=== PATIENT | male | born 1955 | race Caucasian/White ===

== ENCOUNTER → 2018-01-05 11:59 | Outpatient (CLI) | payer BC, SELFPAY ==
[2018-01-05 17:04] LABS: Protein, Urine (Random) 102.4 mg/dL (<11.9); Protein:Creat Ratio 2775 mg/g CRE (0-200)
[2018-01-10 16:09] LABS: PROELU- Alpha-1-Globulin,Ur 5.4 % (.); PROELU- Alpha-2-Globulin,Ur 4.7 % (.); PROELU- Gamma Globulin, Ur 9.9 % (.); Total Protein, Ur 105.9 mg/dL (Not Estab.)
== END ==
PROVIDERS: Visit Provider Internal Medicine Nephrology
DX: R80.9 Proteinuria, unspecified (principal)
CPT/HCPCS: 82570; 84156; 84166

== ENCOUNTER → 2018-03-09 09:37 | Outpatient (CLI) | payer BC, SELFPAY ==
[2018-03-09 12:49] LABS: Hematocrit 36.6 % (40-54); Hemoglobin 12.3 g/dl (13.0-16.5); Mean Corp Hgb Conc 33.6 g/gl (32-36); Mean Corpuscular Hgb 32.7 pg (27.0-32.0); Mean Corpuscular Volume 97.3 fL (80-94); Mean Platelet Vol. 10.3 fl (6.2-12.0); Platelet Count 230 K/mm3 (150-450); RBC Distribution Width CV 14.5 % (11.6-14.6); RBC Distribution Width SD 48.9 fl (35.1-43.9); Red Blood Count 3.76 M/mm3 (4.6-6.2); Scan Indicated on CBC? Y/N NO; White Blood Count 6.1 K/mm3 (4.4-11.0)
[2018-03-09 12:52] LABS: Protein, Urine (Random) 20.8 mg/dL (<11.9); Protein:Creat Ratio 161 mg/g CRE (0-200)
[2018-03-09 13:03] LABS: BUN 28 mg/dL (7-18); BUN/Creat Ratio 14.5 RATIO (10-20); Calcium,Total 9.5 mg/dL (8.5-10.1); Chloride 106 mmol/L (98-107); Creatinine, Serum 1.93 mg/dL (0.70-1.30); EST Glomerular Filtration Rate 38 mL/min (>60); Est Glom Filt Rate - Afr Amer 46 mL/min (>60); Glucose 89 mg/dL (74-106); Phosphorus 3.5 mg/dL (2.5-4.9); Potassium 4.3 mmol/L (3.5-5.1); Sodium Level 140 mmol/L (136-145)
[2018-03-09 13:27] LABS: Uric Acid 5.5 mg/dL (3.5-7.2)
[2018-03-10 14:49] LABS: ANTINUCLEAR ANTIBODIES DIRECT Negative (Negative)
== END ==
PROVIDERS: Family Provider Internal Medicine Gastroenterology; Visit Provider Internal Medicine Nephrology
DX: N18.3 Chronic kidney disease, stage 3 (moderate) (principal); R80.9 Proteinuria, unspecified; M10.9 Gout, unspecified
CPT/HCPCS: 36415; 80069; 82570; 84156; 84550; 85027; 86038

== ENCOUNTER → 2018-08-08 16:15 | Outpatient (CLI) | payer BC, SELFPAY ==
[2018-08-08 17:16] LABS: Hematocrit 36.3 % (40-54); Mean Corp Hgb Conc 33.1 g/gl (32-36); Mean Corpuscular Hgb 33.1 pg (27.0-32.0); Mean Platelet Vol. 10.1 fl (6.2-12.0); Platelet Count 259 K/mm3 (150-450); RBC Distribution Width CV 13.8 % (11.6-14.6); RBC Distribution Width SD 48.6 fl (35.1-43.9); Red Blood Count 3.63 M/mm3 (4.6-6.2); White Blood Count 7.3 K/mm3 (4.4-11.0)
[2018-08-08 17:30] LABS: Albumin, Serum 3.9 g/dL (3.2-5.0); BUN 27 mg/dL (7-18); BUN/Creat Ratio 13.6 RATIO (10-20); Calcium,Total 9.8 mg/dL (8.5-10.1); Chloride 108 mmol/L (98-107); Creatinine, Serum 1.98 mg/dL (0.70-1.30); EST Glomerular Filtration Rate 37 mL/min (>60); Est Glom Filt Rate - Afr Amer 44 mL/min (>60); Glucose 91 mg/dL (74-106); Potassium 4.6 mmol/L (3.5-5.1); Sodium Level 140 mmol/L (136-145)
[2018-08-08 17:41] LABS: PTHIN 25.1 pg/mL (18.4-80.1)
[2018-08-08 17:45] LABS: Scan Indicated on CBC? Y/N NO
--- OUTSIDE RECORDS SUMMARY | 2018-10-04 09:06 | XMS RPT_ITS ---
:1955 Author Organization OH[facility] Care Team Providers Name Role Phone SILVESTRE MCINTOSH Attending Unavailable NEMESIO VALLES Consulting Unavailable GANGEL JR, NATY GENE Attending Unavailable GANGEL JR, NATY GENE Referring Unavailable GANGEL JR, NATY GENE Admitting Unavailable GANGEL JR, NATY GENE Attending Unavailable JOSEPH, EVGENY Consulting Unavailable GANGEL JR, NATY GENE Referring Unavailable Misty Rutledge Attending Unavailable Misty Rutledge Attending Unavailable Jabour, Vincent Primary Care Unavailable Kalyan Rutledgeine Attending Unavailable Jabour, Vincent Primary Care Unavailable Aamir, Misty Attending Unavailable Jabour, Vincent Primary Care Unavailable Aamir, Misty Attending Unavailable Jabour, Vincent Primary Care Unavailable Aamir, Misty Attending Unavailable Jabour, Vincent Primary Care Unavailable Kalyan Rutledgeine Attending Unavailable Jabour, Vincent Primary Care Unavailable Aamir, Misty Attending Unavailable Kalyan Rutledgeine Attending Unavailable [facility] Primary Care Unavailable MAURISIO NATY Admitting Unavailable MAURISIO NATY Attending Unavailable DANIEL ZELAYA Consulting Unavailable BEATRICE ARREOLA Consulting Unavailable Sheela LOZANO Consulting Unavailable JOSEPH, EVGENY Consulting Unavailable PROBLEMS PROBLEMS DATE TYPE CONDITION / CODE ATTENDING STATUS SOURCE 03/09/2018 Unknown R80.9 - Proteinuria, Aamir Misty Active [facility] unspecified / [facility] R80.9(ICD-10) Hospital Repository 06/15/2018 Unknown N18.3 - Chronic Aamir Misty Active [facility] kidney disease, Community stage 3 (moderate) / Hospital N18.3(ICD-10) Repository 11/15/2017 Active Malignant neoplasm NA Active [facility] of right kidney, [facility] except renal pelvis [place] / C64.1(ICD-10) Repository 11/15/2017 Active 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 [facility] unspecified site / [place] C79.9(ICD-10) Repository 10/26/2017 Active Other specified GANGEL JR, Active [facility] postprocedural [facility] Other states / [place] Z98.890(ICD-10) Repository 10/26/2017 Active Acquired absence of GANGEL JR, Active [facility] other specified [facility] Other parts of digestive [place] tract / Repository Z90.49(ICD-10) 10/24/2017 Active Other specified GANGEL JR, Active [facility] disorders of kidney [facility] Other and ureter / [place] N28.89(ICD-10) Repository 10/19/2017 Active Hematuria, MAURISIO TERRY, Active [facility] unspecified / [facility] Other R31.9(ICD-10) [place] Repository 10/19/2017 Active Gross hematuria / MAURISIO TERRY, Active [facility] R31.0(ICD-10) [facility] Other [place] Repository 10/19/2017 Active Encounter for MAURISIO TERRY, Active [facility] preprocedural [facility] Other cardiovascular [place] examination / Repository Z01.810(ICD-10) 10/19/2017 Active Intestinal adhesions MAURISIO TERRY, Active [facility] (bands), with [facility] Other partial obstruction [place] / K56.51(ICD-10) Repository 10/26/2017 Admitting Unknown / GANWILMA, Active [facility] diagnosis UNK(Unknown) [facility] Repository PROCEDURES PROCEDURES No Procedure Records FoundRESULTS RESULTS PROTEIN+CREATININE Collected: Status: F [facility] 10:47 AM [facility] REPOSITORY TYPE CODE TESTS RESULT OUT OF RANGE REFERENCE UNITS LAB L501.1200 NO RANGE EST. mg/dL Normal UR CREAT 171.00 LAB L501.1930 <11.9 mg/dL High 35.4 PROTEIN,UR.R AN. LAB L501.1940 0-200 mg/g CRE High PROT:CRE 207 RATIO Performed By: #### L501.0900 #### [facility] [address] [place], [address] RENAL PROFILE Collected: 08/08/2018 Status: F Source: [place] 4:22 PM [facility] REPOSITORY Order Comment: PT UNABLE TO VOID,GIVEN SUPPLIES. RANGLE TYPE CODE TESTS RESULT OUT OF RANGE REFERENCE UNITS LAB L501.0100 74-106 mg/dL Normal GLU 91 Result Comment: Please note revised GLUCOSE reference range effective 2017. LAB L501.1000 7-18 mg/dL High BUN 27 LAB L501.1100 0.70-1.30 mg/dL High CREAT,SERUM 1.98 Result Comment: The validity of the calculated GFR AND GFRAA in patients over 70 years has not been determined. Clinical correlation is essential. LAB L501.1110 >60 mL/min Low EST GFR 37 Result Comment: Non- GFR Calc LAB L501.1115 >60 mL/min Low EST GFR - AA 44 Result Comment: GFR Calc LAB L501.1300 10-20 RATIO Normal BUN/CRE 13.6 LAB L501.1800 3.2-5.0 g/dL Normal ALB 3.9 LAB L501.2200 8.5-10.1 mg/dL CA Normal 9.8 LAB L501.2300 2.5-4.9 mg/dL Normal PHOS 4.0 LAB L501.5300 136-145 mmol/L NA Normal 140 LAB L501.5600 3.5-5.1 mmol/L K Normal 4.6 LAB L501.5900 98-107 mmol/L High CL 108 LAB L501.6100 21.0-32.0 mmol/L Normal CO2 28.0 Performed By: #### L500.3600 #### [facility] [address] [place], [address] PTHIN Collected: 08/08/2018 Status: F Source: [place] 4:22 PM [facility] REPOSITORY TYPE CODE TESTS RESULT OUT OF RANGE REFERENCE UNITS LAB L509.1000 18.4-80.1 pg/mL Normal PTHIN 25.1 Performed By: #### L509.1000 #### [facility] [address] [place], [address] CBC-COMPLETE BLOOD CNT Collected: 08/08/2018 Status: F Source: [place] NO DIFF 4:22 PM [facility] REPOSITORY TYPE CODE TESTS RESULT OUT OF RANGE REFERENCE UNITS LAB L100.1000 4.4-11.0 K/mm3 Normal WBC 7.3 LAB L100.1200 4.6-6.2 M/mm3 Low RBC 3.63 LAB L100.1300 13.0-16.5 g/dl Low HGB 12.0 LAB L100.1400 40-54 % Low HCT 36.3 LAB L100.1500 80-94 fL High MCV 100.0 LAB L100.1600 27.0-32.0 pg High MCH 33.1 LAB L100.1700 32-36 g/gl Normal MCHC 33.1 LAB L100.1810 11.6-14.6 % Normal RDW CV 13.8 LAB L100.1820 35.1-43.9 fl High RDW SD 48.6 LAB L100.1900 150-450 K/mm3 Normal PLT 259 LAB L100.2000 6.2-12.0 fl Normal MPV 10.1 Performed By: #### L100.0500 #### [facility] [address] [place], [address] PROGRESS Observed: 06/01/2018 Status: COMPLETED Source: [facility] 10:11 AM [facility] REPOSITORY HNO ID: [id number] Author: Naty Forde Jr. Service: (none) Author Type: Physician Type: Progress Notes Filed: 06/01/2018 10:12 AM Note Text: ESTABLISHED PATIENT OFFICE VISIT HPI Juan David Yancey is a 63 year old male who presents 2 weeks sp lap retroperitoneal Right nephrectomy. Doing well. Path discussed. Clear cell rcc t3a margins negative Co some shortness of breath ? 06/01/18 - 6 months out. Doing well. Cr 1.76. Seeing dr. Rutledge with nephrology LAB: Creatinine Date Value Ref Range Status 05/22/2018 1.76 (H) 0.67 - 1.17 mg/dL Final PSA Screening (ng/mL) Date Value 11/28/2012 2.61 Glucose, Urine (mg/dL) Date Value 06/01/2018 neg Bilirubin, Urine (no units) Date Value 06/01/2018 neg Ketones, Urine (no units) Date Value 06/01/2018 neg Specific [place], Ur (no units) Date Value 06/01/2018 1.020 Hemoglobin/Blood,Ur (no units) Date Value 06/01/2018 trace pH, Urine (no units) Date Value 06/01/2018 7.0 Protein, Urine (mg/dL) Date Value 06/01/2018 trace Urobilinogen, Urine (EU) Date Value 06/01/2018 0.2 Nitrites (no units) Date Value 06/01/2018 neg Leukocytes (no units) Date Value 06/01/2018 neg Color/Appearance (comment:) Date Value 06/01/2018 yellow MEDICATIONS: aspirin 325 mg tablet Take 325 mg by mouth once daily. RIVAROXABAN (XARELTO ORAL) Take 20 mg by mouth once daily. allopurinol 100 mg tablet Take 2 tablets by mouth once daily. In 2 weeks, increase to 300mg/day REVIEW OF SYSTEMS Review of Systems Constitutional: Negative. Respiratory: Negative. Cardiovascular: Negative. Gastrointestinal: Negative. Genitourinary: Negative. Skin: Negative. Neurological: Negative. Psychiatric/Behavioral: Negative. HISTORIES PAST MEDICAL HISTORY Diagnosis Date - Avascular necrosis (HCC) bilateral hip replacements d/t avascular necrosis - Blood clot in vein IVC filter placed in 1994 - Bowel disease MUC, colectomy in 1994 - Gout Summer 2011 Clinical Diagnosis in 2011 - Iliac DVT (deep venous thrombosis) (HCC) 11/26/2012 - Ulcerative colitis (HCC) No family history on file. SOCIAL HISTORY Social History Substance Use Topics - Smoking status: Never Smoker - Smokeless tobacco: Never Used - Alcohol use Yes Comment: social PHYSICAL EXAMINATION General appearance: Well appearing, alert, in no acute distress and well-hydrated, well nourished Skin: Skin color, texture, turgor normal, no suspicious rashes or lesions Respiratory:+ effort Cardiovascular: Not examined GI: Normal abdominal exam, Abdomen soft, non-tender. No masses, organomegaly Musculoskeletal: Negative Neuro: Negative Genitourinary: not examined Impression: (C64.1) Renal cell carcinoma of right kidney (HCC) (primary encounter diagnosis) (R19.09) Abdominal mass of other site Plan: Ct flank 6 months Naty Forde Jr, MD 06/01/2018 CNOV Observed: 06/01/2018 Status: COMPLETED Source: [facility] 9:45 AM [facility] REPOSITORY Office Visit (UROLLO) JUAN DAVID YANCEY ([id number]) 1955 M Date Time Provider Department 06/01/18 9:45 AM NATY FORDE JR During your visit today, we recorded the following information about you: Weight Height 111.1 kg 1.854 m Naty Forde Jr, MD 06/01/2018 10:12 AM Signed ESTABLISHED PATIENT OFFICE VISIT HPI Juan David Yancey is a 63 year old male who presents 2 weeks sp lap retroperitoneal Right nephrectomy. Doing well. Path discussed. Clear cell rcc t3a margins negative Co some shortness of breath ? 06/01/18 - 6 months out. Doing well. Cr 1.76. Seeing dr. Rutledge with nephrology LAB: Creatinine Date Value Ref Range Status 05/22/2018 1.76 (H) 0.67 - 1.17 mg/dL Final PSA Screening (ng/mL) Date Value 11/28/2012 2.61 Glucose, Urine (mg/dL) Date Value 06/01/2018 neg Bilirubin, Urine (no units) Date Value 06/01/2018 neg Ketones, Urine (no units) Date Value 06/01/2018 neg Specific [place], Ur (no units) Date Value 06/01/2018 1.020 Hemoglobin/Blood,Ur (no units) Date Value 06/01/2018 trace pH, Urine (no units) Date Value 06/01/2018 7.0 Protein, Urine (mg/dL) Date Value 06/01/2018 trace Urobilinogen, Urine (EU) Date Value 06/01/2018 0.2 Nitrites (no units) Date Value 06/01/2018 neg Leukocytes (no units) Date Value 06/01/2018 neg Color/Appearance (comment:) Date Value 06/01/2018 yellow MEDICATIONS: aspirin 325 mg tablet Take 325 mg by mouth once daily. RIVAROXABAN (XARELTO ORAL) Take 20 mg by mouth once daily. allopurinol 100 mg tablet Take 2 tablets by mouth once daily. In 2 weeks, increase to 300mg/day REVIEW OF SYSTEMS Review of Systems Constitutional: Negative. Respiratory: Negative. Cardiovascular: Negative. Gastrointestinal: Negative. Genitourinary: Negative. Skin: Negative. Neurological: Negative. Psychiatric/Behavioral: Negative. HISTORIES PAST MEDICAL HISTORY Diagnosis Date - Avascular necrosis (HCC) bilateral hip replacements d/t avascular necrosis - Blood clot in vein IVC filter placed in 1994 - Bowel disease MUC, colectomy in 1994 - Gout Summer 2011 Clinical Diagnosis in 2011 - Iliac DVT (deep venous thrombosis) (HCC) 11/26/2012 - Ulcerative colitis (HCC) No family history on file. SOCIAL HISTORY Social History Substance Use Topics - Smoking status: Never Smoker - Smokeless tobacco: Never Used - Alcohol use Yes Comment: social PHYSICAL EXAMINATION General appearance: Well appearing, alert, in no acute distress and well-hydrated, well nourished Skin: Skin color, texture, turgor normal, no suspicious rashes or lesions Respiratory:+ effort Cardiovascular: Not examined GI: Normal abdominal exam, Abdomen soft, non-tender. No masses, organomegaly Musculoskeletal: Negative Neuro: Negative Genitourinary: not examined Impression: (C64.1) Renal cell carcinoma of right kidney (HCC) (primary encounter diagnosis) (R19.09) Abdominal mass of other site Plan: Ct flank 6 months Naty Forde Jr, MD 06/01/2018 Referring Provider: NO PCP [[id number]] Allergies As of Date: 06/01/2018 Noted Allergy Reaction MORPHINE 10/19/2017 9 - Itching PREDNISONE 08/08/2012 14 - Other: See Comments Comments: avascular necrosis, bilat hip replacements Date Reviewed: 06/01/2018 Reviewed by: Naty Forde Jr. - Fully Assessed Reason for Visit: Kidney Problem [61] Primary Visit Diagnosis:Renal cell carcinoma of right kidney (HCC) [C64.1] Other Visit Diagnosis:Abdominal mass of other site [R19.09] Order(s):UA DIP B/O [[id number]] Order #: [id number] CT ABD/PEL WO IVCON [[id number]] Order #: [id number] FUTURE Prescriptions as of 06/01/2018 Sig: ASPIRIN 325 MG TABLET Take 325 mg by mouth once sushil* XARELTO ORAL Take 20 mg by mouth once augustine* ALLOPURINOL 100 MG TABLET Take 2 tablets by mouth once * Patient taking differently: Take 300 mg by mouth once sushil* Problem List As Of Date 06/01/2018 Noted Resolved Blood clot in vein [I82.90] 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 History of total colectomy [Z90.49] INVALID FOR* Renal cell carcinoma of right kidney (HCC) [C64*INVALID FOR* Disposition: Return in about 6 months (around 11/29/2018). Follow-up and Disposition History Recorded Encounter Status:Closed by NATY FORDE MD on 06/01/18 CHEST 2 VIEWS Observed: 05/22/2018 Status: F Source: [facility] 8:08 AM HEALTH SYSTEM REPOSITORY Performed at [facility] APPROVED BY: MCKENNA POSADA MD EXAMINATION: CHEST RADIOGRAPH (2 VIEW FRONTAL & LATERAL) CLINICAL HISTORY: Status post right nephrectomy due to carcinoma. MQ: XC2_5 Comparison: 10/28/2017 RESULT: Heart is normal in size. Atherosclerotic calcifications are present within the thoracic aorta. There is mild scoliosis and multilevel degenerative change seen within the thoracic spine. Bilat eral shoulder DJD. There is no jeane pulmonary consolidation, pleural effusion, pneumothorax, or pulmonary vascular redistribution. There is mild biapical pleural thickening. IMPRESSION: No acute pulmonary process is identified. LIPID PROFILE Collected: 05/22/2018 Status: F Source: [facility] 7:20 AM HEALTH SYSTEM REPOSITORY TYPE CODE TESTS RESULT OUT OF REFERENCE UNITS RANGE LAB LCHOL(LOIN 0-199 mg/dL C) Cholesterol Blood 156 LAB LTRIG(LOIN 0-149 mg/dL C) Triglyceride High Blood 160 LAB LHDL2(LOIN >40 mg/dL C) HDL Cholesterol 50 LAB LLDL(LOINC 0-150 mg/dL ) LDL 74 LAB LCHHD(LOIN 2.1-7.3 C) CHOL/HDL 3.1 LAB LRISK(LOIN C) Risk Factor 3.1 Result Comment: Cardiac Risk Factor The CHD risk factor is based on the total Chol/HDL ratio. Other factors affect CHD risk such as hypertension, smoking, diabetes, severe obesity and premature CHD. Cardiac Risk Total Chol/HDL ratio Men Women 1/2 avg risk 3.4-4.9 3.3-6.3 Avg risk 5.0-9.5 6.4-7.0 2x avg risk 9.6-23.3 7.1-10.9 3x avg risk >23.4 >11.0 Performed By: #### LLIPD #### [place] [address] TSH Collected: 05/22/2018 Status: F Source: [facility] 7:20 HEALTH SYSTEM REPOSITORY TYPE CODE TESTS RESULT OUT OF RANGE REFERENCE UNITS LAB LTSH(LOINC) 0.34-4.82 uIU/mL TSH 1.83 Performed By: #### LTSH #### [place] [address] COMPREHENSIVE PANEL Collected: 05/22/2018 Status: F Source: [facility] 7:20 AM HEALTH SYSTEM REPOSITORY TYPE CODE TESTS RESULT OUT OF REFERENCE UNITS RANGE LAB [employer](LOINC) 136-145 mEq/L Low Sodium Blood 135 LAB LK(LOINC) 3.5-5.1 mEq/L Potassium Blood 4.9 LAB LCL(LOINC) 98-107 mEq/L Chloride High Blood 110 LAB LCO2(LOINC 21-32 mEq/L ) CO2 Blood 27 LAB LGLU(LOINC 70-99 mg/dL ) Glucose Blood 93 LAB LBUN(LOINC 7-25 mg/dL ) BUN Blood 19 LAB LCREA(LOIN 0.67-1.17 mg/dL C) Creatinine High Blood 1.76 LAB LCA(LOINC) 8.5-10.1 mg/dL Calcium Blood 9.4 LAB LALB(LOINC 3.4-5.0 g/dL ) Albumin Blood 3.9 LAB LTP(LOINC) 6.4-8.2 g/dL Total Protein 7.4 LAB LAST(LOINC 15-37 U/L ) AST-SGOT Blood 20 LAB LALT(LOINC 14-63 U/L ) ALT-SGPT Blood 18 LAB LALKP(LOIN 46-116 U/L C) Alk Phosphatase 65 LAB LBILT(LOIN 0.2-1.0 mg/dL C) Total Bilirubin 0.7 LAB LANGP(LOIN 8-20 C) Low Anion Gap 3 LAB LBNCR(LOIN 10-20 C) BUN/Creatinine 11 Ratio Performed By: #### LP14 #### [place] [address] MDRD EGFR Collected: 05/22/2018 Status: F Source: [facility] 7:20 AM [facility] REPOSITORY TYPE CODE TESTS RESULT OUT OF RANGE REFERENCE UNITS LAB LGFRF(LOINC >60mL/min/1.73m ) 2 eGFR 42.02 Result Comment: If the patient is , multiply the result by 1.210. Performed By: #### LGFR #### [facility] [address] [place] [address] CBC-COMPLETE BLOOD CNT Collected: 03/09/2018 Status: F Source: [facility] NO DIFF 9:38 AM [facility] REPOSITORY TYPE CODE TESTS RESULT OUT OF RANGE REFERENCE UNITS LAB L100.1000 4.4-11.0 K/mm3 Normal WBC 6.1 LAB L100.1200 4.6-6.2 M/mm3 Low RBC 3.76 LAB L100.1300 13.0-16.5 g/dl Low HGB 12.3 LAB L100.1400 40-54 % Low HCT 36.6 LAB L100.1500 80-94 fL High MCV 97.3 LAB L100.1600 27.0-32.0 pg High MCH 32.7 LAB L100.1700 32-36 g/gl Normal MCHC 33.6 LAB L100.1810 11.6-14.6 % Normal RDW CV 14.5 LAB L100.1820 35.1-43.9 fl High RDW SD 48.9 LAB L100.1900 150-450 K/mm3 Normal PLT 230 LAB L100.2000 6.2-12.0 fl Normal MPV 10.3 Performed By: #### L100.0500 #### [facility] [address] [place], [place], [address] PROTEIN+CREATININE Collected: Status: F Source: [facility],URINE 03/09/2018 9:38 AM [facility] REPOSITORY TYPE CODE TESTS RESULT OUT OF RANGE REFERENCE UNITS LAB L501.1200 NO RANGE EST. mg/dL Normal UR CREAT 129.00 LAB L501.1930 <11.9 mg/dL High 20.8 PROTEIN,UR.R AN. LAB L501.1940 0-200 mg/g CRE Normal PROT:CRE 161 RATIO Performed By: #### L501.0900 #### [facility] [address], [place], [id number] RENAL PROFILE Collected: 03/09/2018 Status: F Source: [place] 9:38 AM [facility] REPOSITORY TYPE CODE TESTS RESULT OUT OF RANGE REFERENCE UNITS LAB L501.0100 74-106 mg/dL Normal GLU 89 Result Comment: Please note revised GLUCOSE reference range effective 2017. LAB L501.1000 7-18 mg/dL High BUN 28 LAB L501.1100 0.70-1.30 mg/dL High CREAT,SERUM 1.93 Result Comment: The validity of the calculated GFR AND GFRAA in patients over 70 years has not been determined. Clinical correlation is essential. LAB L501.1110 >60 mL/min Low EST GFR 38 Result Comment: Non- GFR Calc LAB L501.1115 >60 mL/min Low EST GFR - AA 46 Result Comment: GFR Calc LAB L501.1300 10-20 RATIO Normal BUN/CRE 14.5 LAB L501.1800 3.2-5.0 g/dL Normal ALB 4.0 LAB L501.2200 8.5-10.1 mg/dL CA Normal 9.5 LAB L501.2300 2.5-4.9 mg/dL Normal PHOS 3.5 LAB L501.5300 136-145 mmol/L NA Normal 140 LAB L501.5600 3.5-5.1 mmol/L K Normal 4.3 LAB L501.5900 98-107 mmol/L CL Normal 106 LAB L501.6100 21.0-32.0 mmol/L Normal CO2 26.0 Performed By: #### L500.3600 #### [facility] [address] [place], [address] URIC ACID Collected: 03/09/2018 Status: F Source: [facility] 9:38 AM [facility] REPOSITORY Order Comment: ADD ON TO SPECIMEN C138 DRAWN BY TNAPIER AT 0938 TYPE CODE TESTS RESULT OUT OF RANGE REFERENCE UNITS LAB L501.1400 3.5-7.2 mg/dL Normal URIC 5.5 Result Comment: The drugs N-Acetylcysteine and Metamizole may falsely depress this assay. Performed By: #### L501.1400 #### [facility] [address] [place], [place], [address] ANTINUCLEAR ANTIBODIES Collected: 03/09/2018 Status: F Source: [facility] 9:38 AM [facility] REPOSITORY TYPE CODE TESTS RESULT OUT OF RANGE REFERENCE UNITS LAB L3100.5475 Negative Normal Negative JOHN-DIRECT Result Comment: Performed at: - [facility] [address] [id number] [employer] Operator: Marco Delcid PhD, Phone: [phone] Performed By: #### L3100.5475 #### [facility] (refer to report for specific site) refer to report for address and phone number PROTEIN+CREATININE Collected: Status: F Source: [facility],URINE 01/05/2018 12:02 PM [facility] REPOSITORY TYPE CODE TESTS RESULT OUT OF RANGE REFERENCE UNITS LAB L501.1200 NO RANGE EST. mg/dL Normal UR CREAT 36.90 LAB L501.1930 <11.9 mg/dL High 102.4 PROTEIN,UR.R AN. LAB L501.1940 0-200 mg/g CRE High PROT:CRE 2775 RATIO Performed By: #### L501.0900 #### [facility] [address] [place], [place], [id number] PROTEIN ELECTRO.UR-RANDOM Collected: Status: F Source: [facility] 01/05/2018 12:02 PM [facility] REPOSITORY TYPE CODE TESTS RESULT OUT OF RANGE REFERENCE UNITS LAB L3600.4100 Not Estab. mg/dL Normal 105.9 PROTEIN,UR LAB L3600.4200 . % Normal 68.0 ALBUMIN,UR LAB L3600.4300 . % Normal 5.4 SLKVC-1-ACZA ,U LAB L3600.4400 . % Normal 4.7 VKALA-3-SDEF ,U LAB L3600.4500 . % Normal BETA 12.0 GLOB,U LAB L3600.4600 . % Normal GAMMA 9.9 GLOB,U LAB L3600.4720 Normal M-SPIKE,U Result Comment: NOT OBSERVED LAB L3600.4800 . Normal NOTE Comment Result Comment: Protein electrophoresis scan will follow via computer, mail, or house superintendent delivery. Performed at: [facility] [id number] [employer] Operator: Marco Delcid PhD, Phone: [phone] Performed By: #### L3600.4000 #### [facility] (refer to report for specific site) refer to report for address and phone number HGB Collected: 11/16/2017 Status: F Source: [facility] 4:07 PM HEALTH SYSTEM REPOSITORY TYPE CODE TESTS RESULT OUT OF RANGE REFERENCE UNITS LAB LHGBI(LOINC 14.0-18.0 g/dL ) Low Hgb 9.1 Performed By: #### LHGBI #### [address] [address] HCT Collected: 11/16/2017 Status: F Source: [facility] 4:07 PM HEALTH SYSTEM REPOSITORY TYPE CODE TESTS RESULT OUT OF RANGE REFERENCE UNITS LAB LHCTI(LOINC 42.0-52.0 % ) Low Hct 28.6 Performed By: #### LHCTI #### [facility] [address] [place] [id number] XR CHEST 2V FRONTAL/LAT Observed: 11/15/2017 Status: F Source: [facility] 1:16 PM [facility] OTHER CAMPUS REPOSITORY * * *Final Report* * * DATE OF EXAM: Nov 15 2017 1:16PM MDX 5291 - XR CHEST 2V FRONTAL/LAT / PROCEDURE REASON: PRIMARY MALIGNANT NEOPLASM OF RIGHT KIDNEY WITH METASTASIS FROM KIDNEY C64.1 * * * * Physician Interpretation * * * * EXAMINATION: CHEST RADIOGRAPH (2 VIEW FRONTAL and LATERAL) Clinical History: Malignant neoplasm of right kidney, except renal pelvis Secondary malignant neoplasm of unspecified site MQ: XC2_4 Comparison: None. RESULT: Lines, tubes, and devices: None. Lungs and pleura: No consolidation. No lung mass. No pleural effusion. Cardiomediastinal silhouette: Normal cardiomediastinal silhouette. Other: The spine shows degenerative changes. IMPRESSION: No acute radiographic abnormality. No mass lesion identified. Risk Specialist: PSCB Transcribe Date/Time: Nov 15 2017 6:00P Dictated by : TERRY BRADSHAW MD This examination was interpreted and the report reviewed and electronically signed by: TERRY BRADSHAW MD on Nov 15 2017 6:01PM EST [id number] Observed: 11/15/2017 Status: COMPLETED Source: [facility] 12:28 PM [facility] REPOSITORY HNO ID: [id number] Author: Naty oFrde Jr. Service: (none) Author Type: Physician Type: Progress Notes Filed: 11/15/2017 12:32 PM Note Text: ESTABLISHED PATIENT OFFICE VISIT HPI Juan David Yancey is a 62 year old male who presents 2 weeks sp lap retroperitoneal Right nephrectomy. Doing well. Path discussed. Clear cell rcc t3a margins negative Co some shortness of breath LAB: Creatinine Date Value Ref Range Status 10/31/2017 1.46 (H) 0.67 - 1.17 mg/dL Final PSA Screening (ng/mL) Date Value 11/28/2012 2.61 Glucose, Urine (mg/dL) Date Value 10/19/2017 see below Bilirubin, Urine (no units) Date Value 10/19/2017 see below Ketones, Urine (mg/dL) Date Value 10/19/2017 see below Specific [place], Ur (no units) Date Value 10/19/2017 1.020 pH, Urine (no units) Date Value 10/19/2017 see below Protein, Urine (mg/dL) Date Value 10/19/2017 see below Urobilinogen, Urine (EU/dL) Date Value 10/19/2017 see below Nitrites Urine (no units) Date Value 10/19/2017 see below WBC, Urine (/hpf) Date Value 10/19/2017 1.0-3 MEDICATIONS: aspirin 325 mg tablet Take 325 mg by mouth once daily. RIVAROXABAN (XARELTO ORAL) Take 20 mg by mouth once daily. allopurinol 100 mg tablet Take 2 tablets by mouth once daily. In 2 weeks, increase to 300mg/day REVIEW OF SYSTEMS Review of Systems Constitutional: Negative. Respiratory: Negative. Cardiovascular: Negative. Gastrointestinal: Negative. Genitourinary: Negative. Skin: Negative. Neurological: Negative. Psychiatric/Behavioral: Negative. HISTORIES PAST MEDICAL HISTORY Diagnosis Date - Avascular necrosis (HCC) bilateral hip replacements d/t avascular necrosis - Blood clot in vein IVC filter placed in 1994 - Bowel disease MUC, colectomy in 1994 - Gout Summer 2011 Clinical Diagnosis in 2011 - Iliac DVT (deep venous thrombosis) (HCC) 11/26/2012 - Ulcerative colitis (HCC) No family history on file. SOCIAL HISTORY Social History Substance Use Topics - Smoking status: Never Smoker - Smokeless tobacco: Never Used - Alcohol use Yes Comment: social PHYSICAL EXAMINATION General appearance: Well appearing, alert, in no acute distress, well-hydrated, well nourished Skin: Skin color, texture, turgor normal, no suspicious rashes or lesions Respiratory:+ effort Cardiovascular: Not examined GI: Normal abdominal exam, Abdomen soft, non-tender. 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 The ADA defines fasting as no caloric intake for at least 8 hours. Fas ting plasma glucose results between 100 to 125 mg/dL indicate increased risk for diabetes (prediabetes). Fasting plasma glucose results greater than or equal to 126 mg/dL meet the criteria for diagnosis of diabetes. In the absence of unequivocal hyperglycemia, results should be confirmed by repeat testing. In a patient with classic symptoms of hyperglycemia or hyperglycemic crisis, random plasma glucose results greater than or equal to 200 mg/dL meet the criteria for diagnosis of diabetes. Reference: Standards of Medical Care in Diabetes 2016, [place] [employer] Association. Diabetes Care. 2016.39(Suppl 1). LAB BUN 9-24 mg/dL BUN 18 LAB CRET 0.73-1.22 mg/dL Creatinine High 2.00 LAB NA 136-144 mmol/L Sodium 139 LAB K 3.7-5.1 mmol/L Potassium 4.8 LAB CL 97-105 mmol/L Chloride 100 LAB CO2 22-30 mmol/L CO2 23 LAB AGAP 9-18 mmol/L Anion Gap 16 LAB CA 8.5-10.2 mg/dL Calcium, Total 10.2 LAB GFRAA eGFR- Amer. 41 LAB GFRNAA . eGFR-All Other Races 34 Result Comment: eGFR (Estimated GFR) Units of measure: mL/min/1.73 meters squared eGFR is derived from the reexpressed MDRD Study equation using the following parameters: serum creatinine, age, gender and race. The creatinine assay has been calibrated to be traceable to IDMS. An eGFR <60 mL/min/1.73m2 for >3 months is consistent with chronic kidney disease. Refer to KDOQI guidelines for clinical interpretation. In patients with unstable renal function, e.g. those with acute kidney injury, the eGFR may not accurately reflect actual GFR. Performed By: #### BMP, HFP #### [facility] [address], [place] [address] HEPATIC FUNCTN PANEL Collected: 11/15/2017 Status: F Source: [place] 12:15 PM [facility] REPOSITORY TYPE CODE TESTS RESULT OUT OF REFERENCE UNITS RANGE LAB ALB 3.9-4.9 g/dL Albumin 4.3 LAB TBIL 0.2-1.3 mg/dL Bilirubin, Total 0.5 LAB CBIL <0.2 mg/dL Bilirubin,Conjuga <0.2 iraj LAB ALKP 36-108 U/L Alkaline Phosphatase 76 LAB AST 14-40 U/L AST 25 LAB ALT 10-54 U/L ALT 11 LAB TP 6.3-8.0 g/dL Protein, Total 7.3 Performed By: #### BMP, HFP #### [facility] [address], [place] [address] CNOV Observed: 11/15/2017 Status: COMPLETED Source: [place] 11:45 AM [facility] REPOSITORY Office Visit (UROLMD) JUAN DAVID YANCEY ([id number]) 1955 M Date Time Provider Department 11/15/17 11:45 AM NATY FORDE JR URODORA During your visit today, we recorded the following information about you: Pulse Respiration Weight Height 62/minute 18/minute 109.7 kg 1.854 m Lucien Carballo 11/15/2017 11:43 AM Signed Patient presents with: Establish Care: 2-3 weeks follow up Naty Forde Jr, MD 11/15/2017 12:32 PM Signed ESTABLISHED PATIENT OFFICE VISIT KALIN Tenamatthew Lanierd is a 62 year old male who presents 2 weeks sp lap retroperitoneal Right nephrectomy. Doing well. Path discussed. Clear cell rcc t3a margins negative Co some shortness of breath LAB: Creatinine Date Value Ref Range Status 10/31/2017 1.46 (H) 0.67 - 1.17 mg/dL Final PSA Screening (ng/mL) Date Value 11/28/2012 2.61 Glucose, Urine (mg/dL) Date Value 10/19/2017 see below Bilirubin, Urine (no units) Date Value 10/19/2017 see below Ketones, Urine (mg/dL) Date Value 10/19/2017 see below Specific [place], Ur (no units) Date Value 10/19/2017 1.020 pH, Urine (no units) Date Value 10/19/2017 see below Protein, Urine (mg/dL) Date Value 10/19/2017 see below Urobilinogen, Urine (EU/dL) Date Value 10/19/2017 see below Nitrites Urine (no units) Date Value 10/19/2017 see below WBC, Urine (/hpf) Date Value 10/19/2017 1.0-3 MEDICATIONS: aspirin 325 mg tablet Take 325 mg by mouth once daily. RIVAROXABAN (XARELTO ORAL) Take 20 mg by mouth once daily. allopurinol 100 mg tablet Take 2 tablets by mouth once daily. In 2 weeks, increase to 300mg/day REVIEW OF SYSTEMS Review of Systems Constitutional: Negative. Respiratory: Negative. Cardiovascular: Negative. Gastrointestinal: Negative. Genitourinary: Negative. Skin: Negative. Neurological: Negative. Psychiatric/Behavioral: Negative. HISTORIES PAST MEDICAL HISTORY Diagnosis Date - Avascular necrosis (HCC) bilateral hip replacements d/t avascular necrosis - Blood clot in vein IVC filter placed in 1994 - Bowel disease MUC, colectomy in 1994 - Gout Summer 2011 Clinical Diagnosis in 2011 - Iliac DVT (deep venous thrombosis) (HCC) 11/26/2012 - Ulcerative colitis (HCC) No family history on file. SOCIAL HISTORY Social History Substance Use Topics - Smoking status: Never Smoker - Smokeless tobacco: Never Used - Alcohol use Yes Comment: social PHYSICAL EXAMINATION General appearance: Well appearing, alert, in no acute distress, well-hydrated, well nourished Skin: Skin color, texture, turgor normal, no suspicious rashes or lesions Respiratory:+ effort Cardiovascular: Not examined GI: Normal abdominal exam, Abdomen soft, non-tender. 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 #:[id number] CREATININE BLD [SQCRET] Order #: [id number] FUTURE BUN BLOOD [SQBUN] Order #: [id number] FUTURE XR CHEST 1V FRONTAL PORT [[id number]] Order #: [id number] FUTURE BASIC METABOLIC PNL [SQBMP] Order #: [id number] FUTURE HEPATIC FUNCTION PNL [SQHFP] Order #: [id number] FUTURE XR CHEST 2V FRONTAL/LAT [[id number]] Order #: [id number] FUTURE Prescriptions as of 11/15/2017 Sig: ASPIRIN 325 MG TABLET Take 325 mg by mouth once sushil* XARELTO ORAL Take 20 mg by mouth once augustine* ALLOPURINOL 100 MG TABLET Take 2 tablets by mouth once * Patient taking differently: Take 300 mg by mouth once sushil* Problem List As Of Date 11/15/2017 Noted Resolved Blood clot in vein [I82.90] 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 History of total colectomy [Z98.890, Z90.49] INVALID FOR* Renal cell carcinoma of right kidney (HCC) [C64*INVALID FOR* Visit Notes: >> Lucien Kempwilbert Nov 15, 2017 11:43 AM Status: Signed Patient presents with: Establish Care: 2-3 weeks follow up Disposition: Return in about 6 months (around 05/18/2018). Follow-up and Disposition History Recorded Encounter Status:Closed by NATY FORDE MD on 11/15/17 CNCO Observed: 11/01/2017 Status: COMPLETED Source: [place] 12:00 AM CLINIC OTHER CAMPUS REPOSITORY Letter Text [facility] General Urology * Pediatric Urology * Renovascular Surgery * Renal and Pancreas Transplantation * Urologic Oncology Adrenal Surgery * Laparoscopic Surgery * Erectile Surgery * Prosthetic Surgery and Genitourethral Reconstruction Laboratory Research * Male Infertility * Calculus Disease * Female Urology and Voiding Dysfunction Naty Forde Jr, MD [address] [place] [address] 11/01/2017 RE: Juan David Yancey To Whom It May Concern, This is to certify that Juan David Yancey has been under my care for a medical condition and was unable to work.. The patient may return to work on 2017 with No Restrictions. Please do not hesitate to contact me with any questions or concerns that may arise. Sincerely yours, Naty Forde Jr, MD (Electronically signed for expedited delivery) PROGRESS Observed: 10/31/2017 Status: COMPLETED Source: [facility] [place] [place] 12:30 PM CLINIC OTHER CAMPUS REPOSITORY O ID: [id number] Author: Daniel Zelaya Service: Nephrology Author Type: Physician Type: Progress Notes Filed: 10/31/2017 7:13 PM Note Text: [facility] Nephrology progress note ? Reason for consultation: BERTHA/post-obstructive ? Chief Complaint: difficulty with urination ? History of Presenting Illness ? 62 year old male presented from [place] for renal mass. Was unable to urinate prior to presentation. Mendoza was placed draining bright red blood. Was on blood thinner. No previous history, but reports hematuria x 2 weeks. No personal or family history of malignancy. No previous prostate or urinary issues. On Xarelto for DVTs. On CBI. Per nursing, was unable to drain overnight. She reports significant clotting removed. Still needing irrigated Q 3hrs. is making NPO after midnight-? Surgery as inpatient vs outpatient f/u. Additional home meds include ASA and Allopurinol. No FRANCK/ARB or diuretic. Also presently on NS at 125/hr. BP was 186/94 on admit. Today is 135/74 Creat on admit was 2.55, today is 2.58. UA with 1-3 WBC, >100RBC (partially resulted?) Baseline unknown, <1 2012. Patient denies any issues with renal function in past. States has hx UC, hip replacments d/t avascular necrosis from steroid use, DVT with IVC filter placement, PCI. No HTN or DM. Nephrology has been c/s for BERTHA Interval progess note Doing ok Cr improving Baseline ? BP ok No SOB +LE swelling-stable. ROS (-) unless above No change in the PFSH ? Past Medical/Surgical History ? PAST MEDICAL HISTORY PAST MEDICAL HISTORY Diagnosis Date - Avascular necrosis (HCC) bilateral hip replacements d/t avascular necrosis - Blood clot in vein IVC filter placed in 1994 - Bowel disease ? ? MUC, colectomy in 1994 - Gout Summer 2011 ? 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 ? PAST SURGICAL HISTORY PAST SURGICAL HISTORY Procedure Laterality Date - COLECTOMY PARTIAL W ANASTOM ? ? - ILEOSTOMY ? ? ? closed - TOTAL HIP REPLACEMENT ? ? ? bilateral- castro ? ? ? Review of Systems ? All 12 systems reviewed and are negative except for what is mentioned in the HPI. ? Medications ? Prescriptions Prior to Admission ? Prescriptions Prior to Admission: aspirin 325 mg tablet Take 325 mg by mouth once daily. Disp: Rfl: ? RIVAROXABAN (XARELTO ORAL) Take 20 mg by mouth once daily. Disp: Rfl: ? allopurinol 100 mg tablet Take 2 tablets by mouth once daily. In 2 weeks, increase to 300mg/day Disp: 60 tablet Rfl: 2 ? ? ? CURRENT MEDICATIONS ? Current Facility-Administered Medications: oxybutynin 5 mg tab(s) (DITROPAN) 5 mg ORAL TID amLODIPine 10 mg tab(s) (NORVASC) 10 mg ORAL DAILY NaCl 0.9% irrigation solution 3,000 mL IRRIGATION CONTINUOUS allopurinol 200 mg tab(s) (ZYLOPRIM) 200 mg ORAL DAILY NaCl 0.9% iv infusion 125 mL/hr INTRAVENOUS CONTINUOUS acetaminophen 650 mg tab(s) (TYLENOL) 650 mg ORAL q 4 H PRN oxyCODONE-acetaminophen 5-325 mg 1-2 tablet (PERCOCET) 1-2 tablet ORAL q 4 H PRN morphine 2-4 mg injection 2-4 mg INTRAVENOUS q 2 H PRN ondansetron (PF) 4 mg injection (ZOFRAN) 4 mg INTRAVENOUS q 6 H PRN docusate sodium 100 mg cap(s) (COLACE) 100 mg ORAL BID ceFAZolin 1 g in dextrose (iso-osmotic) 50 mL (ANCEF, KEFZOL) 1 g INTRAVENOUS q 8 H belladonna-opium 16.2-60 mg 1 Suppository suppository (B and O 16-A) 1 Suppository RECTAL TID PRN ? ? Allergies ? Morphine; Prednisone ? ? Family History ? Negative for Kidney Disease FAMILY HISTORY No family history on file. ? Social History ? SOCIAL HISTORY Social History Marital status: Spouse name: Years of education: Number of children: ? Social History Main Topics Smoking status: Never Smoker ? Smokeless status: Never Used Alcohol use: Yes Comment: social Drug use: No ? ? Physical Exam ? BP 141/68 Pulse 72 Temp 36.8 ?C (98.2 ?F) (Oral) Resp 18 Ht 185.4 cm (6' 1) Wt 117.9 kg (260 lb) SpO2 99% BMI 34.3 kg/m2 ? ? General: NAD, Comfortable appearing, cooperative to history and physical exam. Head: AT NC Neck: Supple, no jvd Chest: B/L clear, no crackles, no accessory muscles usage. CV: RRR, no murmurs or rubs Abdomen: NT, ND, soft Extremities: 1+ B/L peripheral edema, no tremor Neurological: Moving all four extremities, no focal neurological deficit Psychiatric: Normal insight and judgement, good recall ? Data ? CBC: Recent Labs 10/31/17 0325 WBC 6.92 RBC 2.41* HB 7.7* HCT 23.6* PLT 144 MCV 97.9* MCH 32.0 MPV 9.9 RDW 15.1* CMP: Recent Labs 10/31/17 0325 NA 137 K 3.5 CHLOR 106 CO2 25 BUN 14 CREAT 1.46* GLUC 93 CA 8.9 CXR EXAM TITLE: CHEST 1 VIEW ? DATE: 10/20/2017 06:09 ? INDICATION: ?Patient history of renal mass. ? COMPARISON: None. ? Portable frontal view of the chest shows heart size to be normal. ? Pulmonary vascularity is normal. ? Lungs are clear. No infiltrates or effusions. ? No obvious acute bony abnormality is evident. There is evidence of old left clavicle fracture. ? IMPRESSION: ? No acute findings radiographically. Assessment: 1. BERTHA-acute vs acute/chronic, likely 2/2 obstruction 2. Renal mass( right renal ) s/p right nephrectomy 3. Hematuria- from RCC ? 4. Anemia from acute blood loss 5. H/o Ulcerative colitis + 6. DVT history ? Plan: Creat stable S/P right nephrectomy 10/28 Expect the left kidney to clam picker the functioning Some increase in the cr up to 30 % will be expected Encourage PO intake. Educated regarding <2g Na diet at D/C. Hgb stable-continue to follow. Edema is d/w him If not better, will benefit from lasix Since from near bill( needs to f/u with Dr mendoza for the post nephrectomy CKD care) He is aware is aware too Ok for dc from renal standpoint today. PLAN OF CARE Observed: 10/31/2017 Status: COMPLETED Source: [place] 10:12 AM [facility] REPOSITORY HNO ID: [id number] Author: Sabina Moreira ([employer]) Service: (none) Author Type: (none) Type: Plan of Care Filed: 10/31/2017 10:13 AM Note Text: Pharmacy Discharge Medication Service: This patient has elected to receive their discharge prescriptions through the [facility] Bedside Prescription Delivery program. The prescriptions are currently being processed. Patient and his will clam picker their order from the Outpatient Pharmacy. Please contact me with any questions or updates to the patient's discharge medications. Sabina Moreira ([employer]) DCT Contact Info: [phone] PLAN OF CARE Observed: 10/31/2017 Status: COMPLETED Source: [place] 10:11 AM [facility] REPOSITORY HNO ID: [id number] Author: Sabina Moreira ([employer]) Service: (none) Author Type: (none) Type: Plan of Care Filed: 10/31/2017 10:12 AM Note Text: MEDICAID BILLING SPECIALIST BEDSIDE DELIVERY SURVEY 1. Patient to use [facility] Bedside Delivery - YES 2. If fax, patient would like us to fax prescriptions to Pharmacy of choice a. Pharmacy: b. Location: c. Phone: 3. Insurance card on file - YES 4. Credit card for payment - YES Percocet 01/2325 mg Contact Sabina at [phone] with questions prior to discharge CNDS Observed: 10/31/2017 Status: COMPLETED Source: [place] 6:59 AM [facility] OTHER CAMPUS REPOSITORY O ID: [id number] Author: Franklyn Nicole Service: Urology Author Type: Resident Type: Discharge Summaries Filed: 10/31/2017 7:04 AM Note Text: Attestation signed by Naty Forde Jr. at 10/31/2017 9:38 AM I saw and evaluated the patient. Discussed with the resident and agree with resident's findings and plan as documented in the resident's note. Naty Forde Jr, MD DISCHARGE SUMMARY PATIENT NAME: Juan David Yancey ADMISSION DATE: 10/19/2017 DISCHARGE DATE: 10/31/2017 Attending Physician: Naty Forde Jr. Reason for Hospitalization: Hematuria, clot retention, renal mass Principal Problem: Right renal mass Active Problems: Hematuria History of total colectomy Resolved Problems: * No resolved hospital problems. * Operations During Hospitalization: C+P, Right ureteroscopy, Right stent placement; R lap retro nephrectomy Hospital Course: Patient was admitted for hematuria and clot retention. He was on xarelto for history of blood clots. Medicine and cardiology were consulted for assistance in management and pre-op clearance. Large Right renal mass was found on workup. He was taken to OR 10/21/17 for ureteroscopy and stent placement which showed mass invading collecting system causing extrav. His urine slowly cleared up post-op. Given his large mass, hematuria and need for anticoagulation, decision was made to take patient to operating room while admitted for R nephrectomy. Patient was agreeable with plan. He received 3U intraop. Patient was transferred to the recovery unit and then to the regular nursing floor. Diet was slowly advanced as tolerated. Activity level was gradually increased. Pain was controlled on oral medications. The patient was then deemed fit for discharge on 10/31/17 with plans to restart anticoagulation 1 week post-op Labs and Procedures Pending at Discharge: No pending results. Consulting Teams During Hospitalization: Cardiology and Medicine Patient Condition @ Discharge: Stable Discharge Disposition: Home/Self Care Information Provided to Patient: See discharge instructions Discharge Medications: Current Discharge Medication List START taking these medications oxyCODONE-acetaminophen (PERCOCET) 1 tablet Take 1 tablet by mouth every 6 hours as needed for Pain. Earliest Fill Date: 10/31/17 Qty: 20 tablet Refills: 0 Associated Diagnoses:Right renal mass CONTINUE these medications which have NOT CHANGED aspirin 325 mg Take 325 mg by mouth once daily. RIVAROXABAN (XARELTO ORAL) 20 mg Take 20 mg by mouth once daily. allopurinol (ZYLOPRIM) 200 mg Take 200 mg by mouth once daily. In 2 weeks, increase to 300mg/day Qty: 60 tablet Refills: 2 Future Appointments: Follow Up with Dr Forde in 1 week TIME OF CARE: Discharge Management: I personally spent less than 30 minutes involved in the discharge management of this patient. SIGNATURE: Franklyn Nicole MD DATE: October 31, 2017 TIME: 6:59 AM PROGRESS Observed: 10/31/2017 Status: COMPLETED Source: [facility] [place] 6:53 AM CLINIC OTHER CAMPUS REPOSITORY O ID: [id number] Author: Franklyn Nicole Service: Urology Author Type: Resident Type: Progress Notes Filed: 10/31/2017 6:56 AM Note Text: Attestation signed by Naty Forde Jr. at 10/31/2017 9:37 AM I saw and evaluated the patient. Discussed with the resident and agree with resident's findings and plan as documented in the resident's note. Naty Forde Jr, MD UROLOGY PROGRESS NOTE PATIENT NAME: Juan David Yancey DATE OF : 1955 ADMISSION DATE: 10/19/2017 8:33 PM TODAY'S DATE: 10/24/2017 Subjective Pain controlled Had BM, passing gas Feels well, wants to go home Objective VS: BP 127/61 Pulse 83 Temp 36.9 ?C (98.4 ?F) (Temporal Artery) Resp 18 Ht 185.4 cm (6' 1) Wt 117.9 kg (260 lb) SpO2 97% BMI 34.3 kg/m2 I AND O - 24hr: Intake/Output Summary (Last 24 hours) at 10/31/17 0653 Last data filed at 10/31/17 0300 Gross per 24 hour Intake 600 ml Output 0 ml Net 600 ml Physical Exam: General: Neck: Resp: Abdomen: No acute distress Supple Normal effort Soft, ATTP, nondistended; incision with steri c/d/i : No mendoza Labs and Imaging Studies LABS: BMP: Glucose (mg/dL) Date Value 10/31/2017 93 Potassium (mEq/L) Date Value 10/31/2017 3.5 Sodium (mEq/L) Date Value 10/31/2017 137 Chloride (mEq/L) Date Value 10/31/2017 106 CO2 (mEq/L) Date Value 10/31/2017 25 Creatinine (mg/dL) Date Value 10/31/2017 1.46 BUN (mg/dL) Date Value 10/31/2017 14 Anion Gap (no units) Date Value 10/28/2017 9 Calcium (mg/dL) Date Value 10/31/2017 8.9 CBC: Hemoglobin (g/dL) Date Value 11/30/2012 10.6 HGB (g/dL) Date Value 10/31/2017 7.7 Hematocrit (%) Date Value 10/31/2017 23.6 WBC (thou/cmm) Date Value 10/31/2017 6.92 Platelet Count (thou/cmm) Date Value 10/31/2017 144 Urinalysis: pH, Arterial Date Value Ref Range Status 10/28/2017 7.331 (L) 7.350 - 7.450 Final Specific [place], Ur Date Value Ref Range Status 10/19/2017 1.020 1.005 - 1.030 Final Glucose, Urine Date Value Ref Range Status 10/19/2017 see below Negative mg/dL Final Comment: Color abnormal- some macroscopic not done. Bilirubin, Urine Date Value Ref Range Status 10/19/2017 see below Negative Final Comment: Color abnormal- some macroscopic not done. Ketones, Urine Date Value Ref Range Status 10/19/2017 see below Negative mg/dL Final Comment: Color abnormal- some macroscopic not done. Protein, Urine Date Value Ref Range Status 10/19/2017 see below Negative mg/dL Final Comment: Color abnormal- some macroscopic not done. Urobilinogen, Urine Date Value Ref Range Status 10/19/2017 see below 0.0 - 1.0 EU/dL Final Comment: Color abnormal- some macroscopic not done. Nitrites Urine Date Value Ref Range Status 10/19/2017 see below Negative Final Comment: Color abnormal- some macroscopic not done. WBC, Urine Date Value Ref Range Status 10/19/2017 1.0-3 0.0 - 5.0 /hpf Final Urine Culture: Urine Culture (no units) Date Value 10/20/2017 No growth RADIOLOGY: Renal ultrasound: CLINICAL INDICATION/HISTORY: Renal mass; surgical planning ? TECHNIQUE: Scanning was performed by the technologist. ?Images were saved in a permanent archive (PACS). ? RESULTS: ? RIGHT KIDNEY: ?13.2 x 6.6 x 5.3 cm ? No evidence of hydronephrosis No shadowing calculus or perinephric fluid collection is seen. ? Along the posterior aspect of the superior pole there is a fairly isoechoic solid-appearing mass measuring 4.3 x 3.4 x 4.4 cm. ?No additional abnormality of the right kidney is seen. No cysts are seen. ? ? LEFT KIDNEY: ? 12.9 x 6.1 x 4.2 cm ? No evidence of hydronephrosis No shadowing calculus or perinephric fluid collection is seen. ? There are no masses which distort the renal cortical outlines. No cysts are seen. ? ? Urinary bladder is collapsed because of Mendoza catheter.. ? IMPRESSION: ? ? 1. ?4.4 cm mass of the right kidney at the superior pole, posterior aspect. ?This should be considered renal cell carcinoma unless proven otherwise. ?This corresponds to the mass seen on CT. ?No evidence of hydronephrosis. ?If the patient would be able, a contrast-enhanced CT or MRI could offer better evaluation ?of the kidneys ? 2. ?Left kidney is unremarkable as visualized Renal scan DIURETIC RENAL SCAN: ? CLINICAL HISTORY: hydronephrosis ? TECHNIQUE: 10.1 mCi Tc 99m MAG3 IV. ?Medications and allergies reviewed. ?40 ?mg Lasix was given IV at ?30 minutes. Imaging of the kidneys for flow and function obtained in posterior views. ? ? RESULT: ? RENAL PERFUSION: There is prompt perfusion to the left kidney. There is decreased perfusion to the right kidney. ? ? RENAL FUNCTION: ? There is reasonable uptake and parenchymal transit by the left kidney. ?There is spontaneous drainage of activity by the left kidney. ?Following Lasix there is further clearance with no evidence of obstruction. ?Mild retention in the post void images. ?No scintigraphic evidence to suggest obstruction on the left. ? ? There is decreased and delayed uptake and delayed parenchymal transit by the right ?kidney. ?There is delayed drainage of activity by the right kidney with progressive accumulation of tracer. ?Following Lasix there is poor clearance. Post ?Lasix t- half?clearance time is significantly prolonged with an essentially flat renogram curve. ?Findings suggestive of obstruction. ? ? By computer analysis, the contribution to total renal function is 85% from the left kidney, and 15% from the right kidney. ? IMPRESSION: ? LEFT KIDNEY: RELATIVELY BETTER FLOW AND FUNCTION AND DRAINAGE COMPARED TO THE RIGHT. ?NO SCINTIGRAPHIC EVIDENCE OF OBSTRUCTION ON THE LEFT. ? RIGHT KIDNEY: DECREASED FLOW AND FUNCTION AND DELAYED DRAINAGE. ?FINDINGS SUGGESTIVE OF OBSTRUCTION ON THE RIGHT. ? SPLIT FUNCTION: LEFT KIDNEY 85% AND RIGHT KIDNEY 15% Assessment and Plan ASSESSMENT: 62 year old male 7cm R renal mass POD 3 R lap retroperitoneal nephrectomy PLAN: -Cr stable -Hgb stable -Continue subq heparin -DC home today, restart xarelto on tuesday Franklyn Nicole MD HEMOGRAM/DIFF Collected: 10/31/2017 Status: F Source: [facility] 3:25 AM [facility] SYSTEM REPOSITORY TYPE CODE TESTS RESULT OUT OF REFERENCE UNITS RANGE LAB WBC(LOINC) 4.23-9.07 thou/cmm WBC 6.92 LAB RBC(LOINC) 4.63-6.08 mil/cmm Low RBC 2.41 LAB HGB(LOINC) 13.7-17.5 g/dL Low Hgb 7.7 LAB HCT(LOINC) 40.1-51.0 % Low Hct 23.6 LAB MCV(LOINC) 83.2-95.6 fl MCV High 97.9 LAB MCH(LOINC) 25.7-32.2 pg MCH 32.0 LAB MCHC(LOINC 32.3-36.5 % ) MCHC 32.6 LAB RDW(LOINC) 11.6-14.4 % RDW High 15.1 LAB RDWSD(LOIN 36.1-45.8 fl C) RDW SD High 54.3 LAB PLT(LOINC) 141-365 thou/cmm Platelet 144 LAB MPV(LOINC) 8.7-12.0 fl MPV 9.9 LAB SEG(LOINC) % Seg Neutrophil 77.5 LAB IGRE(LOINC % ) Immature Grans 0.70 LAB LYMPH(LOIN % C) Lymphocyte 8.8 LAB MNO(LOINC) % Monocyte 10.0 LAB EOSIN(LOIN % C) Eosinophil 2.7 LAB BASO(LOINC % ) Basophil 0.3 LAB SEGN(LOINC 1.78-5.38 thou/cmm ) Abs. Neut 5.36 LAB IGAB(LOINC 0.00-0.05 thou/cmm ) Abs Immature Grans 0.05 LAB LYMN(LOINC 0.84-2.85 thou/cmm ) Low Abs. Lymph 0.61 LAB MONON(LOIN 0.30-0.82 thou/cmm C) Abs. Jack 0.69 LAB EOSN(LOINC 0.04-0.54 thou/cmm ) Abs. Eosin 0.19 LAB BASON(LOIN 0.01-0.08 thou/cmm C) Abs. Baso 0.02 Performed By: #### CBCD1 #### [place] [address] RENAL PANEL Collected: 10/31/2017 Status: F Source: [facility] 3:25 AM HEALTH SYSTEM REPOSITORY TYPE CODE TESTS RESULT OUT OF REFERENCE UNITS RANGE LAB NA(LOINC) 136-145 mEq/L Sodium Blood 137 LAB K(LOINC) 3.5-5.1 mEq/L Potassium Blood 3.5 LAB CL(LOINC) 98-107 mEq/L Chloride Blood 106 LAB CO2(LOINC) 21-32 mEq/L CO2 Blood 25 LAB GLU(LOINC) 70-99 mg/dL Glucose Blood 93 LAB BUN(LOINC) 7-18 mg/dL BUN Blood 14 LAB CREA(LOINC 0.67-1.17 mg/dL ) High Creatinine Blood 1.46 LAB CA(LOINC) 8.5-10.1 mg/dL Calcium Blood 8.9 LAB ALB(LOINC) 3.4-5.0 g/dL Low Albumin Blood 3.0 LAB PHOS(LOINC 2.5-4.9 mg/dL ) Phosphorus Blood 2.6 Performed By: #### RENAL #### [place] [address] MDRD GFR Collected: 10/31/2017 Status: F Source: [facility] 3:25 AM HEALTH SYSTEM REPOSITORY TYPE CODE TESTS RESULT OUT OF RANGE REFERENCE UNITS LAB GFRFN(LOINC >60mL/min/1.73m ) 2 eGFR 49.14 Result Comment: If the patient is , multiply the result by 1.210. Performed By: #### GFR #### [facility] [address] [place] [address] NUTRITION Observed: 10/30/2017 Status: COMPLETED Source: [facility] 4:13 PM CLINIC OTHER CAMPUS REPOSITORY HNO ID: [id number] Author: Sidra Cristobal) ROGELIO Dodw Service: Nutrition Therapy Author Type: Registered Dietitian Type: Nutrition Filed: 10/30/2017 4:17 PM Note Text: NUTRITION THERAPY SCREENING NOTE SERVICE DATE: 10/30/2017 SERVICE TIME: 4:13 PM NUTRITION CARE PLAN Patient's weight is stable and nutritional intake is adequate. Patient is not at risk for malnutrition at this time. Intervention: None at this time. Pt eats well when he is on a diet. May want to add supplements if he gets any surgery. Screening referral for los. Discharge Nutrition Recommendations: Diet: regular Present Diet Order: Regular Admission Weight: 117.9 kg (260 lb) Current Weight: 117.9 kg (260 lb) Body mass index is 34.3 kg/(m2). class 1 obesity Weight has increased by 7.6 kg over 5 years. He also has been having urinary retention. Last 4 Encounter Wt Readings: Date: Wt: 10/19/2017 117.9 kg (260 lb) 12/13/2012 110.3 kg (243 lb 1.6 oz) 11/24/2012 113.6 kg (250 lb 6.4 oz) 08/08/2012 110.9 kg (244 lb 9.6 oz) MNT Billing Type: Routine Care/15 min 2 units SIGNATURE: Sidra Dowd RD PATIENT NAME: Juan David Yancey DATE: October 30, 2017 TIME: 4:13 PM PAGER: [phone] PROGRESS Observed: 10/30/2017 Status: COMPLETED Source: [facility] 8:57 AM [facility] [place] REPOSITORY HNO ID: [id number] Author: Georgina Caba Service: Nephrology Author Type: Physician Type: Progress Notes Filed: 10/30/2017 3:32 PM Note Text: [facility] Nephrology progress note ? Reason for consultation: BERTHA/post-obstructive ? Chief Complaint: difficulty with urination ? History of Presenting Illness ? 62 year old male presented from [place] for renal mass. Was unable to urinate prior to presentation. Mendoza was placed draining bright red blood. Was on blood thinner. No previous history, but reports hematuria x 2 weeks. No personal or family history of malignancy. No previous prostate or urinary issues. On Xarelto for DVTs. On CBI. Per nursing, was unable to drain overnight. She reports significant clotting removed. Still needing irrigated Q 3hrs. is making NPO after midnight-? Surgery as inpatient vs outpatient f/u. Additional home meds include ASA and Allopurinol. No FRANCK/ARB or diuretic. Also presently on NS at 125/hr. BP was 186/94 on admit. Today is 135/74 Creat on admit was 2.55, today is 2.58. UA with 1-3 WBC, >100RBC (partially resulted?) Baseline unknown, <1 2012. Patient denies any issues with renal function in past. States has hx UC, hip replacments d/t avascular necrosis from steroid use, DVT with IVC filter placement, PCI. No HTN or DM. Nephrology has been c/s for BERTHA Interval progess note Doing ok Cr improving Baseline ? BP ok No SOB +LE swelling-stable. ROS (-) unless above No change in the PFSH ? Past Medical/Surgical History ? PAST MEDICAL HISTORY PAST MEDICAL HISTORY Diagnosis Date - Avascular necrosis (HCC) bilateral hip replacements d/t avascular necrosis - Blood clot in vein IVC filter placed in 1994 - Bowel disease ? ? MUC, colectomy in 1994 - Gout Summer 2011 ? 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 ? PAST SURGICAL HISTORY PAST SURGICAL HISTORY Procedure Laterality Date - COLECTOMY PARTIAL W ANASTOM ? ? - ILEOSTOMY ? ? ? closed - TOTAL HIP REPLACEMENT ? ? ? bilateral- castro ? ? ? Review of Systems ? All 12 systems reviewed and are negative except for what is mentioned in the HPI. ? Medications ? Prescriptions Prior to Admission ? Prescriptions Prior to Admission: aspirin 325 mg tablet Take 325 mg by mouth once daily. Disp: Rfl: ? RIVAROXABAN (XARELTO ORAL) Take 20 mg by mouth once daily. Disp: Rfl: ? allopurinol 100 mg tablet Take 2 tablets by mouth once daily. In 2 weeks, increase to 300mg/day Disp: 60 tablet Rfl: 2 ? ? ? CURRENT MEDICATIONS ? Current Facility-Administered Medications: oxybutynin 5 mg tab(s) (DITROPAN) 5 mg ORAL TID amLODIPine 10 mg tab(s) (NORVASC) 10 mg ORAL DAILY NaCl 0.9% irrigation solution 3,000 mL IRRIGATION CONTINUOUS allopurinol 200 mg tab(s) (ZYLOPRIM) 200 mg ORAL DAILY NaCl 0.9% iv infusion 125 mL/hr INTRAVENOUS CONTINUOUS acetaminophen 650 mg tab(s) (TYLENOL) 650 mg ORAL q 4 H PRN oxyCODONE-acetaminophen 5-325 mg 1-2 tablet (PERCOCET) 1-2 tablet ORAL q 4 H PRN morphine 2-4 mg injection 2-4 mg INTRAVENOUS q 2 H PRN ondansetron (PF) 4 mg injection (ZOFRAN) 4 mg INTRAVENOUS q 6 H PRN docusate sodium 100 mg cap(s) (COLACE) 100 mg ORAL BID ceFAZolin 1 g in dextrose (iso-osmotic) 50 mL (ANCEF, KEFZOL) 1 g INTRAVENOUS q 8 H belladonna-opium 16.2-60 mg 1 Suppository suppository (B and O 16-A) 1 Suppository RECTAL TID PRN ? ? Allergies ? Morphine; Prednisone ? ? Family History ? Negative for Kidney Disease FAMILY HISTORY No family history on file. ? Social History ? SOCIAL HISTORY Social History Marital status: Spouse name: Years of education: Number of children: ? Social History Main Topics Smoking status: Never Smoker ? Smokeless status: Never Used Alcohol use: Yes Comment: social Drug use: No ? ? Physical Exam ? BP 150/66 Pulse 84 Temp 36.9 ?C (98.4 ?F) (Oral) Resp 18 Ht 185.4 cm (6' 1) Wt 117.9 kg (260 lb) SpO2 95% BMI 34.3 kg/m2 ? ? General: NAD, Comfortable appearing, cooperative to history and physical exam. Head: AT NC Neck: Supple, no jvd Chest: B/L clear, no crackles, no accessory muscles usage. CV: RRR, no murmurs or rubs Abdomen: NT, ND, soft Extremities: 1+ B/L peripheral edema, no tremor Neurological: Moving all four extremities, no focal neurological deficit Psychiatric: Normal insight and judgement, good recall ? Data ? CBC: Recent Labs 10/30/17 0527 WBC 7.41 RBC 2.40* HB 7.8* HCT 23.0* PLT 134* MCV 95.8* MCH 32.5* MPV 10.4 RDW 15.6* CMP: Recent Labs 10/30/17 0527 NA 139 K 3.8 CHLOR 106 CO2 22 BUN 14 CREAT 1.46* GLUC 88 CA 8.4* CXR EXAM TITLE: CHEST 1 VIEW ? DATE: 10/20/2017 06:09 ? INDICATION: ?Patient history of renal mass. ? COMPARISON: None. ? Portable frontal view of the chest shows heart size to be normal. ? Pulmonary vascularity is normal. ? Lungs are clear. No infiltrates or effusions. ? No obvious acute bony abnormality is evident. There is evidence of old left clavicle fracture. ? IMPRESSION: ? No acute findings radiographically. Assessment: 1. BERTHA-acute vs acute/chronic, likely 2/2 obstruction 2. Renal mass( right renal ) s/p right nephrectomy 3. Hematuria- from RCC ? 4. Anemia from acute blood loss 5. H/o Ulcerative colitis + 6. DVT history ? Plan: Creat improving. S/P right nephrectomy 2 Expect the left kidney to clam picker the functioning Some increase in the cr up to 30 % will be expected Encourage PO intake. Educated regarding <2g Na diet at D/C. Hgb stable-continue to follow. No change from renal standpoint today. PROGRESS Observed: 10/30/2017 Status: COMPLETED Source: [facility] 8:28 AM [facility] REPOSITORY O ID: [id number] Author: Franklyn Nicole Service: Urology Author Type: Resident Type: Progress Notes Filed: 10/30/2017 8:30 AM Note Text: Attestation signed by Naty Forde Jr. at 10/30/2017 11:09 AM I saw and evaluated the patient. Discussed with the resident and agree with resident's findings and plan as documented in the resident's note. Naty Forde Jr, MD UROLOGY PROGRESS NOTE PATIENT NAME: Juan David Yancey DATE OF : 1955 ADMISSION DATE: 10/19/2017 8:33 PM TODAY'S DATE: 10/24/2017 Subjective Pain controlled No flatus/BM or nausea/vomiting Up in chair this morning Objective VS: BP 150/66 Pulse 84 Temp 36.9 ?C (98.4 ?F) (Oral) Resp 18 Ht 185.4 cm (6' 1) Wt 117.9 kg (260 lb) SpO2 95% BMI 34.3 kg/m2 I AND O - 24hr: Intake/Output Summary (Last 24 hours) at 10/30/17 0828 Last data filed at 10/30/17 0500 Gross per 24 hour Intake 640 ml Output 1145 ml Net -505 ml Physical Exam: General: Neck: Resp: Abdomen: No acute distress Supple Normal effort Soft, ATTP, nondistended; incision with steri c/d/i : No mendoza Labs and Imaging Studies LABS: BMP: Glucose (mg/dL) Date Value 10/30/2017 88 Potassium (mEq/L) Date Value 10/30/2017 3.8 Sodium (mEq/L) Date Value 10/30/2017 139 Chloride (mEq/L) Date Value 10/30/2017 106 CO2 (mEq/L) Date Value 10/30/2017 22 Creatinine (mg/dL) Date Value 10/30/2017 1.46 BUN (mg/dL) Date Value 10/30/2017 14 Anion Gap (no units) Date Value 10/28/2017 9 Calcium (mg/dL) Date Value 10/30/2017 8.4 CBC: Hemoglobin (g/dL) Date Value 11/30/2012 10.6 HGB (g/dL) Date Value 10/30/2017 7.8 Hematocrit (%) Date Value 10/30/2017 23.0 WBC (thou/cmm) Date Value 10/30/2017 7.41 Platelet Count (thou/cmm) Date Value 10/30/2017 134 Urinalysis: pH, Arterial Date Value Ref Range Status 10/28/2017 7.331 (L) 7.350 - 7.450 Final Specific [place], Ur Date Value Ref Range Status 10/19/2017 1.020 1.005 - 1.030 Final Glucose, Urine Date Value Ref Range Status 10/19/2017 see below Negative mg/dL Final Comment: Color abnormal- some macroscopic not done. Bilirubin, Urine Date Value Ref Range Status 10/19/2017 see below Negative Final Comment: Color abnormal- some macroscopic not done. Ketones, Urine Date Value Ref Range Status 10/19/2017 see below Negative mg/dL Final Comment: Color abnormal- some macroscopic not done. Protein, Urine Date Value Ref Range Status 10/19/2017 see below Negative mg/dL Final Comment: Color abnormal- some macroscopic not done. Urobilinogen, Urine Date Value Ref Range Status 10/19/2017 see below 0.0 - 1.0 EU/dL Final Comment: Color abnormal- some macroscopic not done. Nitrites Urine Date Value Ref Range Status 10/19/2017 see below Negative Final Comment: Color abnormal- some macroscopic not done. WBC, Urine Date Value Ref Range Status 10/19/2017 1.0-3 0.0 - 5.0 /hpf Final Urine Culture: Urine Culture (no units) Date Value 10/20/2017 No growth RADIOLOGY: Renal ultrasound: CLINICAL INDICATION/HISTORY: Renal mass; surgical planning ? TECHNIQUE: Scanning was performed by the technologist. ?Images were saved in a permanent archive (PACS). ? RESULTS: ? RIGHT KIDNEY: ?13.2 x 6.6 x 5.3 cm ? No evidence of hydronephrosis No shadowing calculus or perinephric fluid collection is seen. ? Along the posterior aspect of the superior pole there is a fairly isoechoic solid-appearing mass measuring 4.3 x 3.4 x 4.4 cm. ?No additional abnormality of the right kidney is seen. No cysts are seen. ? ? LEFT KIDNEY: ? 12.9 x 6.1 x 4.2 cm ? No evidence of hydronephrosis No shadowing calculus or perinephric fluid collection is seen. ? There are no masses which distort the renal cortical outlines. No cysts are seen. ? ? Urinary bladder is collapsed because of Mendoza catheter.. ? IMPRESSION: ? ? 1. ?4.4 cm mass of the right kidney at the superior pole, posterior aspect. ?This should be considered renal cell carcinoma unless proven otherwise. ?This corresponds to the mass seen on CT. ?No evidence of hydronephrosis. ?If the patient would be able, a contrast-enhanced CT or MRI could offer better evaluation ?of the kidneys ? 2. ?Left kidney is unremarkable as visualized Renal scan DIURETIC RENAL SCAN: ? CLINICAL HISTORY: hydronephrosis ? TECHNIQUE: 10.1 mCi Tc 99m MAG3 IV. ?Medications and allergies reviewed. ?40 ?mg Lasix was given IV at ?30 minutes. Imaging of the kidneys for flow and function obtained in posterior views. ? ? RESULT: ? RENAL PERFUSION: There is prompt perfusion to the left kidney. There is decreased perfusion to the right kidney. ? ? RENAL FUNCTION: ? There is reasonable uptake and parenchymal transit by the left kidney. ?There is spontaneous drainage of activity by the left kidney. ?Following Lasix there is further clearance with no evidence of obstruction. ?Mild retention in the post void images. ?No scintigraphic evidence to suggest obstruction on the left. ? ? There is decreased and delayed uptake and delayed parenchymal transit by the right ?kidney. ?There is delayed drainage of activity by the right kidney with progressive accumulation of tracer. ?Following Lasix there is poor clearance. Post ?Lasix t- half?clearance time is significantly prolonged with an essentially flat renogram curve. ?Findings suggestive of obstruction. ? ? By computer analysis, the contribution to total renal function is 85% from the left kidney, and 15% from the right kidney. ? IMPRESSION: ? LEFT KIDNEY: RELATIVELY BETTER FLOW AND FUNCTION AND DRAINAGE COMPARED TO THE RIGHT. ?NO SCINTIGRAPHIC EVIDENCE OF OBSTRUCTION ON THE LEFT. ? RIGHT KIDNEY: DECREASED FLOW AND FUNCTION AND DELAYED DRAINAGE. ?FINDINGS SUGGESTIVE OF OBSTRUCTION ON THE RIGHT. ? SPLIT FUNCTION: LEFT KIDNEY 85% AND RIGHT KIDNEY 15% Assessment and Plan ASSESSMENT: 62 year old male 7cm R renal mass POD 2 R lap retroperitoneal nephrectomy PLAN: -Cr stable -Hgb stable -Continue subq heparin -Advance activity -Await bowel function, once passing flatus and PO intake improved will discharge Franklyn Nicole MD HEMOGRAM/DIFF Collected: 10/30/2017 Status: F Source: [facility] 5:27 AM HEALTH SYSTEM REPOSITORY TYPE CODE TESTS RESULT OUT OF REFERENCE UNITS RANGE LAB WBC(LOINC) 4.23-9.07 thou/cmm WBC 7.41 LAB RBC(LOINC) 4.63-6.08 mil/cmm Low RBC 2.40 LAB HGB(LOINC) 13.7-17.5 g/dL Low Hgb 7.8 LAB HCT(LOINC) 40.1-51.0 % Low Hct 23.0 LAB MCV(LOINC) 83.2-95.6 fl MCV High 95.8 LAB MCH(LOINC) 25.7-32.2 pg MCH High 32.5 LAB MCHC(LOINC 32.3-36.5 % ) MCHC 33.9 LAB RDW(LOINC) 11.6-14.4 % RDW High 15.6 LAB RDWSD(LOIN 36.1-45.8 fl C) RDW SD High 54.4 LAB PLT(LOINC) 141-365 thou/cmm Low Platelet 134 LAB MPV(LOINC) 8.7-12.0 fl MPV 10.4 LAB SEG(LOINC) % Seg Neutrophil 80.6 LAB IGRE(LOINC % ) Immature Grans 0.70 LAB LYMPH(LOIN % C) Lymphocyte 7.6 LAB MNO(LOINC) % Monocyte 8.8 LAB EOSIN(LOIN % C) Eosinophil 2.0 LAB BASO(LOINC % ) Basophil 0.3 LAB SEGN(LOINC 1.78-5.38 thou/cmm ) Abs. High Neut 5.97 LAB IGAB(LOINC 0.00-0.05 thou/cmm ) Abs Immature Grans 0.05 LAB LYMN(LOINC 0.84-2.85 thou/cmm ) Low Abs. Lymph 0.56 LAB MONON(LOIN 0.30-0.82 thou/cmm C) Abs. Jack 0.65 LAB EOSN(LOINC 0.04-0.54 thou/cmm ) Abs. Eosin 0.15 LAB BASON(LOIN 0.01-0.08 thou/cmm C) Abs. Baso 0.02 Performed By: #### CBCD1 #### [place] [address] RENAL PANEL Collected: 10/30/2017 Status: F Source: [facility] 5:27 AM HEALTH SYSTEM REPOSITORY TYPE CODE TESTS RESULT OUT OF REFERENCE UNITS RANGE LAB NA(LOINC) 136-145 mEq/L Sodium Blood 139 LAB K(LOINC) 3.5-5.1 mEq/L Potassium Blood 3.8 LAB CL(LOINC) 98-107 mEq/L Chloride Blood 106 LAB CO2(LOINC) 21-32 mEq/L CO2 Blood 22 LAB GLU(LOINC) 70-99 mg/dL Glucose Blood 88 LAB BUN(LOINC) 7-18 mg/dL BUN Blood 14 LAB CREA(LOINC 0.67-1.17 mg/dL ) High Creatinine Blood 1.46 LAB CA(LOINC) 8.5-10.1 mg/dL Low Calcium Blood 8.4 LAB ALB(LOINC) 3.4-5.0 g/dL Low Albumin Blood 2.8 LAB PHOS(LOINC 2.5-4.9 mg/dL ) Low Phosphorus Blood 2.2 Performed By: #### RENAL #### [place] [address] MDRD GFR Collected: 10/30/2017 Status: F Source: [facility] 5:27 AM HEALTH SYSTEM REPOSITORY TYPE CODE TESTS RESULT OUT OF RANGE REFERENCE UNITS LAB GFRFN(LOINC >60mL/min/1.73m ) 2 eGFR 49.14 Result Comment: If the patient is , multiply the result by 1.210. Performed By: #### GFR #### [facility] [address] [place] [address] PROGRESS Observed: 10/29/2017 Status: COMPLETED Source: [facility] 8:58 AM CLINIC OTHER CAMPUS REPOSITORY HNO ID: [id number] Author: Georgina Caba Service: Nephrology Author Type: Physician Type: Progress Notes Filed: 10/29/2017 5:24 PM Note Text: [facility] Nephrology progress note ? Reason for consultation: BERTHA/post-obstructive ? Chief Complaint: difficulty with urination ? History of Presenting Illness ? 62 year old male presented from [place] for renal mass. Was unable to urinate prior to presentation. Mendoza was placed draining bright red blood. Was on blood thinner. No previous history, but reports hematuria x 2 weeks. No personal or family history of malignancy. No previous prostate or urinary issues. On Xarelto for DVTs. On CBI. Per nursing, was unable to drain overnight. She reports significant clotting removed. Still needing irrigated Q 3hrs. is making NPO after midnight-? Surgery as inpatient vs outpatient f/u. Additional home meds include ASA and Allopurinol. No FRANCK/ARB or diuretic. Also presently on NS at 125/hr. BP was 186/94 on admit. Today is 135/74 Creat on admit was 2.55, today is 2.58. UA with 1-3 WBC, >100RBC (partially resulted?) Baseline unknown, <1 2012. Patient denies any issues with renal function in past. States has hx UC, hip replacments d/t avascular necrosis from steroid use, DVT with IVC filter placement, PCI. No HTN or DM. Nephrology has been c/s for BERTHA Interval progess note Doing ok Cr stable. Baseline ? BP ok Poor PO intake. No SOB Mendoza D/C this AM. ROS (-) unless above No change in the PFSH ? Past Medical/Surgical History ? PAST MEDICAL HISTORY PAST MEDICAL HISTORY Diagnosis Date - Avascular necrosis (HCC) bilateral hip replacements d/t avascular necrosis - Blood clot in vein IVC filter placed in 1994 - Bowel disease ? ? MUC, colectomy in 1994 - Gout Summer 2011 ? 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 ? PAST SURGICAL HISTORY PAST SURGICAL HISTORY Procedure Laterality Date - COLECTOMY PARTIAL W ANASTOM ? ? - ILEOSTOMY ? ? ? closed - TOTAL HIP REPLACEMENT ? ? ? bilateral- castro ? ? ? Review of Systems ? All 12 systems reviewed and are negative except for what is mentioned in the HPI. ? Medications ? Prescriptions Prior to Admission ? Prescriptions Prior to Admission: aspirin 325 mg tablet Take 325 mg by mouth once daily. Disp: Rfl: ? RIVAROXABAN (XARELTO ORAL) Take 20 mg by mouth once daily. Disp: Rfl: ? allopurinol 100 mg tablet Take 2 tablets by mouth once daily. In 2 weeks, increase to 300mg/day Disp: 60 tablet Rfl: 2 ? ? ? CURRENT MEDICATIONS ? Current Facility-Administered Medications: oxybutynin 5 mg tab(s) (DITROPAN) 5 mg ORAL TID amLODIPine 10 mg tab(s) (NORVASC) 10 mg ORAL DAILY NaCl 0.9% irrigation solution 3,000 mL IRRIGATION CONTINUOUS allopurinol 200 mg tab(s) (ZYLOPRIM) 200 mg ORAL DAILY NaCl 0.9% iv infusion 125 mL/hr INTRAVENOUS CONTINUOUS acetaminophen 650 mg tab(s) (TYLENOL) 650 mg ORAL q 4 H PRN oxyCODONE-acetaminophen 5-325 mg 1-2 tablet (PERCOCET) 1-2 tablet ORAL q 4 H PRN morphine 2-4 mg injection 2-4 mg INTRAVENOUS q 2 H PRN ondansetron (PF) 4 mg injection (ZOFRAN) 4 mg INTRAVENOUS q 6 H PRN docusate sodium 100 mg cap(s) (COLACE) 100 mg ORAL BID ceFAZolin 1 g in dextrose (iso-osmotic) 50 mL (ANCEF, KEFZOL) 1 g INTRAVENOUS q 8 H belladonna-opium 16.2-60 mg 1 Suppository suppository (B and O 16-A) 1 Suppository RECTAL TID PRN ? ? Allergies ? Morphine; Prednisone ? ? Family History ? Negative for Kidney Disease FAMILY HISTORY No family history on file. ? Social History ? SOCIAL HISTORY Social History Marital status: Spouse name: Years of education: Number of children: ? Social History Main Topics Smoking status: Never Smoker ? Smokeless status: Never Used Alcohol use: Yes Comment: social Drug use: No ? ? Physical Exam ? BP 124/67 Pulse 68 Temp 36.6 ?C (97.9 ?F) (Temporal Artery) Resp 16 Ht 185.4 cm (6' 1) Wt 117.9 kg (260 lb) SpO2 93% BMI 34.3 kg/m2 ? ? General: NAD, Comfortable appearing, cooperative to history and physical exam. Head: AT NC Neck: Supple, no jvd Chest: B/L clear, no crackles, no accessory muscles usage. CV: RRR, no murmurs or rubs Abdomen: NT, ND, soft Extremities: 1+ B/L peripheral edema, no tremor Neurological: Moving all four extremities, no focal neurological deficit Psychiatric: Normal insight and judgement, good recall ? Data ? CBC: Recent Labs 10/29/17 0510 WBC 8.02 RBC 2.41* HB 7.7* HCT 23.5* PLT 131* MCV 97.5* MCH 32.0 MPV 10.3 RDW 15.9* CMP: Recent Labs 10/29/17 0510 NA 139 K 3.8 CHLOR 110* CO2 23 BUN 14 CREAT 1.59* GLUC 85 CA 8.2* CXR EXAM TITLE: CHEST 1 VIEW ? DATE: 10/20/2017 06:09 ? INDICATION: ?Patient history of renal mass. ? COMPARISON: None. ? Portable frontal view of the chest shows heart size to be normal. ? Pulmonary vascularity is normal. ? Lungs are clear. No infiltrates or effusions. ? No obvious acute bony abnormality is evident. There is evidence of old left clavicle fracture. ? IMPRESSION: ? No acute findings radiographically. Assessment: 1. BERTHA-acute vs acute/chronic, likely 2/2 obstruction 2. Renal mass( right renal ) 3. Hematuria- from RCC ? 4. Anemia from acute blood loss 5. H/o Ulcerative colitis + 6. DVT history ? Plan: Creat stable. S/P Resection renal mass 10/28 Expect the left kidney to clam picker the functioning Some increase in the cr up to 30 % will be expected D/C IVF. S/P Mendoza D/C 2/17. Close monitoring needed No change from renal standpoint today. PROGRESS Observed: 10/29/2017 Status: COMPLETED Source: [facility] 8:01 AM [facility] REPOSITORY HNO ID: [id number] Author: Franklyn Nicole Service: Urology Author Type: Resident Type: Progress Notes Filed: 10/29/2017 8:04 AM Note Text: Attestation signed by Naty Forde Jr. at 10/29/2017 12:29 PM I saw and evaluated the patient. Discussed with the resident and agree with resident's findings and plan as documented in the resident's note. Naty Forde Jr, MD UROLOGY PROGRESS NOTE PATIENT NAME: Juan David Yancey DATE OF : 1955 ADMISSION DATE: 10/19/2017 8:33 PM TODAY'S DATE: 10/24/2017 Subjective Pain well controlled on minimal pain meds No flatus/BM or nausea/vomiting In bed overnight, wants to get out to chair today Urine clear this AM Objective VS: BP 133/65 Pulse 69 Temp 36.6 ?C (97.9 ?F) (Temporal Artery) Resp 16 Ht 185.4 cm (6' 1) Wt 117.9 kg (260 lb) SpO2 98% BMI 34.3 kg/m2 I AND O - 24hr: Intake/Output Summary (Last 24 hours) at 10/29/17800 Last data filed at 10/28/171952 Gross per 24 hour Intake 3340 ml Output 2270 ml Net 1070 ml Physical Exam: General: Neck: Resp: Abdomen: No acute distress Supple Normal effort Soft, non-tender, nondistended : 16Fr mendoza clear yellow Labs and Imaging Studies LABS: BMP: Glucose (mg/dL) Date Value 10/29/2017 85 Potassium (mEq/L) Date Value 10/29/2017 3.8 Sodium (mEq/L) Date Value 10/29/2017 139 Chloride (mEq/L) Date Value 10/29/2017 110 CO2 (mEq/L) Date Value 10/29/2017 23 Creatinine (mg/dL) Date Value 10/29/2017 1.59 BUN (mg/dL) Date Value 10/29/2017 14 Anion Gap (no units) Date Value 10/28/2017 9 Calcium (mg/dL) Date Value 10/29/2017 8.2 CBC: Hemoglobin (g/dL) Date Value 11/30/2012 10.6 HGB (g/dL) Date Value 10/29/2017 7.7 Hematocrit (%) Date Value 10/29/2017 23.5 WBC (thou/cmm) Date Value 10/29/2017 8.02 Platelet Count (thou/cmm) Date Value 10/29/2017 131 Urinalysis: pH, Arterial Date Value Ref Range Status 10/28/2017 7.331 (L) 7.350 - 7.450 Final Specific [place], Ur Date Value Ref Range Status 10/19/2017 1.020 1.005 - 1.030 Final Glucose, Urine Date Value Ref Range Status 10/19/2017 see below Negative mg/dL Final Comment: Color abnormal- some macroscopic not done. Bilirubin, Urine Date Value Ref Range Status 10/19/2017 see below Negative Final Comment: Color abnormal- some macroscopic not done. Ketones, Urine Date Value Ref Range Status 10/19/2017 see below Negative mg/dL Final Comment: Color abnormal- some macroscopic not done. Protein, Urine Date Value Ref Range Status 10/19/2017 see below Negative mg/dL Final Comment: Color abnormal- some macroscopic not done. Urobilinogen, Urine Date Value Ref Range Status 10/19/2017 see below 0.0 - 1.0 EU/dL Final Comment: Color abnormal- some macroscopic not done. Nitrites Urine Date Value Ref Range Status 10/19/2017 see below Negative Final Comment: Color abnormal- some macroscopic not done. WBC, Urine Date Value Ref Range Status 10/19/2017 1.0-3 0.0 - 5.0 /hpf Final Urine Culture: Urine Culture (no units) Date Value 10/20/2017 No growth RADIOLOGY: Renal ultrasound: CLINICAL INDICATION/HISTORY: Renal mass; surgical planning ? TECHNIQUE: Scanning was performed by the technologist. ?Images were saved in a permanent archive (PACS). ? RESULTS: ? RIGHT KIDNEY: ?13.2 x 6.6 x 5.3 cm ? No evidence of hydronephrosis No shadowing calculus or perinephric fluid collection is seen. ? Along the posterior aspect of the superior pole there is a fairly isoechoic solid-appearing mass measuring 4.3 x 3.4 x 4.4 cm. ?No additional abnormality of the right kidney is seen. No cysts are seen. ? ? LEFT KIDNEY: ? 12.9 x 6.1 x 4.2 cm ? No evidence of hydronephrosis No shadowing calculus or perinephric fluid collection is seen. ? There are no masses which distort the renal cortical outlines. No cysts are seen. ? ? Urinary bladder is collapsed because of Mendoza catheter.. ? IMPRESSION: ? ? 1. ?4.4 cm mass of the right kidney at the superior pole, posterior aspect. ?This should be considered renal cell carcinoma unless proven otherwise. ?This corresponds to the mass seen on CT. ?No evidence of hydronephrosis. ?If the patient would be able, a contrast-enhanced CT or MRI could offer better evaluation ?of the kidneys ? 2. ?Left kidney is unremarkable as visualized Renal scan DIURETIC RENAL SCAN: ? CLINICAL HISTORY: hydronephrosis ? TECHNIQUE: 10.1 mCi Tc 99m MAG3 IV. ?Medications and allergies reviewed. ?40 ?mg Lasix was given IV at ?30 minutes. Imaging of the kidneys for flow and function obtained in posterior views. ? ? RESULT: ? RENAL PERFUSION: There is prompt perfusion to the left kidney. There is decreased perfusion to the right kidney. ? ? RENAL FUNCTION: ? There is reasonable uptake and parenchymal transit by the left kidney. ?There is spontaneous drainage of activity by the left kidney. ?Following Lasix there is further clearance with no evidence of obstruction. ?Mild retention in the post void images. ?No scintigraphic evidence to suggest obstruction on the left. ? ? There is decreased and delayed uptake and delayed parenchymal transit by the right ?kidney. ?There is delayed drainage of activity by the right kidney with progressive accumulation of tracer. ?Following Lasix there is poor clearance. Post ?Lasix t- half?clearance time is significantly prolonged with an essentially flat renogram curve. ?Findings suggestive of obstruction. ? ? By computer analysis, the contribution to total renal function is 85% from the left kidney, and 15% from the right kidney. ? IMPRESSION: ? LEFT KIDNEY: RELATIVELY BETTER FLOW AND FUNCTION AND DRAINAGE COMPARED TO THE RIGHT. ?NO SCINTIGRAPHIC EVIDENCE OF OBSTRUCTION ON THE LEFT. ? RIGHT KIDNEY: DECREASED FLOW AND FUNCTION AND DELAYED DRAINAGE. ?FINDINGS SUGGESTIVE OF OBSTRUCTION ON THE RIGHT. ? SPLIT FUNCTION: LEFT KIDNEY 85% AND RIGHT KIDNEY 15% Assessment and Plan ASSESSMENT: 62 year old male 7cm R renal mass POD 1 R lap retroperitoneal nephrectomy PLAN: -Cr stable -Hgb 7.7 from 8.4, cont to monitor -DC mendoza today -Continue subq heparin -Advance activity, slowly advance diet Franklyn Nicole MD HEMOGRAM Collected: 10/29/2017 Status: F Source: [facility] 5:10 AM [facility] REPOSITORY TYPE CODE TESTS RESULT OUT OF REFERENCE UNITS RANGE LAB WBC(LOINC) 4.23-9.07 thou/cmm WBC 8.02 LAB RBC(LOINC) 4.63-6.08 mil/cmm Low RBC 2.41 LAB HGB(LOINC) 13.7-17.5 g/dL Low Hgb 7.7 LAB HCT(LOINC) 40.1-51.0 % Low Hct 23.5 LAB MCV(LOINC) 83.2-95.6 fl High MCV 97.5 LAB MCH(LOINC) 25.7-32.2 pg MCH 32.0 LAB MCHC(LOINC) 32.3-36.5 % MCHC 32.8 LAB RDW(LOINC) 11.6-14.4 % High RDW 15.9 LAB RDWSD(LOINC 36.1-45.8 fl ) High RDW SD 56.9 LAB PLT(LOINC) 141-365 thou/cmm Low Platelet 131 LAB MPV(LOINC) 8.7-12.0 fl MPV 10.3 Performed By: #### CBC1 #### [place] [address] RENAL PANEL Collected: 10/29/2017 Status: F Source: [facility] 5:10 AM [facility] REPOSITORY TYPE CODE TESTS RESULT OUT OF REFERENCE UNITS RANGE LAB NA(LOINC) 136-145 mEq/L Sodium Blood 139 LAB K(LOINC) 3.5-5.1 mEq/L Potassium Blood 3.8 LAB CL(LOINC) 98-107 mEq/L Chloride High Blood 110 LAB CO2(LOINC) 21-32 mEq/L CO2 Blood 23 LAB GLU(LOINC) 70-99 mg/dL Glucose Blood 85 LAB BUN(LOINC) 7-18 mg/dL BUN Blood 14 LAB CREA(LOINC 0.67-1.17 mg/dL ) High Creatinine Blood 1.59 LAB CA(LOINC) 8.5-10.1 mg/dL Low Calcium Blood 8.2 LAB ALB(LOINC) 3.4-5.0 g/dL Low Albumin Blood 2.7 LAB PHOS(LOINC 2.5-4.9 mg/dL ) Phosphorus Blood 3.4 Performed By: #### RENAL #### [place] [address] MDRD GFR Collected: 10/29/2017 Status: F Source: [facility] 5:10 AM HEALTH SYSTEM REPOSITORY TYPE CODE TESTS RESULT OUT OF RANGE REFERENCE UNITS LAB GFRFN(LOINC >60mL/min/1.73m ) 2 eGFR 44.53 Result Comment: If the patient is , multiply the result by 1.210. Performed By: #### GFR #### [facility] [address] [place], [place] [address] OPERATIVE NO Observed: 10/29/2017 Status: COMPLETED Source: [facility] 12:00 AM CLINIC OTHER CAMPUS REPOSITORY HNO ID: [id number] Author: Naty Forde Jr. Service: (none) Author Type: Physician Type: Operative Report Filed: 10/29/2017 12:27 PM Note Text: [facility] - Operative Report SURGEON: Naty Forde Jr, MD PATIENT NAME: JUAN DAVID YANCEY CSN: [id number] DATE OF SURGERY: 10/28/2017 DATE OF : 1955 SEX/AGE: M/62 PATIENT TYPE: I [facility]OSP [facility] [place] LOCATION: [facility] DATE OF SURGERY: 10/28/2017 SURGEON: Naty Forde Jr, MD PREOPERATIVE DIAGNOSES: Right renal mass and gross hematuria. POSTOPERATIVE DIAGNOSES: Right renal mass and gross hematuria. PROCEDURE: Right retroperitoneal laparoscopic radical nephrectomy. COMPLICATIONS: None. ANESTHESIA: General. HISTORY AND PROCEDURE: Juan David Yancey is a 62-year-old gentleman presented with gross hematuria, was found to have a large right renal mass. Ureteroscopy and pyelograms revealed that the renal mass was nonurothelial in origin and had embedded the collecting system and it was bleeding into the collecting system. The patient was in the hospital, unable to be discharged secondary to the recurrent gross hematuria, so the patient was counseled on options for management and he elected for removal in the operating room. After being explained the risks, benefits, alternatives of procedure, the patient was correctly marked and correctly identified, taken the operative suite, placed on the table in a supine position. General anesthesia was induced. The patient was then placed into a full right flank position. The patient was prepped and draped in the normal sterile fashion after all bony prominences were appropriately padded. We gained access to the right retroperitoneum. The small incision on the patient's right flank to the 12th rib and the ASIS. Electrocautery and blunt dissection were used to access this space. Once the appropriate space was entered on top of the psoas behind the right kidney, blunt finger dissection was used to create a space. The space maker was then placed in the retroperitoneum and it was inflated several times. We were then able to place the laparoscopic camera trocar into this location. We looked around it. We safely entered the appropriate location. We then placed 2 other 12 mm ports, 1 just off the supraspinous muscle and then another 1 close to the abdomen after we had swept away the peritoneum. Next, dissection was carried using electrocautery and blunt dissection along the psoas towards the posterior aspect of the hilum. Careful dissection was used to expose the hilar vessels. We encountered out the 1st usual. We used clips to ligate the right renal artery. We were then able to dissect out the IVC and subsequently the large right renal vein. The renal vein was then subsequently once safely dissected out taken with an endovascular stapler. The gonadal vessels were found and they were ligated as well. Next, we attempted to find the ureter, however, we were unsuccessful, so we just continued with the dissection of the rest of the kidney. The kidney was very adhered anteriorly due to prior surgeries and because of the renal mass and also medially, we were able to safely dissect out most of the kidney. Once again, we looked for the ureter inferiorly. However, we were unable to find it so at this point, we made connected the incision in the patient's right flank with the incision the patient's right abdomen I was able to put my hand in the right retroperitoneum. There were few last attachments that needed to be divided. The ureter was eventually found. Once we were able to fully retract the kidney, this was the ureter was then clipped and cut and divided. The kidney was then safely removed from the patient. We used sterile saline in the right retroperitoneum. There was some general oozing in the right retroperitoneum. We placed FloSeal and Surgicel in the right retroperitoneum. The fascia was then closed with 1-0 PDS in a running fashion in 3 layers and then the subcuticular tissue was closed with 4-0 Vicryl and all skin incisions were closed with 4-0 Monocryl in a subcuticular fashion. The patient was then reversed from anesthesia, having tolerated the procedure well, and afterwards was taken to the postoperative care unit for recovery. Naty Forde Jr, MD Urology MG:britt Thomas: 10/29/2017 09:34:54 /[id number] ANES POST Observed: 10/28/2017 Status: COMPLETED Source: [facility] 10:53 PM [facility] REPOSITORY HNO ID: [id number] Author: Jose Godoy Service: Anesthesiology Author Type: Physician Type: Anesthesia PostOp Filed: 10/28/2017 10:53 PM Note Text: POST ANESTHESIA EVALUATION NOTE SERVICE DATE: 10/28/2017 SERVICE TIME: 10:53 PM : 1955 Vitals: 10/28/17 1500 10/28/17 1600 10/28/17 1655 10/28/171952 Temp: 36 ?C (96.8 ?F) 36 ?C (96.8 ?F) 36.3 ?C (97.3 ?F) 36 ?C (96.8 ?F) 10/28/17 16110/28/17 1630 10/28/17 16510/28/171952 BP: 112/62 116/66 129/63 118/63 10/28/17 1615 10/28/17 1630 10/28/17 1655 10/28/171952 Pulse: (!) 58 65 64 66 10/28/17 1615 10/28/17 1630 10/28/17 1655 10/28/171952 Resp: 13 14 16 16 10/28/17 1615 10/28/17 1630 10/28/17 16510/28/171952 SpO2: 99% 99% 95% 98% Validated Vital Signs: Yes POST ANES STATUS: No apparent anesthetic complications. The patient is appropriately hydrated with stable respiratory and cardiovascular status. Patient has safe and adequate airway control. The patient has appropriate pain relief and no significant post operative nausea or vomiting. The patient has achieved baseline mental status. Further assessment by Anesthesia Service: None Other Remarks: SIGNATURE: Jose Godoy MD PATIENT NAME: Juan David Yancey DATE: October 28, 2017 TIME: 10:53 PM PAGER/CONTACT #: PROGRESS Observed: 10/28/2017 Status: COMPLETED Source: [facility] 4:31 PM [facility] REPOSITORY HNO ID: [id number] Author: Daniel Zelaya Service: Nephrology Author Type: Physician Type: Progress Notes Filed: 10/28/2017 4:34 PM Note Text: [facility] Nephrology progress note ? Reason for consultation: BERTHA/post-obstructive ? Chief Complaint: difficulty with urination ? History of Presenting Illness ? 62 year old male presented from [facility] for renal mass. Was unable to urinate prior to presentation. Mendoza was placed draining bright red blood. Was on blood thinner. No previous history, but reports hematuria x 2 weeks. No personal or family history of malignancy. No previous prostate or urinary issues. On Xarelto for DVTs. On CBI. Per nursing, was unable to drain overnight. She reports significant clotting removed. Still needing irrigated Q 3hrs. is making NPO after midnight-? Surgery as inpatient vs outpatient f/u. Additional home meds include ASA and Allopurinol. No FRANCK/ARB or diuretic. Also presently on NS at 125/hr. BP was 186/94 on admit. Today is 135/74 Creat on admit was 2.55, today is 2.58. UA with 1-3 WBC, >100RBC (partially resulted?) Baseline unknown, <1 2012. Patient denies any issues with renal function in past. States has hx UC, hip replacments d/t avascular necrosis from steroid use, DVT with IVC filter placement, PCI. No HTN or DM. Nephrology has been c/s for BERTHA Interval progess note Doing ok Cr stable. S/P Diuretic renal scan 10/25. Baseline ? +CBI BP ok Reports OK PO intake. No SOB Surgical plans for today ROS (-) unless above No change in the PFSH ? Past Medical/Surgical History ? PAST MEDICAL HISTORY PAST MEDICAL HISTORY Diagnosis Date - Avascular necrosis (HCC) bilateral hip replacements d/t avascular necrosis - Blood clot in vein IVC filter placed in 1994 - Bowel disease ? ? MUC, colectomy in 1994 - Gout Summer 2011 ? 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 ? PAST SURGICAL HISTORY PAST SURGICAL HISTORY Procedure Laterality Date - COLECTOMY PARTIAL W ANASTOM ? ? - ILEOSTOMY ? ? ? closed - TOTAL HIP REPLACEMENT ? ? ? bilateral- castro ? ? ? Review of Systems ? All 12 systems reviewed and are negative except for what is mentioned in the HPI. ? Medications ? Prescriptions Prior to Admission ? Prescriptions Prior to Admission: aspirin 325 mg tablet Take 325 mg by mouth once daily. Disp: Rfl: ? RIVAROXABAN (XARELTO ORAL) Take 20 mg by mouth once daily. Disp: Rfl: ? allopurinol 100 mg tablet Take 2 tablets by mouth once daily. In 2 weeks, increase to 300mg/day Disp: 60 tablet Rfl: 2 ? ? ? CURRENT MEDICATIONS ? Current Facility-Administered Medications: oxybutynin 5 mg tab(s) (DITROPAN) 5 mg ORAL TID amLODIPine 10 mg tab(s) (NORVASC) 10 mg ORAL DAILY NaCl 0.9% irrigation solution 3,000 mL IRRIGATION CONTINUOUS allopurinol 200 mg tab(s) (ZYLOPRIM) 200 mg ORAL DAILY NaCl 0.9% iv infusion 125 mL/hr INTRAVENOUS CONTINUOUS acetaminophen 650 mg tab(s) (TYLENOL) 650 mg ORAL q 4 H PRN oxyCODONE-acetaminophen 5-325 mg 1-2 tablet (PERCOCET) 1-2 tablet ORAL q 4 H PRN morphine 2-4 mg injection 2-4 mg INTRAVENOUS q 2 H PRN ondansetron (PF) 4 mg injection (ZOFRAN) 4 mg INTRAVENOUS q 6 H PRN docusate sodium 100 mg cap(s) (COLACE) 100 mg ORAL BID ceFAZolin 1 g in dextrose (iso-osmotic) 50 mL (ANCEF, KEFZOL) 1 g INTRAVENOUS q 8 H belladonna-opium 16.2-60 mg 1 Suppository suppository (B and O 16-A) 1 Suppository RECTAL TID PRN ? ? Allergies ? Morphine; Prednisone ? ? Family History ? Negative for Kidney Disease FAMILY HISTORY No family history on file. ? Social History ? SOCIAL HISTORY Social History Marital status: Spouse name: Years of education: Number of children: ? Social History Main Topics Smoking status: Never Smoker ? Smokeless status: Never Used Alcohol use: Yes Comment: social Drug use: No ? ? Physical Exam ? BP 112/62 Pulse (!) 58 Temp 36 ?C (96.8 ?F) (Temporal Artery) Resp 13 Ht 185.4 cm (6' 1) Wt 117.9 kg (260 lb) SpO2 99% BMI 34.3 kg/m2 ? ? General: NAD, Comfortable appearing, cooperative to history and physical exam. Head: AT NC Neck: Supple, no jvd Chest: B/L clear, no crackles, no accessory muscles usage. CV: RRR, no murmurs or rubs Abdomen: NT, ND, soft Extremities: 1+ B/L peripheral edema, no tremor Neurological: Moving all four extremities, no focal neurological deficit Psychiatric: Normal insight and judgement, good recall : mendoza clear yellow, +CBI ? Data ? CBC: Recent Labs 10/28/17 1540 10/28/17 0327 WBC -- 4.80 RBC -- 2.42* HB 8.4* 8.1* HCT -- 23.0* PLT -- 132* MCV -- 95.0 MCH -- 33.5* MPV -- 10.4 RDW -- 15.2* CMP: Recent Labs 10/28/17 0327 NA 140 K 3.5 CHLOR 109* CO2 26 BUN 12 CREAT 1.64* GLUC 91 CA 8.5 ANION 9 CXR EXAM TITLE: CHEST 1 VIEW ? DATE: 10/20/2017 06:09 ? INDICATION: ?Patient history of renal mass. ? COMPARISON: None. ? Portable frontal view of the chest shows heart size to be normal. ? Pulmonary vascularity is normal. ? Lungs are clear. No infiltrates or effusions. ? No obvious acute bony abnormality is evident. There is evidence of old left clavicle fracture. ? IMPRESSION: ? No acute findings radiographically. Assessment: 1. BERTHA-acute vs acute/chronic, likely 2/2 obstruction 2. Renal mass( right renal ) 3. Hematuria- from RCC ? 4. Anemia from acute blood loss 5. H/o Ulcerative colitis + 6. DVT history ? Plan: Resection renal mass today Will need followed Expect the left kidney to clam picker the functioning Some increase in the cr up to 30 % will be expected Close monitoring needed Daniel Zelaya MD NURSING PROG Observed: 10/28/2017 Status: COMPLETED Source: [facility] 3:42 PM CLINIC OTHER CAMPUS REPOSITORY HNO ID: [id number] Author: Main (Rn) ЕЛЕНА Gottlieb Service: (none) Author Type: Registered Nurse Type: Nursing Progress Note Filed: 10/28/2017 3:49 PM Note Text: Lab drawn from central line and sent as ordered.Great blood return, flushed with 10cc NS post blood draw. HGB Collected: 10/28/2017 Status: F Source: [facility] 3:40 PM HEALTH SYSTEM REPOSITORY TYPE CODE TESTS RESULT OUT OF RANGE REFERENCE UNITS LAB HGBI(LOINC) 13.7-17.5 g/dL Low Hgb 8.4 Performed By: #### HGBI #### [facility] [address] [place] [address] CHEST 1 VIEW Observed: 10/28/2017 Status: F Source: [facility] 2:32 PM HEALTH SYSTEM REPOSITORY Performed at [facility] APPROVED BY: Misael Jesus MD EXAM TITLE: AP UPRIGHT PORTABLE CHEST. DATE: 10/28/2017 14:22 COMPARISON: 10/30/2017, CLINICAL INDICATION/HISTORY: Line placement TECHNIQUE: A single AP upright portable view of the chest is presented. FINDINGS: There has been interval placement of a left subclavian venous catheter. The tip of the catheter is located the junction of the left brachiocephalic vein and the superior vena cava. No other tubes or lines are identified. Note is made of some subcutaneous emphysema in the right supraclavicular area. The etiology is undetermined recommend clinical correlation. There is no evidence of pneumothorax. The cardiac silhouette is within normal limits. The thoracic aorta is slightly tortuous. Mediastinum is unremarkable. The pulmonary vascularity is within normal limits. The costophrenic angles are clear bilaterally. No focal infiltrates are noted. There are degenerative changes of the thoracic spine. IMPRESSION: 1. Interval placement of a left subclavian venous catheter with its tip at the junction of the left brachiocephalic vein and the superior vena cava. 2. Subcutaneous emphysema in the right supraclavicular region of undetermined etiology. Recommend clinical correlation. 3. Otherwise no acute disease. NURSING PROG Observed: 10/28/2017 Status: COMPLETED Source: [facility] 2:30 PM CLINIC OTHER CAMPUS REPOSITORY HNO ID: [id number] Author: Main (Rn) ЕЛЕНА Gottlieb Service: (none) Author Type: Registered Nurse Type: Nursing Progress Note Filed: 10/28/2017 2:57 PM Note Text: Portable CXR completed as ordered for left subclavian line placement BRIEF OP NOT Observed: 10/28/2017 Status: COMPLETED Source: [facility] 1:59 PM CLINIC OTHER CAMPUS REPOSITORY HNO ID: [id number] Author: Franklyn Nicole Service: Urology Author Type: Resident Type: Brief Op Note Filed: 10/28/2017 2:00 PM Note Text: Attestation signed by Naty Forde Jr. at 10/28/2017 2:50 PM ?I was present for the critical and olguin portions of the surgery and I was immediately available to provide assistance Naty Forde Jr, MD UROLOGY BRIEF OPERATIVE NOTE Date: 10/28/2017 Patient Name: Juan David Yancey Date of : 1955 Surgeon: Maurisio Commercial Baker Helper: Corey Moore Anesthesia: General Preop Diagnosis: Right renal mass, hematuria Postop Diagnosis: Same Procedure: cystoscopy, right ureteral stent removal; Right laparoscopic retroperitoneal radical nephrectomy Estimated Blood Loss: 1000cc Findings: See OP note Specimens: Right kidney Complications: None SIGNATURE: Franklyn Nicole MD PATIENT NAME: Juan David Yancey DATE: October 28, 2017 TIME: 1:59 PM PAGER/CONTACT #: BLOOD GAS ARTERIAL Collected: 10/28/2017 Status: F Source: [facility] 12:50 PM HEALTH SYSTEM REPOSITORY TYPE CODE TESTS RESULT OUT OF REFERENCE UNITS RANGE LAB TEMP(LOINC ) Temperature 35.0 LAB FIO2B(LOIN % C) FIO2 arterial CSL 54 LAB PHCSL(LOIN 7.350-7.450 C) Low pH Arterial CSL 7.331 LAB PCO2A(LOIN 36.0-46.0 mm Hg C) PCO2 Arterial CSL 37.2 LAB PO2CS(LOIN 85.0-96.0 mm Hg C) PO2 High Arterial CSL 171.1 LAB HCO3(LOINC 22.0-26.0 mEq/L ) Low HCO3- 19.6 LAB BASEE(LOIN -2.5 to 2.5 mEq/L C) Base Excess -6.2 LAB O2%SA(LOIN 95.0-98.0 % C) Art. O2% High Saturation 99.4 Performed By: #### ABGCS #### [facility] [address] [place] [address] HEMOGLOBIN CSL Collected: 10/28/2017 Status: F Source: [facility] 12:50 PM HEALTH SYSTEM REPOSITORY TYPE CODE TESTS RESULT OUT OF REFERENCE UNITS RANGE LAB HGBCS(LOIN 14.0-18.0 g/dL C) Low Hemoglobin CSL 7.8 Performed By: #### HGBCS #### [place] [address] HEMATOCRIT CSL Collected: 10/28/2017 Status: F Source: [facility] 12:50 PM HEALTH SYSTEM REPOSITORY TYPE CODE TESTS RESULT OUT OF REFERENCE UNITS RANGE LAB HCTCS(LOIN 42.0-52.0 % C) Low Hematocrit CSL 23.4 Performed By: #### HCTCS #### [place] [address] HEMOGLOBIN CSL Collected: 10/28/2017 Status: F Source: [facility] 12:10 PM HEALTH SYSTEM REPOSITORY TYPE CODE TESTS RESULT OUT OF REFERENCE UNITS RANGE LAB HGBCS(LOIN 14.0-18.0 g/dL C) Low alert Hemoglobin CSL 7.0 Performed By: #### HGBCS #### [place] [address] HEMATOCRIT CSL Collected: 10/28/2017 Status: F Source: [facility] 12:10 PM HEALTH SYSTEM REPOSITORY TYPE CODE TESTS RESULT OUT OF REFERENCE UNITS RANGE LAB HCTCS(LOIN 42.0-52.0 % C) Low Hematocrit CSL 21.0 Performed By: #### HCTCS #### [place] [address] NURSING PROG Observed: 10/28/2017 Status: COMPLETED Source: [facility] 12:04 PM CLINIC OTHER CAMPUS REPOSITORY HNO ID: [id number] Author: Shania (Rn) ЕЛЕНА Das Service: (none) Author Type: Registered Nurse Type: Nursing Progress Note Filed: 10/28/2017 12:05 PM Note Text: Case update actually given by Shania Wild NURSING PROG Observed: 10/28/2017 Status: COMPLETED Source: [facility] 11:57 AM CLINIC OTHER CAMPUS REPOSITORY HNO ID: [id number] Author: Cyndie HughesRn) ЕЛЕНА Wild Service: Nursing Author Type: Registered Nurse Type: Nursing Progress Note Filed: 10/28/2017 11:57 AM Note Text: FAMILY UPDATED ON CASE PROGRESS RBC PRODUCTS Collected: 10/28/2017 Status: F Source: [facility] 11:45 AM HEALTH SYSTEM REPOSITORY TYPE CODE TESTS RESULT OUT OF REFERENCE UNITS RANGE LAB UNIT1(LOINC ) Xmatch Unit 1 see below Result Comment: Compatible LAB UNIT2(LOINC) Xmatch Unit 2 see below Result Comment: Compatible Performed By: #### RBCPS #### [address] [address] BLOOD GAS ARTERIAL Collected: 10/28/2017 Status: F Source: [facility] 11:12 AM HEALTH SYSTEM REPOSITORY TYPE CODE TESTS RESULT OUT OF REFERENCE UNITS RANGE LAB TEMP(LOINC ) Temperature 35.0 LAB FIO2B(LOIN % C) FIO2 arterial CSL 69 LAB PHCSL(LOIN 7.350-7.450 C) Low pH Arterial CSL 7.333 LAB PCO2A(LOIN 36.0-46.0 mm Hg C) Low PCO2 Arterial CSL 35.3 LAB PO2CS(LOIN 85.0-96.0 mm Hg C) PO2 High Arterial CSL 197.5 LAB HCO3(LOINC 22.0-26.0 mEq/L ) Low HCO3- 18.8 LAB BASEE(LOIN -2.5 to 2.5 mEq/L C) Base Excess -7.0 LAB O2%SA(LOIN 95.0-98.0 % C) Art. O2% High Saturation 99.5 Performed By: #### ABGCS #### [address] [address] HEMOGLOBIN CSL Collected: 10/28/2017 Status: F Source: [facility] 11:12 AM HEALTH SYSTEM REPOSITORY TYPE CODE TESTS RESULT OUT OF REFERENCE UNITS RANGE LAB HGBCS(LOIN 14.0-18.0 g/dL C) Low alert Hemoglobin CSL 6.3 Result Comment: RESULT RECHECKED Performed By: #### HGBCS #### [facility] [address] [place], [place] [address] HEMATOCRIT CSL Collected: 10/28/2017 Status: F Source: [facility] 11:12 AM HEALTH SYSTEM REPOSITORY TYPE CODE TESTS RESULT OUT OF REFERENCE UNITS RANGE LAB HCTCS(LOIN 42.0-52.0 % C) Low alert Hematocrit CSL 18.9 Result Comment: RESULT RECHECKED Performed By: #### HCTCS #### [facility] [address] [place] [address] RBC PRODUCTS Collected: 10/28/2017 Status: F Source: [facility] 8:10 AM HEALTH SYSTEM REPOSITORY TYPE CODE TESTS RESULT OUT OF REFERENCE UNITS RANGE LAB UNIT1(LOINC ) Xmatch Unit 1 see below Result Comment: Compatible Performed By: #### RBCPS #### [facility] [address] [place] [address] ANES PREOP Observed: 10/28/2017 Status: COMPLETED Source: [facility] 7:42 AM [facility] OTHER CAMPUS REPOSITORY O ID: [id number] Author: Naty Jones Service: Anesthesiology Author Type: Physician Type: Anesthesia PreOp Filed: 10/28/2017 7:44 AM Note Text: ANESTHESIOLOGY DAY OF SURGERY NOTE SERVICE DATE: 10/28/2017 SERVICE TIME: 7:42 AM : 1955 Procedure(s) (LRB): HAND ASSISTED LAPAROSCOPIC RIGHT NEPHRECTOMY (Right) CYSTOSCOPY, REMOVAL RIGHT URETERAL STENT (Right) Surgeon(s): Naty Forde Jr. Estimated body mass index is 34.3 kg/(m2) as calculated from the following: Height as of this encounter: 185.4 cm (6' 1). Weight as of this encounter: 117.9 kg (260 lb). Most recent hematocrit and potassium results: Hematocrit 23.0 10/28/2017 Potassium 3.5 10/28/2017 ANES DOS/PREOP NOTE: Vitals: 10/28/17 0000 10/28/17 0320 10/28/17 0614 10/28/17 0656 BP: 166/72 129/63 146/73 Pulse: 68 65 69 Resp: Temp: 36.7 ?C (98.1 ?F) 36.9 ?C (98.4 ?F) 36.1 ?C (97 ?F) TempSrc: Temporal Artery Temporal Artery Temporal Artery SpO2: 97% 95% 99% Weight: 117.9 kg (260 lb) Height: 185.4 cm (6' 1) ACTIVE PROBLEM LIST Blood Clot in Vein Inferior Vena Caval Thrombosis (Hcc) S/P Insertion of Ivc (Inferior Vena Caval) Filter Anticoagulation Management Encounter Personal History of Dvt (Deep Vein Thrombosis) Sbo (Small Bowel Obstruction) Iliac Dvt (Deep Venous Thrombosis) (Hcc) Dvt Femoral (Deep Venous Thrombosis) (Hcc) Popliteal Dvt (Deep Venous Thrombosis) (Hcc) Bilateral Leg Edema Hematuria Right Renal Mass History of Total Colectomy PAST MEDICAL HISTORY Diagnosis Date - Avascular necrosis (HCC) bilateral hip replacements d/t avascular necrosis - Blood clot in vein IVC filter placed in 1994 - Bowel disease MUC, colectomy in 1994 - Gout Summer 2011 Clinical Diagnosis in 2011 - 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 No pertinent family history. Social History: Social History Substance Use Topics - Smoking status: Never Smoker - Smokeless tobacco: Never Used - Alcohol use Yes Comment: social No current facility-administered medications on file prior to encounter. Current Outpatient Prescriptions on File Prior to Encounter: allopurinol 100 mg tablet Take 2 tablets by mouth once daily. In 2 weeks, increase to 300mg/day Current Facility-Administered Medications: [MAR Hold due to Transfer] doxazosin 1 mg tab(s) (CARDURA) 1 mg ORAL DAILY Deep Garcia MD 1 mg at 10/27/17816 [NOV Hold due to Transfer] famotidine 20 mg tab(s) (PEPCID) 20 mg ORAL BID Sushma (Res) Francisco Javier 20 mg at 10/27/17816 [NOV Hold due to Transfer] NaCl 0.9% irrigation solution 3,000 mL IRRIGATION CONTINUOUS Naty Forde Jr. 3,000 mL at 10/28/17 0100 [MAR Hold due to Transfer] heparin 5,000 Units injection 5,000 Units SUBCUTANEOUS q 8 H Nelly (Res) [place] 5,000 Units at 10/27/17 1341 [MAR Hold due to Transfer] amLODIPine 10 mg tab(s) (NORVASC) 10 mg ORAL DAILY Deep Garcia MD 10 mg at 10/27/17816 [MAR Hold due to Transfer] allopurinol 200 mg tab(s) (ZYLOPRIM) 200 mg ORAL DAILY Franklyn (Res) Kmetz 200 mg at 10/27/17 08 [MAR Hold due to Transfer] NaCl 0.9% iv infusion 75 mL/hr INTRAVENOUS CONTINUOUS Nelly (Res) Teresa Last Rate: 75 mL/hr at 10/28/17 0549 75 mL/hr at 10/28/17 0549 [MAR Hold due to Transfer] acetaminophen 650 mg tab(s) (TYLENOL) 650 mg ORAL q 4 H PRN Franklyn (Res) Kmetz [MAR Hold due to Transfer] oxyCODONE-acetaminophen 5-325 mg 1-2 tablet (PERCOCET) 1-2 tablet ORAL q 4 H PRN Franklyn (Res) Kmetz 2 tablet at 10/24/17 1850 [MAR Hold due to Transfer] morphine 2-4 mg injection 2-4 mg INTRAVENOUS q 2 H PRN Franklyn (Res) Kmetz [MAR Hold due to Transfer] ondansetron (PF) 4 mg injection (ZOFRAN) 4 mg INTRAVENOUS q 6 H PRN Franklyn (Res) Kmetz 4 mg at 10/23/17 2211 [MAR Hold due to Transfer] docusate sodium 100 mg cap(s) (COLACE) 100 mg ORAL BID Franklyn (Res) Kmetz 100 mg at 10/27/17 08 [MAR Hold due to Transfer] belladonna-opium 16.2-60 mg 1 Suppository suppository (B and O 16-A) 1 Suppository RECTAL TID PRN Franklyn (Res) Kmetz 1 Suppository at 10/20/17816 Allergies: ALLERGIES Allergen Reactions - Morphine Itching - Prednisone Other: See Comments avascular necrosis, bilat hip replacements DOS EXAM: Adequate NPO status: Yes Anesthetic risks, benefits, alternatives, personnel and consent discussed: Yes Patient agrees to proceed: Yes Previous Anesthesia: No history of adverse event. Airway Assessment: MP 3; Neck ROM: Full ROM without neurologic symptoms; Airway Evaluation: Thick neck Symptoms of Sleep Apnea: Snoring, Observed apnea, Hypertension, BMI > 35, Age over 50 (62 year old), Neck circumference > 15.75 inches and Male gender Dentition: Teeth intact Additional Physical Exam: Lungs: Patient health status unchanged since recent history and physical. See history and physical for exam findings. Cardiac: Patient health status unchanged since recent history and physical. See history and physical for exam findings. Additional Pertinent Findings: N/A Blood Products: Not anticipated for this procedure. Anesthetic Plan: General, Standard ASA Monitors Pain Management Plan: Parenteral or Oral ASA Class: 3 Other Medical Problems: ABAD but not on CPAP, takes Xeralto but stopped 7 days aGO Chronic Beta Merissa medication administered within 24 hours: N/A I have interviewed and examined the patient. I have reviewed the medical record and/or the pre-anesthesia evaluation, pertinent labs, and test results. Significant changes in the patient's condition since the History and Physical, not otherwise documented in primary service progress notes: No This contains updated information obtained within 48 hours of Surgery/Procedure. SIGNATURE: Naty Jones MD PATIENT NAME: Juan David Yancey DATE: October 28, 2017 TIME: 7:42 AM CSN: [id number] HEMOGRAM/DIFF Collected: 10/28/2017 Status: F Source: [facility] 3:27 AM HEALTH SYSTEM REPOSITORY TYPE CODE TESTS RESULT OUT OF REFERENCE UNITS RANGE LAB WBC(LOINC) 4.23-9.07 thou/cmm WBC 4.80 LAB RBC(LOINC) 4.63-6.08 mil/cmm Low RBC 2.42 LAB HGB(LOINC) 13.7-17.5 g/dL Low Hgb 8.1 LAB HCT(LOINC) 40.1-51.0 % Low Hct 23.0 LAB MCV(LOINC) 83.2-95.6 fl MCV 95.0 LAB MCH(LOINC) 25.7-32.2 pg MCH High 33.5 LAB MCHC(LOINC 32.3-36.5 % ) MCHC 35.2 LAB RDW(LOINC) 11.6-14.4 % RDW High 15.2 LAB RDWSD(LOIN 36.1-45.8 fl C) RDW SD High 53.4 LAB PLT(LOINC) 141-365 thou/cmm Low Platelet 132 LAB MPV(LOINC) 8.7-12.0 fl MPV 10.4 LAB SEG(LOINC) % Seg Neutrophil 74.0 LAB IGRE(LOINC % ) Immature Grans 0.60 LAB LYMPH(LOIN % C) Lymphocyte 11.9 LAB MNO(LOINC) % Monocyte 9.6 LAB EOSIN(LOIN % C) Eosinophil 3.5 LAB BASO(LOINC % ) Basophil 0.4 LAB SEGN(LOINC 1.78-5.38 thou/cmm ) Abs. Neut 3.55 LAB IGAB(LOINC 0.00-0.05 thou/cmm ) Abs Immature Grans 0.03 LAB LYMN(LOINC 0.84-2.85 thou/cmm ) Low Abs. Lymph 0.57 LAB MONON(LOIN 0.30-0.82 thou/cmm C) Abs. Jack 0.46 LAB EOSN(LOINC 0.04-0.54 thou/cmm ) Abs. Eosin 0.17 LAB BASON(LOIN 0.01-0.08 thou/cmm C) Abs. Baso 0.02 Performed By: #### [id number] #### [facility] [address] [place] [address] BASIC PANEL Collected: 10/28/2017 Status: F Source: [facility] 3:27 AM HEALTH SYSTEM REPOSITORY TYPE CODE TESTS RESULT OUT OF REFERENCE UNITS RANGE LAB NA(LOINC) 136-145 mEq/L Sodium Blood 140 LAB K(LOINC) 3.5-5.1 mEq/L Potassium Blood 3.5 LAB CL(LOINC) 98-107 mEq/L Chloride High Blood 109 LAB CO2(LOINC) 21-32 mEq/L CO2 Blood 26 LAB GLU(LOINC) 70-99 mg/dL Glucose Blood 91 LAB BUN(LOINC) 7-18 mg/dL BUN Blood 12 LAB CREA(LOINC 0.67-1.17 mg/dL ) High Creatinine Blood 1.64 LAB CA(LOINC) 8.5-10.1 mg/dL Calcium Blood 8.5 LAB ANGAP(LOIN 8-16 C) Anion Gap 9 Performed By: #### P8 #### [facility] [address] [place] [id number] MDRD GFR Collected: 10/28/2017 Status: F Source: [facility] 3:27 AM HEALTH SYSTEM REPOSITORY TYPE CODE TESTS RESULT OUT OF RANGE REFERENCE UNITS LAB GFRFN(LOINC >60mL/min/1.73m ) 2 eGFR 42.97 Result Comment: If the patient is , multiply the result by 1.210. Performed By: #### GFR #### [facility] [address] [place] [address] SURGICAL TISSUE EXAM Observed: 10/28/2017 Status: F Source: [facility] 12:00 AM HEALTH SYSTEM REPOSITORY Test performed at [place] [address] NAME: JUAN DAVID YANCEY REQUESTING: NATY FORDE JR, M.D. COPY TO: COW PUNCHER; TUMOR REGISTRY FINAL DIAGNOSIS: KIDNEY, RIGHT, RADICAL NEPHRECTOMY -CLEAR CELL RENAL CELL CARCINOMA, WHO/ISUP GRADE 3, WITH RENAL SINUS AND RENAL VEIN INVASION (SEE NOTE). TUMOR SIZE: 7 CM IN GREATEST DIMENSION. MARGINS NEGATIVE FOR TUMOR. NON-NEOPLASTIC KIDNEY WITH MODERATE ARTERIOSCLEROSIS, SCATTERED FOCI OF GLOMERULOSCLEROSIS AND PATCHY INTERSTITIAL CHRONIC INFLAMMATION. NOTE: Dr. Olivia Argueta has reviewed airport representative slides of the tumor and agrees with the diagnosis. Kidney Cancer Case Summary Procedure: Radical nephrectomy. Specimen laterality: Right. Tumor size: 7 x 5 x 4 cm. Tumor focality: Unifocal. Histologic type: Clear cell renal cell carcinoma. Sarcomatoid features: Not identified. Rhabdoid features: Not identified. Histologic grade: WHO/ISUP Grade 3. Tumor necrosis: Not identified. Microscopic tumor extension: Tumor extends into renal sinus and into major vein (renal vein or its segmental branches). Margins: Uninvolved by carcinoma. Lymph nodes: Not sampled. Pathologic stage: pT3a OPERATIVE PROCEDURE: Laparoscopic right radical nephrectomy CLINICAL INFORMATION: Renal mass, right GROSS DESCRIPTION: A) Right kidney Received in formalin labeled right kidney is a specimen consisting of a kidney surrounding by an envelope of fibroadipose tissue measuring 15 x 8 x 5 cm and weighing 591 gm. The kidney measures 11.5 x 5.5 x 5.5 cm. The specimen is bivalve to reveal an upper portion multifocal yellow irregular-shaped solid mass. The mass measures 7.0 x 5.0 x 4.0 cm and extends to the mid portion of the kidney. There are foci of hemorrhage upon sectioning. The mass does not extend into the perirenal fat which is located 0.2 cm away. The tumor does invade the renal sinus. The tumor is poorly demarcated from the renal parenchyma which essentially appears involved. Dissection of the renal veins, particularly those draining the area of the mass does show the intravascular presence of the neoplasm, approximately 0.2 cm from the stapled renal vein margin of resection. The tumor does appear tightly adhered to the vascular wall. The adrenal gland is not present. The ureter measures 5.0 cm in length and 0.3 cm in diameter. Although the ureter does not grossly appear involved by neoplasm, the ureter wall appears thickened. Lymph nodes are not present. Fuel Dock Attendant sections are submitted in formalin as follows: A1 - shaved ureter margin; A2 - shaved vascular margin; A3 - non-marginal tumor thrombus within renal vein; A4-A5 - mass involving renal sinus; A6-A7 - mass involving parenchyma; A8 - mass in relationship to nearest soft tissue margin; A9 - section of lower pole uninvolved parenchyma; A10 - sections of distal ureter. ARH:abbi LAM M.D.,PATHOLOGIST (Electronic signature on file) Signed out: 11/03/2017 16:47 PRINTED: 11/03/2017 Page 1 of 1 Performed By: #### SURG #### [place] [address] RBC PRODUCTS Collected: 10/27/2017 Status: F Source: [facility] 11:32 PM HEALTH SYSTEM REPOSITORY TYPE CODE TESTS RESULT OUT OF REFERENCE UNITS RANGE LAB UNIT1(LOINC ) Xmatch Unit 1 see below Result Comment: Compatible Performed By: #### RBCPS #### [place] [address] NURSING PROG Observed: 10/27/2017 Status: COMPLETED Source: [facility] 9:46 PM CLINIC OTHER CAMPUS REPOSITORY HNO ID: [id number] Author: Veena (Rn) ЕЛЕНА Cobb Service: (none) Author Type: Registered Nurse Type: Nursing Progress Note Filed: 10/27/2017 9:50 PM Note Text: Dr. Song paged at [phone] to ask if the heparin injection should be administered tonight at 2200 and at 0600 with the patient's scheduled renal mass resection tomorrow. Awaiting call back. Dr. Song called back at 2149 and said to hold both doses of the heparin injection. No new orders. PROGRESS Observed: 10/27/2017 Status: COMPLETED Source: [facility] 7:07 PM CLINIC OTHER CAMPUS REPOSITORY HNO ID: [id number] Author: Daniel Zelaya Service: Nephrology Author Type: Physician Type: Progress Notes Filed: 10/27/2017 10:58 PM Note Text: [facility] Nephrology progress note ? Reason for consultation: BERTHA/post-obstructive ? Chief Complaint: difficulty with urination ? History of Presenting Illness ? 62 year old male presented from [place] for renal mass. Was unable to urinate prior to presentation. Mendoza was placed draining bright red blood. Was on blood thinner. No previous history, but reports hematuria x 2 weeks. No personal or family history of malignancy. No previous prostate or urinary issues. On Xarelto for DVTs. On CBI. Per nursing, was unable to drain overnight. She reports significant clotting removed. Still needing irrigated Q 3hrs. is making NPO after midnight-? Surgery as inpatient vs outpatient f/u. Additional home meds include ASA and Allopurinol. No FRANCK/ARB or diuretic. Also presently on NS at 125/hr. BP was 186/94 on admit. Today is 135/74 Creat on admit was 2.55, today is 2.58. UA with 1-3 WBC, >100RBC (partially resulted?) Baseline unknown, <1 2012. Patient denies any issues with renal function in past. States has hx UC, hip replacments d/t avascular necrosis from steroid use, DVT with IVC filter placement, PCI. No HTN or DM. Nephrology has been c/s for BERTHA Interval progess note Doing ok Cr stable. S/P Diuretic renal scan 10/25. Baseline ? +CBI BP ok Reports OK PO intake. No SOB Surgical plans are noted ROS (-) unless above No change in the PFSH ? Past Medical/Surgical History ? PAST MEDICAL HISTORY PAST MEDICAL HISTORY Diagnosis Date - Avascular necrosis (HCC) bilateral hip replacements d/t avascular necrosis - Blood clot in vein IVC filter placed in 1994 - Bowel disease ? ? MUC, colectomy in 1994 - Gout Summer 2011 ? 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 ? PAST SURGICAL HISTORY PAST SURGICAL HISTORY Procedure Laterality Date - COLECTOMY PARTIAL W ANASTOM ? ? - ILEOSTOMY ? ? ? closed - TOTAL HIP REPLACEMENT ? ? ? bilateral- castro ? ? ? Review of Systems ? All 12 systems reviewed and are negative except for what is mentioned in the HPI. ? Medications ? Prescriptions Prior to Admission ? Prescriptions Prior to Admission: aspirin 325 mg tablet Take 325 mg by mouth once daily. Disp: Rfl: ? RIVAROXABAN (XARELTO ORAL) Take 20 mg by mouth once daily. Disp: Rfl: ? allopurinol 100 mg tablet Take 2 tablets by mouth once daily. In 2 weeks, increase to 300mg/day Disp: 60 tablet Rfl: 2 ? ? ? CURRENT MEDICATIONS ? Current Facility-Administered Medications: oxybutynin 5 mg tab(s) (DITROPAN) 5 mg ORAL TID amLODIPine 10 mg tab(s) (NORVASC) 10 mg ORAL DAILY NaCl 0.9% irrigation solution 3,000 mL IRRIGATION CONTINUOUS allopurinol 200 mg tab(s) (ZYLOPRIM) 200 mg ORAL DAILY NaCl 0.9% iv infusion 125 mL/hr INTRAVENOUS CONTINUOUS acetaminophen 650 mg tab(s) (TYLENOL) 650 mg ORAL q 4 H PRN oxyCODONE-acetaminophen 5-325 mg 1-2 tablet (PERCOCET) 1-2 tablet ORAL q 4 H PRN morphine 2-4 mg injection 2-4 mg INTRAVENOUS q 2 H PRN ondansetron (PF) 4 mg injection (ZOFRAN) 4 mg INTRAVENOUS q 6 H PRN docusate sodium 100 mg cap(s) (COLACE) 100 mg ORAL BID ceFAZolin 1 g in dextrose (iso-osmotic) 50 mL (ANCEF, KEFZOL) 1 g INTRAVENOUS q 8 H belladonna-opium 16.2-60 mg 1 Suppository suppository (B and O 16-A) 1 Suppository RECTAL TID PRN ? ? Allergies ? Morphine; Prednisone ? ? Family History ? Negative for Kidney Disease FAMILY HISTORY No family history on file. ? Social History ? SOCIAL HISTORY Social History Marital status: Spouse name: Years of education: Number of children: ? Social History Main Topics Smoking status: Never Smoker ? Smokeless status: Never Used Alcohol use: Yes Comment: social Drug use: No ? ? Physical Exam ? BP 144/72 Pulse 70 Temp 36.9 ?C (98.4 ?F) (Oral) Resp 18 Ht 185.4 cm (6' 0.99) Wt 17.9 kg (39 lb 8.6 oz) SpO2 96% BMI 5.22 kg/m2 ? ? General: NAD, Comfortable appearing, cooperative to history and physical exam. Head: AT NC Neck: Supple, no jvd Chest: B/L clear, no crackles, no accessory muscles usage. CV: RRR, no murmurs or rubs Abdomen: NT, ND, soft Extremities: 1+ B/L peripheral edema, no tremor Neurological: Moving all four extremities, no focal neurological deficit Psychiatric: Normal insight and judgement, good recall : mendoza clear yellow, +CBI ? Data ? CBC: Recent Labs 10/27/17 1830 10/27/17 0145 WBC -- 5.08 RBC -- 2.32* HB 8.3* 7.7* HCT 23.9* 22.3* PLT -- 127* MCV -- 96.1* MCH -- 33.2* MPV -- 10.4 RDW -- 14.5* CMP: Recent Labs 10/27/17 0145 NA 138 K 3.6 CHLOR 107 CO2 25 BUN 15 CREAT 1.65* GLUC 91 CA 8.8 CXR EXAM TITLE: CHEST 1 VIEW ? DATE: 10/20/2017 06:09 ? INDICATION: ?Patient history of renal mass. ? COMPARISON: None. ? Portable frontal view of the chest shows heart size to be normal. ? Pulmonary vascularity is normal. ? Lungs are clear. No infiltrates or effusions. ? No obvious acute bony abnormality is evident. There is evidence of old left clavicle fracture. ? IMPRESSION: ? No acute findings radiographically. Assessment: 1. BERTHA-acute vs acute/chronic, likely 2/2 obstruction 2. Renal mass( right renal ) 3. Hematuria- from RCC ? 4. Anemia from acute blood loss 5. H/o Ulcerative colitis + 6. DVT history ? Plan: Cr has stabilized C/W IVF NS at this time. Avoid nephrotoxins. Renal mass Resection is planned for tomorrow. 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 Recommend transfusion PRN hgb <7. No change today from renal standpoint. We will follow The Nurse practitioner note was reviewed and exam noted. I agree with her assessment and recommendations. Any variance is noted as below. Daniel Zelaya MD HGB Collected: 10/27/2017 Status: F Source: [facility] 6:30 PM HEALTH SYSTEM REPOSITORY TYPE CODE TESTS RESULT OUT OF RANGE REFERENCE UNITS LAB HGBI(LOINC) 13.7-17.5 g/dL Low Hgb 8.3 Performed By: #### HGBI #### [place] [address] HCT Collected: 10/27/2017 Status: F Source: [facility] 6:30 PM HEALTH SYSTEM REPOSITORY TYPE CODE TESTS RESULT OUT OF RANGE REFERENCE UNITS LAB HCTI(LOINC) 40.1-51.0 % Low Hct 23.9 Performed By: #### HCTI #### [place] [address] RBC PRODUCTS Collected: 10/27/2017 Status: F Source: [facility] 8:11 AM HEALTH SYSTEM REPOSITORY TYPE CODE TESTS RESULT OUT OF REFERENCE UNITS RANGE LAB UNIT1(LOINC ) Xmatch Unit 1 see below Result Comment: Compatible Performed By: #### RBCPS #### [place] [address] TYPE AND SCREEN Collected: 10/27/2017 Status: F Source: [facility] 8:11 AM HEALTH SYSTEM REPOSITORY TYPE CODE TESTS RESULT OUT OF REFERENCE UNITS RANGE LAB ABO(LOINC) O ABO Group LAB H[employer] HOME ECONOMICS TEACHER(LOINC ) RH Type Negative LAB ABSCR(LOIN C) Antibody NEGATIVE Screen LAB BBCMT(LOIN C) Comment See Below Result Comment: Screen &/or Xmatch expires in 3 days at 12 midnight. Redraw patient at that time. Performed By: #### T&S #### [place] [address] PROGRESS Observed: 10/27/2017 Status: COMPLETED Source: [facility] 6:52 AM CLINIC OTHER CAMPUS REPOSITORY HNO ID: [id number] Author: Adolph Swain Service: Urology Author Type: Physician Type: Progress Notes Filed: 10/27/2017 11:06 AM Note Text: UROLOGY PROGRESS NOTE PATIENT NAME: Juan David Yancey DATE OF : 1955 ADMISSION DATE: 10/19/2017 8:33 PM TODAY'S DATE: 10/24/2017 Subjective Urine clear this AM Doing well otherwise Objective VS: BP 143/72 Pulse 70 Temp 36.7 ?C (98.1 ?F) (Temporal Artery) Resp 18 Ht 185.4 cm (6' 0.99) Wt 17.9 kg (39 lb 8.6 oz) SpO2 97% BMI 5.22 kg/m2 I AND O - 24hr: Intake/Output Summary (Last 24 hours) at 10/27/17 0652 Last data filed at 10/27/17 0544 Gross per 24 hour Intake 2960 ml Output 4475 ml Net -1515 ml Physical Exam: General: Neck: Resp: Abdomen: No acute distress Supple Normal effort Soft, non-tender, nondistended : [address], yellow on slow drip Labs and Imaging Studies LABS: BMP: Glucose (mg/dL) Date Value 10/27/2017 91 Potassium (mEq/L) Date Value 10/27/2017 3.6 Sodium (mEq/L) Date Value 10/27/2017 138 Chloride (mEq/L) Date Value 10/27/2017 107 CO2 (mEq/L) Date Value 10/27/2017 25 Creatinine (mg/dL) Date Value 10/27/2017 1.65 BUN (mg/dL) Date Value 10/27/2017 15 Anion Gap (no units) Date Value 10/26/2017 10 Calcium (mg/dL) Date Value 10/27/2017 8.8 CBC: Hemoglobin (g/dL) Date Value 11/30/2012 10.6 HGB (g/dL) Date Value 10/27/2017 7.7 Hematocrit (%) Date Value 10/27/2017 22.3 WBC (thou/cmm) Date Value 10/27/2017 5.08 Platelet Count (thou/cmm) Date Value 10/27/2017 127 Urinalysis: Specific [place], Ur Date Value Ref Range Status 10/19/2017 1.020 1.005 - 1.030 Final Glucose, Urine Date Value Ref Range Status 10/19/2017 see below Negative mg/dL Final Comment: Color abnormal- some macroscopic not done. Bilirubin, Urine Date Value Ref Range Status 10/19/2017 see below Negative Final Comment: Color abnormal- some macroscopic not done. Ketones, Urine Date Value Ref Range Status 10/19/2017 see below Negative mg/dL Final Comment: Color abnormal- some macroscopic not done. Protein, Urine Date Value Ref Range Status 10/19/2017 see below Negative mg/dL Final Comment: Color abnormal- some macroscopic not done. Urobilinogen, Urine Date Value Ref Range Status 10/19/2017 see below 0.0 - 1.0 EU/dL Final Comment: Color abnormal- some macroscopic not done. Nitrites Urine Date Value Ref Range Status 10/19/2017 see below Negative Final Comment: Color abnormal- some macroscopic not done. WBC, Urine Date Value Ref Range Status 10/19/2017 1.0-3 0.0 - 5.0 /hpf Final Urine Culture: Urine Culture (no units) Date Value 10/20/2017 No growth RADIOLOGY: Renal ultrasound: CLINICAL INDICATION/HISTORY: Renal mass; surgical planning ? TECHNIQUE: Scanning was performed by the technologist. ?Images were saved in a permanent archive (PACS). ? RESULTS: ? RIGHT KIDNEY: ?13.2 x 6.6 x 5.3 cm ? No evidence of hydronephrosis No shadowing calculus or perinephric fluid collection is seen. ? Along the posterior aspect of the superior pole there is a fairly isoechoic solid-appearing mass measuring 4.3 x 3.4 x 4.4 cm. ?No additional abnormality of the right kidney is seen. No cysts are seen. ? ? LEFT KIDNEY: ? 12.9 x 6.1 x 4.2 cm ? No evidence of hydronephrosis No shadowing calculus or perinephric fluid collection is seen. ? There are no masses which distort the renal cortical outlines. No cysts are seen. ? ? Urinary bladder is collapsed because of Mendoza catheter.. ? IMPRESSION: ? ? 1. ?4.4 cm mass of the right kidney at the superior pole, posterior aspect. ?This should be considered renal cell carcinoma unless proven otherwise. ?This corresponds to the mass seen on CT. ?No evidence of hydronephrosis. ?If the patient would be able, a contrast-enhanced CT or MRI could offer better evaluation ?of the kidneys ? 2. ?Left kidney is unremarkable as visualized Renal scan DIURETIC RENAL SCAN: ? CLINICAL HISTORY: hydronephrosis ? TECHNIQUE: 10.1 mCi Tc 99m MAG3 IV. ?Medications and allergies reviewed. ?40 ?mg Lasix was given IV at ?30 minutes. Imaging of the kidneys for flow and function obtained in posterior views. ? ? RESULT: ? RENAL PERFUSION: There is prompt perfusion to the left kidney. There is decreased perfusion to the right kidney. ? ? RENAL FUNCTION: ? There is reasonable uptake and parenchymal transit by the left kidney. ?There is spontaneous drainage of activity by the left kidney. ?Following Lasix there is further clearance with no evidence of obstruction. ?Mild retention in the post void images. ?No scintigraphic evidence to suggest obstruction on the left. ? ? There is decreased and delayed uptake and delayed parenchymal transit by the right ?kidney. ?There is delayed drainage of activity by the right kidney with progressive accumulation of tracer. ?Following Lasix there is poor clearance. Post ?Lasix t- half?clearance time is significantly prolonged with an essentially flat renogram curve. ?Findings suggestive of obstruction. ? ? By computer analysis, the contribution to total renal function is 85% from the left kidney, and 15% from the right kidney. ? IMPRESSION: ? LEFT KIDNEY: RELATIVELY BETTER FLOW AND FUNCTION AND DRAINAGE COMPARED TO THE RIGHT. ?NO SCINTIGRAPHIC EVIDENCE OF OBSTRUCTION ON THE LEFT. ? RIGHT KIDNEY: DECREASED FLOW AND FUNCTION AND DELAYED DRAINAGE. ?FINDINGS SUGGESTIVE OF OBSTRUCTION ON THE RIGHT. ? SPLIT FUNCTION: LEFT KIDNEY 85% AND RIGHT KIDNEY 15% Assessment and Plan ASSESSMENT: 62 year old male 7cm R renal mass and hematuria, s/p right ureteroscopy, stent placement,?BERTHA PLAN: 1) BERTHA - cont to follow Cr 2) renal scan suggesting 15% fxn of side with tumor - this may be artificially low due to some component of obstruction 3) continue CBI 4) continue subq heparin 5) Scheduled for nephrectomy Tuesday morning, may need PRBCs pre-op with hgb dropping slowly, will follow Franklyn Nicole MD I saw and evaluated the patient. Discussed with the resident and agree with resident's findings and plan as documented in the resident's note. Adolph Swain MD HEMOGRAM Collected: 10/27/2017 Status: F Source: [facility] 1:45 AM HEALTH SYSTEM REPOSITORY TYPE CODE TESTS RESULT OUT OF REFERENCE UNITS RANGE LAB WBC(LOINC) 4.23-9.07 thou/cmm WBC 5.08 LAB RBC(LOINC) 4.63-6.08 mil/cmm Low RBC 2.32 LAB HGB(LOINC) 13.7-17.5 g/dL Low Hgb 7.7 LAB HCT(LOINC) 40.1-51.0 % Low Hct 22.3 LAB MCV(LOINC) 83.2-95.6 fl High MCV 96.1 LAB MCH(LOINC) 25.7-32.2 pg High MCH 33.2 LAB MCHC(LOINC) 32.3-36.5 % MCHC 34.5 LAB RDW(LOINC) 11.6-14.4 % High RDW 14.5 LAB RDWSD(LOINC 36.1-45.8 fl ) High RDW SD 50.2 LAB PLT(LOINC) 141-365 thou/cmm Low Platelet 127 LAB MPV(LOINC) 8.7-12.0 fl MPV 10.4 Performed By: #### CBC1 #### [place] [id number] RENAL PANEL Collected: 10/27/2017 Status: F Source: [facility] 1:45 AM HEALTH SYSTEM REPOSITORY TYPE CODE TESTS RESULT OUT OF REFERENCE UNITS RANGE LAB NA(LOINC) 136-145 mEq/L Sodium Blood 138 LAB K(LOINC) 3.5-5.1 mEq/L Potassium Blood 3.6 LAB CL(LOINC) 98-107 mEq/L Chloride Blood 107 LAB CO2(LOINC) 21-32 mEq/L CO2 Blood 25 LAB GLU(LOINC) 70-99 mg/dL Glucose Blood 91 LAB BUN(LOINC) 7-18 mg/dL BUN Blood 15 LAB CREA(LOINC 0.67-1.17 mg/dL ) High Creatinine Blood 1.65 LAB CA(LOINC) 8.5-10.1 mg/dL Calcium Blood 8.8 LAB ALB(LOINC) 3.4-5.0 g/dL Low Albumin Blood 3.0 LAB PHOS(LOINC 2.5-4.9 mg/dL ) Phosphorus Blood 3.7 Performed By: #### RENAL #### [facility] [address] [place] [address] MDRD GFR Collected: 10/27/2017 Status: F Source: [facility] 1:45 AM HEALTH SYSTEM REPOSITORY TYPE CODE TESTS RESULT OUT OF RANGE REFERENCE UNITS LAB GFRFN(LOINC >60mL/min/1.73m ) 2 eGFR 42.67 Result Comment: If the patient is , multiply the result by 1.210. Performed By: #### GFR #### [facility] [address] [place] [address] PROGRESS Observed: 10/26/2017 Status: COMPLETED Source: [facility] 5:11 PM CLINIC OTHER CAMPUS REPOSITORY O ID: [id number] Author: Daniel Zelaya Service: Nephrology Author Type: Physician Type: Progress Notes Filed: 10/26/2017 6:53 PM Note Text: [facility] Nephrology progress note ? Reason for consultation: BERTHA/post-obstructive ? Chief Complaint: difficulty with urination ? History of Presenting Illness ? 62 year old male presented from [facility] for renal mass. Was unable to urinate prior to presentation. Mendoza was placed draining bright red blood. Was on blood thinner. No previous history, but reports hematuria x 2 weeks. No personal or family history of malignancy. No previous prostate or urinary issues. On Xarelto for DVTs. On CBI. Per nursing, was unable to drain overnight. She reports significant clotting removed. Still needing irrigated Q 3hrs. is making NPO after midnight-? Surgery as inpatient vs outpatient f/u. Additional home meds include ASA and Allopurinol. No FRANCK/ARB or diuretic. Also presently on NS at 125/hr. BP was 186/94 on admit. Today is 135/74 Creat on admit was 2.55, today is 2.58. UA with 1-3 WBC, >100RBC (partially resulted?) Baseline unknown, <1 2012. Patient denies any issues with renal function in past. States has hx UC, hip replacments d/t avascular necrosis from steroid use, DVT with IVC filter placement, PCI. No HTN or DM. Nephrology has been c/s for BERTHA Interval progess note Doing ok Cr with slight elevation. S/P Diuretic renal scan 10/25. Baseline ? +CBI BP ok Reports OK PO intake. No SOB Urine clear yellow. Surgical plans are noted ROS (-) unless above No change in the PFSH ? Past Medical/Surgical History ? PAST MEDICAL HISTORY PAST MEDICAL HISTORY Diagnosis Date - Avascular necrosis (HCC) bilateral hip replacements d/t avascular necrosis - Blood clot in vein IVC filter placed in 1994 - Bowel disease ? ? MUC, colectomy in 1994 - Gout Summer 2011 ? 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 ? PAST SURGICAL HISTORY PAST SURGICAL HISTORY Procedure Laterality Date - COLECTOMY PARTIAL W ANASTOM ? ? - ILEOSTOMY ? ? ? closed - TOTAL HIP REPLACEMENT ? ? ? bilateral- castro ? ? ? Review of Systems ? All 12 systems reviewed and are negative except for what is mentioned in the HPI. ? Medications ? Prescriptions Prior to Admission ? Prescriptions Prior to Admission: aspirin 325 mg tablet Take 325 mg by mouth once daily. Disp: Rfl: ? RIVAROXABAN (XARELTO ORAL) Take 20 mg by mouth once daily. Disp: Rfl: ? allopurinol 100 mg tablet Take 2 tablets by mouth once daily. In 2 weeks, increase to 300mg/day Disp: 60 tablet Rfl: 2 ? ? ? CURRENT MEDICATIONS ? Current Facility-Administered Medications: oxybutynin 5 mg tab(s) (DITROPAN) 5 mg ORAL TID amLODIPine 10 mg tab(s) (NORVASC) 10 mg ORAL DAILY NaCl 0.9% irrigation solution 3,000 mL IRRIGATION CONTINUOUS allopurinol 200 mg tab(s) (ZYLOPRIM) 200 mg ORAL DAILY NaCl 0.9% iv infusion 125 mL/hr INTRAVENOUS CONTINUOUS acetaminophen 650 mg tab(s) (TYLENOL) 650 mg ORAL q 4 H PRN oxyCODONE-acetaminophen 5-325 mg 1-2 tablet (PERCOCET) 1-2 tablet ORAL q 4 H PRN morphine 2-4 mg injection 2-4 mg INTRAVENOUS q 2 H PRN ondansetron (PF) 4 mg injection (ZOFRAN) 4 mg INTRAVENOUS q 6 H PRN docusate sodium 100 mg cap(s) (COLACE) 100 mg ORAL BID ceFAZolin 1 g in dextrose (iso-osmotic) 50 mL (ANCEF, KEFZOL) 1 g INTRAVENOUS q 8 H belladonna-opium 16.2-60 mg 1 Suppository suppository (B and O 16-A) 1 Suppository RECTAL TID PRN ? ? Allergies ? Morphine; Prednisone ? ? Family History ? Negative for Kidney Disease FAMILY HISTORY No family history on file. ? Social History ? SOCIAL HISTORY Social History Marital status: Spouse name: Years of education: Number of children: ? Social History Main Topics Smoking status: Never Smoker ? Smokeless status: Never Used Alcohol use: Yes Comment: social Drug use: No ? ? Physical Exam ? BP 144/64 Pulse 74 Temp 36.8 ?C (98.2 ?F) (Temporal Artery) Resp 18 Ht 185.4 cm (6' 0.99) Wt 17.9 kg (39 lb 8.6 oz) SpO2 97% BMI 5.22 kg/m2 ? ? General: NAD, Comfortable appearing, cooperative to history and physical exam. Head: AT NC Neck: Supple, no jvd Chest: B/L clear, no crackles, no accessory muscles usage. CV: RRR, no murmurs or rubs Abdomen: NT, ND, soft Extremities: trace-1+ B/L peripheral edema, no tremor Neurological: Moving all four extremities, no focal neurological deficit Psychiatric: Normal insight and judgement, good recall : mendoza clear yellow, +CBI ? Data ? CBC: Recent Labs 10/26/17 0415 WBC 4.95 RBC 2.34* HB 7.8* HCT 23.2* PLT 131* MCV 99.1* MCH 33.3* MPV 10.5 RDW 14.3 CMP: Recent Labs 10/26/175 NA 138 K 3.6 CHLOR 106 CO2 26 BUN 13 CREAT 1.69* GLUC 87 CA 8.9 ANION 10 CXR EXAM TITLE: CHEST 1 VIEW ? DATE: 10/20/2017 06:09 ? INDICATION: ?Patient history of renal mass. ? COMPARISON: None. ? Portable frontal view of the chest shows heart size to be normal. ? Pulmonary vascularity is normal. ? Lungs are clear. No infiltrates or effusions. ? No obvious acute bony abnormality is evident. There is evidence of old left clavicle fracture. ? IMPRESSION: ? No acute findings radiographically. Assessment: 1. BERTHA-acute vs acute/chronic, likely 2/2 obstruction 2. Renal mass( right renal ) 3. Hematuria- from RCC ? 4. Anemia from acute blood loss 5. H/o Ulcerative colitis + 6. DVT history ? Plan: Cr with slight elevation likely 2/2 diuretic scan 10/25. C/W IVF NS at this time. Avoid nephrotoxins. Noted resection renal mass is planned for 10/28. 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 Recommend transfusion PRN hgb <7. We will follow Patient seen and independently examined and assessed.The Nurse practitioner note was reviewed and exam noted. I agree with her assessment and recommendations. Any variance is noted as below. Daniel Zelaya MD CASE MANAGEM Observed: 10/26/2017 Status: COMPLETED Source: [facility] 12:22 PM CLINIC OTHER CAMPUS REPOSITORY HNO ID: [id number] Author: Jose Manuel HughesRn) ЕЛЕНА Sheets Service: Care Management Author Type: Registered Nurse Type: Care Mgt Progress Note Filed: 10/26/2017 12:23 PM Note Text: CARE MANAGEMENT PROGRESS NOTE SERVICE DATE: 10/26/2017 SERVICE TIME: 12:22 pm LOS: 6 days Chart reviewed. Spoke to RN. OR scheduled for Tuesday. Plan is still to d/c home with family when medically stable. SIGNATURE: Jose Manuel Sheets RN PATIENT NAME: Juan David Yancey DATE: October 26, 2017 TIME: 12:22 PM PAGER/CONTACT #: [phone] PROGRESS Observed: 10/26/2017 Status: COMPLETED Source: [facility] 10:09 AM [facility] REPOSITORY HNO ID: [id number] Author: Davey Braun Service: Cardiovascular Medicine Author Type: Physician Type: Progress Notes Filed: 10/26/2017 10:09 AM Note Text: Result Noted. Patient is currently hospitalized and managed by the in-patient team. Davey Braun MD CONSULT Observed: 10/26/2017 Status: COMPLETED Source: [facility] 9:24 AM [facility] REPOSITORY HNO ID: [id number] Author: Michelle Steen Service: Gastroenterology Author Type: Physician Type: Consults Filed: 10/26/2017 9:35 AM Note Text: CONSULT: GASTROENTEROLOGY SERVICE SERVICE DATE: 10/26/2017 SERVICE TIME: 9:25 AM REASON FOR CONSULT: HISTORY OF uc REQUESTING PHYSICIAN: PRIMARY CARE PHYSICIAN: No Pcp Subjective Mr. Yancey is a 62 year old male who presents for right renal mass, hematuria and anemia. Patient has history of UC and total colectomy with ileal J/S pouch. Patient also has history ileus and possible partial bowel obstructions. No history of pouchitis, normal has 3 BM/day, no BRPR or mucous. No skin lesions, IBD related arthritis, or liver isssues. 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 No pertinent family history. Social History Substance Use Topics - Smoking status: Never Smoker - Smokeless tobacco: Never Used - Alcohol use Yes Comment: social Prescriptions Prior to Admission: aspirin 325 mg tablet Take 325 mg by mouth once daily. Disp: Rfl: RIVAROXABAN (XARELTO ORAL) Take 20 mg by mouth once daily. Disp: Rfl: allopurinol 100 mg tablet Take 2 tablets by mouth once daily. In 2 weeks, increase to 300mg/day Disp: 60 tablet Rfl: 2 Current hospital medications: doxazosin 1 mg tab(s) (CARDURA) 1 mg ORAL DAILY famotidine 20 mg tab(s) (PEPCID) 20 mg ORAL BID NaCl 0.9% irrigation solution 3,000 mL IRRIGATION CONTINUOUS heparin 5,000 Units injection 5,000 Units SUBCUTANEOUS q 8 H amLODIPine 10 mg tab(s) (NORVASC) 10 mg ORAL DAILY allopurinol 200 mg tab(s) (ZYLOPRIM) 200 mg ORAL DAILY NaCl 0.9% iv infusion 75 mL/hr INTRAVENOUS CONTINUOUS acetaminophen 650 mg tab(s) (TYLENOL) 650 mg ORAL q 4 H PRN oxyCODONE-acetaminophen 5-325 mg 1-2 tablet (PERCOCET) 1-2 tablet ORAL q 4 H PRN morphine 2-4 mg injection 2-4 mg INTRAVENOUS q 2 H PRN ondansetron (PF) 4 mg injection (ZOFRAN) 4 mg INTRAVENOUS q 6 H PRN docusate sodium 100 mg cap(s) (COLACE) 100 mg ORAL BID belladonna-opium 16.2-60 mg 1 Suppository suppository (B and O 16-A) 1 Suppository RECTAL TID PRN Allergies As of Date: 10/19/2017 Allergen Noted Reaction MORPHINE 10/19/2017 Itching PREDNISONE 08/08/2012 Other: See Comments Fully Assessed 10/19/2017 COMPLETE REVIEW OF SYSTEMS: PAIN ASSESSMENT: Negative for pain, history of chronic pain, or current treatment for a chronic pain condition. Objective PHYSICAL EXAM: GENERAL: Alert, no distress, cooperative EYES: Negatives conjunctivae and sclerae normal LUNGS: Lungs clear to auscultation, Good diaphragmatic excursion CARDIAC: Normal S1 and S2; no rubs, murmurs, or gallops ABDOMEN: Abdomen soft, non-tender, BS hypoactive, No masses or organomegaly EXTREMITIES: Extremities normal, no deformities, edema, clubbing or skin discoloration. Good capillary refill. Patient Vitals for the past 24 hrs: BP Temp Temp src Pulse Resp SpO2 10/26/17 0741 142/64 36.7 ?C (98.1 ?F) Temporal Art 69 18 99 % 10/26/17 0358 141/73 36.9 ?C (98.4 ?F) Temporal Art 70 18 100 % 10/25/17 2312 144/70 37 ?C (98.6 ?F) Temporal Art 74 16 96 % 10/25/17 1937 157/61 36.7 ?C (98.1 ?F) Oral 72 18 96 % 10/25/17 1607 137/67 36.7 ?C (98.1 ?F) Oral 69 18 100 % 10/25/17 1120 161/70 36.5 ?C (97.7 ?F) Oral 73 16 96 % Body mass index is 5.22 kg/(m2). DATA: Diagnostic tests reviewed for today's visit: Most recent labs and imaging results. Most recent imaging: CT enterography reviewed CBC, Coags, BMP, Mg, Phos Recent Labs 10/26/17 0415 10/25/17 0524 10/25/17 0300 10/24/17 0349 WBC 4.95 -- 6.56 8.49 HB 7.8* -- 8.1* 8.7* HCT 23.2* -- 23.4* 26.6* PLT 131* -- 164 161 NA 138 139 -- 138 K 3.6 3.5 -- 3.9 CHLOR 106 105 -- 106 CO2 26 26 -- 23 BUN 13 14 -- 17 CREAT 1.69* 1.48* -- 1.64* GLUC 87 86 -- 125* CA 8.9 9.0 -- 9.0 Impression/Recommendations Principal Problem: Right renal mass Assessment AND Plan: patient is scheduled surgery Active Problems: Hematuria POA: Yes Assessment AND Plan: getting bladder irrigation History of UC , s/p colectomy and S/J pouch History of Ileus/partial small bowel obstructions Will monitor post operatively, may need NG tube for decompression, may have to miralax. Will follow Resolved Problems: * No resolved hospital problems. * SIGNATURE: Michelle Steen MD PATIENT NAME: Juan David Yancey DATE: October 26, 2017 TIME: 9:25 AM PAGER: [phone] CONSULT PROG Observed: 10/26/2017 Status: COMPLETED Source: [facility] 9:09 AM [facility] OTHER CAMPUS REPOSITORY HNO ID: [id number] Author: Davey Braun Service: Cardiovascular Medicine Author Type: Physician Type: Consult Progress Note Filed: 10/26/2017 9:11 AM Note Text: PROGRESS NOTE CARDIOLOGY SERVICE SERVICE DATE: 10/26/2017 SERVICE TIME: 9:09 AM Subjective INTERIM HISTORY: No change Objective PHYSICAL EXAM: Body mass index is 5.22 kg/(m2). O2 Therapy: Room Air No Data Recorded Patient Vitals for the past 24 hrs: BP Temp Temp src Pulse Resp SpO2 10/26/17 0741 142/64 36.7 ?C (98.1 ?F) Temporal Art 69 18 99 % 10/26/17 0358 141/73 36.9 ?C (98.4 ?F) Temporal Art 70 18 100 % 10/25/17 2312 144/70 37 ?C (98.6 ?F) Temporal Art 74 16 96 % 10/25/17 1937 157/61 36.7 ?C (98.1 ?F) Oral 72 18 96 % 10/25/17 1607 137/67 36.7 ?C (98.1 ?F) Oral 69 18 100 % 10/25/17 1120 161/70 36.5 ?C (97.7 ?F) Oral 73 16 96 % NAD MEDICATIONS: Current hospital medications: doxazosin 1 mg tab(s) (CARDURA) 1 mg ORAL DAILY famotidine 20 mg tab(s) (PEPCID) 20 mg ORAL BID NaCl 0.9% irrigation solution 3,000 mL IRRIGATION CONTINUOUS heparin 5,000 Units injection 5,000 Units SUBCUTANEOUS q 8 H amLODIPine 10 mg tab(s) (NORVASC) 10 mg ORAL DAILY allopurinol 200 mg tab(s) (ZYLOPRIM) 200 mg ORAL DAILY NaCl 0.9% iv infusion 75 mL/hr INTRAVENOUS CONTINUOUS acetaminophen 650 mg tab(s) (TYLENOL) 650 mg ORAL q 4 H PRN oxyCODONE-acetaminophen 5-325 mg 1-2 tablet (PERCOCET) 1-2 tablet ORAL q 4 H PRN morphine 2-4 mg injection 2-4 mg INTRAVENOUS q 2 H PRN ondansetron (PF) 4 mg injection (ZOFRAN) 4 mg INTRAVENOUS q 6 H PRN docusate sodium 100 mg cap(s) (COLACE) 100 mg ORAL BID belladonna-opium 16.2-60 mg 1 Suppository suppository (B and O 16-A) 1 Suppository RECTAL TID PRN DATA: Past 72 Hour Labs: Recent Labs 10/26/17 0415 WBC 4.95 RBC 2.34* HB 7.8* HCT 23.2* MCV 99.1* MCH 33.3* MCHC 33.6 PLT 131* MPV 10.5 GLUC 87 BUN 13 CREAT 1.69* NA 138 K 3.6 CHLOR 106 CO2 26 CA 8.9 Last Lab Drawn: No results found for this basename: TSH,PROBNP,TG,HDL,LDL,CHOL EKG NSR Assessment/Plan 1.Cardiac Status:EKG NSR, no pathologic q waves or ST changes; 2.Renal Mass-may proceed from cardiac viewpoint; mild cardiac risk; watch for volume overload related to IVF and renal dysfx SIGNATURE: Davey Braun MD PATIENT NAME: Juan David Yancey DATE: October 26, 2017 TIME: 9:09 AM PAGER/CONTACT #: [phone] PROGRESS Observed: 10/26/2017 Status: COMPLETED Source: [facility] 6:31 AM [facility] REPOSITORY HNO ID: [id number] Author: Franklyn (Ksenia Nicole Service: Urology Author Type: Resident Type: Progress Notes Filed: 10/26/2017 6:34 AM Note Text: Attestation signed by Naty Forde Jr. at 10/26/2017 2:38 PM I saw and evaluated the patient. Discussed with the resident and agree with resident's findings and plan as documented in the resident's note. Naty Forde Jr, MD UROLOGY PROGRESS NOTE PATIENT NAME: Juan David Yancey DATE OF : 1955 ADMISSION DATE: 10/19/2017 8:33 PM TODAY'S DATE: 10/24/2017 Subjective Urine clear this AM Doing well otherwise Objective VS: BP 141/73 Pulse 70 Temp 36.9 ?C (98.4 ?F) (Temporal Artery) Resp 18 Ht 185.4 cm (6' 0.99) Wt 17.9 kg (39 lb 8.6 oz) SpO2 100% BMI 5.22 kg/m2 I AND O - 24hr: Intake/Output Summary (Last 24 hours) at 10/26/17 0631 Last data filed at 10/26/17 0520 Gross per 24 hour Intake 2950 ml Output 6150 ml Net -3200 ml Physical Exam: General: Neck: Resp: Abdomen: No acute distress Supple Normal effort Soft, non-tender, nondistended : [address], yellow on slow drip Labs and Imaging Studies LABS: BMP: Glucose (mg/dL) Date Value 10/26/2017 87 Potassium (mEq/L) Date Value 10/26/2017 3.6 Sodium (mEq/L) Date Value 10/26/2017 138 Chloride (mEq/L) Date Value 10/26/2017 106 CO2 (mEq/L) Date Value 10/26/2017 26 Creatinine (mg/dL) Date Value 10/26/2017 1.69 BUN (mg/dL) Date Value 10/26/2017 13 Anion Gap (no units) Date Value 10/26/2017 10 Calcium (mg/dL) Date Value 10/26/2017 8.9 CBC: Hemoglobin (g/dL) Date Value 11/30/2012 10.6 HGB (g/dL) Date Value 10/26/2017 7.8 Hematocrit (%) Date Value 10/26/2017 23.2 WBC (thou/cmm) Date Value 10/26/2017 4.95 Platelet Count (thou/cmm) Date Value 10/26/2017 131 Urinalysis: Specific [place], Ur Date Value Ref Range Status 10/19/2017 1.020 1.005 - 1.030 Final Glucose, Urine Date Value Ref Range Status 10/19/2017 see below Negative mg/dL Final Comment: Color abnormal- some macroscopic not done. Bilirubin, Urine Date Value Ref Range Status 10/19/2017 see below Negative Final Comment: Color abnormal- some macroscopic not done. Ketones, Urine Date Value Ref Range Status 10/19/2017 see below Negative mg/dL Final Comment: Color abnormal- some macroscopic not done. Protein, Urine Date Value Ref Range Status 10/19/2017 see below Negative mg/dL Final Comment: Color abnormal- some macroscopic not done. Urobilinogen, Urine Date Value Ref Range Status 10/19/2017 see below 0.0 - 1.0 EU/dL Final Comment: Color abnormal- some macroscopic not done. Nitrites Urine Date Value Ref Range Status 10/19/2017 see below Negative Final Comment: Color abnormal- some macroscopic not done. WBC, Urine Date Value Ref Range Status 10/19/2017 1.0-3 0.0 - 5.0 /hpf Final Urine Culture: Urine Culture (no units) Date Value 10/20/2017 No growth RADIOLOGY: Renal ultrasound: CLINICAL INDICATION/HISTORY: Renal mass; surgical planning ? TECHNIQUE: Scanning was performed by the technologist. ?Images were saved in a permanent archive (PACS). ? RESULTS: ? RIGHT KIDNEY: ?13.2 x 6.6 x 5.3 cm ? No evidence of hydronephrosis No shadowing calculus or perinephric fluid collection is seen. ? Along the posterior aspect of the superior pole there is a fairly isoechoic solid-appearing mass measuring 4.3 x 3.4 x 4.4 cm. ?No additional abnormality of the right kidney is seen. No cysts are seen. ? ? LEFT KIDNEY: ? 12.9 x 6.1 x 4.2 cm ? No evidence of hydronephrosis No shadowing calculus or perinephric fluid collection is seen. ? There are no masses which distort the renal cortical outlines. No cysts are seen. ? ? Urinary bladder is collapsed because of Mendoza catheter.. ? IMPRESSION: ? ? 1. ?4.4 cm mass of the right kidney at the superior pole, posterior aspect. ?This should be considered renal cell carcinoma unless proven otherwise. ?This corresponds to the mass seen on CT. ?No evidence of hydronephrosis. ?If the patient would be able, a contrast-enhanced CT or MRI could offer better evaluation ?of the kidneys ? 2. ?Left kidney is unremarkable as visualized Renal scan DIURETIC RENAL SCAN: ? CLINICAL HISTORY: hydronephrosis ? TECHNIQUE: 10.1 mCi Tc 99m MAG3 IV. ?Medications and allergies reviewed. ?40 ?mg Lasix was given IV at ?30 minutes. Imaging of the kidneys for flow and function obtained in posterior views. ? ? RESULT: ? RENAL PERFUSION: There is prompt perfusion to the left kidney. There is decreased perfusion to the right kidney. ? ? RENAL FUNCTION: ? There is reasonable uptake and parenchymal transit by the left kidney. ?There is spontaneous drainage of activity by the left kidney. ?Following Lasix there is further clearance with no evidence of obstruction. ?Mild retention in the post void images. ?No scintigraphic evidence to suggest obstruction on the left. ? ? There is decreased and delayed uptake and delayed parenchymal transit by the right ?kidney. ?There is delayed drainage of activity by the right kidney with progressive accumulation of tracer. ?Following Lasix there is poor clearance. Post ?Lasix t- half?clearance time is significantly prolonged with an essentially flat renogram curve. ?Findings suggestive of obstruction. ? ? By computer analysis, the contribution to total renal function is 85% from the left kidney, and 15% from the right kidney. ? IMPRESSION: ? LEFT KIDNEY: RELATIVELY BETTER FLOW AND FUNCTION AND DRAINAGE COMPARED TO THE RIGHT. ?NO SCINTIGRAPHIC EVIDENCE OF OBSTRUCTION ON THE LEFT. ? RIGHT KIDNEY: DECREASED FLOW AND FUNCTION AND DELAYED DRAINAGE. ?FINDINGS SUGGESTIVE OF OBSTRUCTION ON THE RIGHT. ? SPLIT FUNCTION: LEFT KIDNEY 85% AND RIGHT KIDNEY 15% Assessment and Plan ASSESSMENT: 62 year old male 7cm R renal mass and hematuria, s/p right ureteroscopy, stent placement,?BERTHA PLAN: 1) BERTHA - cont to follow Cr 2) renal scan suggesting 15% fxn of side with tumor - this may be artificially low due to some component of obstruction 3) continue CBI 4) continue subq heparin 5) Scheduled for nephrectomy Tuesday morning, may need PRBCs pre-op with hgb dropping slowly, will follow Franklyn Nicole MD HEMOGRAM Collected: 10/26/2017 Status: F Source: [facility] 4:15 AM HEALTH SYSTEM REPOSITORY TYPE CODE TESTS RESULT OUT OF REFERENCE UNITS RANGE LAB WBC(LOINC) 4.23-9.07 thou/cmm WBC 4.95 LAB RBC(LOINC) 4.63-6.08 mil/cmm Low RBC 2.34 LAB HGB(LOINC) 13.7-17.5 g/dL Low Hgb 7.8 LAB HCT(LOINC) 40.1-51.0 % Low Hct 23.2 LAB MCV(LOINC) 83.2-95.6 fl High MCV 99.1 LAB MCH(LOINC) 25.7-32.2 pg High MCH 33.3 LAB MCHC(LOINC) 32.3-36.5 % MCHC 33.6 LAB RDW(LOINC) 11.6-14.4 % RDW 14.3 LAB RDWSD(LOINC 36.1-45.8 fl ) High RDW SD 51.8 LAB PLT(LOINC) 141-365 thou/cmm Low Platelet 131 LAB MPV(LOINC) 8.7-12.0 fl MPV 10.5 Performed By: #### CBC1 #### [facility] [address] [id number] BASIC PANEL Collected: 10/26/2017 Status: F Source: [facility] 4:15 AM HEALTH SYSTEM REPOSITORY TYPE CODE TESTS RESULT OUT OF REFERENCE UNITS RANGE LAB NA(LOINC) 136-145 mEq/L Sodium Blood 138 LAB K(LOINC) 3.5-5.1 mEq/L Potassium Blood 3.6 LAB CL(LOINC) 98-107 mEq/L Chloride Blood 106 LAB CO2(LOINC) 21-32 mEq/L CO2 Blood 26 LAB GLU(LOINC) 70-99 mg/dL Glucose Blood 87 LAB BUN(LOINC) 7-18 mg/dL BUN Blood 13 LAB CREA(LOINC 0.67-1.17 mg/dL ) High Creatinine Blood 1.69 LAB CA(LOINC) 8.5-10.1 mg/dL Calcium Blood 8.9 LAB ANGAP(LOIN 8-16 C) Anion Gap 10 Performed By: #### P8 #### [facility] [address] [id number] MDRD GFR Collected: 10/26/2017 Status: F Source: [facility] 4:15 AM HEALTH SYSTEM REPOSITORY TYPE CODE TESTS RESULT OUT OF RANGE REFERENCE UNITS LAB GFRFN(LOINC >60mL/min/1.73m ) 2 eGFR 41.51 Result Comment: If the patient is , multiply the result by 1.210. Performed By: #### GFR #### [place] [id number] PROGRESS Observed: 10/25/2017 Status: COMPLETED Source: [facility] 6:52 PM CLINIC OTHER CAMPUS REPOSITORY HNO ID: [id number] Author: Deep Garcia MD Service: Hospital Medicine Author Type: Physician Type: Progress Notes Filed: 10/25/2017 6:55 PM Note Text: DEPARTMENT OF HOSPITAL MEDICINE PROGRESS NOTE SERVICE DATE: 10/25/2017 SERVICE TIME: 6:52 PM Hospital Medicine/Primary Attending: Deep Garcia MD NIGHT AND WEEKEND COVERAGE: After 7pm please page [phone] CHIEF COMPLAINT: Admitted for rt renal mass and gross hematuria SUBJECTIVE: No new issues reported OBJECTIVE: PHYSICAL EXAM: BP 137/67 Pulse 69 Temp (Src) 98.1 (Oral) Resp 18 Ht 6' .992 (1.85m) Wt 39 lb 8.6 oz (17.9kg) SpO2 100% BMI 5.22 kg/(m2). MEDICATIONS: Current hospital medications: doxazosin 1 mg tab(s) (CARDURA) 1 mg ORAL DAILY famotidine 20 mg tab(s) (PEPCID) 20 mg ORAL BID NaCl 0.9% irrigation solution 3,000 mL IRRIGATION CONTINUOUS heparin 5,000 Units injection 5,000 Units SUBCUTANEOUS q 8 H amLODIPine 10 mg tab(s) (NORVASC) 10 mg ORAL DAILY allopurinol 200 mg tab(s) (ZYLOPRIM) 200 mg ORAL DAILY NaCl 0.9% iv infusion 75 mL/hr INTRAVENOUS CONTINUOUS acetaminophen 650 mg tab(s) (TYLENOL) 650 mg ORAL q 4 H PRN oxyCODONE-acetaminophen 5-325 mg 1-2 tablet (PERCOCET) 1-2 tablet ORAL q 4 H PRN morphine 2-4 mg injection 2-4 mg INTRAVENOUS q 2 H PRN ondansetron (PF) 4 mg injection (ZOFRAN) 4 mg INTRAVENOUS q 6 H PRN docusate sodium 100 mg cap(s) (COLACE) 100 mg ORAL BID belladonna-opium 16.2-60 mg 1 Suppository suppository (B and O 16-A) 1 Suppository RECTAL TID PRN DATA: Diagnostic tests reviewed for today's visit: CBC: Recent Labs 10/25/17 0300 WBC 6.56 RBC 2.39* HB 8.1* HCT 23.4* PLT 164 MCV 97.9* MCH 33.9* MPV 12.4* RDW 15.7* Coags: No results for input(s): INR, APTT in the last 24 hours. Invalid input(s): PT BMP: Recent Labs 10/25/17 0524 NA 139 K 3.5 CHLOR 105 CO2 26 BUN 14 CREAT 1.48* GLUC 86 CMP: Recent Labs 10/25/17 0524 NA 139 K 3.5 CHLOR 105 CO2 26 BUN 14 CREAT 1.48* GLUC 86 CA 9.0 ANION 12 Cardiac Enzymes: No results for input(s): CK, MB, CKMB, TROPT in the last 24 hours. Liver Function, Amylase, Lipase: No results for input(s): TPROT, ALB, ALT, AST, ALKPHOS, TBILI, AMYLASE, LIPASE, LACTATE in the last 24 hours. MG/PHOS: No results for input(s): MG, P in the last 24 hours. Renal Panel: Recent Labs 10/25/17 0524 CREAT 1.48* BUN 14 GLUC 86 CA 9.0 CHLOR 105 K 3.5 CO2 26 NA 139 Heme: No results for input(s): RETICP, ABSRETIC, LD, KE, FE, TIBC, TRANSFERSAT in the last 24 hours. No results found for: UALBCR Assessment/Plan 1. Large renal mass with gross hematuria. Likely renal cell malignancy. Planned for right nephrectomy and cardiac clearance has been requested ? 2. BERTHA. Likely post-obstructive from blood clots. Nephrology on consult. Getting IVFs as well and creatinine improving ?? 3. 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 On hold for now ? 4. Anemia. Some component of blood loss. 5. Hypertension. Improved with addition of doxazosin Hospital medicine will sign off at this time Feel free to call if any questions ?? VTE Prophylaxis: Other Disposition: Home Plan of care discussed with: Other none SIGNATURE: Deep Garcia MD PATIENT NAME: Juan David Yancey DATE: October 25, 2017 TIME: 6:52 PM PAGER/CONTACT #: monica PROGRESS Observed: 10/25/2017 Status: COMPLETED Source: [facility] 5:27 PM CLINIC OTHER CAMPUS REPOSITORY HNO ID: [id number] Author: Daniel Zelaya Service: Nephrology Author Type: Physician Type: Progress Notes Filed: 10/25/2017 5:31 PM Note Text: [facility] Nephrology progress note ? Reason for consultation: BERTHA/post-obstructive ? Chief Complaint: difficulty with urination ? History of Presenting Illness ? 62 year old male presented from [place] for renal mass. Was unable to urinate prior to presentation. Mendoza was placed draining bright red blood. Was on blood thinner. No previous history, but reports hematuria x 2 weeks. No personal or family history of malignancy. No previous prostate or urinary issues. On Xarelto for DVTs. On CBI. Per nursing, was unable to drain overnight. She reports significant clotting removed. Still needing irrigated Q 3hrs. is making NPO after midnight-? Surgery as inpatient vs outpatient f/u. Additional home meds include ASA and Allopurinol. No FRANCK/ARB or diuretic. Also presently on NS at 125/hr. BP was 186/94 on admit. Today is 135/74 Creat on admit was 2.55, today is 2.58. UA with 1-3 WBC, >100RBC (partially resulted?) Baseline unknown, <1 2012. Patient denies any issues with renal function in past. States has hx UC, hip replacments d/t avascular necrosis from steroid use, DVT with IVC filter placement, PCI. No HTN or DM. Nephrology has been c/s for BERTHA Interval progess note Doing ok Cr is stable Baseline ? Back on CBI BP ok Reports not eating well No SOB Urine is clearing now Surgical plans are noted ROS (-) unless above No change in the PFSH ? Past Medical/Surgical History ? PAST MEDICAL HISTORY PAST MEDICAL HISTORY Diagnosis Date - Avascular necrosis (HCC) bilateral hip replacements d/t avascular necrosis - Blood clot in vein IVC filter placed in 1994 - Bowel disease ? ? MUC, colectomy in 1994 - Gout Summer 2011 ? 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 ? PAST SURGICAL HISTORY PAST SURGICAL HISTORY Procedure Laterality Date - COLECTOMY PARTIAL W ANASTOM ? ? - ILEOSTOMY ? ? ? closed - TOTAL HIP REPLACEMENT ? ? ? bilateral- castro ? ? ? Review of Systems ? All 12 systems reviewed and are negative except for what is mentioned in the HPI. ? Medications ? Prescriptions Prior to Admission ? Prescriptions Prior to Admission: aspirin 325 mg tablet Take 325 mg by mouth once daily. Disp: Rfl: ? RIVAROXABAN (XARELTO ORAL) Take 20 mg by mouth once daily. Disp: Rfl: ? allopurinol 100 mg tablet Take 2 tablets by mouth once daily. In 2 weeks, increase to 300mg/day Disp: 60 tablet Rfl: 2 ? ? ? CURRENT MEDICATIONS ? Current Facility-Administered Medications: oxybutynin 5 mg tab(s) (DITROPAN) 5 mg ORAL TID amLODIPine 10 mg tab(s) (NORVASC) 10 mg ORAL DAILY NaCl 0.9% irrigation solution 3,000 mL IRRIGATION CONTINUOUS allopurinol 200 mg tab(s) (ZYLOPRIM) 200 mg ORAL DAILY NaCl 0.9% iv infusion 125 mL/hr INTRAVENOUS CONTINUOUS acetaminophen 650 mg tab(s) (TYLENOL) 650 mg ORAL q 4 H PRN oxyCODONE-acetaminophen 5-325 mg 1-2 tablet (PERCOCET) 1-2 tablet ORAL q 4 H PRN morphine 2-4 mg injection 2-4 mg INTRAVENOUS q 2 H PRN ondansetron (PF) 4 mg injection (ZOFRAN) 4 mg INTRAVENOUS q 6 H PRN docusate sodium 100 mg cap(s) (COLACE) 100 mg ORAL BID ceFAZolin 1 g in dextrose (iso-osmotic) 50 mL (ANCEF, KEFZOL) 1 g INTRAVENOUS q 8 H belladonna-opium 16.2-60 mg 1 Suppository suppository (B and O 16-A) 1 Suppository RECTAL TID PRN ? ? Allergies ? Morphine; Prednisone ? ? Family History ? Negative for Kidney Disease FAMILY HISTORY No family history on file. ? Social History ? SOCIAL HISTORY Social History Marital status: Spouse name: Years of education: Number of children: ? Social History Main Topics Smoking status: Never Smoker ? Smokeless status: Never Used Alcohol use: Yes Comment: social Drug use: No ? ? Physical Exam ? Blood pressure 135/71, pulse 66, temperature 36.9 ?C (98.4 ?F), temperature source Oral, resp. rate 18, height 185.4 cm (6' 0.99), weight 17.9 kg (39 lb 8.6 oz), SpO2 97 %. 24 HR INTAKE/OUTPUT: Intake/Output Summary (Last 24 hours) at 10/20/17 1522 Last data filed at 10/20/17 1504 ? Gross per 24 hour Intake 3640 ml Output 2800 ml Net 840 ml ? ? General: NAD, Comfortable appearing, cooperative to history and physical exam. Head: AT NC Neck: Supple, no jvd Chest: B/L clear, no crackles, no accessory muscles usage. CV: RRR, no murmurs or rubs Abdomen: NT, ND, soft Extremities: trace peripheral edema, no tremor Neurological: Moving all four extremities, no focal neurological deficit Psychiatric: Normal insight and judgement, good recall : mendoza with hematuria, +CBI ? Data ? ? Recent Labs ? 10/20/17 0740 10/19/172124 NA 139 137 K 4.5 3.9 CHLOR 107 105 CO2 27 21 BUN 24* 25* CREAT 2.58* 2.55* GLUC 103* 163* ALB 3.3* 3.9 CA 8.8 9.5 ? ? ? Recent Labs ? 10/20/17 0325 10/19/172124 WBC 10.55* 12.65* HB 10.6* 10.9* HCT 30.2* 30.2* PLT 247 237 ? ? ? pH, Urine Date Value Ref Range Status 10/19/2017 see below 5.0 - 8.0 Final Comment: Color abnormal- some macroscopic not done. Specific [place], Ur Date Value Ref Range Status 10/19/2017 1.020 1.005 - 1.030 Final Glucose, Urine Date Value Ref Range Status 10/19/2017 see below Negative mg/dL Final Comment: Color abnormal- some macroscopic not done. Bilirubin, Urine Date Value Ref Range Status 10/19/2017 see below Negative Final Comment: Color abnormal- some macroscopic not done. Ketones, Urine Date Value Ref Range Status 10/19/2017 see below Negative mg/dL Final Comment: Color abnormal- some macroscopic not done. Protein, Urine Date Value Ref Range Status 10/19/2017 see below Negative mg/dL Final Comment: Color abnormal- some macroscopic not done. Nitrites Urine Date Value Ref Range Status 10/19/2017 see below Negative Final Comment: Color abnormal- some macroscopic not done. WBC, Urine Date Value Ref Range Status 10/19/2017 1.0-3 0.0 - 5.0 /hpf Final ? CXR EXAM TITLE: CHEST 1 VIEW ? DATE: 10/20/2017 06:09 ? INDICATION: ?Patient history of renal mass. ? COMPARISON: None. ? Portable frontal view of the chest shows heart size to be normal. ? Pulmonary vascularity is normal. ? Lungs are clear. No infiltrates or effusions. ? No obvious acute bony abnormality is evident. There is evidence of old left clavicle fracture. ? IMPRESSION: ? No acute findings radiographically. ?Results for JUAN DAVID YANCEY ( ) as of 10/23/2017 12:08 Ref. Range 10/23/2017 02:45 Sodium Latest Ref Range: 136 - 145 mEq/L 137 Potassium Latest Ref Range: 3.5 - 5.1 mEq/L 4.0 Chloride Latest Ref Range: 98 - 107 mEq/L 108 (H) CO2 Latest Ref Range: 21 - 32 mEq/L 22 BUN Latest Ref Range: 7 - 18 mg/dL 17 Creatinine Latest Ref Range: 0.67 - 1.17 mg/dL 1.80 (H) Glucose Latest Ref Range: 70 - 99 mg/dL 106 (H) Calcium Latest Ref Range: 8.5 - 10.1 mg/dL 8.8 Anion Gap Latest Ref Range: 8 - 16 11 eGFR Latest Ref Range: >60mL/min/1.73m2 38.60 Assessment: 1. BERTHA-acute vs acute/chronic, likely 2/2 obstruction 2. Renal mass( right renal ) 3. Hematuria- from RCC ? 4. DVT history 5. H/o Ulcerative colitis + 6. Anemia from acute blood loss ? 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 APPROVED BY: Isaiah Mendez MD EXAM TITLE: ABDOMEN 1 VIEW DATE: 10/25/2017 16:25 COMPARISON: 10/21/17 image CLINICAL INDICATION/HISTORY: Abdominal pain and constipation TECHNIQUE: 2 portable views of the abdomen is presented. FINDINGS: Moderate degree of gaseous distention of bowel loops. Vascular stent. Vena cava filter Evidence of a renal stent which is now seen at the level of the distal ureter and bladder representing a change from 10/21/2017 image There is no abnormal calcifications. Bilateral hip replacements IMPRESSION: Moderate degree of gaseous distention of bowel loops. Follow- up imaging should made on a clinical basis to exclude mechanical obstruction. Maximum transverse dimension is 9 cm. Evidence of a renal stent which is now seen at the level of the distal ureter and bladder representing a change from 10/21/2017 image CONSULT Observed: 10/25/2017 Status: COMPLETED Source: [facility] 11:24 AM CLINIC OTHER CAMPUS REPOSITORY HNO ID: [id number] Author: Davey Braun Service: Cardiovascular Medicine Author Type: Physician Type: Consults Filed: 10/25/2017 11:25 AM Note Text: Job [id number] Card Consult Dictated 1.Renal mass-needs R nephrectomy- EKG ordered and I will review today; will then leave final risk/clearance note; no known CV disease, has new HTN related to renal disease Thanks Davey Braun MD Pager [phone] PROGRESS Observed: 10/25/2017 Status: COMPLETED Source: [facility] 7:45 AM CLINIC OTHER CAMPUS REPOSITORY HNO ID: [id number] Author: [place] Service: Urology Author Type: Physician Type: Progress Notes Filed: 10/25/2017 3:31 PM Note Text: UROLOGY PROGRESS NOTE PATIENT NAME: Juan David Yancey DATE OF : 1955 ADMISSION DATE: 10/19/2017 8:33 PM TODAY'S DATE: 10/24/2017 Subjective Urine clear this AM Doing well otherwise Mild complaints of flank pain Objective VS: BP 156/75 Pulse 74 Temp 36.6 ?C (97.9 ?F) (Temporal Artery) Resp 18 Ht 185.4 cm (6' 0.99) Wt 17.9 kg (39 lb 8.6 oz) SpO2 99% BMI 5.22 kg/m2 I AND O - 24hr: Intake/Output Summary (Last 24 hours) at 10/25/17 0745 Last data filed at 10/25/17 0535 Gross per 24 hour Intake 3950 ml Output 74313 ml Net -7225 ml Physical Exam: General: Neck: Resp: Abdomen: No acute distress Supple Normal effort Soft, non-tender, nondistended : [address], yellow on slow drip Labs and Imaging Studies LABS: BMP: Glucose (mg/dL) Date Value 10/25/2017 86 Potassium (mEq/L) Date Value 10/25/2017 3.5 Sodium (mEq/L) Date Value 10/25/2017 139 Chloride (mEq/L) Date Value 10/25/2017 105 CO2 (mEq/L) Date Value 10/25/2017 26 Creatinine (mg/dL) Date Value 10/25/2017 1.48 BUN (mg/dL) Date Value 10/25/2017 14 Anion Gap (no units) Date Value 10/25/2017 12 Calcium (mg/dL) Date Value 10/25/2017 9.0 CBC: Hemoglobin (g/dL) Date Value 11/30/2012 10.6 HGB (g/dL) Date Value 10/25/2017 8.1 Hematocrit (%) Date Value 10/25/2017 23.4 WBC (thou/cmm) Date Value 10/25/2017 6.56 Platelet Count (thou/cmm) Date Value 10/25/2017 164 Urinalysis: Specific [place], Ur Date Value Ref Range Status 10/19/2017 1.020 1.005 - 1.030 Final Glucose, Urine Date Value Ref Range Status 10/19/2017 see below Negative mg/dL Final Comment: Color abnormal- some macroscopic not done. Bilirubin, Urine Date Value Ref Range Status 10/19/2017 see below Negative Final Comment: Color abnormal- some macroscopic not done. Ketones, Urine Date Value Ref Range Status 10/19/2017 see below Negative mg/dL Final Comment: Color abnormal- some macroscopic not done. Protein, Urine Date Value Ref Range Status 10/19/2017 see below Negative mg/dL Final Comment: Color abnormal- some macroscopic not done. Urobilinogen, Urine Date Value Ref Range Status 10/19/2017 see below 0.0 - 1.0 EU/dL Final Comment: Color abnormal- some macroscopic not done. Nitrites Urine Date Value Ref Range Status 10/19/2017 see below Negative Final Comment: Color abnormal- some macroscopic not done. WBC, Urine Date Value Ref Range Status 10/19/2017 1.0-3 0.0 - 5.0 /hpf Final Urine Culture: Urine Culture (no units) Date Value 10/20/2017 No growth RADIOLOGY: Renal ultrasound: CLINICAL INDICATION/HISTORY: Renal mass; surgical planning ? TECHNIQUE: Scanning was performed by the technologist. ?Images were saved in a permanent archive (PACS). ? RESULTS: ? RIGHT KIDNEY: ?13.2 x 6.6 x 5.3 cm ? No evidence of hydronephrosis No shadowing calculus or perinephric fluid collection is seen. ? Along the posterior aspect of the superior pole there is a fairly isoechoic solid-appearing mass measuring 4.3 x 3.4 x 4.4 cm. ?No additional abnormality of the right kidney is seen. No cysts are seen. ? ? LEFT KIDNEY: ? 12.9 x 6.1 x 4.2 cm ? No evidence of hydronephrosis No shadowing calculus or perinephric fluid collection is seen. ? There are no masses which distort the renal cortical outlines. No cysts are seen. ? ? Urinary bladder is collapsed because of Mendoza catheter.. ? IMPRESSION: ? ? 1. ?4.4 cm mass of the right kidney at the superior pole, posterior aspect. ?This should be considered renal cell carcinoma unless proven otherwise. ?This corresponds to the mass seen on CT. ?No evidence of hydronephrosis. ?If the patient would be able, a contrast-enhanced CT or MRI could offer better evaluation ?of the kidneys ? 2. ?Left kidney is unremarkable as visualized Renal scan DIURETIC RENAL SCAN: ? CLINICAL HISTORY: hydronephrosis ? TECHNIQUE: 10.1 mCi Tc 99m MAG3 IV. ?Medications and allergies reviewed. ?40 ?mg Lasix was given IV at ?30 minutes. Imaging of the kidneys for flow and function obtained in posterior views. ? ? RESULT: ? RENAL PERFUSION: There is prompt perfusion to the left kidney. There is decreased perfusion to the right kidney. ? ? RENAL FUNCTION: ? There is reasonable uptake and parenchymal transit by the left kidney. ?There is spontaneous drainage of activity by the left kidney. ?Following Lasix there is further clearance with no evidence of obstruction. ?Mild retention in the post void images. ?No scintigraphic evidence to suggest obstruction on the left. ? ? There is decreased and delayed uptake and delayed parenchymal transit by the right ?kidney. ?There is delayed drainage of activity by the right kidney with progressive accumulation of tracer. ?Following Lasix there is poor clearance. Post ?Lasix t- half?clearance time is significantly prolonged with an essentially flat renogram curve. ?Findings suggestive of obstruction. ? ? By computer analysis, the contribution to total renal function is 85% from the left kidney, and 15% from the right kidney. ? IMPRESSION: ? LEFT KIDNEY: RELATIVELY BETTER FLOW AND FUNCTION AND DRAINAGE COMPARED TO THE RIGHT. ?NO SCINTIGRAPHIC EVIDENCE OF OBSTRUCTION ON THE LEFT. ? RIGHT KIDNEY: DECREASED FLOW AND FUNCTION AND DELAYED DRAINAGE. ?FINDINGS SUGGESTIVE OF OBSTRUCTION ON THE RIGHT. ? SPLIT FUNCTION: LEFT KIDNEY 85% AND RIGHT KIDNEY 15% Assessment and Plan ASSESSMENT: 62 year old male 7cm R renal mass and hematuria, s/p right ureteroscopy, stent placement,?BERTHA PLAN: 1) BERTHA - Cr continues to improve 2) renal scan suggesting 15% fxn of side with tumor - this may be artificially low due to some component of obstruction 3) continue CBI 4) continue subq heparin 5) Scheduled for nephrectomy Tuesday morning Franklyn Nicole MD I saw and evaluated the patient. Discussed with the resident and agree with resident's findings and plan as documented in the resident's note. Plan on surgery w/ Dr. Forde Tuesday. Discussed with pt. [place] MD BASIC PANEL Collected: 10/25/2017 Status: F Source: [facility] 5:24 AM HEALTH SYSTEM REPOSITORY TYPE CODE TESTS RESULT OUT OF REFERENCE UNITS RANGE LAB NA(LOINC) 136-145 mEq/L Sodium Blood 139 LAB K(LOINC) 3.5-5.1 mEq/L Potassium Blood 3.5 LAB CL(LOINC) 98-107 mEq/L Chloride Blood 105 LAB CO2(LOINC) 21-32 mEq/L CO2 Blood 26 LAB GLU(LOINC) 70-99 mg/dL Glucose Blood 86 LAB BUN(LOINC) 7-18 mg/dL BUN Blood 14 LAB CREA(LOINC 0.67-1.17 mg/dL ) High Creatinine Blood 1.48 LAB CA(LOINC) 8.5-10.1 mg/dL Calcium Blood 9.0 LAB ANGAP(LOIN 8-16 C) Anion Gap 12 Performed By: #### P8 #### [facility] [address] [id number] MDRD GFR Collected: 10/25/2017 Status: F Source: [facility] 5:24 AM HEALTH SYSTEM REPOSITORY TYPE CODE TESTS RESULT OUT OF RANGE REFERENCE UNITS LAB GFRFN(LOINC >60mL/min/1.73m ) 2 eGFR 48.38 Result Comment: If the patient is , multiply the result by 1.210. Performed By: #### GFR #### [facility] [address] [place] [id number] HEMOGRAM Collected: 10/25/2017 Status: F Source: [facility] 3:00 AM HEALTH SYSTEM REPOSITORY TYPE CODE TESTS RESULT OUT OF REFERENCE UNITS RANGE LAB WBC(LOINC) 4.23-9.07 thou/cmm WBC 6.56 LAB RBC(LOINC) 4.63-6.08 mil/cmm Low RBC 2.39 LAB HGB(LOINC) 13.7-17.5 g/dL Low Hgb 8.1 LAB HCT(LOINC) 40.1-51.0 % Low Hct 23.4 LAB MCV(LOINC) 83.2-95.6 fl High MCV 97.9 LAB MCH(LOINC) 25.7-32.2 pg High MCH 33.9 LAB MCHC(LOINC) 32.3-36.5 % MCHC 34.6 LAB RDW(LOINC) 11.6-14.4 % High RDW 15.7 LAB RDWSD(LOINC 36.1-45.8 fl ) High RDW SD 52.8 LAB PLT(LOINC) 141-365 thou/cmm Platelet 164 LAB MPV(LOINC) 8.7-12.0 fl High MPV 12.4 Performed By: #### CBC1 #### [facility] [address] [id number] CONSULT Observed: 10/25/2017 Status: COMPLETED Source: [facility] 12:00 AM CLINIC OTHER CAMPUS REPOSITORY HNO ID: [id number] Author: Davey Braun Service: Cardiovascular Medicine Author Type: Physician Type: Consults Filed: 10/26/2017 6:57 AM Note Text: [facility] - Consultation PATIENT NAME: JUAN DAVID YANCEY CSN: [id number] DATE OF : 1955 SEX/AGE: M/62 PATIENT TYPE: I HOSP [facility] LOCATION: [id number] DATE OF SERVICE: 10/25/2017 CARDIOLOGY CONSULT Consult is from Dr. Naty Forde of Urology Service. CHIEF COMPLAINT: Preoperative evaluation. HISTORY OF PRESENT ILLNESS: This is a very pleasant 62-year-old gentleman who lives down in the [facility] area. He is coming up here because he is found to have a right renal mass and needs a nephrectomy later this week. I am asked to see him preoperatively. He denies any heart disease. He has never had coronary disease. There is no family history of coronary artery disease. He had no hypertension previously until just recently. No diabetes. No tobacco. No hyperlipidemia. He has never had a stroke. He has had recurrent DVTs over the years. He was initially on Coumadin about 18 years ago after a surgery. After a period of time, stopped the Coumadin, was hard to regulate, and then had a recurrent DVT about 5 years ago and has been on Xarelto and aspirin since then. He has not had to stop the Xarelto for any reason. He has had no recurrent DVT. He does not have exertional chest pain. He has chronic mild exertional dyspnea only with hills. 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 He was starting to notice hematuria, which prompted his evaluation and he was found to have a right renal mass. He does have a history also of colitis, status post prior colectomy many years ago. He has no known arrhythmia. He does not smoke. He does not drink. No chronic lung disease. MEDICATIONS: His medications at home are aspirin and Xarelto. ALLERGIES: He has allergies to morphine and prednisone. He has not had any cardiac testing because he really has not needed any. He has no known CAD. I am asked to see him preoperatively just to make sure he needs no further testing. He has been off the Xarelto for a number of days now, getting his urologic evaluation. He has had a right renal mass noted on CT scanning. He has also been somewhat hypertensive of late, but he has had some degree of obstruction due to bleeding and clots. He said, this is all new for him as far as blood pressure. He has had a little bit of edema as well just over the last week or so. Again, no diabetes. No peripheral vascular disease. He normally does not have edema. PHYSICAL EXAMINATION: GENERAL: Very pleasant gentleman. He is mildly to moderately obese, the weight is not accurate. VITAL SIGNS: Temp 36.9, pulse is 70 and regular. There is no telemetry. Blood pressure is 150/80. SKIN: No major bruising. No skin rash. PSYCH: Pleasant affect. Alert and oriented. NEUROLOGIC: Nonfocal. Follows commands. Normal mentation. HEENT: Pupils are equal. Eyelids normal. NECK: Cannot assess JVD or thyromegaly. Carotid upstrokes normal. CHEST: Clear. No wheeze or rale. No accessary muscle use. CARDIAC: Regular rate and rhythm. Distant heart sounds. No murmur or gallop. Thomson nonpalpable. ABDOMEN: Obese, nontender. No rebound. No obvious hepatomegaly. EXTREMITIES: 1+ bilateral calf edema is noted. Distal pulses in the extremities are 2+. Extremities are well perfused. LABORATORY DATA: There is no EKG. His sodium is 138, potassium 3.9, chloride 106, bicarb 23. BUN 17, creatinine 1.6. White count 8, hematocrit 26.6, platelets 161,000. IMPRESSION: 1. Cardiac status: Clinically, no cardiac disease and this is really new hypertension. He does not have any major risk factors or even worrisome symptoms. He has a little exertional dyspnea. I would need a 12-lead EKG, which I will order. If this is pretty unremarkable, he would not need any further testing. If the EKG suggests any concerns about structural heart disease, I will probably go ahead with an echo, but I will give a followup note once I have the EKG reviewed. Certainly would not do any stress testing in this gentleman. 2. Hypercoagulable state: He is now off the Xarelto and my suggestion would be to restart it after surgery as soon as possible, probably at the 48 hour main if it is felt to be reasonable. If he is going to have a prolonged period of time without anticoagulation, which is unlikely, an IVC filter might need to be a consideration. 3. Right renal mass: Needs nephrectomy for presumptive renal cell cancer. As above, will give final clearance in risk once I have his EKG to review but certainly expect him to be ready for surgery on Tuesday. 4. Hypertension: Presumably related to his renal insufficiency. He is on amlodipine and Cardura, which certainly seemed reasonable. It also may be reasonable to give him a little Lasix because of his fluid accumulation. I would not give him programmed Lasix perhaps 1 dose cautiously to eliminate some of his edema. Thank you for the consult on this nice gentleman. I will follow with you and give followup note once I look at his EKG. Davey Braun MD Cardiology DAC:modl /[id number] PROGRESS Observed: 10/24/2017 Status: COMPLETED Source: [facility] 5:23 PM CLINIC OTHER CAMPUS REPOSITORY HNO ID: [id number] Author: Daniel Zelaya Service: Nephrology Author Type: Physician Type: Progress Notes Filed: 10/24/2017 5:25 PM Note Text: [facility] Nephrology progress note ? Reason for consultation: BERTHA/post-obstructive ? Chief Complaint: difficulty with urination ? History of Presenting Illness ? 62 year old male presented from [place] for renal mass. Was unable to urinate prior to presentation. Mendoza was placed draining bright red blood. Was on blood thinner. No previous history, but reports hematuria x 2 weeks. No personal or family history of malignancy. No previous prostate or urinary issues. On Xarelto for DVTs. On CBI. Per nursing, was unable to drain overnight. She reports significant clotting removed. Still needing irrigated Q 3hrs. is making NPO after midnight-? Surgery as inpatient vs outpatient f/u. Additional home meds include ASA and Allopurinol. No FRANCK/ARB or diuretic. Also presently on NS at 125/hr. BP was 186/94 on admit. Today is 135/74 Creat on admit was 2.55, today is 2.58. UA with 1-3 WBC, >100RBC (partially resulted?) Baseline unknown, <1 2012. Patient denies any issues with renal function in past. States has hx UC, hip replacments d/t avascular necrosis from steroid use, DVT with IVC filter placement, PCI. No HTN or DM. Nephrology has been c/s for BERTHA Interval progess note Doing ok Cr is stable Baseline ? Back on CBI BP ok Reports not eating well No SOB On NS at 50/hr ROS (-) unless above No change in the PFSH ? Past Medical/Surgical History ? PAST MEDICAL HISTORY PAST MEDICAL HISTORY Diagnosis Date - Avascular necrosis (HCC) bilateral hip replacements d/t avascular necrosis - Blood clot in vein IVC filter placed in 1994 - Bowel disease ? ? MUC, colectomy in 1994 - Gout Summer 2011 ? 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 ? PAST SURGICAL HISTORY PAST SURGICAL HISTORY Procedure Laterality Date - COLECTOMY PARTIAL W ANASTOM ? ? - ILEOSTOMY ? ? ? closed - TOTAL HIP REPLACEMENT ? ? ? bilateral- castro ? ? ? Review of Systems ? All 12 systems reviewed and are negative except for what is mentioned in the HPI. ? Medications ? Prescriptions Prior to Admission ? Prescriptions Prior to Admission: aspirin 325 mg tablet Take 325 mg by mouth once daily. Disp: Rfl: ? RIVAROXABAN (XARELTO ORAL) Take 20 mg by mouth once daily. Disp: Rfl: ? allopurinol 100 mg tablet Take 2 tablets by mouth once daily. In 2 weeks, increase to 300mg/day Disp: 60 tablet Rfl: 2 ? ? ? CURRENT MEDICATIONS ? Current Facility-Administered Medications: oxybutynin 5 mg tab(s) (DITROPAN) 5 mg ORAL TID amLODIPine 10 mg tab(s) (NORVASC) 10 mg ORAL DAILY NaCl 0.9% irrigation solution 3,000 mL IRRIGATION CONTINUOUS allopurinol 200 mg tab(s) (ZYLOPRIM) 200 mg ORAL DAILY NaCl 0.9% iv infusion 125 mL/hr INTRAVENOUS CONTINUOUS acetaminophen 650 mg tab(s) (TYLENOL) 650 mg ORAL q 4 H PRN oxyCODONE-acetaminophen 5-325 mg 1-2 tablet (PERCOCET) 1-2 tablet ORAL q 4 H PRN morphine 2-4 mg injection 2-4 mg INTRAVENOUS q 2 H PRN ondansetron (PF) 4 mg injection (ZOFRAN) 4 mg INTRAVENOUS q 6 H PRN docusate sodium 100 mg cap(s) (COLACE) 100 mg ORAL BID ceFAZolin 1 g in dextrose (iso-osmotic) 50 mL (ANCEF, KEFZOL) 1 g INTRAVENOUS q 8 H belladonna-opium 16.2-60 mg 1 Suppository suppository (B and O 16-A) 1 Suppository RECTAL TID PRN ? ? Allergies ? Morphine; Prednisone ? ? Family History ? Negative for Kidney Disease FAMILY HISTORY No family history on file. ? Social History ? SOCIAL HISTORY Social History Marital status: Spouse name: Years of education: Number of children: ? Social History Main Topics Smoking status: Never Smoker ? Smokeless status: Never Used Alcohol use: Yes Comment: social Drug use: No ? ? Physical Exam ? Blood pressure 135/71, pulse 66, temperature 36.9 ?C (98.4 ?F), temperature source Oral, resp. rate 18, height 185.4 cm (6' 0.99), weight 17.9 kg (39 lb 8.6 oz), SpO2 97 %. 24 HR INTAKE/OUTPUT: Intake/Output Summary (Last 24 hours) at 10/20/17 1522 Last data filed at 10/20/17 1504 ? Gross per 24 hour Intake 3640 ml Output 2800 ml Net 840 ml ? ? General: NAD, Comfortable appearing, cooperative to history and physical exam. Head: AT NC Neck: Supple, no jvd Chest: B/L clear, no crackles, no accessory muscles usage. CV: RRR, no murmurs or rubs Abdomen: NT, ND, soft Extremities: trace peripheral edema, no tremor Neurological: Moving all four extremities, no focal neurological deficit Psychiatric: Normal insight and judgement, good recall : mendoza with hematuria, +CBI ? Data ? ? Recent Labs ? 10/20/17 0740 10/19/17 2125 NA 139 137 K 4.5 3.9 CHLOR 107 105 CO2 27 21 BUN 24* 25* CREAT 2.58* 2.55* GLUC 103* 163* ALB 3.3* 3.9 CA 8.8 9.5 ? ? ? Recent Labs ? 10/20/17 0325 10/19/17 2125 WBC 10.55* 12.65* HB 10.6* 10.9* HCT 30.2* 30.2* PLT 247 237 ? ? ? pH, Urine Date Value Ref Range Status 10/19/2017 see below 5.0 - 8.0 Final Comment: Color abnormal- some macroscopic not done. Specific [place], Ur Date Value Ref Range Status 10/19/2017 1.020 1.005 - 1.030 Final Glucose, Urine Date Value Ref Range Status 10/19/2017 see below Negative mg/dL Final Comment: Color abnormal- some macroscopic not done. Bilirubin, Urine Date Value Ref Range Status 10/19/2017 see below Negative Final Comment: Color abnormal- some macroscopic not done. Ketones, Urine Date Value Ref Range Status 10/19/2017 see below Negative mg/dL Final Comment: Color abnormal- some macroscopic not done. Protein, Urine Date Value Ref Range Status 10/19/2017 see below Negative mg/dL Final Comment: Color abnormal- some macroscopic not done. Nitrites Urine Date Value Ref Range Status 10/19/2017 see below Negative Final Comment: Color abnormal- some macroscopic not done. WBC, Urine Date Value Ref Range Status 10/19/2017 1.0-3 0.0 - 5.0 /hpf Final ? CXR EXAM TITLE: CHEST 1 VIEW ? DATE: 10/20/2017 06:09 ? INDICATION: ?Patient history of renal mass. ? COMPARISON: None. ? Portable frontal view of the chest shows heart size to be normal. ? Pulmonary vascularity is normal. ? Lungs are clear. No infiltrates or effusions. ? No obvious acute bony abnormality is evident. There is evidence of old left clavicle fracture. ? IMPRESSION: ? No acute findings radiographically. ?Results for JUAN DAVID YANCEY ( ) as of 10/23/2017 12:08 Ref. Range 10/23/2017 02:45 Sodium Latest Ref Range: 136 - 145 mEq/L 137 Potassium Latest Ref Range: 3.5 - 5.1 mEq/L 4.0 Chloride Latest Ref Range: 98 - 107 mEq/L 108 (H) CO2 Latest Ref Range: 21 - 32 mEq/L 22 BUN Latest Ref Range: 7 - 18 mg/dL 17 Creatinine Latest Ref Range: 0.67 - 1.17 mg/dL 1.80 (H) Glucose Latest Ref Range: 70 - 99 mg/dL 106 (H) Calcium Latest Ref Range: 8.5 - 10.1 mg/dL 8.8 Anion Gap Latest Ref Range: 8 - 16 11 eGFR Latest Ref Range: >60mL/min/1.73m2 38.60 Assessment: 1. BERTHA-acute vs acute/chronic, likely 2/2 obstruction 2. Renal mass( right renal ) 3. Hematuria- from RCC ? 4. DVT history 5. H/o Ulcerative colitis + 6. Anemia from acute blood loss ? Plan: Will need to monitor creat closely Cr is slightly better at this time Would defer contrast imaging at this time given renal function Renal scan per urology tentatively planned for today Expect cr to get better as the BERTHA resolves Renal mass( RCC ? 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 CASE MANAGEM Observed: 10/24/2017 Status: COMPLETED Source: [facility] 2:16 PM [facility] REPOSITORY HNO ID: [id number] Author: Jose Manuel (Rn) ЕЛЕНА Sheets Service: Care Management Author Type: Registered Nurse Type: Care Mgt Progress Note Filed: 10/24/2017 2:18 PM Note Text: CARE MANAGEMENT PROGRESS NOTE SERVICE DATE: 10/24/2017 SERVICE TIME: 6 LOS: 4 days Chart reviewed. Spoke with RN. Spoke with patient and family. Possible renal biopsy or surgery due to continued hematuria. Plan still to d/c home with family when medically stable. Will continue to follow hospital course. SIGNATURE: Jose Manuel Sheets RN PATIENT NAME: Juan David Yancey DATE: October 24, 2017 TIME: 2:16 PM PAGER/CONTACT #: [phone] PROGRESS Observed: 10/24/2017 Status: COMPLETED Source: [facility] 7:05 AM [facility] REPOSITORY HNO ID: [id number] Author: Silviano Dolan DO Service: Urology Author Type: Physician Type: Progress Notes Filed: 10/25/2017 7:28 AM Note Text: UROLOGY PROGRESS NOTE PATIENT NAME: Juan David Yancey DATE OF : 1955 ADMISSION DATE: 10/19/2017 8:33 PM TODAY'S DATE: 10/24/2017 Subjective Still with clots overnight Doing well otherwise No complaints of flank pain Objective VS: BP 155/84 Pulse 87 Temp 36.9 ?C (98.4 ?F) (Oral) Resp 18 Ht 185.4 cm (6' 0.99) Wt 17.9 kg (39 lb 8.6 oz) SpO2 95% BMI 5.22 kg/m2 I AND O - 24hr: Intake/Output Summary (Last 24 hours) at 10/24/17 0706 Last data filed at 10/24/17 0640 Gross per 24 hour Intake 4300 ml Output 07100 ml Net -45751 ml Physical Exam: General: Neck: Resp: Abdomen: No acute distress Supple Normal effort Soft, non-tender, nondistended : [address], light pink on moderate drip Labs and Imaging Studies LABS: BMP: Glucose (mg/dL) Date Value 10/24/2017 125 Potassium (mEq/L) Date Value 10/24/2017 3.9 Sodium (mEq/L) Date Value 10/24/2017 138 Chloride (mEq/L) Date Value 10/24/2017 106 CO2 (mEq/L) Date Value 10/24/2017 23 Creatinine (mg/dL) Date Value 10/24/2017 1.64 BUN (mg/dL) Date Value 10/24/2017 17 Anion Gap (no units) Date Value 10/24/2017 13 Calcium (mg/dL) Date Value 10/24/2017 9.0 CBC: Hemoglobin (g/dL) Date Value 11/30/2012 10.6 HGB (g/dL) Date Value 10/24/2017 8.7 Hematocrit (%) Date Value 10/24/2017 26.6 WBC (thou/cmm) Date Value 10/24/2017 8.49 Platelet Count (thou/cmm) Date Value 10/24/2017 161 Urinalysis: Specific [place], Ur Date Value Ref Range Status 10/19/2017 1.020 1.005 - 1.030 Final Glucose, Urine Date Value Ref Range Status 10/19/2017 see below Negative mg/dL Final Comment: Color abnormal- some macroscopic not done. Bilirubin, Urine Date Value Ref Range Status 10/19/2017 see below Negative Final Comment: Color abnormal- some macroscopic not done. Ketones, Urine Date Value Ref Range Status 10/19/2017 see below Negative mg/dL Final Comment: Color abnormal- some macroscopic not done. Protein, Urine Date Value Ref Range Status 10/19/2017 see below Negative mg/dL Final Comment: Color abnormal- some macroscopic not done. Urobilinogen, Urine Date Value Ref Range Status 10/19/2017 see below 0.0 - 1.0 EU/dL Final Comment: Color abnormal- some macroscopic not done. Nitrites Urine Date Value Ref Range Status 10/19/2017 see below Negative Final Comment: Color abnormal- some macroscopic not done. WBC, Urine Date Value Ref Range Status 10/19/2017 1.0-3 0.0 - 5.0 /hpf Final Urine Culture: Urine Culture (no units) Date Value 10/20/2017 No growth RADIOLOGY: Renal ultrasound: CLINICAL INDICATION/HISTORY: Renal mass; surgical planning ? TECHNIQUE: Scanning was performed by the technologist. ?Images were saved in a permanent archive (PACS). ? RESULTS: ? RIGHT KIDNEY: ?13.2 x 6.6 x 5.3 cm ? No evidence of hydronephrosis No shadowing calculus or perinephric fluid collection is seen. ? Along the posterior aspect of the superior pole there is a fairly isoechoic solid-appearing mass measuring 4.3 x 3.4 x 4.4 cm. ?No additional abnormality of the right kidney is seen. No cysts are seen. ? ? LEFT KIDNEY: ? 12.9 x 6.1 x 4.2 cm ? No evidence of hydronephrosis No shadowing calculus or perinephric fluid collection is seen. ? There are no masses which distort the renal cortical outlines. No cysts are seen. ? ? Urinary bladder is collapsed because of Mendoza catheter.. ? IMPRESSION: ? ? 1. ?4.4 cm mass of the right kidney at the superior pole, posterior aspect. ?This should be considered renal cell carcinoma unless proven otherwise. ?This corresponds to the mass seen on CT. ?No evidence of hydronephrosis. ?If the patient would be able, a contrast-enhanced CT or MRI could offer better evaluation ?of the kidneys ? 2. ?Left kidney is unremarkable as visualized Renal scan DIURETIC RENAL SCAN: ? CLINICAL HISTORY: hydronephrosis ? TECHNIQUE: 10.1 mCi Tc 99m MAG3 IV. ?Medications and allergies reviewed. ?40 ?mg Lasix was given IV at ?30 minutes. Imaging of the kidneys for flow and function obtained in posterior views. ? ? RESULT: ? RENAL PERFUSION: There is prompt perfusion to the left kidney. There is decreased perfusion to the right kidney. ? ? RENAL FUNCTION: ? There is reasonable uptake and parenchymal transit by the left kidney. ?There is spontaneous drainage of activity by the left kidney. ?Following Lasix there is further clearance with no evidence of obstruction. ?Mild retention in the post void images. ?No scintigraphic evidence to suggest obstruction on the left. ? ? There is decreased and delayed uptake and delayed parenchymal transit by the right ?kidney. ?There is delayed drainage of activity by the right kidney with progressive accumulation of tracer. ?Following Lasix there is poor clearance. Post ?Lasix t- half?clearance time is significantly prolonged with an essentially flat renogram curve. ?Findings suggestive of obstruction. ? ? By computer analysis, the contribution to total renal function is 85% from the left kidney, and 15% from the right kidney. ? IMPRESSION: ? LEFT KIDNEY: RELATIVELY BETTER FLOW AND FUNCTION AND DRAINAGE COMPARED TO THE RIGHT. ?NO SCINTIGRAPHIC EVIDENCE OF OBSTRUCTION ON THE LEFT. ? RIGHT KIDNEY: DECREASED FLOW AND FUNCTION AND DELAYED DRAINAGE. ?FINDINGS SUGGESTIVE OF OBSTRUCTION ON THE RIGHT. ? SPLIT FUNCTION: LEFT KIDNEY 85% AND RIGHT KIDNEY 15% Assessment and Plan ASSESSMENT: 62 year old male 7cm R renal mass and hematuria, POD 3 s/p right ureteroscopy, stent placement,?BERTHA PLAN: 1) BERTHA - Cr continues to improve 1.64 from 1.8 yesterday - will discuss with Dr. Dolan to continue to monitor vs Renal mass biopsy 2) renal scan suggesting 15% fxn of side with tumor - this may be artificially low due to some component of obstruction 3) continue CBI 4) continue subq heparin 5) discussed may require surgery as inpatient if continues to have significant hematuria - will continue to monitor Nelly Moore MD 10/24/2017 7:06 AM I have seen and evaluated the patient and discussed the case with the resident physician. I agree with the assessment and plan as documented in the resident?s note. Continue hematuria with clots He will need a right nephrectomy Cr is improving daily Stent will be removed at that time as well He is in agreement with the plan Tentatively scheduled this Tuesday with Dr. Maurisio Dolan DO, MBA HEMOGRAM/DIFF Collected: 10/24/2017 Status: F Source: [facility] 3:49 AM HEALTH SYSTEM REPOSITORY TYPE CODE TESTS RESULT OUT OF REFERENCE UNITS RANGE LAB WBC(LOINC) 4.23-9.07 thou/cmm WBC 8.49 LAB RBC(LOINC) 4.63-6.08 mil/cmm Low RBC 2.66 LAB HGB(LOINC) 13.7-17.5 g/dL Low Hgb 8.7 LAB HCT(LOINC) 40.1-51.0 % Low Hct 26.6 LAB MCV(LOINC) 83.2-95.6 fl MCV High 100.0 LAB MCH(LOINC) 25.7-32.2 pg MCH High 32.7 LAB MCHC(LOINC 32.3-36.5 % ) MCHC 32.7 LAB RDW(LOINC) 11.6-14.4 % RDW 14.4 LAB RDWSD(LOIN 36.1-45.8 fl C) RDW SD High 51.9 LAB PLT(LOINC) 141-365 thou/cmm Platelet 161 LAB MPV(LOINC) 8.7-12.0 fl MPV 10.4 LAB SEG(LOINC) % Seg Neutrophil 87.9 LAB IGRE(LOINC % ) Immature Grans 0.40 LAB LYMPH(LOIN % C) Lymphocyte 4.4 LAB MNO(LOINC) % Monocyte 6.1 LAB EOSIN(LOIN % C) Eosinophil 0.8 LAB BASO(LOINC % ) Basophil 0.4 LAB SEGN(LOINC 1.78-5.38 thou/cmm ) Abs. High Neut 7.46 LAB IGAB(LOINC 0.00-0.05 thou/cmm ) Abs Immature Grans 0.03 LAB LYMN(LOINC 0.84-2.85 thou/cmm ) Low Abs. Lymph 0.37 LAB MONON(LOIN 0.30-0.82 thou/cmm C) Abs. Jack 0.52 LAB EOSN(LOINC 0.04-0.54 thou/cmm ) Abs. Eosin 0.07 LAB BASON(LOIN 0.01-0.08 thou/cmm C) Abs. Baso 0.03 Performed By: #### [id number] #### [place] [id number] BASIC PANEL Collected: 10/24/2017 Status: F Source: [facility] 3:49 AM HEALTH SYSTEM REPOSITORY TYPE CODE TESTS RESULT OUT OF REFERENCE UNITS RANGE LAB NA(LOINC) 136-145 mEq/L Sodium Blood 138 LAB K(LOINC) 3.5-5.1 mEq/L Potassium Blood 3.9 LAB CL(LOINC) 98-107 mEq/L Chloride Blood 106 LAB CO2(LOINC) 21-32 mEq/L CO2 Blood 23 LAB GLU(LOINC) 70-99 mg/dL Glucose High Blood 125 LAB BUN(LOINC) 7-18 mg/dL BUN Blood 17 LAB CREA(LOINC 0.67-1.17 mg/dL ) High Creatinine Blood 1.64 LAB CA(LOINC) 8.5-10.1 mg/dL Calcium Blood 9.0 LAB ANGAP(LOIN 8-16 C) Anion Gap 13 Performed By: #### P8 #### [place] [address] MDRD GFR Collected: 10/24/2017 Status: F Source: [facility] 3:49 AM HEALTH SYSTEM REPOSITORY TYPE CODE TESTS RESULT OUT OF RANGE REFERENCE UNITS LAB GFRFN(LOINC >60mL/min/1.73m ) 2 eGFR 42.97 Result Comment: If the patient is , multiply the result by 1.210. Performed By: #### GFR #### [facility] [address] KIDNEY COMPLETE Observed: 10/23/2017 Status: F Source: [facility] 6:07 PM HEALTH SYSTEM REPOSITORY Performed at [facility] APPROVED BY: lAexandre Jerry MD EXAM TITLE: ULTRASOUND OF THE KIDNEYS COMPLETE DATE:10/23/2017 17:40 COMPARISON: CT abdomen 10/19/2017 CLINICAL INDICATION/HISTORY: Renal mass; surgical planning TECHNIQUE: Scanning was performed by the technologist. Images were saved in a permanent archive (PACS). RESULTS: RIGHT KIDNEY: 13.2 x 6.6 x 5.3 cm No evidence of hydronephrosis No shadowing calculus or perinephric fluid collection is seen. Along the posterior aspect of the superior pole there is a fairly isoechoic solid-appearing mass measuring 4.3 x 3.4 x 4.4 cm. No additional abnormality of the right kidney is seen. No cysts are seen. LEFT KIDNEY: 12.9 x 6.1 x 4.2 cm No evidence of hydronephrosis No shadowing calculus or perinephric fluid collection is seen. There are no masses which distort the renal cortical outlines. No cysts are seen. Urinary bladder is collapsed because of Mendoza catheter.. IMPRESSION: 1. 4.4 cm mass of the right kidney at the superior pole, posterior aspect. This should be considered renal cell carcinoma unless proven otherwise. This corresponds to the mass seen on CT. No evidenc e of hydronephrosis. If the patient would be able, a contrast-enhanced CT or MRI could offer better evaluation of the kidneys 2. Left kidney is unremarkable as visualized RENAL - LASIX Observed: 10/23/2017 Status: F Source: [facility] 2:51 PM HEALTH SYSTEM REPOSITORY Performed at [facility] APPROVED BY: ZEE BOYER MD DIURETIC RENAL SCAN: CLINICAL HISTORY: hydronephrosis TECHNIQUE: 10.1 mCi Tc 99m MAG3 IV. Medications and allergies reviewed. 40 mg Lasix was given IV at 30 minutes. Imaging of the kidneys for flow and function obtained in posterior views. RESULT: RENAL PERFUSION: There is prompt perfusion to the left kidney. There is decreased perfusion to the right kidney. RENAL FUNCTION: There is reasonable uptake and parenchymal transit by the left kidney. There is spontaneous drainage of activity by the left kidney. Following Lasix there is further clearance with no evidence of obst ruction. Mild retention in the post void images. No scintigraphic evidence to suggest obstruction on the left. There is decreased and delayed uptake and delayed parenchymal transit by the right kidney. There is delayed drainage of activity by the right kidney with progressive accumulation of tracer. Following Lasix there is poor clearance. Post Lasix t- half clearance time is significantly prolonged with an essentially flat renogram curve. Findings suggestive of obstruction. By computer analysis, the contribution to total renal function is 85% from the left kidney, and 15% from the right kidney. IMPRESSION: LEFT KIDNEY: RELATIVELY BETTER FLOW AND FUNCTION AND DRAINAGE COMPARED TO THE RIGHT. NO SCINTIGRAPHIC EVIDENCE OF OBSTRUCTION ON THE LEFT. RIGHT KIDNEY: DECREASED FLOW AND FUNCTION AND DELAYED DRAINAGE. FINDINGS SUGGESTIVE OF OBSTRUCTION ON THE RIGHT. SPLIT FUNCTION: LEFT KIDNEY 85% AND RIGHT KIDNEY 15%. NURSING PROG Observed: 10/23/2017 Status: COMPLETED Source: [facility] 1:00 PM [facility] [place] REPOSITORY HNO ID: [id number] Author: Sharon (Елена) ЕЛЕНА Luna Service: (none) Author Type: Registered Nurse Type: Nursing Progress Note Filed: 10/23/2017 1:08 PM Note Text: Nursing Progress Note Patient Name: Juan David Yancey Patient Location: [id number]/[id number]* Bp 162/81, Dr. Esquivel aware, no additionally orders; iv lasix will be given for renal scan. PT to radiology via cart, irrigated to pink, mendoza bag emptied, CBI bag checked /almost full. This note was completed by: Sharon Luna RN PROGRESS Observed: 10/23/2017 Status: COMPLETED Source: [facility] 8:52 AM CLINIC OTHER CAMPUS REPOSITORY HNO ID: [id number] Author: Deyanira Mahan (Millicent) MILLICENT Yap Service: Nephrology Author Type: Nurse Practitioner Type: Progress Notes Filed: 10/23/2017 12:08 PM Note Text: Attestation signed by Angel Luis Lozano at 10/23/2017 2:44 PM Attending Note I have reviewed the PA/CENTRIFUGAL DRIER OPERATOR note. I agree with the plan as documented. Angel Luis Lozano MD [facility] Nephrology progress note ? Reason for consultation: BERTHA/post-obstructive ? Chief Complaint: difficulty with urination ? History of Presenting Illness ? 62 year old male presented from [place] for renal mass. Was unable to urinate prior to presentation. Mendoza was placed draining bright red blood. Was on blood thinner. No previous history, but reports hematuria x 2 weeks. No personal or family history of malignancy. No previous prostate or urinary issues. On Xarelto for DVTs. On CBI. Per nursing, was unable to drain overnight. She reports significant clotting removed. Still needing irrigated Q 3hrs. is making NPO after midnight-? Surgery as inpatient vs outpatient f/u. Additional home meds include ASA and Allopurinol. No FRANCK/ARB or diuretic. Also presently on NS at 125/hr. BP was 186/94 on admit. Today is 135/74 Creat on admit was 2.55, today is 2.58. UA with 1-3 WBC, >100RBC (partially resulted?) Baseline unknown, <1 2012. Patient denies any issues with renal function in past. States has hx UC, hip replacments d/t avascular necrosis from steroid use, DVT with IVC filter placement, PCI. No HTN or DM. Nephrology has been c/s for BERTHA Interval progess note Doing ok Cr is stable Baseline ? Back on CBI BP ok Reports not eating well No SOB On NS at 50/hr ROS (-) unless above No change in the PFSH ? Past Medical/Surgical History ? PAST MEDICAL HISTORY PAST MEDICAL HISTORY Diagnosis Date - Avascular necrosis (HCC) bilateral hip replacements d/t avascular necrosis - Blood clot in vein IVC filter placed in 1994 - Bowel disease ? ? MUC, colectomy in 1994 - Gout Summer 2011 ? 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 ? PAST SURGICAL HISTORY PAST SURGICAL HISTORY Procedure Laterality Date - COLECTOMY PARTIAL W ANASTOM ? ? - ILEOSTOMY ? ? ? closed - TOTAL HIP REPLACEMENT ? ? ? bilateral- castro ? ? ? Review of Systems ? All 12 systems reviewed and are negative except for what is mentioned in the HPI. ? Medications ? Prescriptions Prior to Admission ? Prescriptions Prior to Admission: aspirin 325 mg tablet Take 325 mg by mouth once daily. Disp: Rfl: ? RIVAROXABAN (XARELTO ORAL) Take 20 mg by mouth once daily. Disp: Rfl: ? allopurinol 100 mg tablet Take 2 tablets by mouth once daily. In 2 weeks, increase to 300mg/day Disp: 60 tablet Rfl: 2 ? ? ? CURRENT MEDICATIONS ? Current Facility-Administered Medications: oxybutynin 5 mg tab(s) (DITROPAN) 5 mg ORAL TID amLODIPine 10 mg tab(s) (NORVASC) 10 mg ORAL DAILY NaCl 0.9% irrigation solution 3,000 mL IRRIGATION CONTINUOUS allopurinol 200 mg tab(s) (ZYLOPRIM) 200 mg ORAL DAILY NaCl 0.9% iv infusion 125 mL/hr INTRAVENOUS CONTINUOUS acetaminophen 650 mg tab(s) (TYLENOL) 650 mg ORAL q 4 H PRN oxyCODONE-acetaminophen 5-325 mg 1-2 tablet (PERCOCET) 1-2 tablet ORAL q 4 H PRN morphine 2-4 mg injection 2-4 mg INTRAVENOUS q 2 H PRN ondansetron (PF) 4 mg injection (ZOFRAN) 4 mg INTRAVENOUS q 6 H PRN docusate sodium 100 mg cap(s) (COLACE) 100 mg ORAL BID ceFAZolin 1 g in dextrose (iso-osmotic) 50 mL (ANCEF, KEFZOL) 1 g INTRAVENOUS q 8 H belladonna-opium 16.2-60 mg 1 Suppository suppository (B and O 16-A) 1 Suppository RECTAL TID PRN ? ? Allergies ? Morphine; Prednisone ? ? Family History ? Negative for Kidney Disease FAMILY HISTORY No family history on file. ? Social History ? SOCIAL HISTORY Social History Marital status: Spouse name: Years of education: Number of children: ? Social History Main Topics Smoking status: Never Smoker ? Smokeless status: Never Used Alcohol use: Yes Comment: social Drug use: No ? ? Physical Exam ? Blood pressure 135/71, pulse 66, temperature 36.9 ?C (98.4 ?F), temperature source Oral, resp. rate 18, height 185.4 cm (6' 0.99), weight 17.9 kg (39 lb 8.6 oz), SpO2 97 %. 24 HR INTAKE/OUTPUT: Intake/Output Summary (Last 24 hours) at 10/20/17 1522 Last data filed at 10/20/17 1504 ? Gross per 24 hour Intake 3640 ml Output 2800 ml Net 840 ml ? ? General: NAD, Comfortable appearing, cooperative to history and physical exam. Head: AT NC Neck: Supple, no jvd Chest: B/L clear, no crackles, no accessory muscles usage. CV: RRR, no murmurs or rubs Abdomen: NT, ND, soft Extremities: trace peripheral edema, no tremor Neurological: Moving all four extremities, no focal neurological deficit Psychiatric: Normal insight and judgement, good recall : mendoza with hematuria, +CBI ? Data ? ? Recent Labs ? 10/20/17 0740 10/19/17 2125 NA 139 137 K 4.5 3.9 CHLOR 107 105 CO2 27 21 BUN 24* 25* CREAT 2.58* 2.55* GLUC 103* 163* ALB 3.3* 3.9 CA 8.8 9.5 ? ? ? Recent Labs ? 10/20/17 0325 10/19/17 2125 WBC 10.55* 12.65* HB 10.6* 10.9* HCT 30.2* 30.2* PLT 247 237 ? ? ? pH, Urine Date Value Ref Range Status 10/19/2017 see below 5.0 - 8.0 Final Comment: Color abnormal- some macroscopic not done. Specific [place], Ur Date Value Ref Range Status 10/19/2017 1.020 1.005 - 1.030 Final Glucose, Urine Date Value Ref Range Status 10/19/2017 see below Negative mg/dL Final Comment: Color abnormal- some macroscopic not done. Bilirubin, Urine Date Value Ref Range Status 10/19/2017 see below Negative Final Comment: Color abnormal- some macroscopic not done. Ketones, Urine Date Value Ref Range Status 10/19/2017 see below Negative mg/dL Final Comment: Color abnormal- some macroscopic not done. Protein, Urine Date Value Ref Range Status 10/19/2017 see below Negative mg/dL Final Comment: Color abnormal- some macroscopic not done. Nitrites Urine Date Value Ref Range Status 10/19/2017 see below Negative Final Comment: Color abnormal- some macroscopic not done. WBC, Urine Date Value Ref Range Status 10/19/2017 1.0-3 0.0 - 5.0 /hpf Final ? CXR EXAM TITLE: CHEST 1 VIEW ? DATE: 10/20/2017 06:09 ? INDICATION: ?Patient history of renal mass. ? COMPARISON: None. ? Portable frontal view of the chest shows heart size to be normal. ? Pulmonary vascularity is normal. ? Lungs are clear. No infiltrates or effusions. ? No obvious acute bony abnormality is evident. There is evidence of old left clavicle fracture. ? IMPRESSION: ? No acute findings radiographically. ?Results for JUAN DAVID YANCEY ( ) as of 10/23/2017 12:08 Ref. Range 10/23/2017 02:45 Sodium Latest Ref Range: 136 - 145 mEq/L 137 Potassium Latest Ref Range: 3.5 - 5.1 mEq/L 4.0 Chloride Latest Ref Range: 98 - 107 mEq/L 108 (H) CO2 Latest Ref Range: 21 - 32 mEq/L 22 BUN Latest Ref Range: 7 - 18 mg/dL 17 Creatinine Latest Ref Range: 0.67 - 1.17 mg/dL 1.80 (H) Glucose Latest Ref Range: 70 - 99 mg/dL 106 (H) Calcium Latest Ref Range: 8.5 - 10.1 mg/dL 8.8 Anion Gap Latest Ref Range: 8 - 16 11 eGFR Latest Ref Range: >60mL/min/1.73m2 38.60 Assessment: 1. BERTHA-acute vs acute/chronic, likely 2/2 obstruction 2. Renal mass( right renal ) 3. Hematuria- from RCC ? 4. DVT history 5. H/o Ulcerative colitis + 6. Anemia from acute blood loss ? Plan: Cr stable Resolving BERTHA ? Will need to monitor creat closely Await the baseline cr Would defer contrast imaging at this time given renal function Renal scan per urology tentatively planned for today Expect cr to get better as the BERTHA resolves Renal mass( RCC ? 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 PROGRESS Observed: 10/23/2017 Status: COMPLETED Source: [facility] 8:45 AM CLINIC OTHER CAMPUS REPOSITORY O ID: [id number] Author: Silviano Dolan DO Service: Urology Author Type: Physician Type: Progress Notes Filed: 10/23/2017 11:33 AM Note Text: UROLOGY PROGRESS NOTE PATIENT NAME: Juan David Yancey DATE OF : 1955 ADMISSION DATE: 10/19/2017 8:33 PM TODAY'S DATE: 10/23/2017 Subjective Still with hematuria - light red on moderate drip - hgb stable Describes changes in bowel function - described as issue when hospitalized (hx of colectomy) No c/o pain Objective VS: BP 157/84 Pulse 80 Temp 36.7 ?C (98.1 ?F) (Temporal Artery) Resp 18 Ht 185.4 cm (6' 0.99) Wt 17.9 kg (39 lb 8.6 oz) SpO2 99% BMI 5.22 kg/m2 I AND O - 24hr: Intake/Output Summary (Last 24 hours) at 10/23/17 0846 Last data filed at 10/23/17 0700 Gross per 24 hour Intake 5030 ml Output 64871 ml Net -96415 ml Physical Exam: General: Neck: Resp: Abdomen: No acute distress Supple Normal effort Soft, non-tender, nondistended : 24 fr soft, light red urine Labs and Imaging Studies LABS: BMP: Glucose (mg/dL) Date Value 10/23/2017 106 Potassium (mEq/L) Date Value 10/23/2017 4.0 Sodium (mEq/L) Date Value 10/23/2017 137 Chloride (mEq/L) Date Value 10/23/2017 108 CO2 (mEq/L) Date Value 10/23/2017 22 Creatinine (mg/dL) Date Value 10/23/2017 1.80 BUN (mg/dL) Date Value 10/23/2017 17 Anion Gap (no units) Date Value 10/23/2017 11 Calcium (mg/dL) Date Value 10/23/2017 8.8 CBC: Hemoglobin (g/dL) Date Value 11/30/2012 10.6 HGB (g/dL) Date Value 10/23/2017 9.6 Hematocrit (%) Date Value 10/23/2017 28.1 WBC (thou/cmm) Date Value 10/23/2017 7.69 Platelet Count (thou/cmm) Date Value 10/23/2017 158 Urinalysis: Specific [place], Ur Date Value Ref Range Status 10/19/2017 1.020 1.005 - 1.030 Final Glucose, Urine Date Value Ref Range Status 10/19/2017 see below Negative mg/dL Final Comment: Color abnormal- some macroscopic not done. Bilirubin, Urine Date Value Ref Range Status 10/19/2017 see below Negative Final Comment: Color abnormal- some macroscopic not done. Ketones, Urine Date Value Ref Range Status 10/19/2017 see below Negative mg/dL Final Comment: Color abnormal- some macroscopic not done. Protein, Urine Date Value Ref Range Status 10/19/2017 see below Negative mg/dL Final Comment: Color abnormal- some macroscopic not done. Urobilinogen, Urine Date Value Ref Range Status 10/19/2017 see below 0.0 - 1.0 EU/dL Final Comment: Color abnormal- some macroscopic not done. Nitrites Urine Date Value Ref Range Status 10/19/2017 see below Negative Final Comment: Color abnormal- some macroscopic not done. WBC, Urine Date Value Ref Range Status 10/19/2017 1.0-3 0.0 - 5.0 /hpf Final Urine Culture: Urine Culture (no units) Date Value 10/20/2017 No growth RADIOLOGY: Assessment and Plan ASSESSMENT: 62 year old male 7cm R renal mass and hematuria, POD 2 s/p right ureteroscopy, stent placement, BERTHA PLAN: 1) to get renal scan today to evaluate split renal function 2) continue regular diet 3) likely renal mass biopsy tomorrow as unlikely cr will be within range to allow for contrast enhanced CT 4) appreciate hospitalist and nephrology recs 5) continue CBI 6) continue subq heparin Nelly Moore MD 10/23/2017 8:46 AM I have seen and evaluated the patient and discussed the case with the resident physician. I agree with the assessment and plan as documented in the resident?s note. Continue CBI Renal scan today Renal mass biopsy Will follow Silviano Dolan DO, MBA HEMOGRAM/DIFF Collected: 10/23/2017 Status: F Source: [facility] 2:45 AM HEALTH SYSTEM REPOSITORY TYPE CODE TESTS RESULT OUT OF REFERENCE UNITS RANGE LAB WBC(LOINC) 4.23-9.07 thou/cmm WBC 7.69 LAB RBC(LOINC) 4.63-6.08 mil/cmm Low RBC 2.86 LAB HGB(LOINC) 13.7-17.5 g/dL Low Hgb 9.6 LAB HCT(LOINC) 40.1-51.0 % Low Hct 28.1 LAB MCV(LOINC) 83.2-95.6 fl MCV High 98.3 LAB MCH(LOINC) 25.7-32.2 pg MCH High 33.6 LAB MCHC(LOINC 32.3-36.5 % ) MCHC 34.2 LAB RDW(LOINC) 11.6-14.4 % RDW High 14.6 LAB RDWSD(LOIN 36.1-45.8 fl C) RDW SD High 52.5 LAB PLT(LOINC) 141-365 thou/cmm Platelet 158 LAB MPV(LOINC) 8.7-12.0 fl MPV 9.8 LAB SEG(LOINC) % Seg Neutrophil 81.1 LAB IGRE(LOINC % ) Immature Grans 0.40 LAB LYMPH(LOIN % C) Lymphocyte 8.6 LAB MNO(LOINC) % Monocyte 8.3 LAB EOSIN(LOIN % C) Eosinophil 1.2 LAB BASO(LOINC % ) Basophil 0.4 LAB SEGN(LOINC 1.78-5.38 thou/cmm ) Abs. High Neut 6.24 LAB IGAB(LOINC 0.00-0.05 thou/cmm ) Abs Immature Grans 0.03 LAB LYMN(LOINC 0.84-2.85 thou/cmm ) Low Abs. Lymph 0.66 LAB MONON(LOIN 0.30-0.82 thou/cmm C) Abs. Jack 0.64 LAB EOSN(LOINC 0.04-0.54 thou/cmm ) Abs. Eosin 0.09 LAB BASON(LOIN 0.01-0.08 thou/cmm C) Abs. Baso 0.03 Performed By: #### CBCD1 #### [address] [address] BASIC PANEL Collected: 10/23/2017 Status: F Source: [facility] 2:45 AM HEALTH SYSTEM REPOSITORY TYPE CODE TESTS RESULT OUT OF REFERENCE UNITS RANGE LAB NA(LOINC) 136-145 mEq/L Sodium Blood 137 LAB K(LOINC) 3.5-5.1 mEq/L Potassium Blood 4.0 LAB CL(LOINC) 98-107 mEq/L Chloride High Blood 108 LAB CO2(LOINC) 21-32 mEq/L CO2 Blood 22 LAB GLU(LOINC) 70-99 mg/dL Glucose High Blood 106 LAB BUN(LOINC) 7-18 mg/dL BUN Blood 17 LAB CREA(LOINC 0.67-1.17 mg/dL ) High Creatinine Blood 1.80 LAB CA(LOINC) 8.5-10.1 mg/dL Calcium Blood 8.8 LAB ANGAP(LOIN 8-16 C) Anion Gap 11 Performed By: #### P8 #### [facility] [address] [place] [address] MDRD GFR Collected: 10/23/2017 Status: F Source: [facility] 2:45 AM HEALTH SYSTEM REPOSITORY TYPE CODE TESTS RESULT OUT OF RANGE REFERENCE UNITS LAB GFRFN(LOINC >60mL/min/1.73m ) 2 eGFR 38.60 Result Comment: If the patient is , multiply the result by 1.210. Performed By: #### GFR #### [facility] [address] [place] [address] PROGRESS Observed: 10/22/2017 Status: COMPLETED Source: [facility] 4:23 PM CLINIC OTHER CAMPUS REPOSITORY HNO ID: [id number] Author: Deep Garcia MD Service: Hospital Medicine Author Type: Physician Type: Progress Notes Filed: 10/22/2017 4:27 PM Note Text: DEPARTMENT OF HOSPITAL MEDICINE PROGRESS NOTE SERVICE DATE: 10/22/2017 SERVICE TIME: 4:23 PM Hospital Medicine/Primary Attending: Deep Garcia MD NIGHT AND WEEKEND COVERAGE: After 7pm please page [phone] CHIEF COMPLAINT: Admitted for rt renal mass and gross hematuria SUBJECTIVE: Patient seen and examined' Doing well and has no new complaints OBJECTIVE: PHYSICAL EXAM: BP 154/80 Pulse 88 Temp (Src) 97.7 (Oral) Resp 20 Ht 6' .992 (1.85m) Wt 39 lb 8.6 oz (17.9kg) SpO2 95% BMI 5.22 kg/(m2). General - AANDOx3, NAD, Calm CV - RRR S1 S2, No M/R/G RESP - CTA B/L No wheezes, ronchi, rales ABD - soft, NT, ND +BS EXT - no gross joint deformity, no clubbing, cyanosis, edema NEURO - CN II-XII grossly intact, no focal deficits ARY - mendoza in place and draining reddish urine with some clots in tubing MEDICATIONS: Current hospital medications: heparin 5,000 Units injection 5,000 Units SUBCUTANEOUS q 8 H NaCl 0.9% irrigation solution 3,000 mL IRRIGATION CONTINUOUS oxybutynin 5 mg tab(s) (DITROPAN) 5 mg ORAL TID amLODIPine 10 mg tab(s) (NORVASC) 10 mg ORAL DAILY allopurinol 200 mg tab(s) (ZYLOPRIM) 200 mg ORAL DAILY NaCl 0.9% iv infusion 100 mL/hr INTRAVENOUS CONTINUOUS acetaminophen 650 mg tab(s) (TYLENOL) 650 mg ORAL q 4 H PRN oxyCODONE-acetaminophen 5-325 mg 1-2 tablet (PERCOCET) 1-2 tablet ORAL q 4 H PRN morphine 2-4 mg injection 2-4 mg INTRAVENOUS q 2 H PRN ondansetron (PF) 4 mg injection (ZOFRAN) 4 mg INTRAVENOUS q 6 H PRN docusate sodium 100 mg cap(s) (COLACE) 100 mg ORAL BID belladonna-opium 16.2-60 mg 1 Suppository suppository (B and O 16-A) 1 Suppository RECTAL TID PRN DATA: Diagnostic tests reviewed for today's visit: CBC: Recent Labs 10/22/17 0455 WBC 6.97 RBC 2.81* HB 9.3* HCT 28.6* PLT 162 MCV 101.8* MCH 33.1* MPV 10.3 RDW 14.6* Coags: No results for input(s): INR, APTT in the last 24 hours. Invalid input(s): PT BMP: Recent Labs 10/22/17 0455 NA 138 K 4.5 CHLOR 110* CO2 23 BUN 19* CREAT 1.87* GLUC 87 CMP: Recent Labs 10/22/17 0455 NA 138 K 4.5 CHLOR 110* CO2 23 BUN 19* CREAT 1.87* GLUC 87 CA 8.6 ANION 10 Cardiac Enzymes: No results for input(s): CK, MB, CKMB, TROPT in the last 24 hours. Liver Function, Amylase, Lipase: No results for input(s): TPROT, ALB, ALT, AST, ALKPHOS, TBILI, AMYLASE, LIPASE, LACTATE in the last 24 hours. MG/PHOS: No results for input(s): MG, P in the last 24 hours. Renal Panel: Recent Labs 10/22/17 0455 CREAT 1.87* BUN 19* GLUC 87 CA 8.6 CHLOR 110* K 4.5 CO2 23 NA 138 Heme: Recent Labs 10/22/17 0838 KE 153.70 FE 32* TIBC 349 No results found for: UALBCR Assessment/Plan 1. Large renal mass with gross hematuria. Likely renal cell malignancy. S/p cystoeretoroscopy and stent placement in there right ureter. 2. BERTHA. Likely post-obstructive from blood clots. Nephrology on consult. Getting IVFs as well and creatinine improving ? 3. 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 On hold for now 4. Anemia. Some component of blood loss. Will work up. ? ? VTE Prophylaxis: Pneumatic Compression Device Disposition: Home Plan of care discussed with: Patient SIGNATURE: Deep Garcia MD PATIENT NAME: Juan David Yancey DATE: October 22, 2017 TIME: 4:23 PM PAGER/CONTACT #: monica PROGRESS Observed: 10/22/2017 Status: COMPLETED Source: [facility] 9:06 AM CLINIC OTHER CAMPUS REPOSITORY HNO ID: [id number] Author: Deyanira Yap CNP Service: Nephrology Author Type: Nurse Practitioner Type: Progress Notes Filed: 10/22/2017 12:43 PM Note Text: Attestation signed by Angel Luis Lozano at 10/22/2017 5:14 PM Attending Note I have personally performed a face to face assessment of the patient, on the day of service and have reviewed the PA/CENTRIFUGAL DRIER OPERATOR note. I agree with the plan as documented. Angel Luis Lozano MD [facility] Nephrology progress note ? Reason for consultation: BERTHA/post-obstructive ? Chief Complaint: difficulty with urination ? History of Presenting Illness ? 62 year old male presented from [place] for renal mass. Was unable to urinate prior to presentation. Mendoza was placed draining bright red blood. Was on blood thinner. No previous history, but reports hematuria x 2 weeks. No personal or family history of malignancy. No previous prostate or urinary issues. On Xarelto for DVTs. On CBI. Per nursing, was unable to drain overnight. She reports significant clotting removed. Still needing irrigated Q 3hrs. is making NPO after midnight-? Surgery as inpatient vs outpatient f/u. Additional home meds include ASA and Allopurinol. No FRANCK/ARB or diuretic. Also presently on NS at 125/hr. BP was 186/94 on admit. Today is 135/74 Creat on admit was 2.55, today is 2.58. UA with 1-3 WBC, >100RBC (partially resulted?) Baseline unknown, <1 2012. Patient denies any issues with renal function in past. States has hx UC, hip replacments d/t avascular necrosis from steroid use, DVT with IVC filter placement, PCI. No HTN or DM. Nephrology has been c/s for BERTHA Interval progess note Doing ok Cr is better Baseline ? Off CBI, still with hematuria and nursing irrigating PRN BP ok Overall feels better Family at bedside ROS (-) unless above No change in the PFSH ? Past Medical/Surgical History ? PAST MEDICAL HISTORY PAST MEDICAL HISTORY Diagnosis Date - Avascular necrosis (HCC) bilateral hip replacements d/t avascular necrosis - Blood clot in vein IVC filter placed in 1994 - Bowel disease ? ? MUC, colectomy in 1994 - Gout Summer 2011 ? 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 ? PAST SURGICAL HISTORY PAST SURGICAL HISTORY Procedure Laterality Date - COLECTOMY PARTIAL W ANASTOM ? ? - ILEOSTOMY ? ? ? closed - TOTAL HIP REPLACEMENT ? ? ? bilateral- castro ? ? ? Review of Systems ? All 12 systems reviewed and are negative except for what is mentioned in the HPI. ? Medications ? Prescriptions Prior to Admission ? Prescriptions Prior to Admission: aspirin 325 mg tablet Take 325 mg by mouth once daily. Disp: Rfl: ? RIVAROXABAN (XARELTO ORAL) Take 20 mg by mouth once daily. Disp: Rfl: ? allopurinol 100 mg tablet Take 2 tablets by mouth once daily. In 2 weeks, increase to 300mg/day Disp: 60 tablet Rfl: 2 ? ? ? CURRENT MEDICATIONS ? Current Facility-Administered Medications: oxybutynin 5 mg tab(s) (DITROPAN) 5 mg ORAL TID amLODIPine 10 mg tab(s) (NORVASC) 10 mg ORAL DAILY NaCl 0.9% irrigation solution 3,000 mL IRRIGATION CONTINUOUS allopurinol 200 mg tab(s) (ZYLOPRIM) 200 mg ORAL DAILY NaCl 0.9% iv infusion 125 mL/hr INTRAVENOUS CONTINUOUS acetaminophen 650 mg tab(s) (TYLENOL) 650 mg ORAL q 4 H PRN oxyCODONE-acetaminophen 5-325 mg 1-2 tablet (PERCOCET) 1-2 tablet ORAL q 4 H PRN morphine 2-4 mg injection 2-4 mg INTRAVENOUS q 2 H PRN ondansetron (PF) 4 mg injection (ZOFRAN) 4 mg INTRAVENOUS q 6 H PRN docusate sodium 100 mg cap(s) (COLACE) 100 mg ORAL BID ceFAZolin 1 g in dextrose (iso-osmotic) 50 mL (ANCEF, KEFZOL) 1 g INTRAVENOUS q 8 H belladonna-opium 16.2-60 mg 1 Suppository suppository (B and O 16-A) 1 Suppository RECTAL TID PRN ? ? Allergies ? Morphine; Prednisone ? ? Family History ? Negative for Kidney Disease FAMILY HISTORY No family history on file. ? Social History ? SOCIAL HISTORY Social History Marital status: Spouse name: Years of education: Number of children: ? Social History Main Topics Smoking status: Never Smoker ? Smokeless status: Never Used Alcohol use: Yes Comment: social Drug use: No ? ? Physical Exam ? Blood pressure 135/71, pulse 66, temperature 36.9 ?C (98.4 ?F), temperature source Oral, resp. rate 18, height 185.4 cm (6' 0.99), weight 17.9 kg (39 lb 8.6 oz), SpO2 97 %. 24 HR INTAKE/OUTPUT: Intake/Output Summary (Last 24 hours) at 10/20/17 1522 Last data filed at 10/20/17 1504 ? Gross per 24 hour Intake 3640 ml Output 2800 ml Net 840 ml ? ? General: NAD, Comfortable appearing, cooperative to history and physical exam. Head: AT NC Neck: Supple, no jvd Chest: B/L clear, no crackles, no accessory muscles usage. CV: RRR, no murmurs or rubs Abdomen: NT, ND, soft Extremities: No peripheral edema, no tremor Neurological: Moving all four extremities, no focal neurological deficit Psychiatric: Normal insight and judgement, good recall : mendoza with hematuria ? Data ? ? Recent Labs ? 10/20/17 0740 10/19/17 2125 NA 139 137 K 4.5 3.9 CHLOR 107 105 CO2 27 21 BUN 24* 25* CREAT 2.58* 2.55* GLUC 103* 163* ALB 3.3* 3.9 CA 8.8 9.5 ? ? ? Recent Labs ? 10/20/17 0325 10/19/17 2125 WBC 10.55* 12.65* HB 10.6* 10.9* HCT 30.2* 30.2* PLT 247 237 ? ? ? pH, Urine Date Value Ref Range Status 10/19/2017 see below 5.0 - 8.0 Final Comment: Color abnormal- some macroscopic not done. Specific [place], Ur Date Value Ref Range Status 10/19/2017 1.020 1.005 - 1.030 Final Glucose, Urine Date Value Ref Range Status 10/19/2017 see below Negative mg/dL Final Comment: Color abnormal- some macroscopic not done. Bilirubin, Urine Date Value Ref Range Status 10/19/2017 see below Negative Final Comment: Color abnormal- some macroscopic not done. Ketones, Urine Date Value Ref Range Status 10/19/2017 see below Negative mg/dL Final Comment: Color abnormal- some macroscopic not done. Protein, Urine Date Value Ref Range Status 10/19/2017 see below Negative mg/dL Final Comment: Color abnormal- some macroscopic not done. Nitrites Urine Date Value Ref Range Status 10/19/2017 see below Negative Final Comment: Color abnormal- some macroscopic not done. WBC, Urine Date Value Ref Range Status 10/19/2017 1.0-3 0.0 - 5.0 /hpf Final ? CXR EXAM TITLE: CHEST 1 VIEW ? DATE: 10/20/2017 06:09 ? INDICATION: ?Patient history of renal mass. ? COMPARISON: None. ? Portable frontal view of the chest shows heart size to be normal. ? Pulmonary vascularity is normal. ? Lungs are clear. No infiltrates or effusions. ? No obvious acute bony abnormality is evident. There is evidence of old left clavicle fracture. ? IMPRESSION: ? No acute findings radiographically. ? Assessment: 1. BERTHA-acute vs acute/chronic, likely 2/2 obstruction 2. Renal mass( right renal ) 3. Hematuria- from RCC ? 4. DVT history 5. H/o Ulcerative colitis + 6. Anemia from acute blood loss ? Plan: Cr better Resolving BERTHA ? Will need to monitor creat closely Await the baseline cr Would defer contrast imaging at this time given renal function ?renal scan per urology Expect cr to get better as the BERTHA resolves Renal mass( RCC ? 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 FERRITIN Collected: 10/22/2017 Status: F Source: [facility] 8:38 AM HEALTH SYSTEM REPOSITORY TYPE CODE TESTS RESULT OUT OF REFERENCE UNITS RANGE LAB FERR(LOINC) 26.00-388.00 ng/mL Ferritin 153.70 Performed By: #### FERR #### [place] [address] VITAMIN B12 Collected: 10/22/2017 Status: F Source: [facility] 8:38 AM HEALTH SYSTEM REPOSITORY TYPE CODE TESTS RESULT OUT OF REFERENCE UNITS RANGE LAB B12(LOINC) 193-986 pg/mL Vitamin B12 785 Performed By: #### B12 #### [facility] [address] [place] [id number] IRON % SATURATION Collected: 10/22/2017 Status: F Source: [facility] 8:38 AM HEALTH SYSTEM REPOSITORY TYPE CODE TESTS RESULT OUT OF REFERENCE UNITS RANGE LAB IRON(LOINC 65-175 ug/dL ) Low Iron Serum 32 LAB IBC(LOINC) 250-450 ug/dL Iron Binding Cap. 349 LAB IRON%(LOIN 20-55 % C) Low Iron % Saturation 9 Performed By: #### IRONS #### [facility] [address] [place] [id number] PROGRESS Observed: 10/22/2017 Status: COMPLETED Source: [facility] 7:46 AM CLINIC OTHER CAMPUS REPOSITORY HNO ID: [id number] Author: Silviano Dolan DO Service: Urology Author Type: Physician Type: Progress Notes Filed: 10/22/2017 9:32 AM Note Text: UROLOGY PROGRESS NOTE PATIENT NAME: Juan David Yancey DATE OF : 1955 ADMISSION DATE: 10/19/2017 8:33 PM TODAY'S DATE: 10/22/2017 Subjective No acute events Urine light pink without irrigation No significant pain Objective VS: BP 137/64 Pulse 68 Temp 36.9 ?C (98.4 ?F) (Temporal Artery) Resp 18 Ht 185.4 cm (6' 0.99) Wt 17.9 kg (39 lb 8.6 oz) SpO2 93% BMI 5.22 kg/m2 I AND O - 24hr: Intake/Output Summary (Last 24 hours) at 10/22/17 0746 Last data filed at 10/21/17 2358 Gross per 24 hour Intake 1500 ml Output 2270 ml Net -770 ml Physical Exam: General: Neck: Resp: Abdomen: No acute distress Supple Normal effort Soft, non-tender, nondistended : [address] with light pink urine output Labs and Imaging Studies LABS: BMP: Glucose (mg/dL) Date Value 10/22/2017 87 Potassium (mEq/L) Date Value 10/22/2017 4.5 Sodium (mEq/L) Date Value 10/22/2017 138 Chloride (mEq/L) Date Value 10/22/2017 110 CO2 (mEq/L) Date Value 10/22/2017 23 Creatinine (mg/dL) Date Value 10/22/2017 1.87 BUN (mg/dL) Date Value 10/22/2017 19 Anion Gap (no units) Date Value 10/22/2017 10 Calcium (mg/dL) Date Value 10/22/2017 8.6 CBC: Hemoglobin (g/dL) Date Value 11/30/2012 10.6 HGB (g/dL) Date Value 10/22/2017 9.3 Hematocrit (%) Date Value 10/22/2017 28.6 WBC (thou/cmm) Date Value 10/22/2017 6.97 Platelet Count (thou/cmm) Date Value 10/22/2017 162 Urinalysis: Specific [place], Ur Date Value Ref Range Status 10/19/2017 1.020 1.005 - 1.030 Final Glucose, Urine Date Value Ref Range Status 10/19/2017 see below Negative mg/dL Final Comment: Color abnormal- some macroscopic not done. Bilirubin, Urine Date Value Ref Range Status 10/19/2017 see below Negative Final Comment: Color abnormal- some macroscopic not done. Ketones, Urine Date Value Ref Range Status 10/19/2017 see below Negative mg/dL Final Comment: Color abnormal- some macroscopic not done. Protein, Urine Date Value Ref Range Status 10/19/2017 see below Negative mg/dL Final Comment: Color abnormal- some macroscopic not done. Urobilinogen, Urine Date Value Ref Range Status 10/19/2017 see below 0.0 - 1.0 EU/dL Final Comment: Color abnormal- some macroscopic not done. Nitrites Urine Date Value Ref Range Status 10/19/2017 see below Negative Final Comment: Color abnormal- some macroscopic not done. WBC, Urine Date Value Ref Range Status 10/19/2017 1.0-3 0.0 - 5.0 /hpf Final Urine Culture: Urine Culture (no units) Date Value 10/20/2017 No growth RADIOLOGY: Assessment and Plan ASSESSMENT: 62 year old male 7cm R renal mass and hematuria, POD 1 s/p right ureteroscopy, stent placement, BERTHA PLAN: 1) Cr improving 1.87 from 2.2 - plan for likely renal scan now that Cr <2 2) nephrology consult 3) regular diet 4) may await mendoza removal until renal scan DC 5) start sub q heparin Nelly Moore MD 10/22/2017 7:46 AM I have seen and evaluated the patient and discussed the case with the resident physician. I agree with the assessment and plan as documented in the resident?s note. Cr improving Some hematuria Renal scan today since Cr less than 2 Consider renal mass biopsy vs contrast imaging on Tuesday Will follow Advanced care plan discussed with the patient Valerio Dolan DO, MBA HEMOGRAM Collected: 10/22/2017 Status: F Source: [facility] 4:55 AM HEALTH SYSTEM REPOSITORY TYPE CODE TESTS RESULT OUT OF REFERENCE UNITS RANGE LAB WBC(LOINC) 4.23-9.07 thou/cmm WBC 6.97 LAB RBC(LOINC) 4.63-6.08 mil/cmm Low RBC 2.81 LAB HGB(LOINC) 13.7-17.5 g/dL Low Hgb 9.3 LAB HCT(LOINC) 40.1-51.0 % Low Hct 28.6 LAB MCV(LOINC) 83.2-95.6 fl High MCV 101.8 LAB MCH(LOINC) 25.7-32.2 pg High MCH 33.1 LAB MCHC(LOINC) 32.3-36.5 % MCHC 32.5 LAB RDW(LOINC) 11.6-14.4 % High RDW 14.6 LAB RDWSD(LOINC 36.1-45.8 fl ) High RDW SD 53.7 LAB PLT(LOINC) 141-365 thou/cmm Platelet 162 LAB MPV(LOINC) 8.7-12.0 fl MPV 10.3 Performed By: #### CBC1 #### [facility] [address] [place] [id number] BASIC PANEL Collected: 10/22/2017 Status: F Source: [facility] 4:55 AM HEALTH SYSTEM REPOSITORY TYPE CODE TESTS RESULT OUT OF REFERENCE UNITS RANGE LAB NA(LOINC) 136-145 mEq/L Sodium Blood 138 LAB K(LOINC) 3.5-5.1 mEq/L Potassium Blood 4.5 LAB CL(LOINC) 98-107 mEq/L Chloride High Blood 110 LAB CO2(LOINC) 21-32 mEq/L CO2 Blood 23 LAB GLU(LOINC) 70-99 mg/dL Glucose Blood 87 LAB BUN(LOINC) 7-18 mg/dL BUN High Blood 19 LAB CREA(LOINC 0.67-1.17 mg/dL ) High Creatinine Blood 1.87 LAB CA(LOINC) 8.5-10.1 mg/dL Calcium Blood 8.6 LAB ANGAP(LOIN 8-16 C) Anion Gap 10 Performed By: #### P8 #### [place] [address] MDRD GFR Collected: 10/22/2017 Status: F Source: [facility] 4:55 AM HEALTH SYSTEM REPOSITORY TYPE CODE TESTS RESULT OUT OF RANGE REFERENCE UNITS LAB GFRFN(LOINC >60mL/min/1.73m ) 2 eGFR 36.93 Result Comment: If the patient is , multiply the result by 1.210. Performed By: #### GFR #### [facility] [address] [place] [id number] ANES POST Observed: 10/21/2017 Status: COMPLETED Source: [facility] 6:15 PM CLINIC OTHER CAMPUS REPOSITORY HNO ID: [id number] Author: Naty Acosta Service: Anesthesiology Author Type: Physician Type: Anesthesia PostOp Filed: 10/21/2017 6:15 PM Note Text: POST ANESTHESIA EVALUATION NOTE SERVICE DATE: 10/21/2017 SERVICE TIME: 6:15 PM : 1955 Vitals: 10/21/17 0739 10/21/17 1134 10/21/17 1607 10/21/17 1735 Temp: 37.2 ?C (99 ?F) 36.9 ?C (98.4 ?F) 36.4 ?C (97.5 ?F) 36.4 ?C (97.5 ?F) 10/21/17 1730 10/21/17 1735 10/21/17 1745 10/21/17 1800 BP: 131/82 131/82 134/82 138/79 10/21/17 1607 10/21/17 1735 10/21/17 1745 10/21/17 1800 Pulse: 70 66 68 67 10/21/17 1607 10/21/17 1735 10/21/17 1745 10/21/17 1800 Resp: 18 15 15 19 10/21/17 1607 10/21/17 1735 10/21/17 1745 10/21/17 1800 SpO2: 98% 100% 98% 100% Validated Vital Signs: Yes POST ANES STATUS: No apparent anesthetic complications. The patient is appropriately hydrated with stable respiratory and cardiovascular status. Patient has safe and adequate airway control. The patient has appropriate pain relief and no significant post operative nausea or vomiting. The patient has achieved baseline mental status. Further assessment by Anesthesia Service: None Other Remarks: SIGNATURE: Naty Acosta MD PATIENT NAME: Juan David Yancey DATE: October 21, 2017 TIME: 6:15 PM PAGER/CONTACT #: [phone] NURSING PROG Observed: 10/21/2017 Status: COMPLETED Source: [facility] 6:08 PM [facility] REPOSITORY HNO ID: [id number] Author: Serenity (Rn) ЕЛЕНА Macdonald Service: Nursing Author Type: Registered Nurse Type: Nursing Progress Note Filed: 10/21/2017 6:08 PM Note Text: Gold colored ring returned to patient. PROGRESS Observed: 10/21/2017 Status: COMPLETED Source: [facility] 5:51 PM [facility] REPOSITORY HNO ID: [id number] Author: Daniel Zelaya Service: Nephrology Author Type: Physician Type: Progress Notes Filed: 10/21/2017 5:56 PM Note Text: [facility] Nephrology progress note ? Reason for consultation: BERTHA/post-obstructive ? Chief Complaint: difficulty with urination ? History of Presenting Illness ? 62 year old male presented from [facility] for renal mass. Was unable to urinate prior to presentation. Mendoza was placed draining bright red blood. Was on blood thinner. No previous history, but reports hematuria x 2 weeks. No personal or family history of malignancy. No previous prostate or urinary issues. On Xarelto for DVTs. On CBI. Per nursing, was unable to drain overnight. She reports significant clotting removed. Still needing irrigated Q 3hrs. is making NPO after midnight-? Surgery as inpatient vs outpatient f/u. Additional home meds include ASA and Allopurinol. No FRANCK/ARB or diuretic. Also presently on NS at 125/hr. BP was 186/94 on admit. Today is 135/74 Creat on admit was 2.55, today is 2.58. UA with 1-3 WBC, >100RBC (partially resulted?) Baseline unknown, <1 2012. Patient denies any issues with renal function in past. States has hx UC, hip replacments d/t avascular necrosis from steroid use, DVT with IVC filter placement, PCI. No HTN or DM. Nephrology has been c/s for BERTHA Interval progess note Doing ok Going for cystoscopy + ureteroscopy Cr is better Baseline ? Good uo + Still on CBI BP ok Overall feels better ROS (-) unless above No change in the PFSH ? Past Medical/Surgical History ? PAST MEDICAL HISTORY PAST MEDICAL HISTORY Diagnosis Date - Avascular necrosis (HCC) bilateral hip replacements d/t avascular necrosis - Blood clot in vein IVC filter placed in 1994 - Bowel disease ? ? MUC, colectomy in 1994 - Gout Summer 2011 ? 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 ? PAST SURGICAL HISTORY PAST SURGICAL HISTORY Procedure Laterality Date - COLECTOMY PARTIAL W ANASTOM ? ? - ILEOSTOMY ? ? ? closed - TOTAL HIP REPLACEMENT ? ? ? bilateral- castro ? ? ? Review of Systems ? All 12 systems reviewed and are negative except for what is mentioned in the HPI. ? Medications ? Prescriptions Prior to Admission ? Prescriptions Prior to Admission: aspirin 325 mg tablet Take 325 mg by mouth once daily. Disp: Rfl: ? RIVAROXABAN (XARELTO ORAL) Take 20 mg by mouth once daily. Disp: Rfl: ? allopurinol 100 mg tablet Take 2 tablets by mouth once daily. In 2 weeks, increase to 300mg/day Disp: 60 tablet Rfl: 2 ? ? ? CURRENT MEDICATIONS ? Current Facility-Administered Medications: oxybutynin 5 mg tab(s) (DITROPAN) 5 mg ORAL TID amLODIPine 10 mg tab(s) (NORVASC) 10 mg ORAL DAILY NaCl 0.9% irrigation solution 3,000 mL IRRIGATION CONTINUOUS allopurinol 200 mg tab(s) (ZYLOPRIM) 200 mg ORAL DAILY NaCl 0.9% iv infusion 125 mL/hr INTRAVENOUS CONTINUOUS acetaminophen 650 mg tab(s) (TYLENOL) 650 mg ORAL q 4 H PRN oxyCODONE-acetaminophen 5-325 mg 1-2 tablet (PERCOCET) 1-2 tablet ORAL q 4 H PRN morphine 2-4 mg injection 2-4 mg INTRAVENOUS q 2 H PRN ondansetron (PF) 4 mg injection (ZOFRAN) 4 mg INTRAVENOUS q 6 H PRN docusate sodium 100 mg cap(s) (COLACE) 100 mg ORAL BID ceFAZolin 1 g in dextrose (iso-osmotic) 50 mL (ANCEF, KEFZOL) 1 g INTRAVENOUS q 8 H belladonna-opium 16.2-60 mg 1 Suppository suppository (B and O 16-A) 1 Suppository RECTAL TID PRN ? ? Allergies ? Morphine; Prednisone ? ? Family History ? Negative for Kidney Disease FAMILY HISTORY No family history on file. ? Social History ? SOCIAL HISTORY Social History Marital status: Spouse name: Years of education: Number of children: ? Social History Main Topics Smoking status: Never Smoker ? Smokeless status: Never Used Alcohol use: Yes Comment: social Drug use: No ? ? Physical Exam ? Blood pressure 135/71, pulse 66, temperature 36.9 ?C (98.4 ?F), temperature source Oral, resp. rate 18, height 185.4 cm (6' 0.99), weight 17.9 kg (39 lb 8.6 oz), SpO2 97 %. 24 HR INTAKE/OUTPUT: Intake/Output Summary (Last 24 hours) at 10/20/17 1522 Last data filed at 10/20/17 1504 ? Gross per 24 hour Intake 3640 ml Output 2800 ml Net 840 ml ? ? General: NAD, Comfortable appearing, cooperative to history and physical exam. Head: AT NC Neck: Supple, no jvd Chest: B/L clear, no crackles, no accessory muscles usage. CV: RRR, no murmurs or rubs Abdomen: NT, ND, soft Extremities: No peripheral edema, no tremor Neurological: Moving all four extremities, no focal neurological deficit Psychiatric: Normal insight and judgement, good recall : mendoza with hematuria, +CBI ? Data ? ? Recent Labs ? 10/20/17 0740 10/19/17 2125 NA 139 137 K 4.5 3.9 CHLOR 107 105 CO2 27 21 BUN 24* 25* CREAT 2.58* 2.55* GLUC 103* 163* ALB 3.3* 3.9 CA 8.8 9.5 ? ? ? Recent Labs ? 10/20/17 0325 10/19/17 2125 WBC 10.55* 12.65* HB 10.6* 10.9* HCT 30.2* 30.2* PLT 247 237 ? ? ? pH, Urine Date Value Ref Range Status 10/19/2017 see below 5.0 - 8.0 Final Comment: Color abnormal- some macroscopic not done. Specific [place], Ur Date Value Ref Range Status 10/19/2017 1.020 1.005 - 1.030 Final Glucose, Urine Date Value Ref Range Status 10/19/2017 see below Negative mg/dL Final Comment: Color abnormal- some macroscopic not done. Bilirubin, Urine Date Value Ref Range Status 10/19/2017 see below Negative Final Comment: Color abnormal- some macroscopic not done. Ketones, Urine Date Value Ref Range Status 10/19/2017 see below Negative mg/dL Final Comment: Color abnormal- some macroscopic not done. Protein, Urine Date Value Ref Range Status 10/19/2017 see below Negative mg/dL Final Comment: Color abnormal- some macroscopic not done. Nitrites Urine Date Value Ref Range Status 10/19/2017 see below Negative Final Comment: Color abnormal- some macroscopic not done. WBC, Urine Date Value Ref Range Status 10/19/2017 1.0-3 0.0 - 5.0 /hpf Final ? CXR EXAM TITLE: CHEST 1 VIEW ? DATE: 10/20/2017 06:09 ? INDICATION: ?Patient history of renal mass. ? COMPARISON: None. ? Portable frontal view of the chest shows heart size to be normal. ? Pulmonary vascularity is normal. ? Lungs are clear. No infiltrates or effusions. ? No obvious acute bony abnormality is evident. There is evidence of old left clavicle fracture. ? IMPRESSION: ? No acute findings radiographically. ? Assessment: 1. BERTHA-acute vs acute/chronic, likely 2/2 obstruction 2. Renal mass( right renal ) 3. Hematuria- from RCC ? 4. DVT history 5. H/o Ulcerative colitis + 6. Anemia from acute blood loss ? Plan: Cr better Resolving BERTHA ? Will need to monitor creat closely Await the baseline cr Would defer contrast imaging at this time given renal function Agree with urology procedures plan Expect cr to get better as the BERTHA resolves Renal mass( RCC ? 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 OPERATIVE NO Observed: 10/21/2017 Status: COMPLETED Source: [facility] 5:43 PM CLINIC OTHER CAMPUS REPOSITORY HNO ID: [id number] Author: Silviano Dolan DO Service: Urology Author Type: Physician Type: Operative Report Filed: 10/21/2017 5:52 PM Note Text: OPERATIVE/PROCEDURE REPORT LOG ID: [id number] Surgery/Procedure Date: 10/21/2017 Incision/Procedure Start Time: 4:39 PM Incision Close/Procedure End Time: 5:25 PM Surgeon(s)/Proceduralist(s) and Commercial Baker Helper(s): Surgeon(s) and Role: * Silviano Dolan DO - Primary No Additional Staff Procedure(s): Cystoscopy, bilateral retrograde, right ureteroscopy and right stent placement ? Anesthesia: General ?? Procedure Details:?Patient was brought to the operating room. A thorough time out was performed and everyone present was in agreement. Patient was placed on OR table. Anesthesia and lines were maintained by the anesthesia team. Patient was placed in the dorsal lithotomy position. Prepped and draped in usual fashion. Pressure points were padded. A cystourethroscope was inserted through the urethra and the bladder was inspected. No tumors were noted. There was a clot emanating from the right ureteral orifice. Left retrograde pyelogram was negative. ?? Right ureteric orifice was cannulated and a wire was placed.? Retrograde demonstrated possible clot in the ureter. Rigid and flexible ureteroscopy was negative for papillary tumors. There was some upper pole extravasation that was minimal. ? Stones were lasered into gravel. No pieces were large enough to be retrieved.? ?? A ?6 fr X 26 cm JJ stent was?advanced over the wire through the cystoscope under fluoroscopic visualization. Once in position the wire was removed. A good curl was noted in the kidney and the bladder. [address] way mendoza was placed and third port was capped. The patient awoken from anesthesia and transported to PACU in stable condition. ? ?? Pre-Op/Pre-Procedure Diagnosis:?Right renal mass, hematuria, renal failure ?? Post-Op/Post-Procedure Diagnosis:?same ? Estimated Blood Loss:?0 ml ?? Specimens:?None ?? Implantable Devices:?None ?? Drains:?None ?? Complications: None ?? The primary surgeon/proceduralist performed the procedure with assistance. SIGNATURE: Silviano Dolan PATIENT NAME: Juan David Yancey DATE: October 21, 2017 TIME: 5:43 PM PAGER/CONTACT #: [phone] OP NOT Observed: 10/21/2017 Status: COMPLETED Source: [facility] 5:39 PM [facility] OTHER CAMPUS REPOSITORY O ID: [id number] Author: Silviano Dolan DO Service: Urology Author Type: Physician Type: Brief Op Note Filed: 10/22/2017 9:47 AM Note Text: BRIEF OP NOTE LOG ID: [id number] Surgery/Procedure Date: 10/21/2017 Incision/Procedure Start Time: 4:39 PM Incision Close/Procedure End Time: 5:25 PM Surgeon(s)/Proceduralist(s) and Commercial Baker Helper(s): Surgeon(s) and Role: * Silviano Dolan DO - Primary Procedure(s): cystoscopy AND pyelograms, right ureteroscopy, right ureteral stent placement 6 Fr x 26 cm Anesthesia: General Findings: No lesions or tumors within the bladder. Left pyelogram without filling defect or hydronephrosis. Right retrograde pyelogram revealed mild extravasation at the upper pole, but no filling defect identified. Right ureteroscopy was negative for urothelial tumor in either the renal pelvis or ureter. See operative note for further details. Estimated Blood Loss: 5 cc Specimens: None Complications: None Pre-Op/Pre-Procedure Diagnosis: gross hematuria, right renal mass Post-Op/Post-Procedure Diagnosis: Hematuria [R31.9] SIGNATURE: Sushma Mcintyre MD PATIENT NAME: Juan David Yancey DATE: October 21, 2017 TIME: 5:40 PM PAGER/CONTACT #: [phone] I have seen and evaluated the patient and discussed the case with the resident physician. I agree with the assessment and plan as documented in the resident?s note. Silviano Dolan DO SHERRI UROGRAM RETROGRADE Observed: 10/21/2017 Status: F Source: [facility] 5:05 PM HEALTH SYSTEM REPOSITORY Performed at [facility] APPROVED BY: Cory Franklin MD EXAM TITLE: BILATERAL RETROGRADE PYELOGRAM DATE: 10/21/2017 16:35 COMPARISON: CT scan of the abdomen and pelvis from October 19, 2017 CLINICAL INDICATION/HISTORY: The patient is a 62-year-old male with hematuria. TECHNIQUE: 2 spot films from retrograde exam performed by Dr. Dolan are presented for interpretation. 2 minute and 6 seconds of fluoroscopy was available in the OR. FINDINGS: On the first spot film there is intermittent opacification of a nondilated left renal collecting system and ureter with no definite abnormalities on the left side. There is right-sided hydron ephrosis with a ureteroscope in place with the tip in the renal pelvis and a wire extending into the upper pole. There is a crescent of dense contrast along the upper pole of the right kidney that appe ars to be subcapsular. There appears to be a crushed inferior vena cava filter with vascular stents in the inferior vena cava and iliac veins. Bilateral hip prostheses are identified. There is mild distention of bowel. IMPRESSION: There is evidence of right-sided hydronephrosis although point of structure is not well identified on this study. There is successful ureteroscopic access to the right renal collecting syst em. There does appear to be a subcapsular collection of contrast involving the upper pole right kidney. The left renal collecting system shows no abnormalities although the views are limited. ANES PREOP Observed: 10/21/2017 Status: COMPLETED Source: [facility] 3:58 PM CLINIC OTHER CAMPUS REPOSITORY HNO ID: [id number] Author: Carl Blair Service: Anesthesiology Author Type: Physician Type: Anesthesia PreOp Filed: 10/21/2017 3:59 PM Note Text: ANESTHESIOLOGY DAY OF SURGERY NOTE SERVICE DATE: 10/21/2017 SERVICE TIME: 3:58 PM : 1955 Procedure(s) (LRB): CYSTOSCOPY, RETROPYELOGRAM, clot evacuation, possible ureteroscopy, possible stent placement (N/A) Surgeon(s): Silviano Dolan DO Estimated body mass index is 5.22 kg/(m2) as calculated from the following: Height as of this encounter: 185.4 cm (6' 0.99). Weight as of this encounter: 17.9 kg (39 lb 8.6 oz). Most recent hematocrit and potassium results: Hematocrit 28.1 10/21/2017 Potassium 4.5 10/21/2017 ANES DOS/PREOP NOTE: Vitals: 10/20/17 2300 10/21/17 0324 10/21/17 0739 10/21/17 1134 BP: 152/80 142/72 151/76 141/71 Pulse: 70 72 72 76 Resp: Temp: 36.6 ?C (97.9 ?F) 36.6 ?C (97.9 ?F) 37.2 ?C (99 ?F) 36.9 ?C (98.4 ?F) TempSrc: Temporal Artery Temporal Artery Oral Oral SpO2: 94% 94% 94% 100% Weight: Height: ACTIVE PROBLEM LIST Blood Clot in Vein Inferior Vena Caval Thrombosis (Hcc) S/P Insertion of Ivc (Inferior Vena Caval) Filter Anticoagulation Management Encounter Personal History of Dvt (Deep Vein Thrombosis) Sbo (Small Bowel Obstruction) Iliac Dvt (Deep Venous Thrombosis) (Hcc) Dvt Femoral (Deep Venous Thrombosis) (Hcc) Popliteal Dvt (Deep Venous Thrombosis) (Hcc) Bilateral Leg Edema Hematuria PAST MEDICAL HISTORY Diagnosis Date - Avascular necrosis (HCC) bilateral hip replacements d/t avascular necrosis - Blood clot in vein IVC filter placed in 1994 - Bowel disease MUC, colectomy in 1994 - Gout Summer 2011 Clinical Diagnosis in 2012 - Iliac DVT (deep venous thrombosis) (HCC) 11/26/2012 - Ulcerative colitis (HCC) PAST SURGICAL HISTORY Procedure Laterality Date - COLECTOMY PARTIAL W ANASTOM - ILEOSTOMY closed - TOTAL HIP REPLACEMENT bilateral- castro No family history on file. Social History: Social History Substance Use Topics - Smoking status: Never Smoker - Smokeless tobacco: Never Used - Alcohol use Yes Comment: social No current facility-administered medications on file prior to encounter. Current Outpatient Prescriptions on File Prior to Encounter: allopurinol 100 mg tablet Take 2 tablets by mouth once daily. In 2 weeks, increase to 300mg/day Current Facility-Administered Medications: [MAR Hold due to Transfer] oxybutynin 5 mg tab(s) (DITROPAN) 5 mg ORAL TID Franklyn (Res) Kmetz 5 mg at 10/21/17 1301 [MAR Hold due to Transfer] amLODIPine 10 mg tab(s) (NORVASC) 10 mg ORAL DAILY Deep Garcia MD 10 mg at 10/21/17 08 [MAR Hold due to Transfer] NaCl 0.9% irrigation solution 3,000 mL IRRIGATION CONTINUOUS Nelly (ResEladia Moore 3,000 mL at 10/20/17 1532 [MAR Hold due to Transfer] allopurinol 200 mg tab(s) (ZYLOPRIM) 200 mg ORAL DAILY Franklyn (Res) Kmetz 200 mg at 10/21/17 08 [MAR Hold due to Transfer] NaCl 0.9% iv infusion 125 mL/hr INTRAVENOUS CONTINUOUS Franklyn (Res) Kmkay Last Rate: 125 mL/hr at 10/21/17 0332 125 mL/hr at 10/21/17 033 [MAR Hold due to Transfer] acetaminophen 650 mg tab(s) (TYLENOL) 650 mg ORAL q 4 H PRN Franklyn (Res) Kmetz [MAR Hold due to Transfer] oxyCODONE-acetaminophen 5-325 mg 1-2 tablet (PERCOCET) 1-2 tablet ORAL q 4 H PRN Franklyn (Res) Kmetz 1 tablet at 10/20/17 0012 [MAR Hold due to Transfer] morphine 2-4 mg injection 2-4 mg INTRAVENOUS q 2 H PRN Franklyn (Res) Kmetz [MAR Hold due to Transfer] ondansetron (PF) 4 mg injection (ZOFRAN) 4 mg INTRAVENOUS q 6 H PRN Franklyn (Res) Kmetz [MAR Hold due to Transfer] docusate sodium 100 mg cap(s) (COLACE) 100 mg ORAL BID Franklyn (Res) Kmetz [MAR Hold due to Transfer] ceFAZolin 1 g in dextrose (iso- osmotic) 50 mL (ANCEF, KEFZOL) 1 g INTRAVENOUS q 8 H Franklyn (Res) Kmetz 1 g at 10/21/17 1422 [MAR Hold due to Transfer] belladonna-opium 16.2-60 mg 1 Suppository suppository (B and O 16-A) 1 Suppository RECTAL TID PRN Franklyn (Res) Kmetz 1 Suppository at 10/20/17 0817 Allergies: ALLERGIES Allergen Reactions - Morphine Itching - Prednisone Other: See Comments avascular necrosis, bilat hip replacements DOS EXAM: Adequate NPO status: Yes Anesthetic risks, benefits, alternatives, personnel and consent discussed: Yes Patient agrees to proceed: Yes Previous Anesthesia: No history of adverse event. Airway Assessment: MP 2; Neck ROM: Full ROM without neurologic symptoms; Airway Evaluation: No significant abnormalities Symptoms of Sleep Apnea: Age over 50 (62 year old) and Male gender Dentition: Teeth intact Additional Physical Exam: Lungs: Patient health status unchanged since recent history and physical. See history and physical for exam findings. Cardiac: Patient health status unchanged since recent history and physical. See history and physical for exam findings. Additional Pertinent Findings: N/A Blood Products: Not anticipated for this procedure. Anesthetic Plan: General, Standard ASA Monitors Pain Management Plan: Parenteral or Oral ASA Class: 3 Other Medical Problems: hematuria Chronic Beta Merissa medication administered within 24 hours: N/A I have interviewed and examined the patient. I have reviewed the medical record and/or the pre-anesthesia evaluation, pertinent labs, and test results. Significant changes in the patient's condition since the History and Physical, not otherwise documented in primary service progress notes: No This contains updated information obtained within 48 hours of Surgery/Procedure. SIGNATURE: Carl Blair MD PATIENT NAME: Juan David Yancey DATE: October 21, 2017 TIME: 3:58 PM CSN: [id number] CASE MANAGEM Observed: 10/21/2017 Status: COMPLETED Source: [facility] 2:25 PM [facility] REPOSITORY HNO ID: [id number] Author: Jose Manuel (Rn) ЕЛЕНА Sheets Service: Care Management Author Type: Registered Nurse Type: Care Mgt Progress Note Filed: 10/21/2017 2:27 PM Note Text: CARE MANAGEMENT PROGRESS NOTE SERVICE DATE: 10/21/2017 SERVICE TIME: 1425 LOS: 1 day Chart reviewed. Spoke with RN. Patient to under C+P today. Anticipate plan still to d/c home with spouse when medically stable. SIGNATURE: Jose Manuel Sheets RN PATIENT NAME: Juan David Yancey DATE: October 21, 2017 TIME: 2:25 PM PAGER/CONTACT #: [phone] PROGRESS Observed: 10/21/2017 Status: COMPLETED Source: [facility] 7:31 AM [facility] REPOSITORY HNO ID: [id number] Author: Silviano Dolan DO Service: Urology Author Type: Physician Type: Progress Notes Filed: 10/21/2017 5:02 PM Note Text: UROLOGY PROGRESS NOTE PATIENT NAME: Juan David Yancey DATE OF : 1955 ADMISSION DATE: 10/19/2017 8:33 PM TODAY'S DATE: 10/20/2017 Subjective Spasms much improved after B+O. Draining clear on slow CBI Objective VS: BP 142/72 Pulse 72 Temp 36.6 ?C (97.9 ?F) (Temporal Artery) Resp 18 Ht 185.4 cm (6' 0.99) Wt 17.9 kg (39 lb 8.6 oz) SpO2 94% BMI 5.22 kg/m2 I AND O - 24hr: Intake/Output Summary (Last 24 hours) at 10/21/17 0731 Last data filed at 10/21/17 0600 Gross per 24 hour Intake 5340 ml Output 4600 ml Net 740 ml Physical Exam: General: Neck: Resp: Abdomen: No acute distress Supple Normal effort Soft, non-tender, nondistended : Clear on slow CBI Labs and Imaging Studies LABS: BMP: Glucose (mg/dL) Date Value 10/21/2017 97 Potassium (mEq/L) Date Value 10/21/2017 4.5 Sodium (mEq/L) Date Value 10/21/2017 138 Chloride (mEq/L) Date Value 10/21/2017 109 CO2 (mEq/L) Date Value 10/21/2017 25 Creatinine (mg/dL) Date Value 10/21/2017 2.20 BUN (mg/dL) Date Value 10/21/2017 23 Anion Gap (no units) Date Value 10/20/2017 10 Calcium (mg/dL) Date Value 10/21/2017 8.6 CBC: Hemoglobin (g/dL) Date Value 11/30/2012 10.6 HGB (g/dL) Date Value 10/21/2017 9.2 Hematocrit (%) Date Value 10/21/2017 28.1 WBC (thou/cmm) Date Value 10/21/2017 7.85 Platelet Count (thou/cmm) Date Value 10/21/2017 179 Urinalysis: Specific [place], Ur Date Value Ref Range Status 10/19/2017 1.020 1.005 - 1.030 Final Glucose, Urine Date Value Ref Range Status 10/19/2017 see below Negative mg/dL Final Comment: Color abnormal- some macroscopic not done. Bilirubin, Urine Date Value Ref Range Status 10/19/2017 see below Negative Final Comment: Color abnormal- some macroscopic not done. Ketones, Urine Date Value Ref Range Status 10/19/2017 see below Negative mg/dL Final Comment: Color abnormal- some macroscopic not done. Protein, Urine Date Value Ref Range Status 10/19/2017 see below Negative mg/dL Final Comment: Color abnormal- some macroscopic not done. Urobilinogen, Urine Date Value Ref Range Status 10/19/2017 see below 0.0 - 1.0 EU/dL Final Comment: Color abnormal- some macroscopic not done. Nitrites Urine Date Value Ref Range Status 10/19/2017 see below Negative Final Comment: Color abnormal- some macroscopic not done. WBC, Urine Date Value Ref Range Status 10/19/2017 1.0-3 0.0 - 5.0 /hpf Final Urine Culture: Urine Culture (no units) Date Value 10/20/2017 No growth RADIOLOGY: Assessment and Plan Assessment and Plan: ?? 62 year old male 7cm R renal mass and hematuria, BERTHA ?? PLAN: ?? -Irrigate mendoza q3hrs, cont CBI -B+O Q6hrs -NPO - Add on for clot evac and C+P today -Urine culture and cytology negative -Ancef -CXR and LFTs ok -Follow Cr, still elevated but slightly improved Franklyn Nicole MD 10/20/2017 8:18 AM I have seen and evaluated the patient and discussed the case with the resident physician. I agree with the assessment and plan as documented in the resident?s note. He has a renal mass with hematuria Cr is elevated Cysto ureteroscopy today Silviano Dloan RENAL PANEL Collected: 10/21/2017 Status: F Source: [facility] 3:40 AM HEALTH SYSTEM REPOSITORY TYPE CODE TESTS RESULT OUT OF REFERENCE UNITS RANGE LAB NA(LOINC) 136-145 mEq/L Sodium Blood 138 LAB K(LOINC) 3.5-5.1 mEq/L Potassium Blood 4.5 LAB CL(LOINC) 98-107 mEq/L Chloride High Blood 109 LAB CO2(LOINC) 21-32 mEq/L CO2 Blood 25 LAB GLU(LOINC) 70-99 mg/dL Glucose Blood 97 LAB BUN(LOINC) 7-18 mg/dL BUN High Blood 23 LAB CREA(LOINC 0.67-1.17 mg/dL ) High Creatinine Blood 2.20 LAB CA(LOINC) 8.5-10.1 mg/dL Calcium Blood 8.6 LAB ALB(LOINC) 3.4-5.0 g/dL Low Albumin Blood 3.1 LAB PHOS(LOINC 2.5-4.9 mg/dL ) Phosphorus Blood 3.1 Performed By: #### RENAL #### [facility] [address] [address] MDRD GFR Collected: 10/21/2017 Status: F Source: [facility] 3:40 AM HEALTH SYSTEM REPOSITORY TYPE CODE TESTS RESULT OUT OF RANGE REFERENCE UNITS LAB GFRFN(LOINC >60mL/min/1.73m ) 2 eGFR 30.62 Result Comment: If the patient is , multiply the result by 1.210. Performed By: #### GFR #### [place] [address] HEMOGRAM Collected: 10/21/2017 Status: F Source: [facility] 3:40 HEALTH SYSTEM REPOSITORY TYPE CODE TESTS RESULT OUT OF REFERENCE UNITS RANGE LAB WBC(LOINC) 4.23-9.07 thou/cmm WBC 7.85 LAB RBC(LOINC) 4.63-6.08 mil/cmm Low RBC 2.76 LAB HGB(LOINC) 13.7-17.5 g/dL Low Hgb 9.2 LAB HCT(LOINC) 40.1-51.0 % Low Hct 28.1 LAB MCV(LOINC) 83.2-95.6 fl High MCV 101.8 LAB MCH(LOINC) 25.7-32.2 pg High MCH 33.3 LAB MCHC(LOINC) 32.3-36.5 % MCHC 32.7 LAB RDW(LOINC) 11.6-14.4 % High RDW 14.6 LAB RDWSD(LOINC 36.1-45.8 fl ) High RDW SD 53.4 LAB PLT(LOINC) 141-365 thou/cmm Platelet 179 LAB MPV(LOINC) 8.7-12.0 fl MPV 10.2 Performed By: #### CBC1 #### [place] [address] CONSULT Observed: 10/20/2017 Status: COMPLETED Source: [facility] 6:17 PM CLINIC OTHER CAMPUS REPOSITORY HNO ID: [id number] Author: Deep Garcia MD Service: Hospital Medicine Author Type: Physician Type: Consults Filed: 10/20/2017 6:30 PM Note Text: DEPARTMENT OF HOSPITAL MEDICINE HISTORY AND PHYSICAL EXAM SERVICE DATE: 10/20/2017 SERVICE TIME: 09.10 Primary Care Physician: No Pcp NIGHT AND WEEKEND COVERAGE: Days: [phone], please page me for patient issues. Nights: [phone], please page [facility] Hospitalist Night coverage pager [phone] Subjective CHIEF COMPLAINT: Gross hematuria HPI: This is a 62 year old male who presents with gross hematuria and incidental finding of a renal mass. Had been having gross hematuria which became worse over the last few days. Went into acute urinary retention and presented to [facility] from where patient was transferred Mendoza placed and being irrigated at this time. Denies fever or weight loss or night sweats Worked in a [employer] industry in his late teens for a few months. 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 Social History Substance Use Topics - Smoking status: Never Smoker - Smokeless tobacco: Never Used - Alcohol use Yes Comment: social MEDICATIONS: Reviewed Prescriptions Prior to Admission: aspirin 325 mg tablet Take 325 mg by mouth once daily. Disp: Rfl: RIVAROXABAN (XARELTO ORAL) Take 20 mg by mouth once daily. Disp: Rfl: allopurinol 100 mg tablet Take 2 tablets by mouth once daily. In 2 weeks, increase to 300mg/day Disp: 60 tablet Rfl: 2 ALLERGIES Allergen Reactions - Morphine Itching - Prednisone Other: See Comments avascular necrosis, bilat hip replacements REVIEW OF SYSTEM: No chest pain or SOB and rest of ROS is negative Objective PHYSICAL EXAM: BP 135/71 Pulse 66 Temp (Src) 98.4 (Oral) Resp 18 Ht 6' .992 (1.85m) Wt 39 lb 8.6 oz (17.9kg) SpO2 97% BMI 5.22 kg/(m2). Physical Exam Performed: GENERAL: Alert, no distress, cooperative SKIN: Skin color, texture, turgor normal. No rashes or lesions. EYES: PERRLA, EOMI NECK: No jugulovenous distention, No carotid bruits, Carotid pulse normal contour, Supple BACK: Back symmetric, Normal curvature, ROM normal, No CVAT. LUNGS: Lungs clear to auscultation, Good diaphragmatic excursion ABDOMEN: Abdomen soft, non-tender, BS normal, No masses or organomegaly EXTREMITIES: Extremities normal, no deformities, edema, clubbing or skin discoloration. Good capillary refill., No ulcers NEURO: Gait normal. Reflexes normal and symmetric. Sensation grossly intact, Cranial nerves II-XII intact GENITALIA MALE: Penis normal, no urethral discharge, scrotum normal to palpation, no hernias The remainder of the physical exam is noncontributory. Lines, Drains, and Airways Line Peripheral 10/19/17 1750 Short Right Antecubital 18 Gauge 1 day Drain Indwelling Urinary Catheter 10/19/17 2341 Assessment 3- way Catheter 24 Fr less than 1 day Reviewed lines, drains, AND airways. Need to be continued none DATA: Diagnostic tests reviewed for today's visit: Most recent labs and imaging results. Assessment/Plan 1. Large renal mass with gross hematuria. Likely renal cell malignancy. Urology planning cystoscopy and already getting bladder irrigation Check urine cytology D/w urology if oncology be involved early on to perhaps help direct work-up. Oncology consult not needed at this time 2. BERTHA. Likely post-obstructive from blood clots. Nephrology consulted. Getting IVFs as well. 3. 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 On hold for now VTE Prophylaxis: Pneumatic Compression Device Disposition: Home Plan of care discussed with: Patient SIGNATURE: Deep Garcia MD PATIENT NAME: Juan David Yancey DATE: October 20, 2017 TIME: 6:17 PM PAGER/CONTACT #: [email or web address] [email or web address] [phone] PROGRESS Observed: 10/20/2017 Status: COMPLETED Source: [facility] 4:33 PM [facility] REPOSITORY HNO ID: [id number] Author: Nelly Moore Service: Urology Author Type: Resident Type: Progress Notes Filed: 10/20/2017 4:38 PM Note Text: Pt doing well. Urine blood tinge on slow drip this afternoon. Discussed pt significant DVT history. Has IVC filter. Has been off xarelto since Tuesday am. Given elevated Cr, pt may be unable to get contrast enhanced imaging, and CANDP with possible ureteroscopy/stent would be necessary. Pt also lives far from [facility] and has been off xarelto, so best to evaluate this while here. Medical consult pending. Discussed case with Dr. Dolan, will plan to add on for tomorrow afternoon. Nelly Moore NURSING PROG Observed: 10/20/2017 Status: COMPLETED Source: [facility] 4:01 PM [facility] REPOSITORY HNO ID: [id number] Author: Елена (Rn) ЕЛЕНА Kyle Service: (none) Author Type: Registered Nurse Type: Nursing Progress Note Filed: 10/20/2017 4:03 PM Note Text: Creatinine and sodium urine ordered notified Deyanira Yap CNP that patient has CBI running. Okay not to send urine at this time. CONSULT Observed: 10/20/2017 Status: COMPLETED Source: [facility] 3:22 PM [facility] REPOSITORY HNO ID: [id number] Author: Daniel Zelaya Service: Nephrology Author Type: Physician Type: Consults Filed: 10/20/2017 8:30 PM Note Text: [facility] Nephrology Consultation Note Reason for consultation: BERTHA/post-obstructive Chief Complaint: difficulty with urination History of Presenting Illness 62 year old male presented from [place] for renal mass. Was unable to urinate prior to presentation. Mendoza was placed draining bright red blood. Was on blood thinner. No previous history, but reports hematuria x 2 weeks. No personal or family history of malignancy. No previous prostate or urinary issues. On Xarelto for DVTs. On CBI. Per nursing, was unable to drain overnight. She reports significant clotting removed. Still needing irrigated Q 3hrs. is making NPO after midnight-? Surgery as inpatient vs outpatient f/u. Additional home meds include ASA and Allopurinol. No FRANCK/ARB or diuretic. Also presently on NS at 125/hr. BP was 186/94 on admit. Today is 135/74 Creat on admit was 2.55, today is 2.58. UA with 1-3 WBC, >100RBC (partially resulted?) Baseline unknown, <1 2012. Patient denies any issues with renal function in past. States has hx UC, hip replacments d/t avascular necrosis from steroid use, DVT with IVC filter placement, PCI. No HTN or DM. Nephrology has been c/s for BERTHA Past Medical/Surgical History PAST MEDICAL HISTORY Diagnosis Date - Avascular necrosis (HCC) bilateral hip replacements d/t avascular necrosis - Blood clot in vein IVC filter placed in 1994 - Bowel disease MUC, colectomy in 1994 - Gout Summer 2011 Clinical Diagnosis in 2011 - Iliac DVT (deep venous thrombosis) (HCC) 11/26/2012 - Ulcerative colitis (HCC) PAST SURGICAL HISTORY Procedure Laterality Date - COLECTOMY PARTIAL W ANASTOM - ILEOSTOMY closed - TOTAL HIP REPLACEMENT bilateral- casrto Review of Systems All 12 systems reviewed and are negative except for what is mentioned in the HPI. Medications Prescriptions Prior to Admission: aspirin 325 mg tablet Take 325 mg by mouth once daily. Disp: Rfl: RIVAROXABAN (XARELTO ORAL) Take 20 mg by mouth once daily. Disp: Rfl: allopurinol 100 mg tablet Take 2 tablets by mouth once daily. In 2 weeks, increase to 300mg/day Disp: 60 tablet Rfl: 2 Current Facility-Administered Medications: oxybutynin 5 mg tab(s) (DITROPAN) 5 mg ORAL TID amLODIPine 10 mg tab(s) (NORVASC) 10 mg ORAL DAILY NaCl 0.9% irrigation solution 3,000 mL IRRIGATION CONTINUOUS allopurinol 200 mg tab(s) (ZYLOPRIM) 200 mg ORAL DAILY NaCl 0.9% iv infusion 125 mL/hr INTRAVENOUS CONTINUOUS acetaminophen 650 mg tab(s) (TYLENOL) 650 mg ORAL q 4 H PRN oxyCODONE-acetaminophen 5-325 mg 1-2 tablet (PERCOCET) 1-2 tablet ORAL q 4 H PRN morphine 2-4 mg injection 2-4 mg INTRAVENOUS q 2 H PRN ondansetron (PF) 4 mg injection (ZOFRAN) 4 mg INTRAVENOUS q 6 H PRN docusate sodium 100 mg cap(s) (COLACE) 100 mg ORAL BID ceFAZolin 1 g in dextrose (iso-osmotic) 50 mL (ANCEF, KEFZOL) 1 g INTRAVENOUS q 8 H belladonna-opium 16.2-60 mg 1 Suppository suppository (B and O 16-A) 1 Suppository RECTAL TID PRN Allergies Morphine; Prednisone Family History Negative for Kidney Disease No family history on file. Social History Social History Marital status: Spouse name: Years of education: Number of children: Social History Main Topics Smoking status: Never Smoker Smokeless status: Never Used Alcohol use: Yes Comment: social Drug use: No Physical Exam Blood pressure 135/71, pulse 66, temperature 36.9 ?C (98.4 ?F), temperature source Oral, resp. rate 18, height 185.4 cm (6' 0.99), weight 17.9 kg (39 lb 8.6 oz), SpO2 97 %. 24 HR INTAKE/OUTPUT: Intake/Output Summary (Last 24 hours) at 10/20/17 1522 Last data filed at 10/20/17 1504 Gross per 24 hour Intake 3640 ml Output 2800 ml Net 840 ml General: NAD, Comfortable appearing, cooperative to history and physical exam. Head: AT NC Neck: Supple, no jvd Chest: B/L clear, no crackles, no accessory muscles usage. CV: RRR, no murmurs or rubs Abdomen: NT, ND, soft Extremities: No peripheral edema, no tremor Neurological: Moving all four extremities, no focal neurological deficit Psychiatric: Normal insight and judgement, good recall : mendoza with hematuria, +CBI Data Recent Labs 10/20/17 0740 10/19/17 2125 NA 139 137 K 4.5 3.9 CHLOR 107 105 CO2 27 21 BUN 24* 25* CREAT 2.58* 2.55* GLUC 103* 163* ALB 3.3* 3.9 CA 8.8 9.5 Recent Labs 10/20/17 0325 10/19/17 2125 WBC 10.55* 12.65* HB 10.6* 10.9* HCT 30.2* 30.2* PLT 247 237 pH, Urine Date Value Ref Range Status 10/19/2017 see below 5.0 - 8.0 Final Comment: Color abnormal- some macroscopic not done. Specific [place], Ur Date Value Ref Range Status 10/19/2017 1.020 1.005 - 1.030 Final Glucose, Urine Date Value Ref Range Status 10/19/2017 see below Negative mg/dL Final Comment: Color abnormal- some macroscopic not done. Bilirubin, Urine Date Value Ref Range Status 10/19/2017 see below Negative Final Comment: Color abnormal- some macroscopic not done. Ketones, Urine Date Value Ref Range Status 10/19/2017 see below Negative mg/dL Final Comment: Color abnormal- some macroscopic not done. Protein, Urine Date Value Ref Range Status 10/19/2017 see below Negative mg/dL Final Comment: Color abnormal- some macroscopic not done. Nitrites Urine Date Value Ref Range Status 10/19/2017 see below Negative Final Comment: Color abnormal- some macroscopic not done. WBC, Urine Date Value Ref Range Status 10/19/2017 1.0-3 0.0 - 5.0 /hpf Final CXR EXAM TITLE: CHEST 1 VIEW ? DATE: 10/20/2017 06:09 ? INDICATION: ?Patient history of renal mass. ? COMPARISON: None. ? Portable frontal view of the chest shows heart size to be normal. ? Pulmonary vascularity is normal. ? Lungs are clear. No infiltrates or effusions. ? No obvious acute bony abnormality is evident. There is evidence of old left clavicle fracture. ? IMPRESSION: ? No acute findings radiographically. Assessment: 1. BERTHA-acute vs acute/chronic, likely 2/2 obstruction 2. Renal mass( right renal ) 3. Hematuria- from RCC ? 4. DVT history 5. H/o Ulcerative colitis + 6. 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 [facility] Patient seen and independently examined and assessed.The Nurse practitioner note was reviewed and exam noted. I agree with her assessment and recommendations. Any variance is noted as below. BERTHA + from obstruction Baseline ? Could have some CKD too Need to see how the cr trends,with the obstruction having been adressed and will follow the cr No need for INSTRUMENT MAKER APPRENTICE Renal mass is concerning for RCC( defer to urology) D/w Dr Garcia More recommendations as more data is available Daniel Zelaya MD CASE MGT INIT Observed: 10/20/2017 Status: COMPLETED Source: [facility] 11:57 AM CLINIC OTHER CAMPUS REPOSITORY HNO ID: [id number] Author: Jose Manuel (Rn) ЕЛЕНА Sheets Service: Care Management Author Type: Registered Nurse Type: Care Mgt Initial Assessment Filed: 10/20/2017 12:01 PM Note Text: CARE MANAGEMENT: ASSESSMENT AND DISCHARGE PLAN SERVICE DATE: 10/20/2017 SERVICE TIME: 11:57 am PRIMARY CARE PHYSICIAN: Cailin Pcp Phone: None ADMISSION STATUS: Inpatient POTENTIAL DISCHARGE PLANS 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 Stated Goals: To return home with spouse Needs Prior to Discharge: To Be Determined Health Insurance: Medical [employer] [place] [employer] Living Arrangement: Home Lives With: Spouse Financial Resources: employed Primary Contact: Extended Emergency Contact Information Primary Emergency Contact: Dulce Maria Yancey Address: [address] [place] [address] Mobile Relation: Spouse Secondary Emergency Contact: ERIK YANCEY Home Phone: [phone] Relation: Mother Supportive: Yes Other Important Patient Contacts: None CAREGIVER ASSESSMENT: Caregiver is ready, willing and able to meet the patient's needs as recommended by the inter-professional team? Yes Patient's transition needs and plan for meeting these needs: n/a Does the patient have an acute stroke diagnosis, or has the patient had a stroke during this admission? No ADVANCE DIRECTIVES: Does Patient Have Advance Directives? No, Patient refused Does Patient Have Concerns About Advance Directives? No PRIOR TO ADMISSION: Baseline Mental Status: Alert AND Oriented, Person, Place , Time and Situation Functional Status: Independent Does Patient Currently Receive Any Community Services or Home Care? None Equipment Prior to Admission: None HEALTH: Health Issues Impacting Discharge Plan: None Health Literacy Issues: No PSYCHOSOCIAL: Is the Patient Psychosocially Complex? No Family/Patient Understanding of Illness/Diagnosis: No questions at this time. Medication Adherence: Do you forget to take your medications? I do not forget to take my medication Have you ever stopped taking medications because you felt worse? None of the time Have you ever taken less of your medication than what was prescribed by your doctor? None of the time In the past 3 months, have you had issues obtaining one or more of your medications? None of the time Are you interested in bedside delivery of your medications? No Food Concerns: In the Last Month, Have You had Trouble Getting Food? No trouble getting food During the Last Month, Have You Worried Whether Your Food Would Run Out Before You Had Enough Money to Buy More? No Psychosocial Needs: None UTILIZATION: Last Admission Date: Previous admit date: 11/24/2012 Is this Within the Past 30 days? No Has the Patient Been in a Nursing Home Facility in the Past 30 days? 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 Patient is currently looking for PCP in the [place], [place] area. +Rx coverage. No DME. Anticipate D/C home when medically stable. SIGNATURE: Jose Manuel Sheets RN PATIENT NAME: Juan David Yancey DATE: October 20, 2017 TIME: 11:57 AM PAGER/CONTACT #: [id number] PROGRESS Observed: 10/20/2017 Status: COMPLETED Source: [facility] 8:17 AM [facility] OTHER CAMPUS REPOSITORY O ID: [id number] Author: Franklyn Nicole Service: Urology Author Type: Resident Type: Progress Notes Filed: 10/20/2017 8:19 AM Note Text: Attestation signed by Jeffery Morel at 10/20/2017 11:10 AM I saw and evaluated the patient. Discussed with the resident and agree with resident's findings and plan as documented in the resident's note. UROLOGY PROGRESS NOTE PATIENT NAME: Juan David Yancey DATE OF : 1955 ADMISSION DATE: 10/19/2017 8:33 PM TODAY'S DATE: 10/20/2017 Subjective Spasms much improved after B+O. Nursing irrigated lots of clots out overnight. Draining light red off CBI. Objective VS: BP 145/82 Pulse 72 Temp 36.7 ?C (98.1 ?F) (Oral) Resp 18 Ht 185.4 cm (6' 0.99) Wt 17.9 kg (39 lb 8.6 oz) SpO2 97% BMI 5.22 kg/m2 I AND O - 24hr: Intake/Output Summary (Last 24 hours) at 10/20/17 0818 Last data filed at 10/20/17 0700 Gross per 24 hour Intake 2000 ml Output 500 ml Net 1500 ml Physical Exam: General: Neck: Resp: Abdomen: No acute distress Supple Normal effort Soft, non-tender, nondistended : Light red off CBI, clear when CBI started Labs and Imaging Studies LABS: BMP: Glucose (mg/dL) Date Value 10/19/2017 163 Potassium (mEq/L) Date Value 10/19/2017 3.9 Sodium (mEq/L) Date Value 10/19/2017 137 Chloride (mEq/L) Date Value 10/19/2017 105 CO2 (mEq/L) Date Value 10/19/2017 21 Creatinine (mg/dL) Date Value 10/19/2017 2.55 BUN (mg/dL) Date Value 10/19/2017 25 Anion Gap (no units) Date Value 10/19/2017 15 Calcium (mg/dL) Date Value 10/19/2017 9.5 CBC: Hemoglobin (g/dL) Date Value 11/30/2012 10.6 HGB (g/dL) Date Value 10/20/2017 10.6 Hematocrit (%) Date Value 10/20/2017 30.2 WBC (thou/cmm) Date Value 10/20/2017 10.55 Platelet Count (thou/cmm) Date Value 10/20/2017 247 Urinalysis: Specific [place], Ur Date Value Ref Range Status 10/19/2017 1.020 1.005 - 1.030 Final Glucose, Urine Date Value Ref Range Status 10/19/2017 see below Negative mg/dL Final Comment: Color abnormal- some macroscopic not done. Bilirubin, Urine Date Value Ref Range Status 10/19/2017 see below Negative Final Comment: Color abnormal- some macroscopic not done. Ketones, Urine Date Value Ref Range Status 10/19/2017 see below Negative mg/dL Final Comment: Color abnormal- some macroscopic not done. Protein, Urine Date Value Ref Range Status 10/19/2017 see below Negative mg/dL Final Comment: Color abnormal- some macroscopic not done. Urobilinogen, Urine Date Value Ref Range Status 10/19/2017 see below 0.0 - 1.0 EU/dL Final Comment: Color abnormal- some macroscopic not done. Nitrites Urine Date Value Ref Range Status 10/19/2017 see below Negative Final Comment: Color abnormal- some macroscopic not done. WBC, Urine Date Value Ref Range Status 10/19/2017 1.0-3 0.0 - 5.0 /hpf Final Urine Culture: No results found for: URCUL RADIOLOGY: Assessment and Plan Assessment and Plan: ?? 62 year old male 7cm R renal mass and hematuria, BERTHA ?? PLAN: ?? -Irrigate mendoza q3hrs, cont CBI -B+O Q6hrs -Ok for diet today -May need clot evac and C+P tomorrow if still bloody -Urine culture and cytology p -Ancef -CXR and LFTs p -Follow Cr -If Cr normalizes will consider contrasted study to better eval mass Franklyn Nicole MD 10/20/2017 8:18 AM EMERGENCY DEPARTMENT Observed: 10/20/2017 Status: F Source: [facility] 7:51 AM [facility] [place] [address] HEALTH INFORMATION MANAGEMENT EMERGENCY DEPARTMENT REPORT Patient: JUAN DAVID YANCEY NEMESIO VALLES M.D. [id number] [age] M Status: DEP ER ED Date of Service: 10/19/17 ADDENDUM I did speak with Dr. Arias the ER physician who has accepted the patient through the ER to the hospital per Dr. Dickinson instructions. <Electronically signed by NEMESIO VALLES M.D.> 10/21/17 1831 NEMESIO VALLES M.D. cc: No Physician; NEMESIO VALLES M.D. << Signature on File>> Reported By: NEMESIO VALLES M.D. Signed By: NEMESIO VALLES M.D. Tests performed at: [address] [address] ED PROV NOTE Observed: 10/20/2017 Status: COMPLETED Source: [facility] 7:51 AM [facility] REPOSITORY HNO ID: [id number] Author: Provider [facility] Service: (none) Author Type: Physician Type: ED Provider Notes Filed: 07/13/2018 2:26 PM Note Text: [place] [address] HEALTH INFORMATION MANAGEMENT EMERGENCY DEPARTMENT REPORT Patient: JUAN DAVID YANCEY NEMESIO VALLES M.D. [id number] [age] M Status: DEP ER ED Date of Service: 10/19/17 ADDENDUM I did speak with Dr. Arias the ER physician who has accepted the patient through the ER to the hospital per Dr. Dickinson instructions. <Electronically signed by NEMESIO VALLES M.D.> 10/21/17 1831 NEMESIO VALLES M.D. cc: No Physician; NEMESIO VALLES M.D. << Signature on File>> Reported By: NEMESIO VALLES M.D. Signed By: NEMESIO VALLES M.D. Tests performed at: [address] [address] COMPREHENSIVE PANEL Collected: 10/20/2017 Status: F Source: [facility] 7:40 AM HEALTH SYSTEM REPOSITORY TYPE CODE TESTS RESULT OUT OF REFERENCE UNITS RANGE LAB NA(LOINC) 136-145 mEq/L Sodium Blood 139 LAB K(LOINC) 3.5-5.1 mEq/L Potassium Blood 4.5 LAB CL(LOINC) 98-107 mEq/L Chloride Blood 107 LAB CO2(LOINC) 21-32 mEq/L CO2 Blood 27 LAB GLU(LOINC) 70-99 mg/dL Glucose High Blood 103 LAB BUN(LOINC) 7-18 mg/dL BUN Blood High 24 LAB CREA(LOINC 0.67-1.17 mg/dL ) Creatinine High Blood 2.58 LAB CA(LOINC) 8.5-10.1 mg/dL Calcium Blood 8.8 LAB ALB(LOINC) 3.4-5.0 g/dL Low Albumin Blood 3.3 LAB TP(LOINC) 6.4-8.2 g/dL Total Protein 6.6 LAB AST(LOINC) 9-37 U/L AST-SGOT Blood 21 LAB ALT(LOINC) 12-78 U/L ALT-SGPT Blood 18 LAB ALKP(LOINC 46-116 U/L ) Alk Phosphatase 68 LAB BILIT(LOIN 0.2-1.0 mg/dL C) Total Bilirubin 0.6 LAB ANGAP(LOIN 8-16 C) Anion Gap 10 Performed By: #### P14 #### [facility] [address] [address] MDRD GFR Collected: 10/20/2017 Status: F Source: [facility] 7:40 AM HEALTH SYSTEM REPOSITORY TYPE CODE TESTS RESULT OUT OF RANGE REFERENCE UNITS LAB GFRFN(LOINC >60mL/min/1.73m ) 2 eGFR 25.48 Result Comment: If the patient is , multiply the result by 1.210. Performed By: #### GFR #### [facility] [address] [address] EMERGENCY DEPARTMENT Observed: 10/20/2017 Status: F Source: [facility] 7:15 AM [facility] [place] [address] HEALTH INFORMATION MANAGEMENT EMERGENCY DEPARTMENT REPORT Patient: JUAN DAVID YANCEY NEMESIO VALLES M.D. [id number] [age] M Status: [facility] ER ED Date of Service: 10/19/17 ADDENDUM White blood cell count 6.3, H&H 10.8, and 32.4 with 218 thousand platelets. Electrolytes showed a BUN, creatinine of 25 and 2.45. His most recent creatinine was 0.95. Glucose is 94. PT was 19.4 with INR 1.7, PTT 36.5. Bladder scan again did show between 325 and 424 mL in the bladder. The patient was sent for CT scan of the abdomen and pelvis. We were not able to give contrast because of his creatinine. The report shows what they suspect is a large right renal solid mass with right hydroureteronephrosis but no calculus. He also has hyperdense material that may be clot given the hematuria. At this point we attempted a 3-way Mendoza catheter to irrigate the clot out of his bladder and it was unsuccessful. When we tried to instill fluid he had a lot of pain and minimal urine output. Therefore we turned that off. At this point he has been medicated for pain and I advised him that he has what appears to be a renal mass with bleeding from that mass into his bladder. He also has an elevated creatinine. I recommend urologic evaluation and management. Unfortunately, we have no urologist on staff or covering the hospital today and therefore per hospital protocol I contact Dr. Forde who is the urologist at [facility]. I discussed the case with him and he agrees to accept the patient but through their ER to [facility]. We are currently awaiting clearance from them to call the ER physician. We will arrange for transport and send the patient to [facility] at this time. IMPRESSION 1. Right renal mass with obstructive uropathy and hematuria. 2. Azotemia. 3. History of peripheral vascular disease status post aortobifemoral graft. 4. History of total colectomy. 5. 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 DISPOSITION As above. TRANSFER <Electronically signed by NEMESIO VALLES M.D.> 10/21/17 1831 NEMESIO VALLES M.D. cc: No Physician; NEMESIO VALLES M.D. << Signature on File>> Reported By: NEMESIO VALLES M.D. Signed By: NEMESIO VALLES M.D. Tests performed at: [address] [address] ED PROV NOTE Observed: 10/20/2017 Status: COMPLETED Source: [facility] 7:15 AM [facility] REPOSITORY O ID: [id number] Author: Provider [facility] Service: (none) Author Type: Physician Type: ED Provider Notes Filed: 07/13/2018 2:26 PM Note Text: [place] [address] HEALTH INFORMATION MANAGEMENT EMERGENCY DEPARTMENT REPORT Patient: JUAN DAVID YANCEY NEMESIO VALLES M.D. [id number] [age] M Status: [facility] ER ED Date of Service: 10/19/17 ADDENDUM White blood cell count 6.3, HANDH 10.8, and 32.4 with 218 thousand platelets. Electrolytes showed a BUN, creatinine of 25 and 2.45. His most recent creatinine was 0.95. Glucose is 94. PT was 19.4 with INR 1.7, PTT 36.5. Bladder scan again did show between 325 and 424 mL in the bladder. The patient was sent for CT scan of the abdomen and pelvis. We were not able to give contrast because of his creatinine. The report shows what they suspect is a large right renal solid mass with right hydroureteronephrosis but no calculus. He also has hyperdense material that may be clot given the hematuria. At this point we attempted a 3-way Mendoza catheter to irrigate the clot out of his bladder and it was unsuccessful. When we tried to instill fluid he had a lot of pain and minimal urine output. Therefore we turned that off. At this point he has been medicated for pain and I advised him that he has what appears to be a renal mass with bleeding from that mass into his bladder. He also has an elevated creatinine. I recommend urologic evaluation and management. Unfortunately, we have no urologist on staff or covering the hospital today and therefore per hospital protocol I contact Dr. Forde who is the urologist at [facility]. I discussed the case with him and he agrees to accept the patient but through their ER to [facility]. We are currently awaiting clearance from them to call the ER physician. We will arrange for transport and send the patient to [facility] at this time. IMPRESSION 1. Right renal mass with obstructive uropathy and hematuria. 2. Azotemia. 3. History of peripheral vascular disease status post aortobifemoral graft. 4. History of total colectomy. 5. 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 DISPOSITION As above. TRANSFER <Electronically signed by NEMESIO VALLES M.D.> 10/21/17 1831 NEMSEIO VALLES M.D. cc: No Physician; NEMESIO VALLES M.D. << Signature on File>> Reported By: NEMESIO VALLES M.D. Signed By: NEMESIO VALLES M.D. Tests performed at: [address] [address] CHEST 1 VIEW Observed: 10/20/2017 Status: F Source: [facility] 6:22 AM HEALTH SYSTEM REPOSITORY Performed at [facility] APPROVED BY: Fracisco Garcia MD EXAM TITLE: CHEST 1 VIEW DATE: 10/20/2017 06:09 INDICATION: Patient history of renal mass. COMPARISON: None. Portable frontal view of the chest shows heart size to be normal. Pulmonary vascularity is normal. Lungs are clear. No infiltrates or effusions. No obvious acute bony abnormality is evident. There is evidence of old left clavicle fracture. IMPRESSION: No acute findings radiographically. CYTOLOGY, MEDICAL Observed: 10/20/2017 Status: F Source: [facility] 3:27 AM HEALTH SYSTEM REPOSITORY Test performed at [place] [address] NAME: JUAN DAVID YANCEY REQUESTING: LEWIS MELISSA M.D. DIAGNOSIS URINE, VOIDED - NEGATIVE FOR MALIGNANT CELLS. NARRATIVE RARE DEGENERATING UROTHELIAL CELLS, PMNS, RBCS. SPECIMEN: A) URN, URINE CYTOLOGY Description: Materials Prepared & Examined: Volume: ......... 30 # of Monolayers: .......... 1 Consistency: ...... Cloudy # of Slides: ................. Bloody: ........... Y 1 CLINICAL INFORMATION: HEMATURIA Electronically Signed: 10/20/2017 Screened by: ENEIDA BOUCHER(ASCP) Signed Out by: JOBY ALMEIDA M.D. Printed on: October 20, 2017 Page 1 of 1 Performed By: #### CYTOM #### [place] [address] HEMOGRAM Collected: 10/20/2017 Status: F Source: [facility] 3:25 AM HEALTH SYSTEM REPOSITORY TYPE CODE TESTS RESULT OUT OF REFERENCE UNITS RANGE LAB WBC(LOINC) 4.23-9.07 thou/cmm High WBC 10.55 LAB RBC(LOINC) 4.63-6.08 mil/cmm Low RBC 3.16 LAB HGB(LOINC) 13.7-17.5 g/dL Low Hgb 10.6 LAB HCT(LOINC) 40.1-51.0 % Low Hct 30.2 LAB MCV(LOINC) 83.2-95.6 fl MCV 95.6 LAB MCH(LOINC) 25.7-32.2 pg High MCH 33.5 LAB MCHC(LOINC) 32.3-36.5 % MCHC 35.1 LAB RDW(LOINC) 11.6-14.4 % High RDW 14.6 LAB RDWSD(LOINC 36.1-45.8 fl ) High RDW SD 50.8 LAB PLT(LOINC) 141-365 thou/cmm Platelet 247 LAB MPV(LOINC) 8.7-12.0 fl MPV 11.2 Performed By: #### CBC1 #### [place] [address] Observed: 10/20/2017 Status: F Source: [facility] URINE 3:25 AM HEALTH SYSTEM REPOSITORY Test performed at [facility] No growth Performed By: #### C_URI #### [place] [address] NURSING PROG Observed: 10/20/2017 Status: COMPLETED Source: [facility] 12:28 AM [facility] REPOSITORY HNO ID: [id number] Author: Verna HughesRnEladia Zimmer RN Service: Nursing Author Type: Registered Nurse Type: Nursing Progress Note Filed: 10/20/2017 12:29 AM Note Text: Patiens blood pressure 186/94 and patient inquiring why he wasn't still connected to CBI. Dr. Nicole notified and updated. New orders received. ED NOTE Observed: 10/19/2017 Status: COMPLETED Source: [facility] 11:41 PM CLINIC OTHER CAMPUS REPOSITORY HNO ID: [id number] Author: Isabell HughesRnEladia Soto RN Service: Emergency Medicine Author Type: Registered Nurse Type: ED Notes Filed: 10/19/2017 11:41 PM Note Text: Urine specimen obtained and sent. URINALYSIS ROUTINE Collected: 10/19/2017 Status: F Source: [facility] 11:35 PM HEALTH SYSTEM REPOSITORY TYPE CODE TESTS RESULT OUT OF REFERENCE UNITS RANGE LAB COLOR(LOIN C) Urine Color RED LAB APPUR(LOIN C) Urine Appearance BLOODY LAB GLUUR(LOIN Negative mg/dL C) Glucose Urine see below Result Comment: Color abnormal- some macroscopic not done. LAB KETON(LOINC) Negative mg/dL Ketone Urine see below Result Comment: Color abnormal- some macroscopic not done. LAB HGBUR(LOINC) Negative Hemoglobin,Urine see below Result Comment: Color abnormal- some macroscopic not done. LAB PROTU(LOINC) Negative mg/dL Protein Urine see below Result Comment: Color abnormal- some macroscopic not done. LAB NITRI(LOINC) Negative Nitrites Urine see below Result Comment: Color abnormal- some macroscopic not done. LAB BILIU(LOINC) Negative Bilirubin Urine see below Result Comment: Color abnormal- some macroscopic not done. LAB SPG(LOINC) 1.005-1.030 Specific 1.020 [place], Ur LAB PHUR(LOINC) 5.0-8.0 pH,Urine see below Result Comment: Color abnormal- some macroscopic not done. LAB UROBI(LOINC) 0.0-1.0 EU/dL Urobilinogen,Ur see below Result Comment: Color abnormal- some macroscopic not done. LAB LEUKO(LOINC) Negative Leukocytes Esterase see below Result Comment: Color abnormal- some macroscopic not done. LAB RBCU1(LOINC) 0.0-5.0 /hpf High RBC,Urine >100.0 LAB WBCU1(LOINC) 0.0-5.0 /hpf WBC, Urine 1.0-3 LAB EPIT1(LOINC) 0.0-5.0 /hpf Ep Cells Urine NONE LAB BACT1(LOINC) None Bacteria Urine NONE LAB HYCA1(LOINC) 0.0-1.0 /lpf Hyaline Cast NONE Performed By: #### URIN2 #### [facility] [address] [id number] HISTORY PHYSICAL Observed: 10/19/2017 Status: COMPLETED Source: [facility] 11:29 PM CLINIC OTHER CAMPUS REPOSITORY HNO ID: [id number] Author: Franklyn Nicole Service: Urology Author Type: Resident Type: HANDP Filed: 10/20/2017 8:17 AM Note Text: Attestation signed by Jeffery Morel at 10/20/2017 11:09 AM Gross hematuria ; Right renal mass ; Likely C and P tomorrow ; Discussed with pt, normal CT in 2012 , so R renal mass concerning and will likely need surgery ; I saw and evaluated the patient. Discussed with the resident and agree with resident's findings and plan as documented in the resident's note. Urology History and Physical ? Date: 10/19/2017 Patient Name: Juan David Yancey Date of : 1955 Admit Date: 10/19/2017 Age: [age] year old PCP: No Pcp ? Patient presents with: Abdominal Pain: Pt transferred from [facility] in [place] for a renal mass. Pt couldn't urinate last night and into today. Mendoza placed at [facility], draining bright red blood. +blood thinner, last dose this morning. ? ? Narrative: The patient is a 62 year old male no past history, endorses intermittent hematuria x 2 weeks, got significantly worse today so presented to [facility] in [place]. Imaging revealed a renal mass. Mendoza was placed, it was unable to be irrigated to clear so he was transferred here for further management. Patient denies personal and family history of malignancy. No prostate or voiding problems. He is on xarelto for DVTs. ? ? PAST MEDICAL HISTORY PAST MEDICAL HISTORY Diagnosis Date - Avascular necrosis (HCC) bilateral hip replacements d/t avascular necrosis - Blood clot in vein IVC filter placed in 1994 - Bowel disease ? ? MUC, colectomy in 1994 - Gout Summer 2011 ? 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 ? ? PAST SURGICAL HISTORY PAST SURGICAL HISTORY Procedure Laterality Date - COLECTOMY PARTIAL W ANASTOM ? ? - ILEOSTOMY ? ? ? closed - TOTAL HIP REPLACEMENT ? ? ? bilateral- castro ? FAMILY HISTORY No family history on file. ? ? Outpatient Prescriptions Marked as Taking for the 10/19/17 encounter (Hospital Encounter): aspirin 325 mg tablet Take 325 mg by mouth once daily. Disp: Rfl: RIVAROXABAN (XARELTO ORAL) Take 20 mg by mouth once daily. Disp: Rfl: allopurinol 100 mg tablet Take 2 tablets by mouth once daily. In 2 weeks, increase to 300mg/day Disp: 60 tablet Rfl: 2 ? ? Medications NaCl 0.9% 1,000 mL iv bolus (not administered) fentaNYL 50 mcg/mL 50 mcg injection (SUBLIMAZE) (50 mcg INTRAVENOUS Given 10/19/172118) fentaNYL 50 mcg/mL 50 mcg injection (SUBLIMAZE) (50 mcg INTRAVENOUS Given 10/19/172219) ? ? ALLERGIES ALLERGIES Allergen Reactions - Morphine Itching - Prednisone Other: See Comments ? ? avascular necrosis, bilat hip replacements ? ? Social History: SOCIAL HISTORY Social History Marital status: Spouse name: Years of education: Number of children: ? Social History Main Topics Smoking status: Never Smoker ? Smokeless status: Never Used Alcohol use: Yes Comment: social Drug use: No ? ? ? ROS: ? Review of Systems Constitutional: Negative for chills and fever. HENT: Negative for facial swelling. Eyes: Negative for redness. Respiratory: Negative for wheezing and stridor. Gastrointestinal: Negative for nausea and vomiting. Genitourinary: Positive for flank pain and hematuria. Musculoskeletal: Negative for gait problem. Skin: Negative for color change. Neurological: Negative for speech difficulty. Psychiatric/Behavioral: Negative for behavioral problems. ? ? ? Physical Exam: ? BP 190/99 Pulse (!) 103 Temp 36.3 ?C (97.3 ?F) (Oral) Resp 18 Ht 185.4 cm (6' 1) Wt 117.9 kg (260 lb) SpO2 99% BMI 34.3 kg/m2 ? Physical Exam Constitutional: He appears well-developed and well-nourished. No distress. HENT: Head: Normocephalic and atraumatic. Eyes: Conjunctivae and EOM are normal. Neck: Normal range of motion. Pulmonary/Chest: Effort normal. No respiratory distress. Abdominal: Soft. He exhibits no distension. There is no tenderness. Genitourinary: Genitourinary Comments: Mendoza bloody, upgraded to [address], inserted to hub easily, balloon inflated and pulled out to hub. Difficult to irrigate, but draining, few small clots irrigated out. Patient more comfortable with mendoza in and draining. Unable to run CBI. Musculoskeletal: Normal range of motion. He exhibits no deformity. Neurological: He is alert. Skin: Skin is warm and dry. He is not diaphoretic. Psychiatric: His behavior is normal. Thought content normal. Vitals reviewed. ? ? ? LABS: ?? BMP: Glucose (mg/dL) Date Value 10/19/2017 163 Potassium (mEq/L) Date Value 10/19/2017 3.9 Sodium (mEq/L) Date Value 10/19/2017 137 Chloride (mEq/L) Date Value 10/19/2017 105 CO2 (mEq/L) Date Value 10/19/2017 21 Creatinine (mg/dL) Date Value 10/19/2017 2.55 BUN (mg/dL) Date Value 10/19/2017 25 Anion Gap (no units) Date Value 10/19/2017 15 Calcium (mg/dL) Date Value 10/19/2017 9.5 ? CBC: Hemoglobin (g/dL) Date Value 11/30/2012 10.6 HGB (g/dL) Date Value 10/19/2017 10.9 Hematocrit (%) Date Value 10/19/2017 30.2 WBC (thou/cmm) Date Value 10/19/2017 12.65 Platelet Count (thou/cmm) Date Value 10/19/2017 237 ? Urinalysis: No results found for: PH, SPGR, UGLUC, UBILI, UKET, UHB, UPROT, UROBIL, NITRITES, UWBC, SSA ? Urine Culture: No results found for: URCUL ? ? ? Radiology: Need records from [facility] ? ? Assessment and Plan: ? 62 year old male renal mass and hematuria, BERTHA ? PLAN: ? -Admit to floor -Obtain and review imaging records -Irrigate mendoza q3hrs -B+O now and Q6hrs -NPO -May need clot evac and C+P tomorrow if still not able to irrigate mendoza well -Urine culture and cytology -Ancef -CXR and LFTs -Follow Cr -d/w Dr Forde ? Franklyn Nicole MD 10/19/2017 11:29 PM ED PROV NOTE Observed: 10/19/2017 Status: COMPLETED Source: [facility] 10:30 PM CLINIC OTHER CAMPUS REPOSITORY [facility] ID: [id number] Author: Lewis Melissa MD Service: Emergency Medicine Author Type: Physician Type: ED Provider Notes Filed: 10/19/2017 10:32 PM Note Text: Attending Note I have personally performed a face to face assessment of the patient and have reviewed the resident's note. I discussed the management plan and olguin decisions were reviewed with the resident. I was present for all procedures. Please see resident's note for additional details. My olguin findings include: HPI: 62-year-old male presents as a transfer from [facility] for concern for renal mass causing bleeding. Patient is on Xarelto for DVT. Patient had bright red blood with urination this morning. Patient denies any current flank pain. States that he last took his dose of blood thinner this morning. Patient denies any current nausea, vomiting, fevers or chills. Patient denies any chest pain or shortness of breath. Patient has no other complaints at this time. Past medical history: Reviewed Review of system: Please see above history of present illness. All other systems reviewed are negative. Physical exam: HEENT: Oropharynx is not erythematous and edematous. No exudate. No uvula deviation. Tympanic membranes clear bilaterally. Pupils equal, round, reactive bilaterally. No nasal drainage noted. Heart regular rate and rhythm, no gallops, rubs, or murmurs. Lungs sounds were clear and equal bilaterally., No rhonchi, wheezes or rales. Abdomen soft, nontender, nondistended. Normal bowel sounds. Nonacute abdomen. Extremities: Upper and lower extremity pulses equal bilaterally. Back: There is no midline thoracic or lumbar tenderness to palpation. No step-off or crepitance. Neuro: Cranial nerves II through XII are intact. Upper and lower motor and sensory are intact. No focal neurological deficits. Medical decision making: On presentation. Patient states that blood is controlled. We will consult urology with likely admission. We will obtain basic laboratory workup. Disposition pending Lewis Melissa MD 10/19/17 2232 ED PROV NOTE Observed: 10/19/2017 Status: COMPLETED Source: [facility] 10:29 PM CLINIC OTHER CAMPUS REPOSITORY [facility] ID: [id number] Author: Lewis Melissa MD Service: Emergency Medicine Author Type: Physician Type: ED Provider Notes Filed: 11/17/2017 2:42 PM Note Text: ED Provider Note Patient Name: Juan David Yancey SERVICE DATE: 10/19/17 History Patient presents with: Abdominal Pain: Pt transferred from [facility] in [place] for a renal mass. Pt couldn't urinate last night and into today. Mendoza placed at [facility], draining bright red blood. +blood thinner, last dose this morning. HPI Comments: She has a [age] year old male with a history of DVT, currently on xarelto presents to the ED as a transfer from [facility] for evaluation of hematuria and right renal mass. He states the previous evening he began having abdominal discomfort and hematuria, which got progressively worse and that today, noted urinary retention and worsening suprpubic abdominal pain. Patient presented to the ED and was noted to have an elevated BUN and creatinine, and on CT was noted to have a right-sided soft tissue mass around his kidney. On route to the ED, the patient is hemodynamically stable, but complaining of abdominal pain. Patient states that he thinks that his Mendoza catheter is not draining. Patient denies chest pain, shortness of breath, back pain or previous episodes of hematuria. Patient denies change in bowel function or abnormal bruising. 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 Social History Social History Main Topics - Smoking status: Never Smoker - Smokeless tobacco: Never Used - Alcohol use Yes Comment: social - Drug use: No - Sexual activity: Not Asked ALLERGIES Allergen Reactions - Morphine Itching - Prednisone Other: See Comments avascular necrosis, bilat hip replacements Review of Systems Constitutional: Negative for activity change, fatigue and unexpected weight change. HENT: Negative for congestion, hearing loss and voice change. Eyes: Negative for discharge and visual disturbance. Respiratory: Negative for apnea and stridor. Cardiovascular: Negative for palpitations. Gastrointestinal: Positive for abdominal pain. Negative for abdominal distention, constipation, diarrhea, nausea and vomiting. Endocrine: Negative for polydipsia and polyphagia. Genitourinary: Positive for hematuria. Negative for dysuria. Musculoskeletal: Negative for arthralgias, back pain and neck pain. Skin: Negative for color change and pallor. Neurological: Negative for dizziness and headaches. Hematological: Negative for adenopathy. Psychiatric/Behavioral: Negative for agitation and confusion. Physical Exam BP 190/99 Pulse 103 Temp (Src) 97.3 (Oral) Resp 18 Ht 6' 1 (1.85m) Wt 260 lb (117.9kg) SpO2 99% BMI 34.31 kg/(m2). Physical Exam Constitutional: He is oriented to person, place, and time. He appears well-developed and well-nourished. No distress. HENT: Head: Normocephalic and atraumatic. Eyes: Conjunctivae and EOM are normal. Pupils are equal, round, and reactive to light. Neck: Normal range of motion. No tracheal deviation present. Cardiovascular: Normal rate, regular rhythm, normal heart sounds and intact distal pulses. Exam reveals no gallop and no friction rub. No murmur heard. Pulmonary/Chest: Effort normal. No respiratory distress. Abdominal: Soft. He exhibits no distension. There is tenderness. There is no rebound and no guarding. Genitourinary: Penis normal. Musculoskeletal: Normal range of motion. He exhibits no edema or deformity. Neurological: He is alert and oriented to person, place, and time. No cranial nerve deficit. Skin: Skin is warm and dry. Psychiatric: He has a normal mood and affect. Diagnostic Testing ED Labs Ordered and Reviewed COMPREHENSIVE METABOLIC PANEL (AK,AV,EU,FV,HL,TAMIKO,MM,SP) - Abnormal; Notable for the following: Result Value Ref Range Glucose 163 (*) 70 - 99 mg/dL BUN 25 (*) 7 - 18 mg/dL Creatinine 2.55 (*) 0.67 - 1.17 mg/dL All other components within normal limits CBC + AUTO DIFF (AK,AV,EU,FV,HL,TAMIKO,MM,SP) - Abnormal; Notable for the following: WBC 12.65 (*) 4.23 - 9.07 thou/cmm RBC 3.23 (*) 4.63 - 6.08 mil/cmm HGB 10.9 (*) 13.7 - 17.5 g/dL Hematocrit 30.2 (*) 40.1 - 51.0 % MCH 33.7 (*) 25.7 - 32.2 pg RDW-SD 48.0 (*) 36.1 - 45.8 fl Seg. Neut. # 11.50 (*) 1.78 - 5.38 thou/cmm Immature Grans # 0.06 (*) 0.00 - 0.05 thou/cmm Lymphocyte # 0.57 (*) 0.84 - 2.85 thou/cmm Eosinophil # 0.00 (*) 0.04 - 0.54 thou/cmm All other components within normal limits LIPASE BLOOD (AK,AV,EU,FV,HL,TAMIKO,MM,SP) PROTHROMBIN TIME / PT (AK,AV,EU,FV,HL,TAMIKO,MM,SP) MDRD GFR URINALYSIS WITH MICROSCOPIC (AK,AV,EU,FV,HL,TAMIKO,MM,SP) Procedures Medical Decision Making / ED Course ED Course Luisito Joyner's Documentation Comment Time [id number] presents to the ED for evaluation of hematuria andkidney mass. On arrival to the ED, the patient was having abdominal pain in his Mendoza catheter is not draining. Ttempt was made to flush the catheter, which was unsuccessfulin the catheter was changed by the urology resident. Urology agreed to admit the patient. The patient's results were shared with the patient, as well as the reasoning behind the recommendation for patient admission. The patient displayed understanding of these results and medical reasoning and was amenable to admission. The patient remained hemodynamically stable while in the ED, and was transferred without incident. The patient was evaluated by myself and the attending physician. 10/19 2339 Encounter Diagnosis ICD-10-CM 1. Hematuria, unspecified type R31.9 2. Gross hematuria R31.0 Plan The Patient was ADMITTED TO: ICU . Condition at time of disposition: stable SIGNATURE: MD Luisito Lan (Res) MD Ar Resident 10/20/17 1248 Luisito (Res) MD Ar Resident 11/15/17 1209 Lewis Melissa MD 11/17/17 1442 EMERGENCY DEPARTMENT Observed: 10/19/2017 Status: F Source: [facility] 10:25 PM [facility] [place] [address] HEALTH INFORMATION MANAGEMENT EMERGENCY DEPARTMENT REPORT Patient: JUAN DAVID YANCEY LEVONJANENEMESIO M.D. [id number] M Status: [facility] ER ED Date of Service: 10/19/17 CHIEF COMPLAINT/HISTORY OF PRESENT ILLNESS The patient is a 62-year-old male who comes in here with the onset earlier today of urgency and hematuria. He also has a little twinge of pain in his right flank, does have a history of DVTs and vascular disease. He is on Xarelto and aspirin. He denies any known history of kidney stones. He denies any known history of prostatic enlargement but has not seen anybody for that. PAST MEDICAL HISTORY His past medical history is as above. PAST SURGICAL HISTORY As listed including a colectomy. SOCIAL HISTORY Negative for smoking, occasional alcohol use. ALLERGIES Morphine. PHYSICAL EXAMINATION Temperature 98.1, pulse 75, respiratory rate 20, blood pressure 176/92. The patient is an alert, cooperative male. Color is good. Nares show no rhinorrhea. Throat is clear. Neck is supple. Heart is regular rate and rhythm. Lungs are clear. He denies chest pain or shortness of breath. Abdomen is soft. There is a slight amount of urgency in the suprapubic area but no masses felt. No tenderness throughout the abdomen. Bowel sounds are present. No inguinal masses or hernias noted. EMERGENCY DEPARTMENT COURSE Bladder scan showed 424 and 325 mL in the bladder that is postvoid. The patient will have routine lab work done. We will get a CT abdomen and pelvis without contrast to rule out obstructive uropathy. DISPOSITION Disposition will be to follow. IMPRESSION <Electronically signed by NEMESIO VALLES M.D.> 10/21/17 1831 NEMESIO VALLES M.D. cc: No Physician; NEMESIO VALLES M.D. << Signature on File>> Reported By: NEMESIO VALLES M.D. Signed By: NEMESIO VALLES M.D. Tests performed at: [address] [address] ED PROV NOTE Observed: 10/19/2017 Status: COMPLETED Source: [facility] 10:25 PM CLINIC MAIN CAMPUS REPOSITORY [facility] ID: [id number] Author: Provider [facility] Service: (none) Author Type: Physician Type: ED Provider Notes Filed: 07/13/2018 2:26 PM Note Text: [place] [address] HEALTH INFORMATION MANAGEMENT EMERGENCY DEPARTMENT REPORT Patient: JUAN DAVID YANCEY NEMESIO VALLES M.D. [id number] M Status: [facility] ER ED Date of Service: 10/19/17 CHIEF COMPLAINT/HISTORY OF PRESENT ILLNESS The patient is a 62-year-old male who comes in here with the onset earlier today of urgency and hematuria. He also has a little twinge of pain in his right flank, does have a history of DVTs and vascular disease. He is on Xarelto and aspirin. He denies any known history of kidney stones. He denies any known history of prostatic enlargement but has not seen anybody for that. PAST MEDICAL HISTORY His past medical history is as above. PAST SURGICAL HISTORY As listed including a colectomy. SOCIAL HISTORY Negative for smoking, occasional alcohol use. ALLERGIES Morphine. PHYSICAL EXAMINATION Temperature 98.1, pulse 75, respiratory rate 20, blood pressure 176/92. The patient is an alert, cooperative male. Color is good. Nares show no rhinorrhea. Throat is clear. Neck is supple. Heart is regular rate and rhythm. Lungs are clear. He denies chest pain or shortness of breath. Abdomen is soft. There is a slight amount of urgency in the suprapubic area but no masses felt. No tenderness throughout the abdomen. Bowel sounds are present. No inguinal masses or hernias noted. EMERGENCY DEPARTMENT COURSE Bladder scan showed 424 and 325 mL in the bladder that is postvoid. The patient will have routine lab work done. We will get a CT abdomen and pelvis without contrast to rule out obstructive uropathy. DISPOSITION Disposition will be to follow. IMPRESSION <Electronically signed by NEMESIO VALLES M.D.> 10/21/17 1831 NEMESIO VALLES M.D. cc: No Physician; NEMESIO VALLES M.D. << Signature on File>> Reported By: NEMESIO VALLES M.D. Signed By: NEMESIO VALLES M.D. Tests performed at: [address] [address] ED NOTE Observed: 10/19/2017 Status: COMPLETED Source: [facility] 10:22 PM CLINIC OTHER CAMPUS REPOSITORY [facility] ID: [id number] Author: Isabell Henderson) ЕЛЕНА Soto Service: Emergency Medicine Author Type: Registered Nurse Type: ED Notes Filed: 10/19/2017 10:22 PM Note Text: Urology at bedside ED NOTE Observed: 10/19/2017 Status: COMPLETED Source: [facility] 9:45 PM CLINIC OTHER CAMPUS REPOSITORY [facility] ID: [id number] Author: Isabell Henderson) Charles, ЕЛЕНА Service: Emergency Medicine Author Type: Registered Nurse Type: ED Notes Filed: 10/19/2017 10:27 PM Note Text: Unable to irrigate mendoza. Dr. Joyner notified. New mendoza to be placed HEMOGRAM/DIFF Collected: 10/19/2017 Status: F Source: [facility] 9:25 PM HEALTH SYSTEM REPOSITORY TYPE CODE TESTS RESULT OUT OF REFERENCE UNITS RANGE LAB WBC(LOINC) 4.23-9.07 thou/cmm WBC High 12.65 LAB RBC(LOINC) 4.63-6.08 mil/cmm Low RBC 3.23 LAB HGB(LOINC) 13.7-17.5 g/dL Low Hgb 10.9 LAB HCT(LOINC) 40.1-51.0 % Low Hct 30.2 LAB MCV(LOINC) 83.2-95.6 fl MCV 93.5 LAB MCH(LOINC) 25.7-32.2 pg MCH High 33.7 LAB MCHC(LOINC 32.3-36.5 % ) MCHC 36.1 LAB RDW(LOINC) 11.6-14.4 % RDW 14.2 LAB RDWSD(LOIN 36.1-45.8 fl C) RDW SD High 48.0 LAB PLT(LOINC) 141-365 thou/cmm Platelet 237 LAB MPV(LOINC) 8.7-12.0 fl MPV 9.6 LAB SEG(LOINC) % Seg Neutrophil 90.9 LAB IGRE(LOINC % ) Immature Grans 0.50 LAB LYMPH(LOIN % C) Lymphocyte 4.5 LAB MNO(LOINC) % Monocyte 3.7 LAB EOSIN(LOIN % C) Eosinophil 0.0 LAB BASO(LOINC % ) Basophil 0.4 LAB SEGN(LOINC 1.78-5.38 thou/cmm ) Abs. High Neut 11.50 LAB IGAB(LOINC 0.00-0.05 thou/cmm ) Abs High Immature Grans 0.06 LAB LYMN(LOINC 0.84-2.85 thou/cmm ) Low Abs. Lymph 0.57 LAB MONON(LOIN 0.30-0.82 thou/cmm C) Abs. Jack 0.47 LAB EOSN(LOINC 0.04-0.54 thou/cmm ) Low Abs. Eosin 0.00 LAB BASON(LOIN 0.01-0.08 thou/cmm C) Abs. Baso 0.05 Performed By: #### [id number] #### [address] [place], [place] [address] PROTIME Collected: 10/19/2017 Status: F Source: [facility] 9:25 PM HEALTH SYSTEM REPOSITORY TYPE CODE TESTS RESULT OUT OF REFERENCE UNITS RANGE LAB PTI(LOINC) 9.3-11.9 sec Prothrombin Time 10.8 LAB INR(LOINC) INR 1.02 Result Comment: Standard Therapy 2.0-3.0 High Dose 2.5-3.5 Performed By: #### PT #### [facility] [address] [id number] COMPREHENSIVE PANEL Collected: 10/19/2017 Status: F Source: [facility] 9:25 PM HEALTH SYSTEM REPOSITORY TYPE CODE TESTS RESULT OUT OF REFERENCE UNITS RANGE LAB NA(LOINC) 136-145 mEq/L Sodium Blood 137 LAB K(LOINC) 3.5-5.1 mEq/L Potassium Blood 3.9 LAB CL(LOINC) 98-107 mEq/L Chloride Blood 105 LAB CO2(LOINC) 21-32 mEq/L CO2 Blood 21 LAB GLU(LOINC) 70-99 mg/dL Glucose High Blood 163 LAB BUN(LOINC) 7-18 mg/dL BUN Blood High 25 LAB CREA(LOINC 0.67-1.17 mg/dL ) Creatinine High Blood 2.55 LAB CA(LOINC) 8.5-10.1 mg/dL Calcium Blood 9.5 LAB ALB(LOINC) 3.4-5.0 g/dL Albumin Blood 3.9 LAB TP(LOINC) 6.4-8.2 g/dL Total Protein 7.6 LAB AST(LOINC) 9-37 U/L AST-SGOT Blood 25 LAB ALT(LOINC) 12-78 U/L ALT-SGPT Blood 20 LAB ALKP(LOINC 46-116 U/L ) Alk Phosphatase 83 LAB BILIT(LOIN 0.2-1.0 mg/dL C) Total Bilirubin 0.8 LAB ANGAP(LOIN 8-16 C) Anion Gap 15 Performed By: #### P14 #### [facility] [address] [address] LIPASE BLOOD Collected: 10/19/2017 Status: F Source: [facility] 9:25 PM HEALTH SYSTEM REPOSITORY TYPE CODE TESTS RESULT OUT OF REFERENCE UNITS RANGE LAB LIP(LOINC) 73-393 U/L Lipase Blood 138 Performed By: #### LIP #### [facility] [address] [address] MDRD GFR Collected: 10/19/2017 Status: F Source: [facility] 9:25 PM HEALTH SYSTEM REPOSITORY TYPE CODE TESTS RESULT OUT OF RANGE REFERENCE UNITS LAB GFRFN(LOINC >60mL/min/1.73m ) 2 eGFR 25.82 Result Comment: If the patient is , multiply the result by 1.210. Performed By: #### GFR #### [facility] [address] [address] ED NOTE Observed: 10/19/2017 Status: COMPLETED Source: [facility] 8:33 PM CLINIC OTHER CAMPUS REPOSITORY [facility] ID: [id number] Author: Endy (Medic) Jessica Acosta Service: (none) Author Type: Software Engineer Web Applications and Train Gate Attendant Type: ED Notes Filed: 10/19/2017 8:33 PM Note Text: Bed: ED-12 Expected date: 10/19/17 Expected time: 8:20 PM Means of arrival: [facility] Comments: [facility] transfer UA W/C&S Collected: 10/19/2017 Status: F Source: [facility] 6:00 PM HOSPITAL REPOSITORY Order Comment: Source: Clean Catch .. Y TYPE CODE TESTS RESULT OUT OF RANGE REFERENCE UNITS LAB L200.3010 YELLOW Normal URINE RED COLOR Result Comment: RESULTS MAY BE ERRONEOUS DUE TO COLOR INTERFERENCE LAB L200.3020 CLEAR URINE Normal APPEARANC TURBID LAB L200.3030 NEGATIVE MG/DL URINE Normal GLUCOSE 250 LAB L200.3050 NEGATIVE URINE Normal BILIRUBIN NEGATIVE LAB L200.3060 NEGATIVE MG/DL URINE 40 Normal KETONE LAB L200.3070 1.001-1.035 URINE Normal SPECIFIC 1.010 LAB L200.3080 NEGATIVE URINE Normal BLOOD LARGE LAB L200.3090 5.0-8.0 URINE Normal PH 7.5 LAB L200.3100 NEGATIVE MG/DL URINE Normal PROTEIN >=300 LAB L200.3110 0.2-1.0 EU/DL URINE Normal UROBILINO 4.0 LAB L200.3120 NEGATIVE URINE Normal NITRITE POSITIVE LAB L200.3130 NEGATIVE URINE Normal LEUKOCYTE MODERATE Performed By: #### L200.3001, L200.3190 #### [facility] [address] [place] [address] URINE MICROSCOP Collected: 10/19/2017 Status: F Source: [facility] 6:00 PM [facility] REPOSITORY Order Comment: Source: Clean Catch .. Y TYPE CODE TESTS RESULT OUT OF RANGE REFERENCE UNITS LAB L200.3200 0-5 Normal URINE WBC 3-6 LAB L200.3210 0-2 Normal URINE RBC >50 LAB L200.3225 NEGATIVE Normal SQUAMOUS RARE LAB L200.3260 NEGATIVE Normal URINE BACTERIA TR Performed By: #### L200.3001, L200.3190 #### [facility] [address] [place] [address] Observed: 10/19/2017 Status: F Source: [facility] 6:00 PM HOSPITAL REPOSITORY No Growth Performed By: #### M120.0100 #### [facility] [address] [place] [address] CBC Collected: 10/19/2017 Status: F Source: [facility] 4:11 PM HOSPITAL REPOSITORY TYPE CODE TESTS RESULT OUT OF RANGE REFERENCE UNITS LAB L200.0100 4.5-10.0 x10(3) Normal WBC 6.3 LAB L200.0200 4.80-5.50 x10(6) Low RBC 3.32 LAB L200.0210 14.0-17.2 g/dL Low HGB 10.8 LAB L200.0220 42.0-51.0 % Low HCT 32.1 LAB L200.0230 80.0-94.0 fl High MCV 96.6 LAB L200.0240 28.8-32.2 pg High MCH 32.6 LAB L200.0250 33.0-36.0 g/dL Normal MCHC 33.8 LAB L200.0260 12.7-15.3 % Normal RDW 15.2 LAB L200.0270 150-450 X10(3) Normal PLT 218 LAB L200.0290 7.4-9.2 fl Normal MPV 7.9 LAB L200.0300 45.0-73.0 % High NEUT% 75.0 LAB L200.0310 16.0-48.0 % Low LYMPH% 14.2 LAB L200.0320 4.3-11.2 % Normal MONO% 7.3 LAB L200.0330 0.5-4.9 % Normal EOS% 2.7 LAB L200.0340 0.0-1.0 % Normal BASO% 0.8 LAB L200.0350 1.40-6.50 x10(3) Normal NEUT# 4.70 LAB L200.0360 1.00-3.50 x10(3) Low LYMPH# 0.90 LAB L200.0370 0.30-0.80 x10(3) Normal MONO# 0.50 LAB L200.0380 0.00-0.54 x10(3) Normal EOS# 0.20 LAB L200.0390 0.00-0.10 x10(3) Normal BASO# 0.10 Performed By: #### L200.0010 #### [facility] [address] [place] [address] BMP Collected: 10/19/2017 Status: F Source: [facility] 4:11 PM HOSPITAL REPOSITORY TYPE CODE TESTS RESULT OUT OF RANGE REFERENCE UNITS LAB L100.0060 82-115 mg/dL GLUCOSE Normal 94 LAB L100.0110 8-23 mg/dL High BUN 25 LAB L100.0131 0.70-1.20 mg/dL High CREATININE 2.45 LAB L100.0140 8.8-10.2 mg/dL CALCIUM Normal 9.6 LAB L100.0150 135-145 mmol/L SODIUM Normal 142 LAB L100.0160 3.5-5.0 mmol/L Normal POTASSIUM 4.2 LAB L100.0170 98-107 mmol/L CHLORIDE Normal 101 LAB L100.0180 22-29 mmol/L TCO2 Normal 25 LAB L100.0185 15-22 mmol/L ANION Normal GAP 20.2 LAB L100.0274 eGFR Normal nonAFR Shyla 27 LAB L100.0275 eGFR if Normal AFR SHYLA 33 Result Comment: eGFR >= 60 Indicates normal kidney function. * eGFR IS AN ESTIMATE * (AFR SHYLA = ) (non-AFR AM = NON-) MDRD calculation used in the eGFR should not be used to dose medications. For further limitations of the eGFR please refer to the Physician Website or the National Kidney Disease Education Program website (www.nkdep.nih.gov). Performed By: #### L100.0010 #### [facility] [address] [place] [address] PT Collected: 10/19/2017 Status: F Source: [facility] 4:11 PM HOSPITAL REPOSITORY TYPE CODE TESTS RESULT OUT OF REFERENCE UNITS RANGE LAB L200.1612 9.4-12.5 secs High PROTIME 19.4 Result Comment: NOTE NEW REFERENCE RANGES Effective 2016 LAB L200.1622 Normal INR 1.7 Result Comment: COUMADIN PROTOCOLS INR values are generated for use in patients on coumadin. INR values stabilize 7 days after the start of coumadin or changes in coumadin dosage. The usual TARGET/INR range is: INDICATION INR RANGE Prophylaxis/treatment of: Venous Thrombosis, Pulmonary Embolism 2.0-3.0 Prevention of systemic embolism from: Tissue heart valves 2.0-3.0 Acute myocardial infarction (to prevent systemic embolism) 2.0-3.0 AMI (to prevent recurrent AK) 2.5-3.5 Valvular heart disease 2.0-3.0 Atrial fibrillation 2.0-3.0 Mechanical prosthetic valves (high risk) 2.5-3.5 Bileaflet mechanical valve in aortic position 2.0-3.0 Presence of Lupus Anticoagulant or Antiphospholipid Antibodies 2.5-3.5 PANIC VALUE: GREATER THAN OR EQUAL TO 4.5 Performed By: #### L200.1602, L200.1642 #### [facility] - LABORATORY [address] [place] [id number] PTT Collected: 10/19/2017 Status: F Source: [facility] 4:11 PM HOSPITAL REPOSITORY TYPE CODE TESTS RESULT OUT OF RANGE REFERENCE UNITS LAB L200.1642 25.1-36.5 secs Normal PTT 36.5 Result Comment: NEW Heparin Protocol Therapeutic Range = 54.0-90.0 secs Effective 09/15/2016 Performed By: #### L200.1602, L200.1642 #### [facility] [address] [place] [address] CT ABD/PEL WO Observed: 10/19/2017 Status: F Source: [facility] 4:04 PM [facility] REPOSITORY [facility] [address] [place], [place] [address] Name: JUAN DAVID YANCEY Phys: NEMESIO VALLES M.D. : [birth year] Age: 62 Sex: M Acct: [id number] Loc: ED Exam Date: 10/19/17 Status: REG ER Radiology No.: [id number] Unit Number: [id number] Exam # Type/Exam [id number] CT / CT ABD/PEL WO CONTRAST CT abdomen pelvis without contrast Clinical statement: Urinary problem. Right flank pain. Blood in urine. Pressure in bladder. Unable to urinate. History of ulcerative colitis. Comparison: None Technique: CT slices through the abdomen and pelvis were acquired without the administration of contrast. Coronal and sagittal reformats. Findings: As limited images through the lung bases demonstrate mild dependent atelectatic changes. The heart is not enlarged. No pericardial effusion. The liver, spleen, pancreas, bilateral adrenal glands are unremarkable. Cholelithiasis present. There is mild right hydroureteronephrosis without visualization of an obstructing calculus. There is a suspected mass lesion along the postero-medial aspect of the right kidney measuring approximately 6.2 x 5.0 x 7.1 Cm which is poorly evaluated in the absence of IV contrast. No right nephrolithiasis or visualization of an obstructing calculus in the right ureter. The ureter has a caliber change near the pelvic inlet. There is a 2 mm nonobstructing left renal calculus. The left ureter is unremarkable in course and caliber. Density is seen within the bladder lumen which may correspond to clot given history of hematuria. The pelvis is poorly evaluated due to streak artifact from bilateral hip prostheses. The prostate is poorly evaluated. There is no bowel dilatation. Multifocal areas of operative change of the bowel identified. No free air. No definite free fluid. Stent noted in the IVC and common iliac veins. Atherosclerotic disease noted in the aorta which is normal in caliber. No lymphadenopathy is seen. Scattered nonenlarged mesenteric lymph nodes identified. Degenerative changes are present in the spine. Bilateral hip prostheses. Nonspecific sclerotic lesion in a left lateral rib may reflect remote trauma. Impression: Suspect large right renal solid mass. Mild right hydroureteronephrosis without visualization of an obstructing calculus but a caliber change of the ureter at the pelvic inlet. Hyperdense material in the bladder may relate to clot given history of hematuria. Nonobstructing left nephrolithiasis. Nonemergent CT urogram recommended for further evaluation of the above findings. This exam was performed according to our departmental dose optimization program, and includes the following measures where applicable: automated exposure control, adjustment of the mAs and/or kVp according to patient size and/or exam, and an iterative reconstruction algorithm. Professional interpretation provided by [facility], [place] on [employer]53. Thank you for this referral. <<Signature on File>> Reported By: MEGHAN REY M.D. Signed In NovaPro By: MEGHAN REY M.D. << Signature on File>> Reported By: MEGHAN REY M.D. Signed By: MEGHAN REY M.D. Tests performed at: [address] [address] HOSP Observed: 10/19/2017 Status: COMPLETED Source: [facility] 12:00 AM CLINIC OTHER CAMPUS REPOSITORY Patient:Juan David Yancey MRN: <[id number]> Height:6' 1(1.854 m) Weight:260 lb (117.935 kg) Outpatient Medications as of 10/28/17: aspirin 325 mg tablet RIVAROXABAN (XARELTO ORAL) allopurinol 100 mg tablet Admission/Clinic Administered Medications as of 10/28/17: lactated ringers infusion meperidine (PF) 12.5 mg injection (DEMEROL) fentaNYL 50 mcg/mL 50 mcg injection (SUBLIMAZE) HYDROmorphone 0.5 mg injection (DILAUDID) ondansetron (PF) 4 mg injection (ZOFRAN) prochlorperazine 10 mg injection (COMPAZINE) doxazosin 1 mg tab(s) (CARDURA) famotidine 20 mg tab(s) (PEPCID) NaCl 0.9% irrigation solution heparin 5,000 Units injection amLODIPine 10 mg tab(s) (NORVASC) allopurinol 200 mg tab(s) (ZYLOPRIM) NaCl 0.9% iv infusion acetaminophen 650 mg tab(s) (TYLENOL) oxyCODONE-acetaminophen 5-325 mg 1-2 tablet (PERCOCET) morphine 2-4 mg injection ondansetron (PF) 4 mg injection (ZOFRAN) docusate sodium 100 mg cap(s) (COLACE) belladonna-opium 16.2-60 mg 1 Suppository suppository (B and O 16-A) Problem List: Blood clot in vein [I82.90] 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] S/P insertion of IVC (inferior vena caval) filter [Z95.828] Anticoagulation management encounter [Z51.81, Z79.01] Personal history of DVT (deep vein thrombosis) [Z86.718] SBO (small bowel obstruction) [K56.609] Iliac DVT (deep venous thrombosis) (HCC) [I82.429] Dvt femoral (deep venous thrombosis) (HCC) [I82.419] Popliteal DVT (deep venous thrombosis) (HCC) [I82.439] Bilateral leg edema [R60.0] Hematuria [R31.9] Right renal mass [N28.89] History of total colectomy [Z98.890, Z90.49] Allergies: Morphine Prednisone Date Verified: 10/28/17 Lab Values Lab Value Units Date High Low POTA* 3.5 mEq/L 10/28/2017 5.1 3.5 YEISON* 23.0 % 10/28/2017 51.0 40.1 Progress Notes (): Jessica Hernandez, Medic 10/19/2017 8:33 PM Signed Bed: ED-12 Expected date: 10/19/17 Expected time: 8:20 PM Means of arrival: [facility] Comments: [facility] hosp transfer Isabell Soto RN, RN 10/19/2017 10:27 PM Signed Unable to irrigate mendoza. Dr. Joyner notified. New mendoza to be placed Isabell Soto RN, RN 10/19/2017 10:22 PM Signed Urology at bedside Luisito Joyner MD, 10/20/2017 12:48 PM Cosign Needed ED Provider Note Patient Name: Juan David Yancey SERVICE DATE: 10/19/17 History Patient presents with: Abdominal Pain: Pt transferred from [facility] in [place] for a renal mass. Pt couldn't urinate last night and into today. Mendoza placed at [facility], draining bright red blood. +blood thinner, last dose this morning. HPI Comments: She has a [id number] male with a history of DVT, currently on Zarontin presents to the ED as a transfer from [facility] for evaluation of hematuria and right renal mass. He states the previous evening he began having abdominal discomfort and hematuria, which got progressively worse and that today, noted urinary retention and worsening suprpubic abdominal pain. Patient presented to the ED and was noted to have an elevated BUN and creatinine, and on CT was noted to have a right-sided soft tissue mass around his kidney. On route to the ED, the patient is hemodynamically stable, but complaining of abdominal pain. Patient states that he thinks that his Mendoza catheter is not draining. Patient denies chest pain, shortness of breath, back pain or previous episodes of hematuria. Patient denies change in bowel function or abnormal bruising. History provided by: Patient, medical records and EMS personnel PAST MEDICAL HISTORY Diagnosis Date - Avascular necrosis (HCC) bilateral hip replacements d/t avascular necrosis - Blood clot in vein IVC filter placed in 1994 - Bowel disease MUC, colectomy in 1994 - Gout Summer 2011 Clinical Diagnosis in 2011 - Iliac DVT (deep venous thrombosis) ([facility]) 11/26/2012 - Ulcerative colitis ([facility]) PAST SURGICAL HISTORY Procedure Laterality Date - COLECTOMY PARTIAL W ANASTOM - ILEOSTOMY closed - TOTAL HIP REPLACEMENT bilateral- castro No family history on file. Social History Social History Main Topics - Smoking status: Never Smoker - Smokeless tobacco: Never Used - Alcohol use Yes Comment: social - Drug use: No - Sexual activity: Not Asked ALLERGIES Allergen Reactions - Morphine Itching - Prednisone Other: See Comments avascular necrosis, bilat hip replacements Review of Systems Constitutional: Negative for activity change, fatigue and unexpected weight change. HENT: Negative for congestion, hearing loss and voice change. Eyes: Negative for discharge and visual disturbance. Respiratory: Negative for apnea and stridor. Cardiovascular: Negative for palpitations. Gastrointestinal: Positive for abdominal pain. Negative for abdominal distention, constipation, diarrhea, nausea and vomiting. Endocrine: Negative for polydipsia and polyphagia. Genitourinary: Positive for hematuria. Negative for dysuria. Musculoskeletal: Negative for arthralgias, back pain and neck pain. Skin: Negative for color change and pallor. Neurological: Negative for dizziness and headaches. Hematological: Negative for adenopathy. Psychiatric/Behavioral: Negative for agitation and confusion. Physical Exam BP 190/99 Pulse 103 Temp (Src) 97.3 (Oral) Resp 18 Ht 6' 1 (1.85m) Wt 260 lb (117.9kg) SpO2 99% BMI 34.31 kg/(m2). Physical Exam Constitutional: He is oriented to person, place, and time. He appears well-developed and well-nourished. No distress. HENT: Head: Normocephalic and atraumatic. Eyes: Conjunctivae and EOM are normal. Pupils are equal, round, and reactive to light. Neck: Normal range of motion. No tracheal deviation present. Cardiovascular: Normal rate, regular rhythm, normal heart sounds and intact distal pulses. Exam reveals no gallop and no friction rub. No murmur heard. Pulmonary/Chest: Effort normal. No respiratory distress. Abdominal: Soft. He exhibits no distension. There is tenderness. There is no rebound and no guarding. Genitourinary: Penis normal. Musculoskeletal: Normal range of motion. He exhibits no edema or deformity. Neurological: He is alert and oriented to person, place, and time. No cranial nerve deficit. Skin: Skin is warm and dry. Psychiatric: He has a normal mood and affect. Diagnostic Testing ED Labs Ordered and Reviewed COMPREHENSIVE METABOLIC PANEL (AK,AV,EU,FV,HL,TAMIKO,MM,SP) - Abnormal; Notable for the following: Result Value Ref Range Glucose 163 (*) 70 - 99 mg/dL BUN 25 (*) 7 - 18 mg/dL Creatinine 2.55 (*) 0.67 - 1.17 mg/dL All other components within normal limits CBC + AUTO DIFF (AK,AV,EU,FV,HL,TAMIKO,MM,SP) - Abnormal; Notable for the following: WBC 12.65 (*) 4.23 - 9.07 thou/cmm RBC 3.23 (*) 4.63 - 6.08 mil/cmm HGB 10.9 (*) 13.7 - 17.5 g/dL Hematocrit 30.2 (*) 40.1 - 51.0 % MCH 33.7 (*) 25.7 - 32.2 pg RDW-SD 48.0 (*) 36.1 - 45.8 fl Seg. Neut. # 11.50 (*) 1.78 - 5.38 thou/cmm Immature Grans # 0.06 (*) 0.00 - 0.05 thou/cmm Lymphocyte # 0.57 (*) 0.84 - 2.85 thou/cmm Eosinophil # 0.00 (*) 0.04 - 0.54 thou/cmm All other components within normal limits LIPASE BLOOD (AK,AV,EU,FV,HL,TAMIKO,MM,SP) PROTHROMBIN TIME / PT (AK,AV,EU,FV,HL,TAMIKO,MM,SP) MDRD GFR URINALYSIS WITH MICROSCOPIC (AK,AV,EU,FV,HL,TAMIKO,MM,SP) Procedures Medical Decision Making / ED Course ED Course Luisito Joyner's Documentation Comment Time [id number] presents to the ED for evaluation of hematuria andkidney mass. On arrival to the ED, the patient was having abdominal pain in his Mendoza catheter is not draining. Ttempt was made to flush the catheter, which was unsuccessfulin the catheter was changed by the urology resident. Urology agreed to admit the patient. The patient's results were shared with the patient, as well as the reasoning behind the recommendation for patient admission. The patient displayed understanding of these results and medical reasoning and was amenable to admission. The patient remained hemodynamically stable while in the ED, and was transferred without incident. The patient was evaluated by myself and the attending physician. 10/19 234 Encounter Diagnosis ICD-10-CM 1. Hematuria, unspecified type R31.9 2. Gross hematuria R31.0 Plan The Patient was ADMITTED TO: ICU . Condition at time of disposition: stable SIGNATURE: MD Luisito Lan Res, MD Resident 10/20/17 1248 Lewis Melissa MD, 10/19/2017 10:32 PM Signed Attending Note I have personally performed a face to face assessment of the patient and have reviewed the resident's note. I discussed the management plan and olguin decisions were reviewed with the resident. I was present for all procedures. Please see resident's note for additional details. My olguin findings include: HPI: 62-year-old male presents as a transfer from [facility] for concern for renal mass causing bleeding. Patient is on Xarelto for DVT. Patient had bright red blood with urination this morning. Patient denies any current flank pain. States that he last took his dose of blood thinner this morning. Patient denies any current nausea, vomiting, fevers or chills. Patient denies any chest pain or shortness of breath. Patient has no other complaints at this time. Past medical history: Reviewed Review of system: Please see above history of present illness. All other systems reviewed are negative. Physical exam: HEENT: Oropharynx is not erythematous and edematous. No exudate. No uvula deviation. Tympanic membranes clear bilaterally. Pupils equal, round, reactive bilaterally. No nasal drainage noted. Heart regular rate and rhythm, no gallops, rubs, or murmurs. Lungs sounds were clear and equal bilaterally., No rhonchi, wheezes or rales. Abdomen soft, nontender, nondistended. Normal bowel sounds. Nonacute abdomen. Extremities: Upper and lower extremity pulses equal bilaterally. Back: There is no midline thoracic or lumbar tenderness to palpation. No step-off or crepitance. Neuro: Cranial nerves II through XII are intact. Upper and lower motor and sensory are intact. No focal neurological deficits. Medical decision making: On presentation. Patient states that blood is controlled. We will consult urology with likely admission. We will obtain basic laboratory workup. Disposition pending Lewis Melissa MD 10/19/17 2232 Franklyn Nicole MD 10/20/2017 8:17 AM Attested Attestation signed by Jeffery Morel at 10/20/2017 11:09 AM Gross hematuria ; Right renal mass ; Likely C and P tomorrow ; Discussed with pt, normal CT in 2012 , so R renal mass concerning and will likely need surgery ; I saw and evaluated the patient. Discussed with the resident and agree with resident's findings and plan as documented in the resident's note. Urology History and Physical ? Date: 10/19/2017 Patient Name: Juan David Yancey Date of : 1955 Admit Date: 10/19/2017 Age: [age] year old PCP: No Pcp ? Patient presents with: Abdominal Pain: Pt transferred from [facility] in [place] for a renal mass. Pt couldn't urinate last night and into today. Mendoza placed at [facility], draining bright red blood. +blood thinner, last dose this morning. ? ? Narrative: The patient is a 62 year old male no past history, endorses intermittent hematuria x 2 weeks, got significantly worse today so presented to [facility] in [place]. Imaging revealed a renal mass. Mendoza was placed, it was unable to be irrigated to clear so he was transferred here for further management. Patient denies personal and family history of malignancy. No prostate or voiding problems. He is on xarelto for DVTs. ? ? PAST MEDICAL HISTORY PAST MEDICAL HISTORY Diagnosis Date - Avascular necrosis (HCC) bilateral hip replacements d/t avascular necrosis - Blood clot in vein IVC filter placed in 1994 - Bowel disease ? ? MUC, colectomy in 1994 - Gout Summer 2011 ? 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 ? ? PAST SURGICAL HISTORY PAST SURGICAL HISTORY Procedure Laterality Date - COLECTOMY PARTIAL W ANASTOM ? ? - ILEOSTOMY ? ? ? closed - TOTAL HIP REPLACEMENT ? ? ? bilateral- castro ? FAMILY HISTORY No family history on file. ? ? Outpatient Prescriptions Marked as Taking for the 10/19/17 encounter (Hospital Encounter): aspirin 325 mg tablet Take 325 mg by mouth once daily. Disp: Rfl: RIVAROXABAN (XARELTO ORAL) Take 20 mg by mouth once daily. Disp: Rfl: allopurinol 100 mg tablet Take 2 tablets by mouth once daily. In 2 weeks, increase to 300mg/day Disp: 60 tablet Rfl: 2 ? ? Medications NaCl 0.9% 1,000 mL iv bolus (not administered) fentaNYL 50 mcg/mL 50 mcg injection (SUBLIMAZE) (50 mcg INTRAVENOUS Given 10/19/172118) fentaNYL 50 mcg/mL 50 mcg injection (SUBLIMAZE) (50 mcg INTRAVENOUS Given 10/19/172219) ? ? ALLERGIES ALLERGIES Allergen Reactions - Morphine Itching - Prednisone Other: See Comments ? ? avascular necrosis, bilat hip replacements ? ? Social History: SOCIAL HISTORY Social History Marital status: Spouse name: Years of education: Number of children: ? Social History Main Topics Smoking status: Never Smoker ? Smokeless status: Never Used Alcohol use: Yes Comment: social Drug use: No ? ? ? ROS: ? Review of Systems Constitutional: Negative for chills and fever. HENT: Negative for facial swelling. Eyes: Negative for redness. Respiratory: Negative for wheezing and stridor. Gastrointestinal: Negative for nausea and vomiting. Genitourinary: Positive for flank pain and hematuria. Musculoskeletal: Negative for gait problem. Skin: Negative for color change. Neurological: Negative for speech difficulty. Psychiatric/Behavioral: Negative for behavioral problems. ? ? ? Physical Exam: ? BP 190/99 Pulse (!) 103 Temp 36.3 ?C (97.3 ?F) (Oral) Resp 18 Ht 185.4 cm (6' 1) Wt 117.9 kg (260 lb) SpO2 99% BMI 34.3 kg/m2 ? Physical Exam Constitutional: He appears well-developed and well-nourished. No distress. HENT: Head: Normocephalic and atraumatic. Eyes: Conjunctivae and EOM are normal. Neck: Normal range of motion. Pulmonary/Chest: Effort normal. No respiratory distress. Abdominal: Soft. He exhibits no distension. There is no tenderness. Genitourinary: Genitourinary Comments: Mendoza bloody, upgraded to [address], inserted to hub easily, balloon inflated and pulled out to hub. Difficult to irrigate, but draining, few small clots irrigated out. Patient more comfortable with mendoza in and draining. Unable to run CBI. Musculoskeletal: Normal range of motion. He exhibits no deformity. Neurological: He is alert. Skin: Skin is warm and dry. He is not diaphoretic. Psychiatric: His behavior is normal. Thought content normal. Vitals reviewed. ? ? ? LABS: ?? BMP: Glucose (mg/dL) Date Value 10/19/2017 163 Potassium (mEq/L) Date Value 10/19/2017 3.9 Sodium (mEq/L) Date Value 10/19/2017 137 Chloride (mEq/L) Date Value 10/19/2017 105 CO2 (mEq/L) Date Value 10/19/2017 21 Creatinine (mg/dL) Date Value 10/19/2017 2.55 BUN (mg/dL) Date Value 10/19/2017 25 Anion Gap (no units) Date Value 10/19/2017 15 Calcium (mg/dL) Date Value 10/19/2017 9.5 ? CBC: Hemoglobin (g/dL) Date Value 11/30/2012 10.6 HGB (g/dL) Date Value 10/19/2017 10.9 Hematocrit (%) Date Value 10/19/2017 30.2 WBC (thou/cmm) Date Value 10/19/2017 12.65 Platelet Count (thou/cmm) Date Value 10/19/2017 237 ? Urinalysis: No results found for: PH, SPGR, UGLUC, UBILI, UKET, UHB, UPROT, UROBIL, NITRITES, UWBC, SSA ? Urine Culture: No results found for: URCUL ? ? ? Radiology: Need records from [place] ? ? Assessment and Plan: ? 62 year old male renal mass and hematuria, BERTHA ? PLAN: ? -Admit to floor -Obtain and review imaging records -Irrigate mendoza q3hrs -B+O now and Q6hrs -NPO -May need clot evac and C+P tomorrow if still not able to irrigate mendoza well -Urine culture and cytology -Ancef -CXR and LFTs -Follow Cr -d/w Dr Forde ? Franklyn Nicole MD 10/19/2017 11:29 PM Isabell Soto, RN, RN 10/19/2017 11:41 PM Signed Urine specimen obtained and sent. Verna Zimmer, RN, RN 10/20/2017 12:29 AM Signed Patiens blood pressure 186/94 and patient inquiring why he wasn't still connected to CBI. Dr. Nicole notified and updated. New orders received. Franklyn Nicole MD 10/20/2017 8:19 AM Attested Attestation signed by Jeffery Morel at 10/20/2017 11:10 AM I saw and evaluated the patient. Discussed with the resident and agree with resident's findings and plan as documented in the resident's note. UROLOGY PROGRESS NOTE PATIENT NAME: Juan David Yancey DATE OF : 1955 ADMISSION DATE: 10/19/2017 8:33 PM TODAY'S DATE: 10/20/2017 Subjective Spasms much improved after B+O. Nursing irrigated lots of clots out overnight. Draining light red off CBI. Objective VS: BP 145/82 Pulse 72 Temp 36.7 ?C (98.1 ?F) (Oral) Resp 18 Ht 185.4 cm (6' 0.99) Wt 17.9 kg (39 lb 8.6 oz) SpO2 97% BMI 5.22 kg/m2 I AND O - 24hr: Intake/Output Summary (Last 24 hours) at 10/20/17 0818 Last data filed at 10/20/17 0700 Gross per 24 hour Intake 2000 ml Output 500 ml Net 1500 ml Physical Exam: General: Neck: Resp: Abdomen: No acute distress Supple Normal effort Soft, non-tender, nondistended : Light red off CBI, clear when CBI started Labs and Imaging Studies LABS: BMP: Glucose (mg/dL) Date Value 10/19/2017 163 Potassium (mEq/L) Date Value 10/19/2017 3.9 Sodium (mEq/L) Date Value 10/19/2017 137 Chloride (mEq/L) Date Value 10/19/2017 105 CO2 (mEq/L) Date Value 10/19/2017 21 Creatinine (mg/dL) Date Value 10/19/2017 2.55 BUN (mg/dL) Date Value 10/19/2017 25 Anion Gap (no units) Date Value 10/19/2017 15 Calcium (mg/dL) Date Value 10/19/2017 9.5 CBC: Hemoglobin (g/dL) Date Value 11/30/2012 10.6 HGB (g/dL) Date Value 10/20/2017 10.6 Hematocrit (%) Date Value 10/20/2017 30.2 WBC (thou/cmm) Date Value 10/20/2017 10.55 Platelet Count (thou/cmm) Date Value 10/20/2017 247 Urinalysis: Specific [place], Ur Date Value Ref Range Status 10/19/2017 1.020 1.005 - 1.030 Final Glucose, Urine Date Value Ref Range Status 10/19/2017 see below Negative mg/dL Final Comment: Color abnormal- some macroscopic not done. Bilirubin, Urine Date Value Ref Range Status 10/19/2017 see below Negative Final Comment: Color abnormal- some macroscopic not done. Ketones, Urine Date Value Ref Range Status 10/19/2017 see below Negative mg/dL Final Comment: Color abnormal- some macroscopic not done. Protein, Urine Date Value Ref Range Status 10/19/2017 see below Negative mg/dL Final Comment: Color abnormal- some macroscopic not done. Urobilinogen, Urine Date Value Ref Range Status 10/19/2017 see below 0.0 - 1.0 EU/dL Final Comment: Color abnormal- some macroscopic not done. Nitrites Urine Date Value Ref Range Status 10/19/2017 see below Negative Final Comment: Color abnormal- some macroscopic not done. WBC, Urine Date Value Ref Range Status 10/19/2017 1.0-3 0.0 - 5.0 /hpf Final Urine Culture: No results found for: URCUL RADIOLOGY: Assessment and Plan Assessment and Plan: ?? 62 year old male 7cm R renal mass and hematuria, BERTHA ?? PLAN: ?? 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 Stated Goals: To return home with spouse Needs Prior to Discharge: To Be Determined Health Insurance: Medical [place] [facility] Living Arrangement: Home Lives With: Spouse Financial Resources: employed Primary Contact: Extended Emergency Contact Information Primary Emergency Contact: Dulce Maria Yancey Address: [address] [place] [address] Mobile Relation: Spouse Secondary Emergency Contact: ERIK YANCEY Home Phone: [phone] Relation: Mother Supportive: Yes Other Important Patient Contacts: None CAREGIVER ASSESSMENT: Caregiver is ready, willing and able to meet the patient's needs as recommended by the inter-professional team? Yes Patient's transition needs and plan for meeting these needs: n/a Does the patient have an acute stroke diagnosis, or has the patient had a stroke during this admission? No ADVANCE DIRECTIVES: Does Patient Have Advance Directives? No, Patient refused Does Patient Have Concerns About Advance Directives? No PRIOR TO ADMISSION: Baseline Mental Status: Alert AND Oriented, Person, Place , Time and Situation Functional Status: Independent Does Patient Currently Receive Any Community Services or Home Care? None Equipment Prior to Admission: None HEALTH: Health Issues Impacting Discharge Plan: None Health Literacy Issues: No PSYCHOSOCIAL: Is the Patient Psychosocially Complex? No Family/Patient Understanding of Illness/Diagnosis: No questions at this time. Medication Adherence: Do you forget to take your medications? I do not forget to take my medication Have you ever stopped taking medications because you felt worse? None of the time Have you ever taken less of your medication than what was prescribed by your doctor? None of the time In the past 3 months, have you had issues obtaining one or more of your medications? None of the time Are you interested in bedside delivery of your medications? No Food Concerns: In the Last Month, Have You had Trouble Getting Food? No trouble getting food During the Last Month, Have You Worried Whether Your Food Would Run Out Before You Had Enough Money to Buy More? No Psychosocial Needs: None UTILIZATION: Last Admission Date: Previous admit date: 11/24/2012 Is this Within the Past 30 days? No Has the Patient Been in a Nursing Home Facility in the Past 30 days? 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 Patient is currently looking for PCP in the [place], [place] area. +Rx coverage. No DME. Anticipate D/C home when medically stable. SIGNATURE: Jose Manuel Sheets RN PATIENT NAME: Juan David Yancey DATE: October 20, 2017 TIME: 11:57 AM PAGER/CONTACT #: [phone] Daniel Zelaya MD 10/20/2017 8:30 PM Signed [facility] Nephrology Consultation Note Reason for consultation: BERTHA/post-obstructive Chief Complaint: difficulty with urination History of Presenting Illness 62 year old male presented from [place] for renal mass. Was unable to urinate prior to presentation. Mendoza was placed draining bright red blood. Was on blood thinner. No previous history, but reports hematuria x 2 weeks. No personal or family history of malignancy. No previous prostate or urinary issues. On Xarelto for DVTs. On CBI. Per nursing, was unable to drain overnight. She reports significant clotting removed. Still needing irrigated Q 3hrs. is making NPO after midnight-? Surgery as inpatient vs outpatient f/u. Additional home meds include ASA and Allopurinol. No FRANCK/ARB or diuretic. Also presently on NS at 125/hr. BP was 186/94 on admit. Today is 135/74 Creat on admit was 2.55, today is 2.58. UA with 1-3 WBC, >100RBC (partially resulted?) Baseline unknown, <1 2012. Patient denies any issues with renal function in past. States has hx UC, hip replacments d/t avascular necrosis from steroid use, DVT with IVC filter placement, PCI. No HTN or DM. Nephrology has been c/s for BERTHA Past Medical/Surgical History PAST MEDICAL HISTORY Diagnosis Date - Avascular necrosis (HCC) bilateral hip replacements d/t avascular necrosis - Blood clot in vein IVC filter placed in 1994 - Bowel disease MUC, colectomy in 1994 - Gout Summer 2011 Clinical Diagnosis in 2011 - Iliac DVT (deep venous thrombosis) (HCC) 11/26/2012 - Ulcerative colitis (HCC) PAST SURGICAL HISTORY Procedure Laterality Date - COLECTOMY PARTIAL W ANASTOM - ILEOSTOMY closed - TOTAL HIP REPLACEMENT bilateral- castro Review of Systems All 12 systems reviewed and are negative except for what is mentioned in the HPI. Medications Prescriptions Prior to Admission: aspirin 325 mg tablet Take 325 mg by mouth once daily. Disp: Rfl: RIVAROXABAN (XARELTO ORAL) Take 20 mg by mouth once daily. Disp: Rfl: allopurinol 100 mg tablet Take 2 tablets by mouth once daily. In 2 weeks, increase to 300mg/day Disp: 60 tablet Rfl: 2 Current Facility-Administered Medications: oxybutynin 5 mg tab(s) (DITROPAN) 5 mg ORAL TID amLODIPine 10 mg tab(s) (NORVASC) 10 mg ORAL DAILY NaCl 0.9% irrigation solution 3,000 mL IRRIGATION CONTINUOUS allopurinol 200 mg tab(s) (ZYLOPRIM) 200 mg ORAL DAILY NaCl 0.9% iv infusion 125 mL/hr INTRAVENOUS CONTINUOUS acetaminophen 650 mg tab(s) (TYLENOL) 650 mg ORAL q 4 H PRN oxyCODONE-acetaminophen 5-325 mg 1-2 tablet (PERCOCET) 1-2 tablet ORAL q 4 H PRN morphine 2-4 mg injection 2-4 mg INTRAVENOUS q 2 H PRN ondansetron (PF) 4 mg injection (ZOFRAN) 4 mg INTRAVENOUS q 6 H PRN docusate sodium 100 mg cap(s) (COLACE) 100 mg ORAL BID ceFAZolin 1 g in dextrose (iso-osmotic) 50 mL (ANCEF, KEFZOL) 1 g INTRAVENOUS q 8 H belladonna-opium 16.2-60 mg 1 Suppository suppository (B and O 16-A) 1 Suppository RECTAL TID PRN Allergies Morphine; Prednisone Family History Negative for Kidney Disease No family history on file. Social History Social History Marital status: Spouse name: Years of education: Number of children: Social History Main Topics Smoking status: Never Smoker Smokeless status: Never Used Alcohol use: Yes Comment: social Drug use: No Physical Exam Blood pressure 135/71, pulse 66, temperature 36.9 ?C (98.4 ?F), temperature source Oral, resp. rate 18, height 185.4 cm (6' 0.99), weight 17.9 kg (39 lb 8.6 oz), SpO2 97 %. 24 HR INTAKE/OUTPUT: Intake/Output Summary (Last 24 hours) at 10/20/17 1522 Last data filed at 10/20/17 1504 Gross per 24 hour Intake 3640 ml Output 2800 ml Net 840 ml General: NAD, Comfortable appearing, cooperative to history and physical exam. Head: AT NC Neck: Supple, no jvd Chest: B/L clear, no crackles, no accessory muscles usage. CV: RRR, no murmurs or rubs Abdomen: NT, ND, soft Extremities: No peripheral edema, no tremor Neurological: Moving all four extremities, no focal neurological deficit Psychiatric: Normal insight and judgement, good recall : mendoza with hematuria, +CBI Data Recent Labs 10/20/17 0740 10/19/175 NA 139 137 K 4.5 3.9 CHLOR 107 105 CO2 27 21 BUN 24* 25* CREAT 2.58* 2.55* GLUC 103* 163* ALB 3.3* 3.9 CA 8.8 9.5 Recent Labs 10/20/17 0325 10/19/175 WBC 10.55* 12.65* HB 10.6* 10.9* HCT 30.2* 30.2* PLT 247 237 pH, Urine Date Value Ref Range Status 10/19/2017 see below 5.0 - 8.0 Final Comment: Color abnormal- some macroscopic not done. Specific [place], Ur Date Value Ref Range Status 10/19/2017 1.020 1.005 - 1.030 Final Glucose, Urine Date Value Ref Range Status 10/19/2017 see below Negative mg/dL Final Comment: Color abnormal- some macroscopic not done. Bilirubin, Urine Date Value Ref Range Status 10/19/2017 see below Negative Final Comment: Color abnormal- some macroscopic not done. Ketones, Urine Date Value Ref Range Status 10/19/2017 see below Negative mg/dL Final Comment: Color abnormal- some macroscopic not done. Protein, Urine Date Value Ref Range Status 10/19/2017 see below Negative mg/dL Final Comment: Color abnormal- some macroscopic not done. Nitrites Urine Date Value Ref Range Status 10/19/2017 see below Negative Final Comment: Color abnormal- some macroscopic not done. WBC, Urine Date Value Ref Range Status 10/19/2017 1.0-3 0.0 - 5.0 /hpf Final CXR EXAM TITLE: CHEST 1 VIEW ? DATE: 10/20/2017 06:09 ? INDICATION: ?Patient history of renal mass. ? COMPARISON: None. ? Portable frontal view of the chest shows heart size to be normal. ? Pulmonary vascularity is normal. ? Lungs are clear. No infiltrates or effusions. ? No obvious acute bony abnormality is evident. There is evidence of old left clavicle fracture. ? IMPRESSION: ? No acute findings radiographically. Assessment: 1. BERTHA-acute vs acute/chronic, likely 2/2 obstruction 2. Renal mass( right renal ) 3. Hematuria- from RCC ? 4. DVT history 5. H/o Ulcerative colitis + 6. 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 [facility] Patient seen and independently examined and assessed.The Nurse practitioner note was reviewed and exam noted. I agree with her assessment and recommendations. Any variance is noted as below. BERTHA + from obstruction Baseline ? Could have some CKD too Need to see how the cr trends,with the obstruction having been adressed and will follow the cr No need for INSTRUMENT MAKER APPRENTICE Renal mass is concerning for RCC( defer to urology) D/w Dr Garcia More recommendations as more data is available Daniel Zelaya MD Previous Version Елена Kyle, RN, RN 10/20/2017 4:03 PM Signed Creatinine and sodium urine ordered notified Deyanira Yap CNP that patient has CBI running. Okay not to send urine at this time. Nelly Moore MD 10/20/2017 4:38 PM Signed Pt doing well. Urine blood tinge on slow drip this afternoon. Discussed pt significant DVT history. Has IVC filter. Has been off xarelto since Tuesday am. Given elevated Cr, pt may be unable to get contrast enhanced imaging, and CANDP with possible ureteroscopy/stent would be necessary. Pt also lives far from [facility] and has been off xarelto, so best to evaluate this while here. Medical consult pending. Discussed case with Dr. Dolan, will plan to add on for tomorrow afternoon. Nelly Garcia MD, MD 10/20/2017 6:30 PM Signed DEPARTMENT OF HOSPITAL MEDICINE HISTORY AND PHYSICAL EXAM SERVICE DATE: 10/20/2017 SERVICE TIME: 09.10 Primary Care Physician: No Pcp NIGHT AND WEEKEND COVERAGE: Days: [phone], please page me for patient issues. Nights: [phone], please page [facility] Hospitalist Night coverage pager [phone] Subjective CHIEF COMPLAINT: Gross hematuria HPI: This is a 62 year old male who presents with gross hematuria and incidental finding of a renal mass. Had been having gross hematuria which became worse over the last few days. Went into acute urinary retention and presented to [facility] from where patient was transferred Mendoza placed and being irrigated at this time. 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 Social History Substance Use Topics - Smoking status: Never Smoker - Smokeless tobacco: Never Used - Alcohol use Yes Comment: social MEDICATIONS: Reviewed Prescriptions Prior to Admission: aspirin 325 mg tablet Take 325 mg by mouth once daily. Disp: Rfl: RIVAROXABAN (XARELTO ORAL) Take 20 mg by mouth once daily. Disp: Rfl: allopurinol 100 mg tablet Take 2 tablets by mouth once daily. In 2 weeks, increase to 300mg/day Disp: 60 tablet Rfl: 2 ALLERGIES Allergen Reactions - Morphine Itching - Prednisone Other: See Comments avascular necrosis, bilat hip replacements REVIEW OF SYSTEM: No chest pain or SOB and rest of ROS is negative Objective PHYSICAL EXAM: BP 135/71 Pulse 66 Temp (Src) 98.4 (Oral) Resp 18 Ht 6' .992 (1.85m) Wt 39 lb 8.6 oz (17.9kg) SpO2 97% BMI 5.22 kg/(m2). Physical Exam Performed: GENERAL: Alert, no distress, cooperative SKIN: Skin color, texture, turgor normal. No rashes or lesions. EYES: PERRLA, EOMI NECK: No jugulovenous distention, No carotid bruits, Carotid pulse normal contour, Supple BACK: Back symmetric, Normal curvature, ROM normal, No CVAT. LUNGS: Lungs clear to auscultation, Good diaphragmatic excursion ABDOMEN: Abdomen soft, non-tender, BS normal, No masses or organomegaly EXTREMITIES: Extremities normal, no deformities, edema, clubbing or skin discoloration. Good capillary refill., No ulcers NEURO: Gait normal. Reflexes normal and symmetric. Sensation grossly intact, Cranial nerves II-XII intact GENITALIA MALE: Penis normal, no urethral discharge, scrotum normal to palpation, no hernias The remainder of the physical exam is noncontributory. Lines, Drains, and Airways Line Peripheral 10/19/17 1750 Short Right Antecubital 18 Gauge 1 day Drain Indwelling Urinary Catheter 10/19/17 2341 Assessment 3- way Catheter 24 Fr less than 1 day Reviewed lines, drains, AND airways. Need to be continued none DATA: Diagnostic tests reviewed for today's visit: Most recent labs and imaging results. Assessment/Plan 1. Large renal mass with gross hematuria. Likely renal cell malignancy. Urology planning cystoscopy and already getting bladder irrigation Check urine cytology D/w urology if oncology be involved early on to perhaps help direct work-up. Oncology consult not needed at this time 2. BERTHA. Likely post-obstructive from blood clots. Nephrology consulted. Getting IVFs as well. 3. 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 On hold for now VTE Prophylaxis: Pneumatic Compression Device Disposition: Home Plan of care discussed with: Patient SIGNATURE: Deep Garcia MD PATIENT NAME: Juan David Yancey DATE: October 20, 2017 TIME: 6:17 PM PAGER/CONTACT #: [email or web address] [email or web address] [phone] Silviano DolanDO 10/21/2017 5:02 PM Signed UROLOGY PROGRESS NOTE PATIENT NAME: Juan David Yancey DATE OF : 1955 ADMISSION DATE: 10/19/2017 8:33 PM TODAY'S DATE: 10/20/2017 Subjective Spasms much improved after B+O. Draining clear on slow CBI Objective VS: BP 142/72 Pulse 72 Temp 36.6 ?C (97.9 ?F) (Temporal Artery) Resp 18 Ht 185.4 cm (6' 0.99) Wt 17.9 kg (39 lb 8.6 oz) SpO2 94% BMI 5.22 kg/m2 I AND O - 24hr: Intake/Output Summary (Last 24 hours) at 10/21/17 0731 Last data filed at 10/21/17 0600 Gross per 24 hour Intake 5340 ml Output 4600 ml Net 740 ml Physical Exam: General: Neck: Resp: Abdomen: No acute distress Supple Normal effort Soft, non-tender, nondistended : Clear on slow CBI Labs and Imaging Studies LABS: BMP: Glucose (mg/dL) Date Value 10/21/2017 97 Potassium (mEq/L) Date Value 10/21/2017 4.5 Sodium (mEq/L) Date Value 10/21/2017 138 Chloride (mEq/L) Date Value 10/21/2017 109 CO2 (mEq/L) Date Value 10/21/2017 25 Creatinine (mg/dL) Date Value 10/21/2017 2.20 BUN (mg/dL) Date Value 10/21/2017 23 Anion Gap (no units) Date Value 10/20/2017 10 Calcium (mg/dL) Date Value 10/21/2017 8.6 CBC: Hemoglobin (g/dL) Date Value 11/30/2012 10.6 HGB (g/dL) Date Value 10/21/2017 9.2 Hematocrit (%) Date Value 10/21/2017 28.1 WBC (thou/cmm) Date Value 10/21/2017 7.85 Platelet Count (thou/cmm) Date Value 10/21/2017 179 Urinalysis: Specific [place], Ur Date Value Ref Range Status 10/19/2017 1.020 1.005 - 1.030 Final Glucose, Urine Date Value Ref Range Status 10/19/2017 see below Negative mg/dL Final Comment: Color abnormal- some macroscopic not done. Bilirubin, Urine Date Value Ref Range Status 10/19/2017 see below Negative Final Comment: Color abnormal- some macroscopic not done. Ketones, Urine Date Value Ref Range Status 10/19/2017 see below Negative mg/dL Final Comment: Color abnormal- some macroscopic not done. Protein, Urine Date Value Ref Range Status 10/19/2017 see below Negative mg/dL Final Comment: Color abnormal- some macroscopic not done. Urobilinogen, Urine Date Value Ref Range Status 10/19/2017 see below 0.0 - 1.0 EU/dL Final Comment: Color abnormal- some macroscopic not done. Nitrites Urine Date Value Ref Range Status 10/19/2017 see below Negative Final Comment: Color abnormal- some macroscopic not done. WBC, Urine Date Value Ref Range Status 10/19/2017 1.0-3 0.0 - 5.0 /hpf Final Urine Culture: Urine Culture (no units) Date Value 10/20/2017 No growth RADIOLOGY: Assessment and Plan Assessment and Plan: ?? 62 year old male 7cm R renal mass and hematuria, BERTHA ?? PLAN: ?? -Irrigate mendoza q3hrs, cont CBI -B+O Q6hrs -NPO - Add on for clot evac and C+P today -Urine culture and cytology negative -Ancef -CXR and LFTs ok -Follow Cr, still elevated but slightly improved Franklyn Nicole MD 10/20/2017 8:18 AM I have seen and evaluated the patient and discussed the case with the resident physician. I agree with the assessment and plan as documented in the resident?s note. He has a renal mass with hematuria Cr is elevated Cysto ureteroscopy today Silviano Dolan Previous Version Jose Manuel Sheets RN, RN 10/21/2017 2:27 PM Signed CARE MANAGEMENT PROGRESS NOTE SERVICE DATE: 10/21/2017 SERVICE TIME: 1425 LOS: 1 day Chart reviewed. Spoke with RN. Patient to under C+P today. Anticipate plan still to d/c home with spouse when medically stable. SIGNATURE: Jose Manuel Sheets RN PATIENT NAME: Juan David Yancey DATE: October 21, 2017 TIME: 2:25 PM PAGER/CONTACT #: [phone] Carl Blair MD 10/21/2017 3:59 PM Signed ANESTHESIOLOGY DAY OF SURGERY NOTE SERVICE DATE: 10/21/2017 SERVICE TIME: 3:58 PM : 1955 Procedure(s) (LRB): CYSTOSCOPY, RETROPYELOGRAM, clot evacuation, possible ureteroscopy, possible stent placement (N/A) Surgeon(s): Silviano Dolan DO Estimated body mass index is 5.22 kg/(m2) as calculated from the following: Height as of this encounter: 185.4 cm (6' 0.99). Weight as of this encounter: 17.9 kg (39 lb 8.6 oz). Most recent hematocrit and potassium results: Hematocrit 28.1 10/21/2017 Potassium 4.5 10/21/2017 ANES DOS/PREOP NOTE: Vitals: 10/20/17 2300 10/21/17 0324 10/21/17 0739 10/21/17 1134 BP: 152/80 142/72 151/76 141/71 Pulse: 70 72 72 76 Resp: Temp: 36.6 ?C (97.9 ?F) 36.6 ?C (97.9 ?F) 37.2 ?C (99 ?F) 36.9 ?C (98.4 ?F) TempSrc: Temporal Artery Temporal Artery Oral Oral SpO2: 94% 94% 94% 100% Weight: Height: ACTIVE PROBLEM LIST Blood Clot in Vein Inferior Vena Caval Thrombosis (Hcc) S/P Insertion of Ivc (Inferior Vena Caval) Filter Anticoagulation Management Encounter Personal History of Dvt (Deep Vein Thrombosis) Sbo (Small Bowel Obstruction) Iliac Dvt (Deep Venous Thrombosis) (Hcc) Dvt Femoral (Deep Venous Thrombosis) (Hcc) Popliteal Dvt (Deep Venous Thrombosis) (Hcc) Bilateral Leg Edema Hematuria PAST MEDICAL HISTORY Diagnosis Date - Avascular necrosis (HCC) bilateral hip replacements d/t avascular necrosis - Blood clot in vein IVC filter placed in 1994 - Bowel disease MUC, colectomy in 1994 - Gout Summer 2011 Clinical Diagnosis in 2011 - Iliac DVT (deep venous thrombosis) (HCC) 11/26/2012 - Ulcerative colitis (HCC) PAST SURGICAL HISTORY Procedure Laterality Date - COLECTOMY PARTIAL W ANASTOM - ILEOSTOMY closed - TOTAL HIP REPLACEMENT bilateral- castro No family history on file. Social History: Social History Substance Use Topics - Smoking status: Never Smoker - Smokeless tobacco: Never Used - Alcohol use Yes Comment: social No current facility-administered medications on file prior to encounter. Current Outpatient Prescriptions on File Prior to Encounter: allopurinol 100 mg tablet Take 2 tablets by mouth once daily. In 2 weeks, increase to 300mg/day Current Facility-Administered Medications: [MAR Hold due to Transfer] oxybutynin 5 mg tab(s) (DITROPAN) 5 mg ORAL TID Franklyn (Res) Kmetz 5 mg at 10/21/17 1301 [MAR Hold due to Transfer] amLODIPine 10 mg tab(s) (NORVASC) 10 mg ORAL DAILY Deep Garcia MD 10 mg at 10/21/17 08 [MAR Hold due to Transfer] NaCl 0.9% irrigation solution 3,000 mL IRRIGATION CONTINUOUS Nelly (ResEladia Moore 3,000 mL at 10/20/17 1532 [MAR Hold due to Transfer] allopurinol 200 mg tab(s) (ZYLOPRIM) 200 mg ORAL DAILY Franklyn (Res) Kmetz 200 mg at 10/21/17 08 [MAR Hold due to Transfer] NaCl 0.9% iv infusion 125 mL/hr INTRAVENOUS CONTINUOUS Franklyn HughesRes) Kmkay Last Rate: 125 mL/hr at 10/21/17 0332 125 mL/hr at 10/21/17 0332 [MAR Hold due to Transfer] acetaminophen 650 mg tab(s) (TYLENOL) 650 mg ORAL q 4 H PRN Franklyn (Res) Kmetz [MAR Hold due to Transfer] oxyCODONE-acetaminophen 5-325 mg 1-2 tablet (PERCOCET) 1-2 tablet ORAL q 4 H PRN Franklyn (Res) Kmetz 1 tablet at 10/20/17 0012 [MAR Hold due to Transfer] morphine 2-4 mg injection 2-4 mg INTRAVENOUS q 2 H PRN Franklyn (Res) Kmetz [MAR Hold due to Transfer] ondansetron (PF) 4 mg injection (ZOFRAN) 4 mg INTRAVENOUS q 6 H PRN Franklyn (Res) Kmetz [MAR Hold due to Transfer] docusate sodium 100 mg cap(s) (COLACE) 100 mg ORAL BID Franklyn (Res) Kmetz [MAR Hold due to Transfer] ceFAZolin 1 g in dextrose (iso- osmotic) 50 mL (ANCEF, KEFZOL) 1 g INTRAVENOUS q 8 H Franklyn (Res) Kmetz 1 g at 10/21/17 1422 [MAR Hold due to Transfer] belladonna-opium 16.2-60 mg 1 Suppository suppository (B and O 16-A) 1 Suppository RECTAL TID PRN Franklyn (Res) Kmetz 1 Suppository at 10/20/17 0817 Allergies: ALLERGIES Allergen Reactions - Morphine Itching - Prednisone Other: See Comments avascular necrosis, bilat hip replacements DOS EXAM: Adequate NPO status: Yes Anesthetic risks, benefits, alternatives, personnel and consent discussed: Yes Patient agrees to proceed: Yes Previous Anesthesia: No history of adverse event. Airway Assessment: MP 2; Neck ROM: Full ROM without neurologic symptoms; Airway Evaluation: No significant abnormalities Symptoms of Sleep Apnea: Age over 50 (62 year old) and Male gender Dentition: Teeth intact Additional Physical Exam: Lungs: Patient health status unchanged since recent history and physical. See history and physical for exam findings. Cardiac: Patient health status unchanged since recent history and physical. See history and physical for exam findings. Additional Pertinent Findings: N/A Blood Products: Not anticipated for this procedure. Anesthetic Plan: General, Standard ASA Monitors Pain Management Plan: Parenteral or Oral ASA Class: 3 Other Medical Problems: hematuria Chronic Beta Merissa medication administered within 24 hours: N/A I have interviewed and examined the patient. I have reviewed the medical record and/or the pre-anesthesia evaluation, pertinent labs, and test results. Significant changes in the patient's condition since the History and Physical, not otherwise documented in primary service progress notes: No This contains updated information obtained within 48 hours of Surgery/Procedure. SIGNATURE: Carl Blair MD PATIENT NAME: Juan David Yancey DATE: October 21, 2017 TIME: 3:58 PM CSN: [id number] Silviano Dolan DO 10/22/2017 9:47 AM Signed BRIEF OP NOTE LOG ID: [id number] Surgery/Procedure Date: 10/21/2017 Incision/Procedure Start Time: 4:39 PM Incision Close/Procedure End Time: 5:25 PM Surgeon(s)/Proceduralist(s) and Commercial Baker Helper(s): Surgeon(s) and Role: * Silviano Dolan DO - Primary Procedure(s): cystoscopy AND pyelograms, right ureteroscopy, right ureteral stent placement 6 Fr x 26 cm Anesthesia: General Findings: No lesions or tumors within the bladder. Left pyelogram without filling defect or hydronephrosis. Right retrograde pyelogram revealed mild extravasation at the upper pole, but no filling defect identified. Right ureteroscopy was negative for urothelial tumor in either the renal pelvis or ureter. See operative note for further details. Estimated Blood Loss: 5 cc Specimens: None Complications: None Pre-Op/Pre-Procedure Diagnosis: gross hematuria, right renal mass Post-Op/Post-Procedure Diagnosis: Hematuria [R31.9] SIGNATURE: Sushma Mcintyre MD PATIENT NAME: Juan David Yancey DATE: October 21, 2017 TIME: 5:40 PM PAGER/CONTACT #: [phone] I have seen and evaluated the patient and discussed the case with the resident physician. I agree with the assessment and plan as documented in the resident?s note. Silviano Dolan DO SHERRI Previous Version Silviano Dolan DO 10/21/2017 5:52 PM Signed OPERATIVE/PROCEDURE REPORT LOG ID: [id number] Surgery/Procedure Date: 10/21/2017 Incision/Procedure Start Time: 4:39 PM Incision Close/Procedure End Time: 5:25 PM Surgeon(s)/Proceduralist(s) and Commercial Baker Helper(s): Surgeon(s) and Role: * Silviano Dolan, DO - Primary No Additional Staff Procedure(s): Cystoscopy, bilateral retrograde, right ureteroscopy and right stent placement ? Anesthesia: General ?? Procedure Details:?Patient was brought to the operating room. A thorough time out was performed and everyone present was in agreement. Patient was placed on OR table. Anesthesia and lines were maintained by the anesthesia team. Patient was placed in the dorsal lithotomy position. Prepped and draped in usual fashion. Pressure points were padded. A cystourethroscope was inserted through the urethra and the bladder was inspected. No tumors were noted. There was a clot emanating from the right ureteral orifice. Left retrograde pyelogram was negative. ?? Right ureteric orifice was cannulated and a wire was placed.? Retrograde demonstrated possible clot in the ureter. Rigid and flexible ureteroscopy was negative for papillary tumors. There was some upper pole extravasation that was minimal. ? Stones were lasered into gravel. No pieces were large enough to be retrieved.? ?? A ?6 fr X 26 cm JJ stent was?advanced over the wire through the cystoscope under fluoroscopic visualization. Once in position the wire was removed. A good curl was noted in the kidney and the bladder. [address] way mendoza was placed and third port was capped. The patient awoken from anesthesia and transported to PACU in stable condition. ? ?? Pre-Op/Pre-Procedure Diagnosis:?Right renal mass, hematuria, renal failure ?? Post-Op/Post-Procedure Diagnosis:?same ? Estimated Blood Loss:?0 ml ?? Specimens:?None ?? Implantable Devices:?None ?? Drains:?None ?? Complications: None ?? The primary surgeon/proceduralist performed the procedure with assistance. SIGNATURE: Silviano Dolan PATIENT NAME: Juan David Yancey DATE: October 21, 2017 TIME: 5:43 PM PAGER/CONTACT #: Daniel Zelaya MD 10/21/2017 5:56 PM Signed [facility] progress note ? Reason for consultation: BERTHA/post-obstructive ? Chief Complaint: difficulty with urination ? History of Presenting Illness ? 62 year old male presented from [place] for renal mass. Was unable to urinate prior to presentation. Mendoza was placed draining bright red blood. Was on blood thinner. No previous history, but reports hematuria x 2 weeks. No personal or family history of malignancy. No previous prostate or urinary issues. On Xarelto for DVTs. On CBI. Per nursing, was unable to drain overnight. She reports significant clotting removed. Still needing irrigated Q 3hrs. is making NPO after midnight-? Surgery as inpatient vs outpatient f/u. Additional home meds include ASA and Allopurinol. No FRANCK/ARB or diuretic. Also presently on NS at 125/hr. BP was 186/94 on admit. Today is 135/74 Creat on admit was 2.55, today is 2.58. UA with 1-3 WBC, >100RBC (partially resulted?) Baseline unknown, <1 2012. Patient denies any issues with renal function in past. States has hx UC, hip replacments d/t avascular necrosis from steroid use, DVT with IVC filter placement, PCI. No HTN or DM. Nephrology has been c/s for BERTHA Interval progess note Doing ok Going for cystoscopy + ureteroscopy Cr is better Baseline ? Good uo + Still on CBI BP ok Overall feels better ROS (-) unless above No change in the PFSH ? Past Medical/Surgical History ? PAST MEDICAL HISTORY PAST MEDICAL HISTORY Diagnosis Date - Avascular necrosis (HCC) bilateral hip replacements d/t avascular necrosis - Blood clot in vein IVC filter placed in 1994 - Bowel disease ? ? MUC, colectomy in 1994 - Gout Summer 2011 ? 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 ? PAST SURGICAL HISTORY PAST SURGICAL HISTORY Procedure Laterality Date - COLECTOMY PARTIAL W ANASTOM ? ? - ILEOSTOMY ? ? ? closed - TOTAL HIP REPLACEMENT ? ? ? bilateral- castro ? ? ? Review of Systems ? All 12 systems reviewed and are negative except for what is mentioned in the HPI. ? Medications ? Prescriptions Prior to Admission ? Prescriptions Prior to Admission: aspirin 325 mg tablet Take 325 mg by mouth once daily. Disp: Rfl: ? RIVAROXABAN (XARELTO ORAL) Take 20 mg by mouth once daily. Disp: Rfl: ? allopurinol 100 mg tablet Take 2 tablets by mouth once daily. In 2 weeks, increase to 300mg/day Disp: 60 tablet Rfl: 2 ? ? ? CURRENT MEDICATIONS ? Current Facility-Administered Medications: oxybutynin 5 mg tab(s) (DITROPAN) 5 mg ORAL TID amLODIPine 10 mg tab(s) (NORVASC) 10 mg ORAL DAILY NaCl 0.9% irrigation solution 3,000 mL IRRIGATION CONTINUOUS allopurinol 200 mg tab(s) (ZYLOPRIM) 200 mg ORAL DAILY NaCl 0.9% iv infusion 125 mL/hr INTRAVENOUS CONTINUOUS acetaminophen 650 mg tab(s) (TYLENOL) 650 mg ORAL q 4 H PRN oxyCODONE-acetaminophen 5-325 mg 1-2 tablet (PERCOCET) 1-2 tablet ORAL q 4 H PRN morphine 2-4 mg injection 2-4 mg INTRAVENOUS q 2 H PRN ondansetron (PF) 4 mg injection (ZOFRAN) 4 mg INTRAVENOUS q 6 H PRN docusate sodium 100 mg cap(s) (COLACE) 100 mg ORAL BID ceFAZolin 1 g in dextrose (iso-osmotic) 50 mL (ANCEF, KEFZOL) 1 g INTRAVENOUS q 8 H belladonna-opium 16.2-60 mg 1 Suppository suppository (B and O 16-A) 1 Suppository RECTAL TID PRN ? ? Allergies ? Morphine; Prednisone ? ? Family History ? Negative for Kidney Disease FAMILY HISTORY No family history on file. ? Social History ? SOCIAL HISTORY Social History Marital status: Spouse name: Years of education: Number of children: ? Social History Main Topics Smoking status: Never Smoker ? Smokeless status: Never Used Alcohol use: Yes Comment: social Drug use: No ? ? Physical Exam ? Blood pressure 135/71, pulse 66, temperature 36.9 ?C (98.4 ?F), temperature source Oral, resp. rate 18, height 185.4 cm (6' 0.99), weight 17.9 kg (39 lb 8.6 oz), SpO2 97 %. 24 HR INTAKE/OUTPUT: Intake/Output Summary (Last 24 hours) at 10/20/17 1522 Last data filed at 10/20/17 1504 ? Gross per 24 hour Intake 3640 ml Output 2800 ml Net 840 ml ? ? General: NAD, Comfortable appearing, cooperative to history and physical exam. Head: AT NC Neck: Supple, no jvd Chest: B/L clear, no crackles, no accessory muscles usage. CV: RRR, no murmurs or rubs Abdomen: NT, ND, soft Extremities: No peripheral edema, no tremor Neurological: Moving all four extremities, no focal neurological deficit Psychiatric: Normal insight and judgement, good recall : mendoza with hematuria, +CBI ? Data ? ? Recent Labs ? 10/20/17 0740 10/19/172124 NA 139 137 K 4.5 3.9 CHLOR 107 105 CO2 27 21 BUN 24* 25* CREAT 2.58* 2.55* GLUC 103* 163* ALB 3.3* 3.9 CA 8.8 9.5 ? ? ? Recent Labs ? 10/20/17 0325 10/19/172124 WBC 10.55* 12.65* HB 10.6* 10.9* HCT 30.2* 30.2* PLT 247 237 ? ? ? pH, Urine Date Value Ref Range Status 10/19/2017 see below 5.0 - 8.0 Final Comment: Color abnormal- some macroscopic not done. Specific [place], Ur Date Value Ref Range Status 10/19/2017 1.020 1.005 - 1.030 Final Glucose, Urine Date Value Ref Range Status 10/19/2017 see below Negative mg/dL Final Comment: Color abnormal- some macroscopic not done. Bilirubin, Urine Date Value Ref Range Status 10/19/2017 see below Negative Final Comment: Color abnormal- some macroscopic not done. Ketones, Urine Date Value Ref Range Status 10/19/2017 see below Negative mg/dL Final Comment: Color abnormal- some macroscopic not done. Protein, Urine Date Value Ref Range Status 10/19/2017 see below Negative mg/dL Final Comment: Color abnormal- some macroscopic not done. Nitrites Urine Date Value Ref Range Status 10/19/2017 see below Negative Final Comment: Color abnormal- some macroscopic not done. WBC, Urine Date Value Ref Range Status 10/19/2017 1.0-3 0.0 - 5.0 /hpf Final ? CXR EXAM TITLE: CHEST 1 VIEW ? DATE: 10/20/2017 06:09 ? INDICATION: ?Patient history of renal mass. ? COMPARISON: None. ? Portable frontal view of the chest shows heart size to be normal. ? Pulmonary vascularity is normal. ? Lungs are clear. No infiltrates or effusions. ? No obvious acute bony abnormality is evident. There is evidence of old left clavicle fracture. ? IMPRESSION: ? No acute findings radiographically. ? Assessment: 1. BERTHA-acute vs acute/chronic, likely 2/2 obstruction 2. Renal mass( right renal ) 3. Hematuria- from RCC ? 4. DVT history 5. H/o Ulcerative colitis + 6. Anemia from acute blood loss ? Plan: Cr better Resolving BERTHA ? Will need to monitor creat closely Await the baseline cr Would defer contrast imaging at this time given renal function Agree with urology procedures plan Expect cr to get better as the BERTHA resolves Renal mass( RCC ? 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 Serenity Macdonald, RN, RN 10/21/2017 6:08 PM Signed Gold colored ring returned to patient. Naty Acosta MD 10/21/2017 6:15 PM Signed POST ANESTHESIA EVALUATION NOTE SERVICE DATE: 10/21/2017 SERVICE TIME: 6:15 PM : 1955 Vitals: 10/21/17 0739 10/21/17 1134 10/21/17 1607 10/21/17 1735 Temp: 37.2 ?C (99 ?F) 36.9 ?C (98.4 ?F) 36.4 ?C (97.5 ?F) 36.4 ?C (97.5 ?F) 10/21/17 1730 10/21/17 1735 10/21/17 1745 10/21/17 1800 BP: 131/82 131/82 134/82 138/79 10/21/17 1607 10/21/17 1735 10/21/17 1745 10/21/17 1800 Pulse: 70 66 68 67 10/21/17 1607 10/21/17 1735 10/21/17 1745 10/21/17 1800 Resp: 18 15 15 19 10/21/17 1607 10/21/17 1735 10/21/17 1745 10/21/17 1800 SpO2: 98% 100% 98% 100% Validated Vital Signs: Yes POST ANES STATUS: No apparent anesthetic complications. The patient is appropriately hydrated with stable respiratory and cardiovascular status. Patient has safe and adequate airway control. The patient has appropriate pain relief and no significant post operative nausea or vomiting. The patient has achieved baseline mental status. Further assessment by Anesthesia Service: None Other Remarks: SIGNATURE: Naty Acosta MD PATIENT NAME: Juan David Yancey DATE: October 21, 2017 TIME: 6:15 PM PAGER/CONTACT #: [phone] Sigifredojason DO Magdaleno 10/22/2017 9:32 AM Addendum UROLOGY PROGRESS NOTE PATIENT NAME: Juan David Yancey DATE OF : 1955 ADMISSION DATE: 10/19/2017 8:33 PM TODAY'S DATE: 10/22/2017 Subjective No acute events Urine light pink without irrigation No significant pain Objective VS: BP 137/64 Pulse 68 Temp 36.9 ?C (98.4 ?F) (Temporal Artery) Resp 18 Ht 185.4 cm (6' 0.99) Wt 17.9 kg (39 lb 8.6 oz) SpO2 93% BMI 5.22 kg/m2 I AND O - 24hr: Intake/Output Summary (Last 24 hours) at 10/22/17 0746 Last data filed at 10/21/17 2358 Gross per 24 hour Intake 1500 ml Output 2270 ml Net -770 ml Physical Exam: General: Neck: Resp: Abdomen: No acute distress Supple Normal effort Soft, non-tender, nondistended : [address] with light pink urine output Labs and Imaging Studies LABS: BMP: Glucose (mg/dL) Date Value 10/22/2017 87 Potassium (mEq/L) Date Value 10/22/2017 4.5 Sodium (mEq/L) Date Value 10/22/2017 138 Chloride (mEq/L) Date Value 10/22/2017 110 CO2 (mEq/L) Date Value 10/22/2017 23 Creatinine (mg/dL) Date Value 10/22/2017 1.87 BUN (mg/dL) Date Value 10/22/2017 19 Anion Gap (no units) Date Value 10/22/2017 10 Calcium (mg/dL) Date Value 10/22/2017 8.6 CBC: Hemoglobin (g/dL) Date Value 11/30/2012 10.6 HGB (g/dL) Date Value 10/22/2017 9.3 Hematocrit (%) Date Value 10/22/2017 28.6 WBC (thou/cmm) Date Value 10/22/2017 6.97 Platelet Count (thou/cmm) Date Value 10/22/2017 162 Urinalysis: Specific [place], Ur Date Value Ref Range Status 10/19/2017 1.020 1.005 - 1.030 Final Glucose, Urine Date Value Ref Range Status 10/19/2017 see below Negative mg/dL Final Comment: Color abnormal- some macroscopic not done. Bilirubin, Urine Date Value Ref Range Status 10/19/2017 see below Negative Final Comment: Color abnormal- some macroscopic not done. Ketones, Urine Date Value Ref Range Status 10/19/2017 see below Negative mg/dL Final Comment: Color abnormal- some macroscopic not done. Protein, Urine Date Value Ref Range Status 10/19/2017 see below Negative mg/dL Final Comment: Color abnormal- some macroscopic not done. Urobilinogen, Urine Date Value Ref Range Status 10/19/2017 see below 0.0 - 1.0 EU/dL Final Comment: Color abnormal- some macroscopic not done. Nitrites Urine Date Value Ref Range Status 10/19/2017 see below Negative Final Comment: Color abnormal- some macroscopic not done. WBC, Urine Date Value Ref Range Status 10/19/2017 1.0-3 0.0 - 5.0 /hpf Final Urine Culture: Urine Culture (no units) Date Value 10/20/2017 No growth RADIOLOGY: Assessment and Plan ASSESSMENT: 62 year old male 7cm R renal mass and hematuria, POD 1 s/p right ureteroscopy, stent placement, BERTHA PLAN: 1) Cr improving 1.87 from 2.2 - plan for likely renal scan now that Cr <2 2) nephrology consult 3) regular diet 4) may await mendoza removal until renal scan DC 5) start sub q heparin Nelly Moore MD 10/22/2017 7:46 AM I have seen and evaluated the patient and discussed the case with the resident physician. I agree with the assessment and plan as documented in the resident?s note. Cr improving Some hematuria Renal scan today since Cr less than 2 Consider renal mass biopsy vs contrast imaging on Tuesday Will follow Advanced care plan discussed with the patient Valerio Dolan DO, MBA Previous Version Deyanira Yap FIRE ENGINE PUMP OPERATOR, FIRE ENGINE PUMP OPERATOR 10/22/2017 12:43 PM Attested Attestation signed by Angel Luis Lozano at 10/22/2017 5:14 PM Attending Note I have personally performed a face to face assessment of the patient, on the day of service and have reviewed the PA/CENTRIFUGAL DRIER OPERATOR note. I agree with the plan as documented. Angel Luis Lozano MD [facility] progress note ? Reason for consultation: BERTHA/post-obstructive ? Chief Complaint: difficulty with urination ? History of Presenting Illness ? 62 year old male presented from [place] for renal mass. Was unable to urinate prior to presentation. Mendoza was placed draining bright red blood. Was on blood thinner. No previous history, but reports hematuria x 2 weeks. No personal or family history of malignancy. No previous prostate or urinary issues. On Xarelto for DVTs. On CBI. Per nursing, was unable to drain overnight. She reports significant clotting removed. Still needing irrigated Q 3hrs. is making NPO after midnight-? Surgery as inpatient vs outpatient f/u. Additional home meds include ASA and Allopurinol. No FRANCK/ARB or diuretic. Also presently on NS at 125/hr. BP was 186/94 on admit. Today is 135/74 Creat on admit was 2.55, today is 2.58. UA with 1-3 WBC, >100RBC (partially resulted?) Baseline unknown, <1 2012. Patient denies any issues with renal function in past. States has hx UC, hip replacments d/t avascular necrosis from steroid use, DVT with IVC filter placement, PCI. No HTN or DM. Nephrology has been c/s for BERTHA Interval progess note Doing ok Cr is better Baseline ? Off CBI, still with hematuria and nursing irrigating PRN BP ok Overall feels better Family at bedside ROS (-) unless above No change in the PFSH ? Past Medical/Surgical History ? PAST MEDICAL HISTORY PAST MEDICAL HISTORY Diagnosis Date - Avascular necrosis (HCC) bilateral hip replacements d/t avascular necrosis - Blood clot in vein IVC filter placed in 1994 - Bowel disease ? ? MUC, colectomy in 1994 - Gout Summer 2011 ? 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 ? PAST SURGICAL HISTORY PAST SURGICAL HISTORY Procedure Laterality Date - COLECTOMY PARTIAL W ANASTOM ? ? - ILEOSTOMY ? ? ? closed - TOTAL HIP REPLACEMENT ? ? ? bilateral- castro ? ? ? Review of Systems ? All 12 systems reviewed and are negative except for what is mentioned in the HPI. ? Medications ? Prescriptions Prior to Admission ? Prescriptions Prior to Admission: aspirin 325 mg tablet Take 325 mg by mouth once daily. Disp: Rfl: ? RIVAROXABAN (XARELTO ORAL) Take 20 mg by mouth once daily. Disp: Rfl: ? allopurinol 100 mg tablet Take 2 tablets by mouth once daily. In 2 weeks, increase to 300mg/day Disp: 60 tablet Rfl: 2 ? ? ? CURRENT MEDICATIONS ? Current Facility-Administered Medications: oxybutynin 5 mg tab(s) (DITROPAN) 5 mg ORAL TID amLODIPine 10 mg tab(s) (NORVASC) 10 mg ORAL DAILY NaCl 0.9% irrigation solution 3,000 mL IRRIGATION CONTINUOUS allopurinol 200 mg tab(s) (ZYLOPRIM) 200 mg ORAL DAILY NaCl 0.9% iv infusion 125 mL/hr INTRAVENOUS CONTINUOUS acetaminophen 650 mg tab(s) (TYLENOL) 650 mg ORAL q 4 H PRN oxyCODONE-acetaminophen 5-325 mg 1-2 tablet (PERCOCET) 1-2 tablet ORAL q 4 H PRN morphine 2-4 mg injection 2-4 mg INTRAVENOUS q 2 H PRN ondansetron (PF) 4 mg injection (ZOFRAN) 4 mg INTRAVENOUS q 6 H PRN docusate sodium 100 mg cap(s) (COLACE) 100 mg ORAL BID ceFAZolin 1 g in dextrose (iso-osmotic) 50 mL (ANCEF, KEFZOL) 1 g INTRAVENOUS q 8 H belladonna-opium 16.2-60 mg 1 Suppository suppository (B and O 16-A) 1 Suppository RECTAL TID PRN ? ? Allergies ? Morphine; Prednisone ? ? Family History ? Negative for Kidney Disease FAMILY HISTORY No family history on file. ? Social History ? SOCIAL HISTORY Social History Marital status: Spouse name: Years of education: Number of children: ? Social History Main Topics Smoking status: Never Smoker ? Smokeless status: Never Used Alcohol use: Yes Comment: social Drug use: No ? ? Physical Exam ? Blood pressure 135/71, pulse 66, temperature 36.9 ?C (98.4 ?F), temperature source Oral, resp. rate 18, height 185.4 cm (6' 0.99), weight 17.9 kg (39 lb 8.6 oz), SpO2 97 %. 24 HR INTAKE/OUTPUT: Intake/Output Summary (Last 24 hours) at 10/20/17 1522 Last data filed at 10/20/17 1504 ? Gross per 24 hour Intake 3640 ml Output 2800 ml Net 840 ml ? ? General: NAD, Comfortable appearing, cooperative to history and physical exam. Head: AT NC Neck: Supple, no jvd Chest: B/L clear, no crackles, no accessory muscles usage. CV: RRR, no murmurs or rubs Abdomen: NT, ND, soft Extremities: No peripheral edema, no tremor Neurological: Moving all four extremities, no focal neurological deficit Psychiatric: Normal insight and judgement, good recall : mendoza with hematuria ? Data ? ? Recent Labs ? 10/20/17 0740 10/19/17 2125 NA 139 137 K 4.5 3.9 CHLOR 107 105 CO2 27 21 BUN 24* 25* CREAT 2.58* 2.55* GLUC 103* 163* ALB 3.3* 3.9 CA 8.8 9.5 ? ? ? Recent Labs ? 10/20/17 0325 10/19/17 2125 WBC 10.55* 12.65* HB 10.6* 10.9* HCT 30.2* 30.2* PLT 247 237 ? ? ? pH, Urine Date Value Ref Range Status 10/19/2017 see below 5.0 - 8.0 Final Comment: Color abnormal- some macroscopic not done. Specific [place], Ur Date Value Ref Range Status 10/19/2017 1.020 1.005 - 1.030 Final Glucose, Urine Date Value Ref Range Status 10/19/2017 see below Negative mg/dL Final Comment: Color abnormal- some macroscopic not done. Bilirubin, Urine Date Value Ref Range Status 10/19/2017 see below Negative Final Comment: Color abnormal- some macroscopic not done. Ketones, Urine Date Value Ref Range Status 10/19/2017 see below Negative mg/dL Final Comment: Color abnormal- some macroscopic not done. Protein, Urine Date Value Ref Range Status 10/19/2017 see below Negative mg/dL Final Comment: Color abnormal- some macroscopic not done. Nitrites Urine Date Value Ref Range Status 10/19/2017 see below Negative Final Comment: Color abnormal- some macroscopic not done. WBC, Urine Date Value Ref Range Status 10/19/2017 1.0-3 0.0 - 5.0 /hpf Final ? CXR EXAM TITLE: CHEST 1 VIEW ? DATE: 10/20/2017 06:09 ? INDICATION: ?Patient history of renal mass. ? COMPARISON: None. ? Portable frontal view of the chest shows heart size to be normal. ? Pulmonary vascularity is normal. ? Lungs are clear. No infiltrates or effusions. ? No obvious acute bony abnormality is evident. There is evidence of old left clavicle fracture. ? IMPRESSION: ? No acute findings radiographically. ? Assessment: 1. BERTHA-acute vs acute/chronic, likely 2/2 obstruction 2. Renal mass( right renal ) 3. Hematuria- from RCC ? 4. DVT history 5. H/o Ulcerative colitis + 6. Anemia from acute blood loss ? Plan: Cr better Resolving BERTHA ? Will need to monitor creat closely Await the baseline cr Would defer contrast imaging at this time given renal function ?renal scan per urology Expect cr to get better as the BERTHA resolves Renal mass( RCC ? 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 Deep Garcia MD, MD 10/22/2017 4:27 PM Signed DEPARTMENT OF HOSPITAL MEDICINE PROGRESS NOTE SERVICE DATE: 10/22/2017 SERVICE TIME: 4:23 PM Hospital Medicine/Primary Attending: Deep Garcia MD NIGHT AND WEEKEND COVERAGE: After 7pm please page [phone] CHIEF COMPLAINT: Admitted for rt renal mass and gross hematuria SUBJECTIVE: Patient seen and examined' Doing well and has no new complaints OBJECTIVE: PHYSICAL EXAM: BP 154/80 Pulse 88 Temp (Src) 97.7 (Oral) Resp 20 Ht 6' .992 (1.85m) Wt 39 lb 8.6 oz (17.9kg) SpO2 95% BMI 5.22 kg/(m2). General - AANDOx3, NAD, Calm CV - RRR S1 S2, No M/R/G RESP - CTA B/L No wheezes, ronchi, rales ABD - soft, NT, ND +BS EXT - no gross joint deformity, no clubbing, cyanosis, edema NEURO - CN II-XII grossly intact, no focal deficits ARY - mendoza in place and draining reddish urine with some clots in tubing MEDICATIONS: Current hospital medications: heparin 5,000 Units injection 5,000 Units SUBCUTANEOUS q 8 H NaCl 0.9% irrigation solution 3,000 mL IRRIGATION CONTINUOUS oxybutynin 5 mg tab(s) (DITROPAN) 5 mg ORAL TID amLODIPine 10 mg tab(s) (NORVASC) 10 mg ORAL DAILY allopurinol 200 mg tab(s) (ZYLOPRIM) 200 mg ORAL DAILY NaCl 0.9% iv infusion 100 mL/hr INTRAVENOUS CONTINUOUS acetaminophen 650 mg tab(s) (TYLENOL) 650 mg ORAL q 4 H PRN oxyCODONE-acetaminophen 5-325 mg 1-2 tablet (PERCOCET) 1-2 tablet ORAL q 4 H PRN morphine 2-4 mg injection 2-4 mg INTRAVENOUS q 2 H PRN ondansetron (PF) 4 mg injection (ZOFRAN) 4 mg INTRAVENOUS q 6 H PRN docusate sodium 100 mg cap(s) (COLACE) 100 mg ORAL BID belladonna-opium 16.2-60 mg 1 Suppository suppository (B and O 16-A) 1 Suppository RECTAL TID PRN DATA: Diagnostic tests reviewed for today's visit: CBC: Recent Labs 10/22/17 0455 WBC 6.97 RBC 2.81* HB 9.3* HCT 28.6* PLT 162 MCV 101.8* MCH 33.1* MPV 10.3 RDW 14.6* Coags: No results for input(s): INR, APTT in the last 24 hours. Invalid input(s): PT BMP: Recent Labs 10/22/17 0455 NA 138 K 4.5 CHLOR 110* CO2 23 BUN 19* CREAT 1.87* GLUC 87 CMP: Recent Labs 10/22/17 0455 NA 138 K 4.5 CHLOR 110* CO2 23 BUN 19* CREAT 1.87* GLUC 87 CA 8.6 ANION 10 Cardiac Enzymes: No results for input(s): CK, MB, CKMB, TROPT in the last 24 hours. Liver Function, Amylase, Lipase: No results for input(s): TPROT, ALB, ALT, AST, ALKPHOS, TBILI, AMYLASE, LIPASE, LACTATE in the last 24 hours. MG/PHOS: No results for input(s): MG, P in the last 24 hours. Renal Panel: Recent Labs 10/22/17 0455 CREAT 1.87* BUN 19* GLUC 87 CA 8.6 CHLOR 110* K 4.5 CO2 23 NA 138 Heme: Recent Labs 10/22/17 0838 KE 153.70 FE 32* TIBC 349 No results found for: UALBCR Assessment/Plan 1. Large renal mass with gross hematuria. Likely renal cell malignancy. S/p cystoeretoroscopy and stent placement in there right ureter. 2. BERTHA. Likely post-obstructive from blood clots. Nephrology on consult. Getting IVFs as well and creatinine improving ? 3. 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 On hold for now 4. Anemia. Some component of blood loss. Will work up. ? ? VTE Prophylaxis: Pneumatic Compression Device Disposition: Home Plan of care discussed with: Patient SIGNATURE: Deep Garcia MD PATIENT NAME: Juan David Yancey DATE: October 22, 2017 TIME: 4:23 PM PAGER/CONTACT #: [email or web address] Dolan DO 10/23/2017 11:33 AM Signed UROLOGY PROGRESS NOTE PATIENT NAME: Juan David Yancey DATE OF : 1955 ADMISSION DATE: 10/19/2017 8:33 PM TODAY'S DATE: 10/23/2017 Subjective Still with hematuria - light red on moderate drip - hgb stable Describes changes in bowel function - described as issue when hospitalized (hx of colectomy) No c/o pain Objective VS: BP 157/84 Pulse 80 Temp 36.7 ?C (98.1 ?F) (Temporal Artery) Resp 18 Ht 185.4 cm (6' 0.99) Wt 17.9 kg (39 lb 8.6 oz) SpO2 99% BMI 5.22 kg/m2 I AND O - 24hr: Intake/Output Summary (Last 24 hours) at 10/23/17 0846 Last data filed at 10/23/17 0700 Gross per 24 hour Intake 5030 ml Output 73376 ml Net -97357 ml Physical Exam: General: Neck: Resp: Abdomen: No acute distress Supple Normal effort Soft, non-tender, nondistended : 24 fr soft, light red urine Labs and Imaging Studies LABS: BMP: Glucose (mg/dL) Date Value 10/23/2017 106 Potassium (mEq/L) Date Value 10/23/2017 4.0 Sodium (mEq/L) Date Value 10/23/2017 137 Chloride (mEq/L) Date Value 10/23/2017 108 CO2 (mEq/L) Date Value 10/23/2017 22 Creatinine (mg/dL) Date Value 10/23/2017 1.80 BUN (mg/dL) Date Value 10/23/2017 17 Anion Gap (no units) Date Value 10/23/2017 11 Calcium (mg/dL) Date Value 10/23/2017 8.8 CBC: Hemoglobin (g/dL) Date Value 11/30/2012 10.6 HGB (g/dL) Date Value 10/23/2017 9.6 Hematocrit (%) Date Value 10/23/2017 28.1 WBC (thou/cmm) Date Value 10/23/2017 7.69 Platelet Count (thou/cmm) Date Value 10/23/2017 158 Urinalysis: Specific [place], Ur Date Value Ref Range Status 10/19/2017 1.020 1.005 - 1.030 Final Glucose, Urine Date Value Ref Range Status 10/19/2017 see below Negative mg/dL Final Comment: Color abnormal- some macroscopic not done. Bilirubin, Urine Date Value Ref Range Status 10/19/2017 see below Negative Final Comment: Color abnormal- some macroscopic not done. Ketones, Urine Date Value Ref Range Status 10/19/2017 see below Negative mg/dL Final Comment: Color abnormal- some macroscopic not done. Protein, Urine Date Value Ref Range Status 10/19/2017 see below Negative mg/dL Final Comment: Color abnormal- some macroscopic not done. Urobilinogen, Urine Date Value Ref Range Status 10/19/2017 see below 0.0 - 1.0 EU/dL Final Comment: Color abnormal- some macroscopic not done. Nitrites Urine Date Value Ref Range Status 10/19/2017 see below Negative Final Comment: Color abnormal- some macroscopic not done. WBC, Urine Date Value Ref Range Status 10/19/2017 1.0-3 0.0 - 5.0 /hpf Final Urine Culture: Urine Culture (no units) Date Value 10/20/2017 No growth RADIOLOGY: Assessment and Plan ASSESSMENT: 62 year old male 7cm R renal mass and hematuria, POD 2 s/p right ureteroscopy, stent placement, BERTHA PLAN: 1) to get renal scan today to evaluate split renal function 2) continue regular diet 3) likely renal mass biopsy tomorrow as unlikely cr will be within range to allow for contrast enhanced CT 4) appreciate hospitalist and nephrology recs 5) continue CBI 6) continue subq heparin Nelly Moore MD 10/23/2017 8:46 AM I have seen and evaluated the patient and discussed the case with the resident physician. I agree with the assessment and plan as documented in the resident?s note. Continue CBI Renal scan today Renal mass biopsy Will follow Silviano Dolan DO, MBA Previous Version Deyanira Yap FIRE ENGINE PUMP OPERATOR, FIRE ENGINE PUMP OPERATOR 10/23/2017 12:08 PM Attested Attestation signed by Angel Luis Lozano at 10/23/2017 2:44 PM Attending Note I have reviewed the PA/CENTRIFUGAL DRIER OPERATOR note. I agree with the plan as documented. Angel Luis Lozano MD [facility] Nephrology progress note ? Reason for consultation: BERTHA/post-obstructive ? Chief Complaint: difficulty with urination ? History of Presenting Illness ? 62 year old male presented from [place] for renal mass. Was unable to urinate prior to presentation. Mendoza was placed draining bright red blood. Was on blood thinner. No previous history, but reports hematuria x 2 weeks. No personal or family history of malignancy. No previous prostate or urinary issues. On Xarelto for DVTs. On CBI. Per nursing, was unable to drain overnight. She reports significant clotting removed. Still needing irrigated Q 3hrs. is making NPO after midnight-? Surgery as inpatient vs outpatient f/u. Additional home meds include ASA and Allopurinol. No FRANCK/ARB or diuretic. Also presently on NS at 125/hr. BP was 186/94 on admit. Today is 135/74 Creat on admit was 2.55, today is 2.58. UA with 1-3 WBC, >100RBC (partially resulted?) Baseline unknown, <1 2012. Patient denies any issues with renal function in past. States has hx UC, hip replacments d/t avascular necrosis from steroid use, DVT with IVC filter placement, PCI. No HTN or DM. Nephrology has been c/s for BERTHA Interval progess note Doing ok Cr is stable Baseline ? Back on CBI BP ok Reports not eating well No SOB On NS at 50/hr ROS (-) unless above No change in the PFSH ? Past Medical/Surgical History ? PAST MEDICAL HISTORY PAST MEDICAL HISTORY Diagnosis Date - Avascular necrosis (HCC) bilateral hip replacements d/t avascular necrosis - Blood clot in vein IVC filter placed in 1994 - Bowel disease ? ? MUC, colectomy in 1994 - Gout Summer 2011 ? 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 ? PAST SURGICAL HISTORY PAST SURGICAL HISTORY Procedure Laterality Date - COLECTOMY PARTIAL W ANASTOM ? ? - ILEOSTOMY ? ? ? closed - TOTAL HIP REPLACEMENT ? ? ? bilateral- castro ? ? ? Review of Systems ? All 12 systems reviewed and are negative except for what is mentioned in the HPI. ? Medications ? Prescriptions Prior to Admission ? Prescriptions Prior to Admission: aspirin 325 mg tablet Take 325 mg by mouth once daily. Disp: Rfl: ? RIVAROXABAN (XARELTO ORAL) Take 20 mg by mouth once daily. Disp: Rfl: ? allopurinol 100 mg tablet Take 2 tablets by mouth once daily. In 2 weeks, increase to 300mg/day Disp: 60 tablet Rfl: 2 ? ? ? CURRENT MEDICATIONS ? Current Facility-Administered Medications: oxybutynin 5 mg tab(s) (DITROPAN) 5 mg ORAL TID amLODIPine 10 mg tab(s) (NORVASC) 10 mg ORAL DAILY NaCl 0.9% irrigation solution 3,000 mL IRRIGATION CONTINUOUS allopurinol 200 mg tab(s) (ZYLOPRIM) 200 mg ORAL DAILY NaCl 0.9% iv infusion 125 mL/hr INTRAVENOUS CONTINUOUS acetaminophen 650 mg tab(s) (TYLENOL) 650 mg ORAL q 4 H PRN oxyCODONE-acetaminophen 5-325 mg 1-2 tablet (PERCOCET) 1-2 tablet ORAL q 4 H PRN morphine 2-4 mg injection 2-4 mg INTRAVENOUS q 2 H PRN ondansetron (PF) 4 mg injection (ZOFRAN) 4 mg INTRAVENOUS q 6 H PRN docusate sodium 100 mg cap(s) (COLACE) 100 mg ORAL BID ceFAZolin 1 g in dextrose (iso-osmotic) 50 mL (ANCEF, KEFZOL) 1 g INTRAVENOUS q 8 H belladonna-opium 16.2-60 mg 1 Suppository suppository (B and O 16-A) 1 Suppository RECTAL TID PRN ? ? Allergies ? Morphine; Prednisone ? ? Family History ? Negative for Kidney Disease FAMILY HISTORY No family history on file. ? Social History ? SOCIAL HISTORY Social History Marital status: Spouse name: Years of education: Number of children: ? Social History Main Topics Smoking status: Never Smoker ? Smokeless status: Never Used Alcohol use: Yes Comment: social Drug use: No ? ? Physical Exam ? Blood pressure 135/71, pulse 66, temperature 36.9 ?C (98.4 ?F), temperature source Oral, resp. rate 18, height 185.4 cm (6' 0.99), weight 17.9 kg (39 lb 8.6 oz), SpO2 97 %. 24 HR INTAKE/OUTPUT: Intake/Output Summary (Last 24 hours) at 10/20/17 1522 Last data filed at 10/20/17 1504 ? Gross per 24 hour Intake 3640 ml Output 2800 ml Net 840 ml ? ? General: NAD, Comfortable appearing, cooperative to history and physical exam. Head: AT NC Neck: Supple, no jvd Chest: B/L clear, no crackles, no accessory muscles usage. CV: RRR, no murmurs or rubs Abdomen: NT, ND, soft Extremities: trace peripheral edema, no tremor Neurological: Moving all four extremities, no focal neurological deficit Psychiatric: Normal insight and judgement, good recall : mendoza with hematuria, +CBI ? Data ? ? Recent Labs ? 10/20/17 0740 10/19/17 2125 NA 139 137 K 4.5 3.9 CHLOR 107 105 CO2 27 21 BUN 24* 25* CREAT 2.58* 2.55* GLUC 103* 163* ALB 3.3* 3.9 CA 8.8 9.5 ? ? ? Recent Labs ? 10/20/17 0325 10/19/17 2125 WBC 10.55* 12.65* HB 10.6* 10.9* HCT 30.2* 30.2* PLT 247 237 ? ? ? pH, Urine Date Value Ref Range Status 10/19/2017 see below 5.0 - 8.0 Final Comment: Color abnormal- some macroscopic not done. Specific [place], Ur Date Value Ref Range Status 10/19/2017 1.020 1.005 - 1.030 Final Glucose, Urine Date Value Ref Range Status 10/19/2017 see below Negative mg/dL Final Comment: Color abnormal- some macroscopic not done. Bilirubin, Urine Date Value Ref Range Status 10/19/2017 see below Negative Final Comment: Color abnormal- some macroscopic not done. Ketones, Urine Date Value Ref Range Status 10/19/2017 see below Negative mg/dL Final Comment: Color abnormal- some macroscopic not done. Protein, Urine Date Value Ref Range Status 10/19/2017 see below Negative mg/dL Final Comment: Color abnormal- some macroscopic not done. Nitrites Urine Date Value Ref Range Status 10/19/2017 see below Negative Final Comment: Color abnormal- some macroscopic not done. WBC, Urine Date Value Ref Range Status 10/19/2017 1.0-3 0.0 - 5.0 /hpf Final ? CXR EXAM TITLE: CHEST 1 VIEW ? DATE: 10/20/2017 06:09 ? INDICATION: ?Patient history of renal mass. ? COMPARISON: None. ? Portable frontal view of the chest shows heart size to be normal. ? Pulmonary vascularity is normal. ? Lungs are clear. No infiltrates or effusions. ? No obvious acute bony abnormality is evident. There is evidence of old left clavicle fracture. ? IMPRESSION: ? No acute findings radiographically. ?Results for JUAN DAVID YANCEY ( ) as of 10/23/2017 12:08 Ref. Range 10/23/2017 02:45 Sodium Latest Ref Range: 136 - 145 mEq/L 137 Potassium Latest Ref Range: 3.5 - 5.1 mEq/L 4.0 Chloride Latest Ref Range: 98 - 107 mEq/L 108 (H) CO2 Latest Ref Range: 21 - 32 mEq/L 22 BUN Latest Ref Range: 7 - 18 mg/dL 17 Creatinine Latest Ref Range: 0.67 - 1.17 mg/dL 1.80 (H) Glucose Latest Ref Range: 70 - 99 mg/dL 106 (H) Calcium Latest Ref Range: 8.5 - 10.1 mg/dL 8.8 Anion Gap Latest Ref Range: 8 - 16 11 eGFR Latest Ref Range: >60mL/min/1.73m2 38.60 Assessment: 1. BERTHA-acute vs acute/chronic, likely 2/2 obstruction 2. Renal mass( right renal ) 3. Hematuria- from RCC ? 4. DVT history 5. H/o Ulcerative colitis + 6. Anemia from acute blood loss ? Plan: Cr stable Resolving BERTHA ? Will need to monitor creat closely Await the baseline cr Would defer contrast imaging at this time given renal function Renal scan per urology tentatively planned for today Expect cr to get better as the BERTHA resolves Renal mass( RCC ? 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 Sharon Luna RN, RN 10/23/2017 1:08 PM Signed Nursing Progress Note Patient Name: Juan David Yancey Patient Location: [id number]/[place] [id number]* Bp 162/81, Dr. Esquivel aware, no additionally orders; iv lasix will be given for renal scan. PT to radiology via cart, irrigated to pink, mendoza bag emptied, CBI bag checked /almost full. This note was completed by: Sharon Luna, ЕЛЕНА Dolan, DO 10/25/2017 7:28 AM Signed UROLOGY PROGRESS NOTE PATIENT NAME: Juan David Yancey DATE OF : 1955 ADMISSION DATE: 10/19/2017 8:33 PM TODAY'S DATE: 10/24/2017 Subjective Still with clots overnight Doing well otherwise No complaints of flank pain Objective VS: BP 155/84 Pulse 87 Temp 36.9 ?C (98.4 ?F) (Oral) Resp 18 Ht 185.4 cm (6' 0.99) Wt 17.9 kg (39 lb 8.6 oz) SpO2 95% BMI 5.22 kg/m2 I AND O - 24hr: Intake/Output Summary (Last 24 hours) at 10/24/17 0706 Last data filed at 10/24/17 0640 Gross per 24 hour Intake 4300 ml Output 19186 ml Net -68243 ml Physical Exam: General: Neck: Resp: Abdomen: No acute distress Supple Normal effort Soft, non-tender, nondistended : [address], light pink on moderate drip Labs and Imaging Studies LABS: BMP: Glucose (mg/dL) Date Value 10/24/2017 125 Potassium (mEq/L) Date Value 10/24/2017 3.9 Sodium (mEq/L) Date Value 10/24/2017 138 Chloride (mEq/L) Date Value 10/24/2017 106 CO2 (mEq/L) Date Value 10/24/2017 23 Creatinine (mg/dL) Date Value 10/24/2017 1.64 BUN (mg/dL) Date Value 10/24/2017 17 Anion Gap (no units) Date Value 10/24/2017 13 Calcium (mg/dL) Date Value 10/24/2017 9.0 CBC: Hemoglobin (g/dL) Date Value 11/30/2012 10.6 HGB (g/dL) Date Value 10/24/2017 8.7 Hematocrit (%) Date Value 10/24/2017 26.6 WBC (thou/cmm) Date Value 10/24/2017 8.49 Platelet Count (thou/cmm) Date Value 10/24/2017 161 Urinalysis: Specific [place], Ur Date Value Ref Range Status 10/19/2017 1.020 1.005 - 1.030 Final Glucose, Urine Date Value Ref Range Status 10/19/2017 see below Negative mg/dL Final Comment: Color abnormal- some macroscopic not done. Bilirubin, Urine Date Value Ref Range Status 10/19/2017 see below Negative Final Comment: Color abnormal- some macroscopic not done. Ketones, Urine Date Value Ref Range Status 10/19/2017 see below Negative mg/dL Final Comment: Color abnormal- some macroscopic not done. Protein, Urine Date Value Ref Range Status 10/19/2017 see below Negative mg/dL Final Comment: Color abnormal- some macroscopic not done. Urobilinogen, Urine Date Value Ref Range Status 10/19/2017 see below 0.0 - 1.0 EU/dL Final Comment: Color abnormal- some macroscopic not done. Nitrites Urine Date Value Ref Range Status 10/19/2017 see below Negative Final Comment: Color abnormal- some macroscopic not done. WBC, Urine Date Value Ref Range Status 10/19/2017 1.0-3 0.0 - 5.0 /hpf Final Urine Culture: Urine Culture (no units) Date Value 10/20/2017 No growth RADIOLOGY: Renal ultrasound: CLINICAL INDICATION/HISTORY: Renal mass; surgical planning ? TECHNIQUE: Scanning was performed by the technologist. ?Images were saved in a permanent archive (PACS). ? RESULTS: ? RIGHT KIDNEY: ?13.2 x 6.6 x 5.3 cm ? No evidence of hydronephrosis No shadowing calculus or perinephric fluid collection is seen. ? Along the posterior aspect of the superior pole there is a fairly isoechoic solid-appearing mass measuring 4.3 x 3.4 x 4.4 cm. ?No additional abnormality of the right kidney is seen. No cysts are seen. ? ? LEFT KIDNEY: ? 12.9 x 6.1 x 4.2 cm ? No evidence of hydronephrosis No shadowing calculus or perinephric fluid collection is seen. ? There are no masses which distort the renal cortical outlines. No cysts are seen. ? ? Urinary bladder is collapsed because of Mendoza catheter.. ? IMPRESSION: ? ? 1. ?4.4 cm mass of the right kidney at the superior pole, posterior aspect. This should be considered renal cell carcinoma unless proven otherwise. ?This corresponds to the mass seen on CT. ?No evidence of hydronephrosis. ?If the patient would be able, a contrast-enhanced CT or MRI could offer better evaluation ?of the kidneys ? 2. ?Left kidney is unremarkable as visualized Renal scan DIURETIC RENAL SCAN: ? CLINICAL HISTORY: hydronephrosis ? TECHNIQUE: 10.1 mCi Tc 99m MAG3 IV. ?Medications and allergies reviewed. ?40 ?mg Lasix was given IV at ?30 minutes. Imaging of the kidneys for flow and function obtained in posterior views. ? ? RESULT: ? RENAL PERFUSION: There is prompt perfusion to the left kidney. There is decreased perfusion to the right kidney. ? ? RENAL FUNCTION: ? There is reasonable uptake and parenchymal transit by the left kidney. ?There is spontaneous drainage of activity by the left kidney. ?Following Lasix there is further clearance with no evidence of obstruction. ?Mild retention in the post void images. ?No scintigraphic evidence to suggest obstruction on the left. ? ? There is decreased and delayed uptake and delayed parenchymal transit by the right ?kidney. ?There is delayed drainage of activity by the right kidney with progressive accumulation of tracer. ?Following Lasix there is poor clearance. Post ?Lasix t- half?clearance time is significantly prolonged with an essentially flat renogram curve. ?Findings suggestive of obstruction. ? ? By computer analysis, the contribution to total renal function is 85% from the left kidney, and 15% from the right kidney. ? IMPRESSION: ? LEFT KIDNEY: RELATIVELY BETTER FLOW AND FUNCTION AND DRAINAGE COMPARED TO THE RIGHT. ?NO SCINTIGRAPHIC EVIDENCE OF OBSTRUCTION ON THE LEFT. ? RIGHT KIDNEY: DECREASED FLOW AND FUNCTION AND DELAYED DRAINAGE. ?FINDINGS SUGGESTIVE OF OBSTRUCTION ON THE RIGHT. ? SPLIT FUNCTION: LEFT KIDNEY 85% AND RIGHT KIDNEY 15% Assessment and Plan ASSESSMENT: 62 year old male 7cm R renal mass and hematuria, POD 3 s/p right ureteroscopy, stent placement,?BERTHA PLAN: 1) BERTHA - Cr continues to improve 1.64 from 1.8 yesterday - will discuss with Dr. Dolan to continue to monitor vs Renal mass biopsy 2) renal scan suggesting 15% fxn of side with tumor - this may be artificially low due to some component of obstruction 3) continue CBI 4) continue subq heparin 5) discussed may require surgery as inpatient if continues to have significant hematuria - will continue to monitor Nelly Moore MD 10/24/2017 7:06 AM I have seen and evaluated the patient and discussed the case with the resident physician. I agree with the assessment and plan as documented in the resident?s note. Continue hematuria with clots He will need a right nephrectomy Cr is improving daily Stent will be removed at that time as well He is in agreement with the plan Tentatively scheduled this Tuesday with Dr. Maurisio Dolan DO, MBA Previous Version Jose Manuel Sheets RN, RN 10/24/2017 2:18 PM Signed CARE MANAGEMENT PROGRESS NOTE SERVICE DATE: 10/24/2017 SERVICE TIME: 1416 LOS: 4 days Chart reviewed. Spoke with RN. Spoke with patient and family. Possible renal biopsy or surgery due to continued hematuria. Plan still to d/c home with family when medically stable. Will continue to follow hospital course. SIGNATURE: Jose Manuel Sheets RN PATIENT NAME: Juan David Yancey DATE: October 24, 2017 TIME: 2:16 PM PAGER/CONTACT #: [phone] Daniel Zelaya MD 10/24/2017 5:25 PM Signed [facility] progress note ? Reason for consultation: BERTHA/post-obstructive ? Chief Complaint: difficulty with urination ? History of Presenting Illness ? 62 year old male presented from [place] for renal mass. Was unable to urinate prior to presentation. Mendoza was placed draining bright red blood. Was on blood thinner. No previous history, but reports hematuria x 2 weeks. No personal or family history of malignancy. No previous prostate or urinary issues. On Xarelto for DVTs. On CBI. Per nursing, was unable to drain overnight. She reports significant clotting removed. Still needing irrigated Q 3hrs. is making NPO after midnight-? Surgery as inpatient vs outpatient f/u. Additional home meds include ASA and Allopurinol. No FRANCK/ARB or diuretic. Also presently on NS at 125/hr. BP was 186/94 on admit. Today is 135/74 Creat on admit was 2.55, today is 2.58. UA with 1-3 WBC, >100RBC (partially resulted?) Baseline unknown, <1 2012. Patient denies any issues with renal function in past. States has hx UC, hip replacments d/t avascular necrosis from steroid use, DVT with IVC filter placement, PCI. No HTN or DM. Nephrology has been c/s for BERTHA Interval progess note Doing ok Cr is stable Baseline ? Back on CBI BP ok Reports not eating well No SOB On NS at 50/hr ROS (-) unless above No change in the PFSH ? Past Medical/Surgical History ? PAST MEDICAL HISTORY PAST MEDICAL HISTORY Diagnosis Date - Avascular necrosis (HCC) bilateral hip replacements d/t avascular necrosis - Blood clot in vein IVC filter placed in 1994 - Bowel disease ? ? MUC, colectomy in 1994 - Gout Summer 2011 ? 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 ? PAST SURGICAL HISTORY PAST SURGICAL HISTORY Procedure Laterality Date - COLECTOMY PARTIAL W ANASTOM ? ? - ILEOSTOMY ? ? ? closed - TOTAL HIP REPLACEMENT ? ? ? bilateral- castro ? ? ? Review of Systems ? All 12 systems reviewed and are negative except for what is mentioned in the HPI. ? Medications ? Prescriptions Prior to Admission ? Prescriptions Prior to Admission: aspirin 325 mg tablet Take 325 mg by mouth once daily. Disp: Rfl: ? RIVAROXABAN (XARELTO ORAL) Take 20 mg by mouth once daily. Disp: Rfl: ? allopurinol 100 mg tablet Take 2 tablets by mouth once daily. In 2 weeks, increase to 300mg/day Disp: 60 tablet Rfl: 2 ? ? ? CURRENT MEDICATIONS ? Current Facility-Administered Medications: oxybutynin 5 mg tab(s) (DITROPAN) 5 mg ORAL TID amLODIPine 10 mg tab(s) (NORVASC) 10 mg ORAL DAILY NaCl 0.9% irrigation solution 3,000 mL IRRIGATION CONTINUOUS allopurinol 200 mg tab(s) (ZYLOPRIM) 200 mg ORAL DAILY NaCl 0.9% iv infusion 125 mL/hr INTRAVENOUS CONTINUOUS acetaminophen 650 mg tab(s) (TYLENOL) 650 mg ORAL q 4 H PRN oxyCODONE-acetaminophen 5-325 mg 1-2 tablet (PERCOCET) 1-2 tablet ORAL q 4 H PRN morphine 2-4 mg injection 2-4 mg INTRAVENOUS q 2 H PRN ondansetron (PF) 4 mg injection (ZOFRAN) 4 mg INTRAVENOUS q 6 H PRN docusate sodium 100 mg cap(s) (COLACE) 100 mg ORAL BID ceFAZolin 1 g in dextrose (iso-osmotic) 50 mL (ANCEF, KEFZOL) 1 g INTRAVENOUS q 8 H belladonna-opium 16.2-60 mg 1 Suppository suppository (B and O 16-A) 1 Suppository RECTAL TID PRN ? ? Allergies ? Morphine; Prednisone ? ? Family History ? Negative for Kidney Disease FAMILY HISTORY No family history on file. ? Social History ? SOCIAL HISTORY Social History Marital status: Spouse name: Years of education: Number of children: ? Social History Main Topics Smoking status: Never Smoker ? Smokeless status: Never Used Alcohol use: Yes Comment: social Drug use: No ? ? Physical Exam ? Blood pressure 135/71, pulse 66, temperature 36.9 ?C (98.4 ?F), temperature source Oral, resp. rate 18, height 185.4 cm (6' 0.99), weight 17.9 kg (39 lb 8.6 oz), SpO2 97 %. 24 HR INTAKE/OUTPUT: Intake/Output Summary (Last 24 hours) at 10/20/17 1522 Last data filed at 10/20/17 1504 ? Gross per 24 hour Intake 3640 ml Output 2800 ml Net 840 ml ? ? General: NAD, Comfortable appearing, cooperative to history and physical exam. Head: AT NC Neck: Supple, no jvd Chest: B/L clear, no crackles, no accessory muscles usage. CV: RRR, no murmurs or rubs Abdomen: NT, ND, soft Extremities: trace peripheral edema, no tremor Neurological: Moving all four extremities, no focal neurological deficit Psychiatric: Normal insight and judgement, good recall : mendoza with hematuria, +CBI ? Data ? ? Recent Labs ? 10/20/17 0740 10/19/17 2125 NA 139 137 K 4.5 3.9 CHLOR 107 105 CO2 27 21 BUN 24* 25* CREAT 2.58* 2.55* GLUC 103* 163* ALB 3.3* 3.9 CA 8.8 9.5 ? ? ? Recent Labs ? 10/20/17 0325 10/19/17 2125 WBC 10.55* 12.65* HB 10.6* 10.9* HCT 30.2* 30.2* PLT 247 237 ? ? ? pH, Urine Date Value Ref Range Status 10/19/2017 see below 5.0 - 8.0 Final Comment: Color abnormal- some macroscopic not done. Specific [place], Ur Date Value Ref Range Status 10/19/2017 1.020 1.005 - 1.030 Final Glucose, Urine Date Value Ref Range Status 10/19/2017 see below Negative mg/dL Final Comment: Color abnormal- some macroscopic not done. Bilirubin, Urine Date Value Ref Range Status 10/19/2017 see below Negative Final Comment: Color abnormal- some macroscopic not done. Ketones, Urine Date Value Ref Range Status 10/19/2017 see below Negative mg/dL Final Comment: Color abnormal- some macroscopic not done. Protein, Urine Date Value Ref Range Status 10/19/2017 see below Negative mg/dL Final Comment: Color abnormal- some macroscopic not done. Nitrites Urine Date Value Ref Range Status 10/19/2017 see below Negative Final Comment: Color abnormal- some macroscopic not done. WBC, Urine Date Value Ref Range Status 10/19/2017 1.0-3 0.0 - 5.0 /hpf Final ? CXR EXAM TITLE: CHEST 1 VIEW ? DATE: 10/20/2017 06:09 ? INDICATION: ?Patient history of renal mass. ? COMPARISON: None. ? Portable frontal view of the chest shows heart size to be normal. ? Pulmonary vascularity is normal. ? Lungs are clear. No infiltrates or effusions. ? No obvious acute bony abnormality is evident. There is evidence of old left clavicle fracture. ? IMPRESSION: ? No acute findings radiographically. ?Results for JUAN DAVID YANCEY ( ) as of 10/23/2017 12:08 Ref. Range 10/23/2017 02:45 Sodium Latest Ref Range: 136 - 145 mEq/L 137 Potassium Latest Ref Range: 3.5 - 5.1 mEq/L 4.0 Chloride Latest Ref Range: 98 - 107 mEq/L 108 (H) CO2 Latest Ref Range: 21 - 32 mEq/L 22 BUN Latest Ref Range: 7 - 18 mg/dL 17 Creatinine Latest Ref Range: 0.67 - 1.17 mg/dL 1.80 (H) Glucose Latest Ref Range: 70 - 99 mg/dL 106 (H) Calcium Latest Ref Range: 8.5 - 10.1 mg/dL 8.8 Anion Gap Latest Ref Range: 8 - 16 11 eGFR Latest Ref Range: >60mL/min/1.73m2 38.60 Assessment: 1. BERTHA-acute vs acute/chronic, likely 2/2 obstruction 2. Renal mass( right renal ) 3. Hematuria- from RCC ? 4. DVT history 5. H/o Ulcerative colitis + 6. Anemia from acute blood loss ? Plan: Will need to monitor creat closely Cr is slightly better at this time Would defer contrast imaging at this time given renal function Renal scan per urology tentatively planned for today Expect cr to get better as the BERTHA resolves Renal mass( RCC ? 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 Davey Braun MD 10/26/2017 6:[address] [facility] - Consultation PATIENT NAME: JUAN DAVID YANCEY [facility]: [id number] DATE OF : 1955 SEX/AGE: M/62 PATIENT TYPE: I [facility]OSP [facility] [place] LOCATION: [facility] DATE OF SERVICE: 10/25/2017 CARDIOLOGY CONSULT Consult is from Dr. Naty Forde of Urology Service. CHIEF COMPLAINT: Preoperative evaluation. HISTORY OF PRESENT ILLNESS: This is a very pleasant 62-year-old gentleman who lives down in the [facility]. He is coming up here because he is found to have a right renal mass and needs a nephrectomy later this week. I am asked to see him preoperatively. He denies any heart disease. He has never had coronary disease. There is no family history of coronary artery disease. He had no hypertension previously until just recently. No diabetes. No tobacco. No hyperlipidemia. He has never had a stroke. He has had recurrent DVTs over the years. He was initially on Coumadin about 18 years ago after a surgery. After a period of time, stopped the Coumadin, was hard to regulate, and then had a recurrent DVT about 5 years ago and has been on Xarelto and aspirin since then. He has not had to stop the Xarelto for any reason. He has had no recurrent DVT. He does not have exertional chest pain. He has chronic mild exertional dyspnea only with hills. 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 He was starting to notice hematuria, which prompted his evaluation and he was found to have a right renal mass. He does have a history also of colitis, status post prior colectomy many years ago. He has no known arrhythmia. He does not smoke. He does not drink. No chronic lung disease. MEDICATIONS: His medications at home are aspirin and Xarelto. ALLERGIES: He has allergies to morphine and prednisone. He has not had any cardiac testing because he really has not needed any. He has no known CAD. I am asked to see him preoperatively just to make sure he needs no further testing. He has been off the Xarelto for a number of days now, getting his urologic evaluation. He has had a right renal mass noted on CT scanning. He has also been somewhat hypertensive of late, but he has had some degree of obstruction due to bleeding and clots. He said, this is all new for him as far as blood pressure. He has had a little bit of edema as well just over the last week or so. Again, no diabetes. No peripheral vascular disease. He normally does not have edema. PHYSICAL EXAMINATION: GENERAL: Very pleasant gentleman. He is mildly to moderately obese, the weight is not accurate. VITAL SIGNS: Temp 36.9, pulse is 70 and regular. There is no telemetry. Blood pressure is 150/80. SKIN: No major bruising. No skin rash. PSYCH: Pleasant affect. Alert and oriented. NEUROLOGIC: Nonfocal. Follows commands. Normal mentation. HEENT: Pupils are equal. Eyelids normal. NECK: Cannot assess JVD or thyromegaly. Carotid upstrokes normal. CHEST: Clear. No wheeze or rale. No accessary muscle use. CARDIAC: Regular rate and rhythm. Distant heart sounds. No murmur or gallop. Thomson nonpalpable. ABDOMEN: Obese, nontender. No rebound. No obvious hepatomegaly. EXTREMITIES: 1+ bilateral calf edema is noted. Distal pulses in the extremities are 2+. Extremities are well perfused. LABORATORY DATA: There is no EKG. His sodium is 138, potassium 3.9, chloride 106, bicarb 23. BUN 17, creatinine 1.6. White count 8, hematocrit 26.6, platelets 161,000. IMPRESSION: 1. Cardiac status: Clinically, no cardiac disease and this is really new hypertension. He does not have any major risk factors or even worrisome symptoms. He has a little exertional dyspnea. I would need a 12-lead EKG, which I will order. If this is pretty unremarkable, he would not need any further testing. If the EKG suggests any concerns about structural heart disease, I will probably go ahead with an echo, but I will give a followup note once I have the EKG reviewed. Certainly would not do any stress testing in this gentleman. 2. Hypercoagulable state: He is now off the Xarelto and my suggestion would be to restart it after surgery as soon as possible, probably at the 48 hour main if it is felt to be reasonable. If he is going to have a prolonged period of time without anticoagulation, which is unlikely, an IVC filter might need to be a consideration. 3. Right renal mass: Needs nephrectomy for presumptive renal cell cancer. As above, will give final clearance in risk once I have his EKG to review but certainly expect him to be ready for surgery on Tuesday. 4. Hypertension: Presumably related to his renal insufficiency. He is on amlodipine and Cardura, which certainly seemed reasonable. It also may be reasonable to give him a little Lasix because of his fluid accumulation. I would not give him programmed Lasix perhaps 1 dose cautiously to eliminate some of his edema. Thank you for the consult on this nice gentleman. I will follow with you and give followup note once I look at his EKG. Davey Braun MD Cardiology DAC:modl /[id number] [place] MD 10/25/2017 3:31 PM Signed UROLOGY PROGRESS NOTE PATIENT NAME: Juan David Yancey DATE OF : 1955 ADMISSION DATE: 10/19/2017 8:33 PM TODAY'S DATE: 10/24/2017 Subjective Urine clear this AM Doing well otherwise Mild complaints of flank pain Objective VS: BP 156/75 Pulse 74 Temp 36.6 ?C (97.9 ?F) (Temporal Artery) Resp 18 Ht 185.4 cm (6' 0.99) Wt 17.9 kg (39 lb 8.6 oz) SpO2 99% BMI 5.22 kg/m2 I AND O - 24hr: Intake/Output Summary (Last 24 hours) at 10/25/17 0745 Last data filed at 10/25/17 0535 Gross per 24 hour Intake 3950 ml Output 04009 ml Net -7225 ml Physical Exam: General: Neck: Resp: Abdomen: No acute distress Supple Normal effort Soft, non-tender, nondistended : [address], yellow on slow drip Labs and Imaging Studies LABS: BMP: Glucose (mg/dL) Date Value 10/25/2017 86 Potassium (mEq/L) Date Value 10/25/2017 3.5 Sodium (mEq/L) Date Value 10/25/2017 139 Chloride (mEq/L) Date Value 10/25/2017 105 CO2 (mEq/L) Date Value 10/25/2017 26 Creatinine (mg/dL) Date Value 10/25/2017 1.48 BUN (mg/dL) Date Value 10/25/2017 14 Anion Gap (no units) Date Value 10/25/2017 12 Calcium (mg/dL) Date Value 10/25/2017 9.0 CBC: Hemoglobin (g/dL) Date Value 11/30/2012 10.6 HGB (g/dL) Date Value 10/25/2017 8.1 Hematocrit (%) Date Value 10/25/2017 23.4 WBC (thou/cmm) Date Value 10/25/2017 6.56 Platelet Count (thou/cmm) Date Value 10/25/2017 164 Urinalysis: Specific [place], Ur Date Value Ref Range Status 10/19/2017 1.020 1.005 - 1.030 Final Glucose, Urine Date Value Ref Range Status 10/19/2017 see below Negative mg/dL Final Comment: Color abnormal- some macroscopic not done. Bilirubin, Urine Date Value Ref Range Status 10/19/2017 see below Negative Final Comment: Color abnormal- some macroscopic not done. Ketones, Urine Date Value Ref Range Status 10/19/2017 see below Negative mg/dL Final Comment: Color abnormal- some macroscopic not done. Protein, Urine Date Value Ref Range Status 10/19/2017 see below Negative mg/dL Final Comment: Color abnormal- some macroscopic not done. Urobilinogen, Urine Date Value Ref Range Status 10/19/2017 see below 0.0 - 1.0 EU/dL Final Comment: Color abnormal- some macroscopic not done. Nitrites Urine Date Value Ref Range Status 10/19/2017 see below Negative Final Comment: Color abnormal- some macroscopic not done. WBC, Urine Date Value Ref Range Status 10/19/2017 1.0-3 0.0 - 5.0 /hpf Final Urine Culture: Urine Culture (no units) Date Value 10/20/2017 No growth RADIOLOGY: Renal ultrasound: CLINICAL INDICATION/HISTORY: Renal mass; surgical planning ? TECHNIQUE: Scanning was performed by the technologist. ?Images were saved in a permanent archive (PACS). ? RESULTS: ? RIGHT KIDNEY: ?13.2 x 6.6 x 5.3 cm ? No evidence of hydronephrosis No shadowing calculus or perinephric fluid collection is seen. ? Along the posterior aspect of the superior pole there is a fairly isoechoic solid-appearing mass measuring 4.3 x 3.4 x 4.4 cm. ?No additional abnormality of the right kidney is seen. No cysts are seen. ? ? LEFT KIDNEY: ? 12.9 x 6.1 x 4.2 cm ? No evidence of hydronephrosis No shadowing calculus or perinephric fluid collection is seen. ? There are no masses which distort the renal cortical outlines. No cysts are seen. ? ? Urinary bladder is collapsed because of Mendoza catheter.. ? IMPRESSION: ? ? 1. ?4.4 cm mass of the right kidney at the superior pole, posterior aspect. This should be considered renal cell carcinoma unless proven otherwise. ?This corresponds to the mass seen on CT. ?No evidence of hydronephrosis. ?If the patient would be able, a contrast-enhanced CT or MRI could offer better evaluation ?of the kidneys ? 2. ?Left kidney is unremarkable as visualized Renal scan DIURETIC RENAL SCAN: ? CLINICAL HISTORY: hydronephrosis ? TECHNIQUE: 10.1 mCi Tc 99m MAG3 IV. ?Medications and allergies reviewed. ?40 ?mg Lasix was given IV at ?30 minutes. Imaging of the kidneys for flow and function obtained in posterior views. ? ? RESULT: ? RENAL PERFUSION: There is prompt perfusion to the left kidney. There is decreased perfusion to the right kidney. ? ? RENAL FUNCTION: ? There is reasonable uptake and parenchymal transit by the left kidney. ?There is spontaneous drainage of activity by the left kidney. ?Following Lasix there is further clearance with no evidence of obstruction. ?Mild retention in the post void images. ?No scintigraphic evidence to suggest obstruction on the left. ? ? There is decreased and delayed uptake and delayed parenchymal transit by the right ?kidney. ?There is delayed drainage of activity by the right kidney with progressive accumulation of tracer. ?Following Lasix there is poor clearance. Post ?Lasix t- half?clearance time is significantly prolonged with an essentially flat renogram curve. ?Findings suggestive of obstruction. ? ? By computer analysis, the contribution to total renal function is 85% from the left kidney, and 15% from the right kidney. ? IMPRESSION: ? LEFT KIDNEY: RELATIVELY BETTER FLOW AND FUNCTION AND DRAINAGE COMPARED TO THE RIGHT. ?NO SCINTIGRAPHIC EVIDENCE OF OBSTRUCTION ON THE LEFT. ? RIGHT KIDNEY: DECREASED FLOW AND FUNCTION AND DELAYED DRAINAGE. ?FINDINGS SUGGESTIVE OF OBSTRUCTION ON THE RIGHT. ? SPLIT FUNCTION: LEFT KIDNEY 85% AND RIGHT KIDNEY 15% Assessment and Plan ASSESSMENT: 62 year old male 7cm R renal mass and hematuria, s/p right ureteroscopy, stent placement,?BERTHA PLAN: 1) BERTHA - Cr continues to improve 2) renal scan suggesting 15% fxn of side with tumor - this may be artificially low due to some component of obstruction 3) continue CBI 4) continue subq heparin 5) Scheduled for nephrectomy Tuesday morning Franklyn Nicole MD I saw and evaluated the patient. Discussed with the resident and agree with resident's findings and plan as documented in the resident's note. Plan on surgery w/ Dr. Forde Tuesday. Discussed with pt. [place] MD Previous Version Davey Braun MD 10/25/2017 11:25 AM Signed Job [id number] Card Consult Dictated 1.Renal mass-needs R nephrectomy- EKG ordered and I will review today; will then leave final risk/clearance note; no known CV disease, has new HTN related to renal disease Thanks Davey Braun MD Pager [phone] Daniel Zelaya MD 10/25/2017 5:31 PM Signed [facility] progress note ? Reason for consultation: BERTHA/post-obstructive ? Chief Complaint: difficulty with urination ? History of Presenting Illness ? 62 year old male presented from [place] for renal mass. Was unable to urinate prior to presentation. Mendoza was placed draining bright red blood. Was on blood thinner. No previous history, but reports hematuria x 2 weeks. No personal or family history of malignancy. No previous prostate or urinary issues. On Xarelto for DVTs. On CBI. Per nursing, was unable to drain overnight. She reports significant clotting removed. Still needing irrigated Q 3hrs. is making NPO after midnight-? Surgery as inpatient vs outpatient f/u. Additional home meds include ASA and Allopurinol. No FRANCK/ARB or diuretic. Also presently on NS at 125/hr. BP was 186/94 on admit. Today is 135/74 Creat on admit was 2.55, today is 2.58. UA with 1-3 WBC, >100RBC (partially resulted?) Baseline unknown, <1 2012. Patient denies any issues with renal function in past. States has hx UC, hip replacments d/t avascular necrosis from steroid use, DVT with IVC filter placement, PCI. No HTN or DM. Nephrology has been c/s for BERTHA Interval progess note Doing ok Cr is stable Baseline ? Back on CBI BP ok Reports not eating well No SOB Urine is clearing now Surgical plans are noted ROS (-) unless above No change in the PFSH ? Past Medical/Surgical History ? PAST MEDICAL HISTORY PAST MEDICAL HISTORY Diagnosis Date - Avascular necrosis (HCC) bilateral hip replacements d/t avascular necrosis - Blood clot in vein IVC filter placed in 1994 - Bowel disease ? ? MUC, colectomy in 1994 - Gout Summer 2011 ? 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 ? PAST SURGICAL HISTORY PAST SURGICAL HISTORY Procedure Laterality Date - COLECTOMY PARTIAL W ANASTOM ? ? - ILEOSTOMY ? ? ? closed - TOTAL HIP REPLACEMENT ? ? ? bilateral- castro ? ? ? Review of Systems ? All 12 systems reviewed and are negative except for what is mentioned in the HPI. ? Medications ? Prescriptions Prior to Admission ? Prescriptions Prior to Admission: aspirin 325 mg tablet Take 325 mg by mouth once daily. Disp: Rfl: ? RIVAROXABAN (XARELTO ORAL) Take 20 mg by mouth once daily. Disp: Rfl: ? allopurinol 100 mg tablet Take 2 tablets by mouth once daily. In 2 weeks, increase to 300mg/day Disp: 60 tablet Rfl: 2 ? ? ? CURRENT MEDICATIONS ? Current Facility-Administered Medications: oxybutynin 5 mg tab(s) (DITROPAN) 5 mg ORAL TID amLODIPine 10 mg tab(s) (NORVASC) 10 mg ORAL DAILY NaCl 0.9% irrigation solution 3,000 mL IRRIGATION CONTINUOUS allopurinol 200 mg tab(s) (ZYLOPRIM) 200 mg ORAL DAILY NaCl 0.9% iv infusion 125 mL/hr INTRAVENOUS CONTINUOUS acetaminophen 650 mg tab(s) (TYLENOL) 650 mg ORAL q 4 H PRN oxyCODONE-acetaminophen 5-325 mg 1-2 tablet (PERCOCET) 1-2 tablet ORAL q 4 H PRN morphine 2-4 mg injection 2-4 mg INTRAVENOUS q 2 H PRN ondansetron (PF) 4 mg injection (ZOFRAN) 4 mg INTRAVENOUS q 6 H PRN docusate sodium 100 mg cap(s) (COLACE) 100 mg ORAL BID ceFAZolin 1 g in dextrose (iso-osmotic) 50 mL (ANCEF, KEFZOL) 1 g INTRAVENOUS q 8 H belladonna-opium 16.2-60 mg 1 Suppository suppository (B and O 16-A) 1 Suppository RECTAL TID PRN ? ? Allergies ? Morphine; Prednisone ? ? Family History ? Negative for Kidney Disease FAMILY HISTORY No family history on file. ? Social History ? SOCIAL HISTORY Social History Marital status: Spouse name: Years of education: Number of children: ? Social History Main Topics Smoking status: Never Smoker ? Smokeless status: Never Used Alcohol use: Yes Comment: social Drug use: No ? ? Physical Exam ? Blood pressure 135/71, pulse 66, temperature 36.9 ?C (98.4 ?F), temperature source Oral, resp. rate 18, height 185.4 cm (6' 0.99), weight 17.9 kg (39 lb 8.6 oz), SpO2 97 %. 24 HR INTAKE/OUTPUT: Intake/Output Summary (Last 24 hours) at 10/20/17 1522 Last data filed at 10/20/17 1504 ? Gross per 24 hour Intake 3640 ml Output 2800 ml Net 840 ml ? ? General: NAD, Comfortable appearing, cooperative to history and physical exam. Head: AT NC Neck: Supple, no jvd Chest: B/L clear, no crackles, no accessory muscles usage. CV: RRR, no murmurs or rubs Abdomen: NT, ND, soft Extremities: trace peripheral edema, no tremor Neurological: Moving all four extremities, no focal neurological deficit Psychiatric: Normal insight and judgement, good recall : mendoza with hematuria, +CBI ? Data ? ? Recent Labs ? 10/20/17 0740 10/19/172124 NA 139 137 K 4.5 3.9 CHLOR 107 105 CO2 27 21 BUN 24* 25* CREAT 2.58* 2.55* GLUC 103* 163* ALB 3.3* 3.9 CA 8.8 9.5 ? ? ? Recent Labs ? 10/20/17 0325 02/07/18 2125 WBC 10.55* 12.65* HB 10.6* 10.9* HCT 30.2* 30.2* PLT 247 237 ? ? ? pH, Urine Date Value Ref Range Status 10/19/2017 see below 5.0 - 8.0 Final Comment: Color abnormal- some macroscopic not done. Specific [place], Ur Date Value Ref Range Status 10/19/2017 1.020 1.005 - 1.030 Final Glucose, Urine Date Value Ref Range Status 10/19/2017 see below Negative mg/dL Final Comment: Color abnormal- some macroscopic not done. Bilirubin, Urine Date Value Ref Range Status 10/19/2017 see below Negative Final Comment: Color abnormal- some macroscopic not done. Ketones, Urine Date Value Ref Range Status 10/19/2017 see below Negative mg/dL Final Comment: Color abnormal- some macroscopic not done. Protein, Urine Date Value Ref Range Status 10/19/2017 see below Negative mg/dL Final Comment: Color abnormal- some macroscopic not done. Nitrites Urine Date Value Ref Range Status 10/19/2017 see below Negative Final Comment: Color abnormal- some macroscopic not done. WBC, Urine Date Value Ref Range Status 10/19/2017 1.0-3 0.0 - 5.0 /hpf Final ? CXR EXAM TITLE: CHEST 1 VIEW ? DATE: 10/20/2017 06:09 ? INDICATION: ?Patient history of renal mass. ? COMPARISON: None. ? Portable frontal view of the chest shows heart size to be normal. ? Pulmonary vascularity is normal. ? Lungs are clear. No infiltrates or effusions. ? No obvious acute bony abnormality is evident. There is evidence of old left clavicle fracture. ? IMPRESSION: ? No acute findings radiographically. ?Results for JUAN DAVID YANCEY ( ) as of 10/23/2017 12:08 Ref. Range 10/23/2017 02:45 Sodium Latest Ref Range: 136 - 145 mEq/L 137 Potassium Latest Ref Range: 3.5 - 5.1 mEq/L 4.0 Chloride Latest Ref Range: 98 - 107 mEq/L 108 (H) CO2 Latest Ref Range: 21 - 32 mEq/L 22 BUN Latest Ref Range: 7 - 18 mg/dL 17 Creatinine Latest Ref Range: 0.67 - 1.17 mg/dL 1.80 (H) Glucose Latest Ref Range: 70 - 99 mg/dL 106 (H) Calcium Latest Ref Range: 8.5 - 10.1 mg/dL 8.8 Anion Gap Latest Ref Range: 8 - 16 11 eGFR Latest Ref Range: >60mL/min/1.73m2 38.60 Assessment: 1. BERTHA-acute vs acute/chronic, likely 2/2 obstruction 2. Renal mass( right renal ) 3. Hematuria- from RCC ? 4. DVT history 5. H/o Ulcerative colitis + 6. Anemia from acute blood loss ? 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 MEDICATIONS: Current hospital medications: doxazosin 1 mg tab(s) (CARDURA) 1 mg ORAL DAILY famotidine 20 mg tab(s) (PEPCID) 20 mg ORAL BID NaCl 0.9% irrigation solution 3,000 mL IRRIGATION CONTINUOUS heparin 5,000 Units injection 5,000 Units SUBCUTANEOUS q 8 H amLODIPine 10 mg tab(s) (NORVASC) 10 mg ORAL DAILY allopurinol 200 mg tab(s) (ZYLOPRIM) 200 mg ORAL DAILY NaCl 0.9% iv infusion 75 mL/hr INTRAVENOUS CONTINUOUS acetaminophen 650 mg tab(s) (TYLENOL) 650 mg ORAL q 4 H PRN oxyCODONE-acetaminophen 5-325 mg 1-2 tablet (PERCOCET) 1-2 tablet ORAL q 4 H PRN morphine 2-4 mg injection 2-4 mg INTRAVENOUS q 2 H PRN ondansetron (PF) 4 mg injection (ZOFRAN) 4 mg INTRAVENOUS q 6 H PRN docusate sodium 100 mg cap(s) (COLACE) 100 mg ORAL BID belladonna-opium 16.2-60 mg 1 Suppository suppository (B and O 16-A) 1 Suppository RECTAL TID PRN DATA: Diagnostic tests reviewed for today's visit: CBC: Recent Labs 10/25/17 0300 WBC 6.56 RBC 2.39* HB 8.1* HCT 23.4* PLT 164 MCV 97.9* MCH 33.9* MPV 12.4* RDW 15.7* Coags: No results for input(s): INR, APTT in the last 24 hours. Invalid input(s): PT BMP: Recent Labs 10/25/17 0524 NA 139 K 3.5 CHLOR 105 CO2 26 BUN 14 CREAT 1.48* GLUC 86 CMP: Recent Labs 10/25/17 0524 NA 139 K 3.5 CHLOR 105 CO2 26 BUN 14 CREAT 1.48* GLUC 86 CA 9.0 ANION 12 Cardiac Enzymes: No results for input(s): CK, MB, CKMB, TROPT in the last 24 hours. Liver Function, Amylase, Lipase: No results for input(s): TPROT, ALB, ALT, AST, ALKPHOS, TBILI, AMYLASE, LIPASE, LACTATE in the last 24 hours. MG/PHOS: No results for input(s): MG, P in the last 24 hours. Renal Panel: Recent Labs 10/25/17 0524 CREAT 1.48* BUN 14 GLUC 86 CA 9.0 CHLOR 105 K 3.5 CO2 26 NA 139 Heme: No results for input(s): RETICP, ABSRETIC, LD, KE, FE, TIBC, TRANSFERSAT in the last 24 hours. No results found for: UALBCR Assessment/Plan 1. Large renal mass with gross hematuria. Likely renal cell malignancy. Planned for right nephrectomy and cardiac clearance has been requested ? 2. BERTHA. Likely post-obstructive from blood clots. Nephrology on consult. Getting IVFs as well and creatinine improving ?? 3. 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 On hold for now ? 4. Anemia. Some component of blood loss. 5. Hypertension. Improved with addition of doxazosin Hospital medicine will sign off at this time Feel free to call if any questions ?? VTE Prophylaxis: Other Disposition: Home Plan of care discussed with: Other none SIGNATURE: Deep Garcia MD PATIENT NAME: Juan David Yancey DATE: October 25, 2017 TIME: 6:52 PM PAGER/CONTACT #: monica Nicole MD 10/26/2017 6:34 AM Attested Attestation signed by Naty Forde Jr. at 10/26/2017 2:38 PM I saw and evaluated the patient. Discussed with the resident and agree with resident's findings and plan as documented in the resident's note. Naty Forde Jr, MD UROLOGY PROGRESS NOTE PATIENT NAME: Juan David Yancey DATE OF : 1955 ADMISSION DATE: 10/19/2017 8:33 PM TODAY'S DATE: 10/24/2017 Subjective Urine clear this AM Doing well otherwise Objective VS: BP 141/73 Pulse 70 Temp 36.9 ?C (98.4 ?F) (Temporal Artery) Resp 18 Ht 185.4 cm (6' 0.99) Wt 17.9 kg (39 lb 8.6 oz) SpO2 100% BMI 5.22 kg/m2 I AND O - 24hr: Intake/Output Summary (Last 24 hours) at 10/26/17 0631 Last data filed at 10/26/17 0520 Gross per 24 hour Intake 2950 ml Output 6150 ml Net -3200 ml Physical Exam: General: Neck: Resp: Abdomen: No acute distress Supple Normal effort Soft, non-tender, nondistended : [address], yellow on slow drip Labs and Imaging Studies LABS: BMP: Glucose (mg/dL) Date Value 10/26/2017 87 Potassium (mEq/L) Date Value 10/26/2017 3.6 Sodium (mEq/L) Date Value 10/26/2017 138 Chloride (mEq/L) Date Value 10/26/2017 106 CO2 (mEq/L) Date Value 10/26/2017 26 Creatinine (mg/dL) Date Value 10/26/2017 1.69 BUN (mg/dL) Date Value 10/26/2017 13 Anion Gap (no units) Date Value 10/26/2017 10 Calcium (mg/dL) Date Value 10/26/2017 8.9 CBC: Hemoglobin (g/dL) Date Value 11/30/2012 10.6 HGB (g/dL) Date Value 10/26/2017 7.8 Hematocrit (%) Date Value 10/26/2017 23.2 WBC (thou/cmm) Date Value 10/26/2017 4.95 Platelet Count (thou/cmm) Date Value 10/26/2017 131 Urinalysis: Specific [place], Ur Date Value Ref Range Status 10/19/2017 1.020 1.005 - 1.030 Final Glucose, Urine Date Value Ref Range Status 10/19/2017 see below Negative mg/dL Final Comment: Color abnormal- some macroscopic not done. Bilirubin, Urine Date Value Ref Range Status 10/19/2017 see below Negative Final Comment: Color abnormal- some macroscopic not done. Ketones, Urine Date Value Ref Range Status 10/19/2017 see below Negative mg/dL Final Comment: Color abnormal- some macroscopic not done. Protein, Urine Date Value Ref Range Status 10/19/2017 see below Negative mg/dL Final Comment: Color abnormal- some macroscopic not done. Urobilinogen, Urine Date Value Ref Range Status 10/19/2017 see below 0.0 - 1.0 EU/dL Final Comment: Color abnormal- some macroscopic not done. Nitrites Urine Date Value Ref Range Status 10/19/2017 see below Negative Final Comment: Color abnormal- some macroscopic not done. WBC, Urine Date Value Ref Range Status 10/19/2017 1.0-3 0.0 - 5.0 /hpf Final Urine Culture: Urine Culture (no units) Date Value 10/20/2017 No growth RADIOLOGY: Renal ultrasound: CLINICAL INDICATION/HISTORY: Renal mass; surgical planning ? TECHNIQUE: Scanning was performed by the technologist. ?Images were saved in a permanent archive (PACS). ? RESULTS: ? RIGHT KIDNEY: ?13.2 x 6.6 x 5.3 cm ? No evidence of hydronephrosis No shadowing calculus or perinephric fluid collection is seen. ? Along the posterior aspect of the superior pole there is a fairly isoechoic solid-appearing mass measuring 4.3 x 3.4 x 4.4 cm. ?No additional abnormality of the right kidney is seen. No cysts are seen. ? ? LEFT KIDNEY: ? 12.9 x 6.1 x 4.2 cm ? No evidence of hydronephrosis No shadowing calculus or perinephric fluid collection is seen. ? There are no masses which distort the renal cortical outlines. No cysts are seen. ? ? Urinary bladder is collapsed because of Mendoza catheter.. ? IMPRESSION: ? ? 1. ?4.4 cm mass of the right kidney at the superior pole, posterior aspect. This should be considered renal cell carcinoma unless proven otherwise. ?This corresponds to the mass seen on CT. ?No evidence of hydronephrosis. ?If the patient would be able, a contrast-enhanced CT or MRI could offer better evaluation ?of the kidneys ? 2. ?Left kidney is unremarkable as visualized Renal scan DIURETIC RENAL SCAN: ? CLINICAL HISTORY: hydronephrosis ? TECHNIQUE: 10.1 mCi Tc 99m MAG3 IV. ?Medications and allergies reviewed. ?40 ?mg Lasix was given IV at ?30 minutes. Imaging of the kidneys for flow and function obtained in posterior views. ? ? RESULT: ? RENAL PERFUSION: There is prompt perfusion to the left kidney. There is decreased perfusion to the right kidney. ? ? RENAL FUNCTION: ? There is reasonable uptake and parenchymal transit by the left kidney. ?There is spontaneous drainage of activity by the left kidney. ?Following Lasix there is further clearance with no evidence of obstruction. ?Mild retention in the post void images. ?No scintigraphic evidence to suggest obstruction on the left. ? ? There is decreased and delayed uptake and delayed parenchymal transit by the right ?kidney. ?There is delayed drainage of activity by the right kidney with progressive accumulation of tracer. ?Following Lasix there is poor clearance. Post ?Lasix t- half?clearance time is significantly prolonged with an essentially flat renogram curve. ?Findings suggestive of obstruction. ? ? By computer analysis, the contribution to total renal function is 85% from the left kidney, and 15% from the right kidney. ? IMPRESSION: ? LEFT KIDNEY: RELATIVELY BETTER FLOW AND FUNCTION AND DRAINAGE COMPARED TO THE RIGHT. ?NO SCINTIGRAPHIC EVIDENCE OF OBSTRUCTION ON THE LEFT. ? RIGHT KIDNEY: DECREASED FLOW AND FUNCTION AND DELAYED DRAINAGE. ?FINDINGS SUGGESTIVE OF OBSTRUCTION ON THE RIGHT. ? SPLIT FUNCTION: LEFT KIDNEY 85% AND RIGHT KIDNEY 15% Assessment and Plan ASSESSMENT: 62 year old male 7cm R renal mass and hematuria, s/p right ureteroscopy, stent placement,?BERTHA PLAN: 1) BERTHA - cont to follow Cr 2) renal scan suggesting 15% fxn of side with tumor - this may be artificially low due to some component of obstruction 3) continue CBI 4) continue subq heparin 5) Scheduled for nephrectomy Tuesday morning, may need PRBCs pre-op with hgb dropping slowly, will follow MD Davey Lee MD 10/26/2017 9:11 AM Signed PROGRESS NOTE CARDIOLOGY SERVICE SERVICE DATE: 10/26/2017 SERVICE TIME: 9:09 AM Subjective INTERIM HISTORY: No change Objective PHYSICAL EXAM: Body mass index is 5.22 kg/(m2). O2 Therapy: Room Air No Data Recorded Patient Vitals for the past 24 hrs: BP Temp Temp src Pulse Resp SpO2 10/26/17 0741 142/64 36.7 ?C (98.1 ?F) Temporal Art 69 18 99 % 10/26/17 0358 141/73 36.9 ?C (98.4 ?F) Temporal Art 70 18 100 % 10/25/17 2312 144/70 37 ?C (98.6 ?F) Temporal Art 74 16 96 % 10/25/17 1937 157/61 36.7 ?C (98.1 ?F) Oral 72 18 96 % 10/25/17 1607 137/67 36.7 ?C (98.1 ?F) Oral 69 18 100 % 10/25/17 1120 161/70 36.5 ?C (97.7 ?F) Oral 73 16 96 % NAD MEDICATIONS: Current hospital medications: doxazosin 1 mg tab(s) (CARDURA) 1 mg ORAL DAILY famotidine 20 mg tab(s) (PEPCID) 20 mg ORAL BID NaCl 0.9% irrigation solution 3,000 mL IRRIGATION CONTINUOUS heparin 5,000 Units injection 5,000 Units SUBCUTANEOUS q 8 H amLODIPine 10 mg tab(s) (NORVASC) 10 mg ORAL DAILY allopurinol 200 mg tab(s) (ZYLOPRIM) 200 mg ORAL DAILY NaCl 0.9% iv infusion 75 mL/hr INTRAVENOUS CONTINUOUS acetaminophen 650 mg tab(s) (TYLENOL) 650 mg ORAL q 4 H PRN oxyCODONE-acetaminophen 5-325 mg 1-2 tablet (PERCOCET) 1-2 tablet ORAL q 4 H PRN morphine 2-4 mg injection 2-4 mg INTRAVENOUS q 2 H PRN ondansetron (PF) 4 mg injection (ZOFRAN) 4 mg INTRAVENOUS q 6 H PRN docusate sodium 100 mg cap(s) (COLACE) 100 mg ORAL BID belladonna-opium 16.2-60 mg 1 Suppository suppository (B and O 16-A) 1 Suppository RECTAL TID PRN DATA: Past 72 Hour Labs: Recent Labs 10/26/17 0415 WBC 4.95 RBC 2.34* HB 7.8* HCT 23.2* MCV 99.1* MCH 33.3* MCHC 33.6 PLT 131* MPV 10.5 GLUC 87 BUN 13 CREAT 1.69* NA 138 K 3.6 CHLOR 106 CO2 26 CA 8.9 Last Lab Drawn: No results found for this basename: TSH,PROBNP,TG,HDL,LDL,CHOL EKG NSR Assessment/Plan 1.Cardiac Status:EKG NSR, no pathologic q waves or ST changes; 2.Renal Mass-may proceed from cardiac viewpoint; mild cardiac risk; watch for volume overload related to IVF and renal dysfx SIGNATURE: Davey Braun MD PATIENT NAME: Juan David Yancey DATE: October 26, 2017 TIME: 9:09 AM PAGER/CONTACT #: [phone] Michelle Steen MD 10/26/2017 9:35 AM Signed CONSULT: GASTROENTEROLOGY SERVICE SERVICE DATE: 10/26/2017 SERVICE TIME: 9:25 AM REASON FOR CONSULT: HISTORY OF uc REQUESTING PHYSICIAN: PRIMARY CARE PHYSICIAN: No Pcp Subjective Mr. Yancey is a 62 year old male who presents for right renal mass, hematuria and anemia. Patient has history of UC and total colectomy with ileal J/S pouch. Patient also has history ileus and possible partial bowel obstructions. No history of pouchitis, normal has 3 BM/day, no BRPR or mucous. No skin lesions, IBD related arthritis, or liver isssues. 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 No pertinent family history. Social History Substance Use Topics - Smoking status: Never Smoker - Smokeless tobacco: Never Used - Alcohol use Yes Comment: social Prescriptions Prior to Admission: aspirin 325 mg tablet Take 325 mg by mouth once daily. Disp: Rfl: RIVAROXABAN (XARELTO ORAL) Take 20 mg by mouth once daily. Disp: Rfl: allopurinol 100 mg tablet Take 2 tablets by mouth once daily. In 2 weeks, increase to 300mg/day Disp: 60 tablet Rfl: 2 Current hospital medications: doxazosin 1 mg tab(s) (CARDURA) 1 mg ORAL DAILY famotidine 20 mg tab(s) (PEPCID) 20 mg ORAL BID NaCl 0.9% irrigation solution 3,000 mL IRRIGATION CONTINUOUS heparin 5,000 Units injection 5,000 Units SUBCUTANEOUS q 8 H amLODIPine 10 mg tab(s) (NORVASC) 10 mg ORAL DAILY allopurinol 200 mg tab(s) (ZYLOPRIM) 200 mg ORAL DAILY NaCl 0.9% iv infusion 75 mL/hr INTRAVENOUS CONTINUOUS acetaminophen 650 mg tab(s) (TYLENOL) 650 mg ORAL q 4 H PRN oxyCODONE-acetaminophen 5-325 mg 1-2 tablet (PERCOCET) 1-2 tablet ORAL q 4 H PRN morphine 2-4 mg injection 2-4 mg INTRAVENOUS q 2 H PRN ondansetron (PF) 4 mg injection (ZOFRAN) 4 mg INTRAVENOUS q 6 H PRN docusate sodium 100 mg cap(s) (COLACE) 100 mg ORAL BID belladonna-opium 16.2-60 mg 1 Suppository suppository (B and O 16-A) 1 Suppository RECTAL TID PRN Allergies As of Date: 10/19/2017 Allergen Noted Reaction MORPHINE 10/19/2017 Itching PREDNISONE 08/08/2012 Other: See Comments Fully Assessed 10/19/2017 COMPLETE REVIEW OF SYSTEMS: PAIN ASSESSMENT: Negative for pain, history of chronic pain, or current treatment for a chronic pain condition. Objective PHYSICAL EXAM: GENERAL: Alert, no distress, cooperative EYES: Negatives conjunctivae and sclerae normal LUNGS: Lungs clear to auscultation, Good diaphragmatic excursion CARDIAC: Normal S1 and S2; no rubs, murmurs, or gallops ABDOMEN: Abdomen soft, non-tender, BS hypoactive, No masses or organomegaly EXTREMITIES: Extremities normal, no deformities, edema, clubbing or skin discoloration. Good capillary refill. Patient Vitals for the past 24 hrs: BP Temp Temp src Pulse Resp SpO2 10/26/17 0741 142/64 36.7 ?C (98.1 ?F) Temporal Art 69 18 99 % 10/26/17 0358 141/73 36.9 ?C (98.4 ?F) Temporal Art 70 18 100 % 10/25/17 2312 144/70 37 ?C (98.6 ?F) Temporal Art 74 16 96 % 10/25/17 1937 157/61 36.7 ?C (98.1 ?F) Oral 72 18 96 % 10/25/17 1607 137/67 36.7 ?C (98.1 ?F) Oral 69 18 100 % 10/25/17 1120 161/70 36.5 ?C (97.7 ?F) Oral 73 16 96 % Body mass index is 5.22 kg/(m2). DATA: Diagnostic tests reviewed for today's visit: Most recent labs and imaging results. Most recent imaging: CT enterography reviewed CBC, Coags, BMP, Mg, Phos Recent Labs 10/26/17 0415 10/25/17 0524 10/25/17 0300 10/24/17 0349 WBC 4.95 -- 6.56 8.49 HB 7.8* -- 8.1* 8.7* HCT 23.2* -- 23.4* 26.6* PLT 131* -- 164 161 NA 138 139 -- 138 K 3.6 3.5 -- 3.9 CHLOR 106 105 -- 106 CO2 26 26 -- 23 BUN 13 14 -- 17 CREAT 1.69* 1.48* -- 1.64* GLUC 87 86 -- 125* CA 8.9 9.0 -- 9.0 Impression/Recommendations Principal Problem: Right renal mass Assessment AND Plan: patient is scheduled surgery Active Problems: Hematuria POA: Yes Assessment AND Plan: getting bladder irrigation History of UC , s/p colectomy and S/J pouch History of Ileus/partial small bowel obstructions Will monitor post operatively, may need NG tube for decompression, may have to miralax. Will follow Resolved Problems: * No resolved hospital problems. * SIGNATURE: Michelle Steen MD PATIENT NAME: Juan David Yancey DATE: October 26, 2017 TIME: 9:25 AM PAGER: [phone] Davey Braun MD 10/26/2017 10:09 AM Signed Result Noted. Patient is currently hospitalized and managed by the in-patient team. MD Jose Manuel Omalley RN, RN 10/26/2017 12:23 PM Signed CARE MANAGEMENT PROGRESS NOTE SERVICE DATE: 10/26/2017 SERVICE TIME: 12:22 pm LOS: 6 days Chart reviewed. Spoke to RN. OR scheduled for Tuesday. Plan is still to d/c home with family when medically stable. SIGNATURE: Jose Manuel Sheets RN PATIENT NAME: Juan David Yancey DATE: October 26, 2017 TIME: 12:22 PM PAGER/CONTACT #: [phone] Daniel Zelaya MD 10/26/2017 6:53 PM Signed [facility] progress note ? Reason for consultation: BERTHA/post-obstructive ? Chief Complaint: difficulty with urination ? History of Presenting Illness ? 62 year old male presented from [place] for renal mass. Was unable to urinate prior to presentation. Mendoza was placed draining bright red blood. Was on blood thinner. No previous history, but reports hematuria x 2 weeks. No personal or family history of malignancy. No previous prostate or urinary issues. On Xarelto for DVTs. On CBI. Per nursing, was unable to drain overnight. She reports significant clotting removed. Still needing irrigated Q 3hrs. is making NPO after midnight-? Surgery as inpatient vs outpatient f/u. Additional home meds include ASA and Allopurinol. No FRANCK/ARB or diuretic. Also presently on NS at 125/hr. BP was 186/94 on admit. Today is 135/74 Creat on admit was 2.55, today is 2.58. UA with 1-3 WBC, >100RBC (partially resulted?) Baseline unknown, <1 2012. Patient denies any issues with renal function in past. States has hx UC, hip replacments d/t avascular necrosis from steroid use, DVT with IVC filter placement, PCI. No HTN or DM. Nephrology has been c/s for BERTHA Interval progess note Doing ok Cr with slight elevation. S/P Diuretic renal scan 10/25. Baseline ? +CBI BP ok Reports OK PO intake. No SOB Urine clear yellow. Surgical plans are noted ROS (-) unless above No change in the PFSH ? Past Medical/Surgical History ? PAST MEDICAL HISTORY PAST MEDICAL HISTORY Diagnosis Date - Avascular necrosis (HCC) bilateral hip replacements d/t avascular necrosis - Blood clot in vein IVC filter placed in 1994 - Bowel disease ? ? MUC, colectomy in 1994 - Gout Summer 2011 ? 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 ? PAST SURGICAL HISTORY PAST SURGICAL HISTORY Procedure Laterality Date - COLECTOMY PARTIAL W ANASTOM ? ? - ILEOSTOMY ? ? ? closed - TOTAL HIP REPLACEMENT ? ? ? bilateral- castro ? ? ? Review of Systems ? All 12 systems reviewed and are negative except for what is mentioned in the HPI. ? Medications ? Prescriptions Prior to Admission ? Prescriptions Prior to Admission: aspirin 325 mg tablet Take 325 mg by mouth once daily. Disp: Rfl: ? RIVAROXABAN (XARELTO ORAL) Take 20 mg by mouth once daily. Disp: Rfl: ? allopurinol 100 mg tablet Take 2 tablets by mouth once daily. In 2 weeks, increase to 300mg/day Disp: 60 tablet Rfl: 2 ? ? ? CURRENT MEDICATIONS ? Current Facility-Administered Medications: oxybutynin 5 mg tab(s) (DITROPAN) 5 mg ORAL TID amLODIPine 10 mg tab(s) (NORVASC) 10 mg ORAL DAILY NaCl 0.9% irrigation solution 3,000 mL IRRIGATION CONTINUOUS allopurinol 200 mg tab(s) (ZYLOPRIM) 200 mg ORAL DAILY NaCl 0.9% iv infusion 125 mL/hr INTRAVENOUS CONTINUOUS acetaminophen 650 mg tab(s) (TYLENOL) 650 mg ORAL q 4 H PRN oxyCODONE-acetaminophen 5-325 mg 1-2 tablet (PERCOCET) 1-2 tablet ORAL q 4 H PRN morphine 2-4 mg injection 2-4 mg INTRAVENOUS q 2 H PRN ondansetron (PF) 4 mg injection (ZOFRAN) 4 mg INTRAVENOUS q 6 H PRN docusate sodium 100 mg cap(s) (COLACE) 100 mg ORAL BID ceFAZolin 1 g in dextrose (iso-osmotic) 50 mL (ANCEF, KEFZOL) 1 g INTRAVENOUS q 8 H belladonna-opium 16.2-60 mg 1 Suppository suppository (B and O 16-A) 1 Suppository RECTAL TID PRN ? ? Allergies ? Morphine; Prednisone ? ? Family History ? Negative for Kidney Disease FAMILY HISTORY No family history on file. ? Social History ? SOCIAL HISTORY Social History Marital status: Spouse name: Years of education: Number of children: ? Social History Main Topics Smoking status: Never Smoker ? Smokeless status: Never Used Alcohol use: Yes Comment: social Drug use: No ? ? Physical Exam ? BP 144/64 Pulse 74 Temp 36.8 ?C (98.2 ?F) (Temporal Artery) Resp 18 Ht 185.4 cm (6' 0.99) Wt 17.9 kg (39 lb 8.6 oz) SpO2 97% BMI 5.22 kg/m2 ? ? General: NAD, Comfortable appearing, cooperative to history and physical exam. Head: AT NC Neck: Supple, no jvd Chest: B/L clear, no crackles, no accessory muscles usage. CV: RRR, no murmurs or rubs Abdomen: NT, ND, soft Extremities: trace-1+ B/L peripheral edema, no tremor Neurological: Moving all four extremities, no focal neurological deficit Psychiatric: Normal insight and judgement, good recall : mendoza clear yellow, +CBI ? Data ? CBC: Recent Labs 10/26/17 0415 WBC 4.95 RBC 2.34* HB 7.8* HCT 23.2* PLT 131* MCV 99.1* MCH 33.3* MPV 10.5 RDW 14.3 CMP: Recent Labs 10/26/17 0415 NA 138 K 3.6 CHLOR 106 CO2 26 BUN 13 CREAT 1.69* GLUC 87 CA 8.9 ANION 10 CXR EXAM TITLE: CHEST 1 VIEW ? DATE: 10/20/2017 06:09 ? INDICATION: ?Patient history of renal mass. ? COMPARISON: None. ? Portable frontal view of the chest shows heart size to be normal. ? Pulmonary vascularity is normal. ? Lungs are clear. No infiltrates or effusions. ? No obvious acute bony abnormality is evident. There is evidence of old left clavicle fracture. ? IMPRESSION: ? No acute findings radiographically. Assessment: 1. BERTHA-acute vs acute/chronic, likely 2/2 obstruction 2. Renal mass( right renal ) 3. Hematuria- from RCC ? 4. Anemia from acute blood loss 5. H/o Ulcerative colitis + 6. DVT history ? Plan: Cr with slight elevation likely 2/ diuretic scan 10/25. C/W IVF NS at this time. Avoid nephrotoxins. Noted resection renal mass is planned for 10/28. 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 Recommend transfusion PRN hgb <7. We will follow Patient seen and independently examined and assessed.The Nurse practitioner note was reviewed and exam noted. I agree with her assessment and recommendations. Any variance is noted as below. Daniel Zelaya MD Previous Version Adolph Swain MD 10/27/2017 11:06 AM Addendum UROLOGY PROGRESS NOTE PATIENT NAME: Juan David Yancey DATE OF : 1955 ADMISSION DATE: 10/19/2017 8:33 PM TODAY'S DATE: 10/24/2017 Subjective Urine clear this AM Doing well otherwise Objective VS: BP 143/72 Pulse 70 Temp 36.7 ?C (98.1 ?F) (Temporal Artery) Resp 18 Ht 185.4 cm (6' 0.99) Wt 17.9 kg (39 lb 8.6 oz) SpO2 97% BMI 5.22 kg/m2 I AND O - 24hr: Intake/Output Summary (Last 24 hours) at 10/27/17 0652 Last data filed at 10/27/17 0544 Gross per 24 hour Intake 2960 ml Output 4475 ml Net -1515 ml Physical Exam: General: Neck: Resp: Abdomen: No acute distress Supple Normal effort Soft, non-tender, nondistended : [address], yellow on slow drip Labs and Imaging Studies LABS: BMP: Glucose (mg/dL) Date Value 10/27/2017 91 Potassium (mEq/L) Date Value 10/27/2017 3.6 Sodium (mEq/L) Date Value 10/27/2017 138 Chloride (mEq/L) Date Value 10/27/2017 107 CO2 (mEq/L) Date Value 10/27/2017 25 Creatinine (mg/dL) Date Value 10/27/2017 1.65 BUN (mg/dL) Date Value 10/27/2017 15 Anion Gap (no units) Date Value 10/26/2017 10 Calcium (mg/dL) Date Value 10/27/2017 8.8 CBC: Hemoglobin (g/dL) Date Value 11/30/2012 10.6 HGB (g/dL) Date Value 10/27/2017 7.7 Hematocrit (%) Date Value 10/27/2017 22.3 WBC (thou/cmm) Date Value 10/27/2017 5.08 Platelet Count (thou/cmm) Date Value 10/27/2017 127 Urinalysis: Specific [place], Ur Date Value Ref Range Status 10/19/2017 1.020 1.005 - 1.030 Final Glucose, Urine Date Value Ref Range Status 10/19/2017 see below Negative mg/dL Final Comment: Color abnormal- some macroscopic not done. Bilirubin, Urine Date Value Ref Range Status 10/19/2017 see below Negative Final Comment: Color abnormal- some macroscopic not done. Ketones, Urine Date Value Ref Range Status 10/19/2017 see below Negative mg/dL Final Comment: Color abnormal- some macroscopic not done. Protein, Urine Date Value Ref Range Status 10/19/2017 see below Negative mg/dL Final Comment: Color abnormal- some macroscopic not done. Urobilinogen, Urine Date Value Ref Range Status 10/19/2017 see below 0.0 - 1.0 EU/dL Final Comment: Color abnormal- some macroscopic not done. Nitrites Urine Date Value Ref Range Status 10/19/2017 see below Negative Final Comment: Color abnormal- some macroscopic not done. WBC, Urine Date Value Ref Range Status 10/19/2017 1.0-3 0.0 - 5.0 /hpf Final Urine Culture: Urine Culture (no units) Date Value 10/20/2017 No growth RADIOLOGY: Renal ultrasound: CLINICAL INDICATION/HISTORY: Renal mass; surgical planning ? TECHNIQUE: Scanning was performed by the technologist. ?Images were saved in a permanent archive (PACS). ? RESULTS: ? RIGHT KIDNEY: ?13.2 x 6.6 x 5.3 cm ? No evidence of hydronephrosis No shadowing calculus or perinephric fluid collection is seen. ? Along the posterior aspect of the superior pole there is a fairly isoechoic solid-appearing mass measuring 4.3 x 3.4 x 4.4 cm. ?No additional abnormality of the right kidney is seen. No cysts are seen. ? ? LEFT KIDNEY: ? 12.9 x 6.1 x 4.2 cm ? No evidence of hydronephrosis No shadowing calculus or perinephric fluid collection is seen. ? There are no masses which distort the renal cortical outlines. No cysts are seen. ? ? Urinary bladder is collapsed because of Mendoza catheter.. ? IMPRESSION: ? ? 1. ?4.4 cm mass of the right kidney at the superior pole, posterior aspect. This should be considered renal cell carcinoma unless proven otherwise. ?This corresponds to the mass seen on CT. ?No evidence of hydronephrosis. ?If the patient would be able, a contrast-enhanced CT or MRI could offer better evaluation ?of the kidneys ? 2. ?Left kidney is unremarkable as visualized Renal scan DIURETIC RENAL SCAN: ? CLINICAL HISTORY: hydronephrosis ? TECHNIQUE: 10.1 mCi Tc 99m MAG3 IV. ?Medications and allergies reviewed. ?40 ?mg Lasix was given IV at ?30 minutes. Imaging of the kidneys for flow and function obtained in posterior views. ? ? RESULT: ? RENAL PERFUSION: There is prompt perfusion to the left kidney. There is decreased perfusion to the right kidney. ? ? RENAL FUNCTION: ? There is reasonable uptake and parenchymal transit by the left kidney. ?There is spontaneous drainage of activity by the left kidney. ?Following Lasix there is further clearance with no evidence of obstruction. ?Mild retention in the post void images. ?No scintigraphic evidence to suggest obstruction on the left. ? ? There is decreased and delayed uptake and delayed parenchymal transit by the right ?kidney. ?There is delayed drainage of activity by the right kidney with progressive accumulation of tracer. ?Following Lasix there is poor clearance. Post ?Lasix t- half?clearance time is significantly prolonged with an essentially flat renogram curve. ?Findings suggestive of obstruction. ? ? By computer analysis, the contribution to total renal function is 85% from the left kidney, and 15% from the right kidney. ? IMPRESSION: ? LEFT KIDNEY: RELATIVELY BETTER FLOW AND FUNCTION AND DRAINAGE COMPARED TO THE RIGHT. ?NO SCINTIGRAPHIC EVIDENCE OF OBSTRUCTION ON THE LEFT. ? RIGHT KIDNEY: DECREASED FLOW AND FUNCTION AND DELAYED DRAINAGE. ?FINDINGS SUGGESTIVE OF OBSTRUCTION ON THE RIGHT. ? SPLIT FUNCTION: LEFT KIDNEY 85% AND RIGHT KIDNEY 15% Assessment and Plan ASSESSMENT: 62 year old male 7cm R renal mass and hematuria, s/p right ureteroscopy, stent placement,?BERTHA PLAN: 1) BERTHA - cont to follow Cr 2) renal scan suggesting 15% fxn of side with tumor - this may be artificially low due to some component of obstruction 3) continue CBI 4) continue subq heparin 5) Scheduled for nephrectomy Tuesday morning, may need PRBCs pre-op with hgb dropping slowly, will follow Franklyn Nicole MD I saw and evaluated the patient. Discussed with the resident and agree with resident's findings and plan as documented in the resident's note. Adolph Swain MD Previous Version Daniel Zelaya MD 10/27/2017 10:58 PM Signed [facility] progress note ? Reason for consultation: BERTHA/post-obstructive ? Chief Complaint: difficulty with urination ? History of Presenting Illness ? 62 year old male presented from [place] for renal mass. Was unable to urinate prior to presentation. Mendoza was placed draining bright red blood. Was on blood thinner. No previous history, but reports hematuria x 2 weeks. No personal or family history of malignancy. No previous prostate or urinary issues. On Xarelto for DVTs. On CBI. Per nursing, was unable to drain overnight. She reports significant clotting removed. Still needing irrigated Q 3hrs. is making NPO after midnight-? Surgery as inpatient vs outpatient f/u. Additional home meds include ASA and Allopurinol. No FRANCK/ARB or diuretic. Also presently on NS at 125/hr. BP was 186/94 on admit. Today is 135/74 Creat on admit was 2.55, today is 2.58. UA with 1-3 WBC, >100RBC (partially resulted?) Baseline unknown, <1 2012. Patient denies any issues with renal function in past. States has hx UC, hip replacments d/t avascular necrosis from steroid use, DVT with IVC filter placement, PCI. No HTN or DM. Nephrology has been c/s for BERTHA Interval progess note Doing ok Cr stable. S/P Diuretic renal scan 10/25. Baseline ? +CBI BP ok Reports OK PO intake. No SOB Surgical plans are noted ROS (-) unless above No change in the PFSH ? Past Medical/Surgical History ? PAST MEDICAL HISTORY PAST MEDICAL HISTORY Diagnosis Date - Avascular necrosis (HCC) bilateral hip replacements d/t avascular necrosis - Blood clot in vein IVC filter placed in 1994 - Bowel disease ? ? MUC, colectomy in 1994 - Gout Summer 2011 ? 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 ? PAST SURGICAL HISTORY PAST SURGICAL HISTORY Procedure Laterality Date - COLECTOMY PARTIAL W ANASTOM ? ? - ILEOSTOMY ? ? ? closed - TOTAL HIP REPLACEMENT ? ? ? bilateral- castro ? ? ? Review of Systems ? All 12 systems reviewed and are negative except for what is mentioned in the HPI. ? Medications ? Prescriptions Prior to Admission ? Prescriptions Prior to Admission: aspirin 325 mg tablet Take 325 mg by mouth once daily. Disp: Rfl: ? RIVAROXABAN (XARELTO ORAL) Take 20 mg by mouth once daily. Disp: Rfl: ? allopurinol 100 mg tablet Take 2 tablets by mouth once daily. In 2 weeks, increase to 300mg/day Disp: 60 tablet Rfl: 2 ? ? ? CURRENT MEDICATIONS ? Current Facility-Administered Medications: oxybutynin 5 mg tab(s) (DITROPAN) 5 mg ORAL TID amLODIPine 10 mg tab(s) (NORVASC) 10 mg ORAL DAILY NaCl 0.9% irrigation solution 3,000 mL IRRIGATION CONTINUOUS allopurinol 200 mg tab(s) (ZYLOPRIM) 200 mg ORAL DAILY NaCl 0.9% iv infusion 125 mL/hr INTRAVENOUS CONTINUOUS acetaminophen 650 mg tab(s) (TYLENOL) 650 mg ORAL q 4 H PRN oxyCODONE-acetaminophen 5-325 mg 1-2 tablet (PERCOCET) 1-2 tablet ORAL q 4 H PRN morphine 2-4 mg injection 2-4 mg INTRAVENOUS q 2 H PRN ondansetron (PF) 4 mg injection (ZOFRAN) 4 mg INTRAVENOUS q 6 H PRN docusate sodium 100 mg cap(s) (COLACE) 100 mg ORAL BID ceFAZolin 1 g in dextrose (iso-osmotic) 50 mL (ANCEF, KEFZOL) 1 g INTRAVENOUS q 8 H belladonna-opium 16.2-60 mg 1 Suppository suppository (B and O 16-A) 1 Suppository RECTAL TID PRN ? ? Allergies ? Morphine; Prednisone ? ? Family History ? Negative for Kidney Disease FAMILY HISTORY No family history on file. ? Social History ? SOCIAL HISTORY Social History Marital status: Spouse name: Years of education: Number of children: ? Social History Main Topics Smoking status: Never Smoker ? Smokeless status: Never Used Alcohol use: Yes Comment: social Drug use: No ? ? Physical Exam ? BP 144/72 Pulse 70 Temp 36.9 ?C (98.4 ?F) (Oral) Resp 18 Ht 185.4 cm (6' 0.99) Wt 17.9 kg (39 lb 8.6 oz) SpO2 96% BMI 5.22 kg/m2 ? ? General: NAD, Comfortable appearing, cooperative to history and physical exam. Head: AT NC Neck: Supple, no jvd Chest: B/L clear, no crackles, no accessory muscles usage. CV: RRR, no murmurs or rubs Abdomen: NT, ND, soft Extremities: 1+ B/L peripheral edema, no tremor Neurological: Moving all four extremities, no focal neurological deficit Psychiatric: Normal insight and judgement, good recall : mendoza clear yellow, +CBI ? Data ? CBC: Recent Labs 10/27/17 1830 10/27/17 0145 WBC -- 5.08 RBC -- 2.32* HB 8.3* 7.7* HCT 23.9* 22.3* PLT -- 127* MCV -- 96.1* MCH -- 33.2* MPV -- 10.4 RDW -- 14.5* CMP: Recent Labs 10/27/17 0145 NA 138 K 3.6 CHLOR 107 CO2 25 BUN 15 CREAT 1.65* GLUC 91 CA 8.8 CXR EXAM TITLE: CHEST 1 VIEW ? DATE: 10/20/2017 06:09 ? INDICATION: ?Patient history of renal mass. ? COMPARISON: None. ? Portable frontal view of the chest shows heart size to be normal. ? Pulmonary vascularity is normal. ? Lungs are clear. No infiltrates or effusions. ? No obvious acute bony abnormality is evident. There is evidence of old left clavicle fracture. ? IMPRESSION: ? No acute findings radiographically. Assessment: 1. BERTHA-acute vs acute/chronic, likely 2/2 obstruction 2. Renal mass( right renal ) 3. Hematuria- from RCC ? 4. Anemia from acute blood loss 5. H/o Ulcerative colitis + 6. DVT history ? Plan: Cr has stabilized C/W IVF NS at this time. Avoid nephrotoxins. Renal mass Resection is planned for tomorrow. 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 Recommend transfusion PRN hgb <7. No change today from renal standpoint. We will follow The Nurse practitioner note was reviewed and exam noted. I agree with her assessment and recommendations. Any variance is noted as below. Daniel Zelaya MD Previous Version Veena Cobb, RN, RN 10/27/2017 9:[address] Song paged at 0650 to ask if the heparin injection should be administered tonight at 2200 and at 0600 with the patient's scheduled renal mass resection tomorrow. Awaiting call back. Dr. Song called back at 0750 and said to hold both doses of the heparin injection. No new orders. Previous Version Naty Jones MD 10/28/2017 7:44 AM Signed ANESTHESIOLOGY DAY OF SURGERY NOTE SERVICE DATE: 10/28/2017 SERVICE TIME: 7:42 AM : 1955 Procedure(s) (LRB): HAND ASSISTED LAPAROSCOPIC RIGHT NEPHRECTOMY (Right) CYSTOSCOPY, REMOVAL RIGHT URETERAL STENT (Right) Surgeon(s): Naty Forde Jr. Estimated body mass index is 34.3 kg/(m2) as calculated from the following: Height as of this encounter: 185.4 cm (6' 1). Weight as of this encounter: 117.9 kg (260 lb). Most recent hematocrit and potassium results: Hematocrit 23.0 10/28/2017 Potassium 3.5 10/28/2017 ANES DOS/PREOP NOTE: Vitals: 10/28/17 0000 10/28/17 0320 10/28/17 0614 10/28/17 0656 BP: 166/72 129/63 146/73 Pulse: 68 65 69 Resp: Temp: 36.7 ?C (98.1 ?F) 36.9 ?C (98.4 ?F) 36.1 ?C (97 ?F) TempSrc: Temporal Artery Temporal Artery Temporal Artery SpO2: 97% 95% 99% Weight: 117.9 kg (260 lb) Height: 185.4 cm (6' 1) ACTIVE PROBLEM LIST Blood Clot in Vein Inferior Vena Caval Thrombosis (Hcc) S/P Insertion of Ivc (Inferior Vena Caval) Filter Anticoagulation Management Encounter Personal History of Dvt (Deep Vein Thrombosis) Sbo (Small Bowel Obstruction) Iliac Dvt (Deep Venous Thrombosis) (Hcc) Dvt Femoral (Deep Venous Thrombosis) (Hcc) Popliteal Dvt (Deep Venous Thrombosis) (Hcc) Bilateral Leg Edema Hematuria Right Renal Mass History of Total Colectomy PAST MEDICAL HISTORY Diagnosis Date - Avascular necrosis (HCC) bilateral hip replacements d/t avascular necrosis - Blood clot in vein IVC filter placed in 1994 - Bowel disease MUC, colectomy in 1994 - Gout Summer 2011 Clinical Diagnosis in 2011 - 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 No pertinent family history. Social History: Social History Substance Use Topics - Smoking status: Never Smoker - Smokeless tobacco: Never Used - Alcohol use Yes Comment: social No current facility-administered medications on file prior to encounter. Current Outpatient Prescriptions on File Prior to Encounter: allopurinol 100 mg tablet Take 2 tablets by mouth once daily. In 2 weeks, increase to 300mg/day Current Facility-Administered Medications: [MAR Hold due to Transfer] doxazosin 1 mg tab(s) (CARDURA) 1 mg ORAL DAILY Deep Garcia MD 1 mg at 10/27/17 08 [MAR Hold due to Transfer] famotidine 20 mg tab(s) (PEPCID) 20 mg ORAL BID Sushma (Res) Francisco Javier 20 mg at 10/27/17 08 [MAR Hold due to Transfer] NaCl 0.9% irrigation solution 3,000 mL IRRIGATION CONTINUOUS Naty Abdelrahman Forde Roderick 3,000 mL at 10/28/17 0100 [MAR Hold due to Transfer] heparin 5,000 Units injection 5,000 Units SUBCUTANEOUS q 8 H Nelly (Res) Teresa 5,000 Units at 10/27/17 1341 [MAR Hold due to Transfer] amLODIPine 10 mg tab(s) (NORVASC) 10 mg ORAL DAILY Deep Garcia MD 10 mg at 10/27/17 08 [MAR Hold due to Transfer] allopurinol 200 mg tab(s) (ZYLOPRIM) 200 mg ORAL DAILY Franklyn (Res) Kmetz 200 mg at 10/27/17 08 [MAR Hold due to Transfer] NaCl 0.9% iv infusion 75 mL/hr INTRAVENOUS CONTINUOUS Nelly (Res) Teresa Last Rate: 75 mL/hr at 10/28/17 0549 75 mL/hr at 10/28/17 0549 [MAR Hold due to Transfer] acetaminophen 650 mg tab(s) (TYLENOL) 650 mg ORAL q 4 H PRN Franklyn (Res) Kmetz [MAR Hold due to Transfer] oxyCODONE-acetaminophen 5-325 mg 1-2 tablet (PERCOCET) 1-2 tablet ORAL q 4 H PRN Franklyn (Res) Kmetz 2 tablet at 10/24/17 1850 [MAR Hold due to Transfer] morphine 2-4 mg injection 2-4 mg INTRAVENOUS q 2 H PRN Franklyn (Res) Kmetz [MAR Hold due to Transfer] ondansetron (PF) 4 mg injection (ZOFRAN) 4 mg INTRAVENOUS q 6 H PRN Franklyn (Res) Kmetz 4 mg at 10/23/17 2211 [MAR Hold due to Transfer] docusate sodium 100 mg cap(s) (COLACE) 100 mg ORAL BID Franklyn (Res) Kmetz 100 mg at 10/27/17 0817 [MAR Hold due to Transfer] belladonna-opium 16.2-60 mg 1 Suppository suppository (B and O 16-A) 1 Suppository RECTAL TID PRN Franklyn (Res) Kmetz 1 Suppository at 10/20/17 0817 Allergies: ALLERGIES Allergen Reactions - Morphine Itching - Prednisone Other: See Comments avascular necrosis, bilat hip replacements DOS EXAM: Adequate NPO status: Yes Anesthetic risks, benefits, alternatives, personnel and consent discussed: Yes Patient agrees to proceed: Yes Previous Anesthesia: No history of adverse event. Airway Assessment: MP 3; Neck ROM: Full ROM without neurologic symptoms; Airway Evaluation: Thick neck Symptoms of Sleep Apnea: Snoring, Observed apnea, Hypertension, BMI > 35, Age over 50 (62 year old), Neck circumference > 15.75 inches and Male gender Dentition: Teeth intact Additional Physical Exam: Lungs: Patient health status unchanged since recent history and physical. See history and physical for exam findings. Cardiac: Patient health status unchanged since recent history and physical. See history and physical for exam findings. Additional Pertinent Findings: N/A Blood Products: Not anticipated for this procedure. Anesthetic Plan: General, Standard ASA Monitors Pain Management Plan: Parenteral or Oral ASA Class: 3 Other Medical Problems: ABAD but not on CPAP, takes Xeralto but stopped 7 days aGO Chronic Beta Merissa medication administered within 24 hours: N/A I have interviewed and examined the patient. I have reviewed the medical record and/or the pre-anesthesia evaluation, pertinent labs, and test results. Significant changes in the patient's condition since the History and Physical, not otherwise documented in primary service progress notes: No This contains updated information obtained within 48 hours of Surgery/Procedure. SIGNATURE: Naty Jones MD PATIENT NAME: Juan David Yancey DATE: October 28, 2017 TIME: 7:42 AM CSN: [id number] ABDOMINAL AORTA Observed: 10/04/2017 Status: F Source: [facility]TRAS[facility] 12:00 AM [facility] [place] [address] Vascular Lab - ICAVL Accredited in: Extracranial Cerebrovascular, Visceral Vascular, Vascular Screening & Peripheral Arterial & Venous Testing Otto Clave REPORT Patient: JUAN DAVID YANCEY Ord Dr: SILVESTRE MCINTOSH M.D. [id number] [age] M Status: REG CLI CARD Reason for Visit: AORTA ILLIAC OCCLUSION Service Date: 10/04/17 Access#: [id number] Procedure: ABDOMINAL AORTA ULTRASOUND Conclusions: Findings- 1. No evidence of aneurysmal disease. 2. The IVC appears to be stented with venous flow noted throughout the stented portions of the IVC. The common iliac veins appear to be stented as well. They were poorly visualized due to bowel gas overlay and scarring from a prior abdominal surgery. LATISHA Findings- 1. Right LATISHA- 1.14 2. Left LATISHA- 1.17 Abbreviated Final Report. Full Report available via Link to [employer] in [employer] Image Viewer . Electronically Signed by: RICHAR SCHNEIDER M.D. 10/11/17 1134 RICHAR SCHNEIDER M.D. cc: SILVESTRE MCINTOSH M.D. << Signature on File>> Reported By: RICHAR SCHNEIDER M.D. Signed By: RICHAR SCHNEIDER M.D. Tests performed at: [address] [address] LATISHA - ONLY Observed: 10/04/2017 Status: F Source: [facility] 12:00 [place] [address] Vascular Lab - ICAVL Accredited in: Extracranial Cerebrovascular, Visceral Vascular, Vascular Screening & Peripheral Arterial & Venous Testing Otto Clave REPORT Patient: JUAN DAVID YANCEY Sasha Dr: SILVESTRE MCINTOSH M.D. [id number] [age] M Status: REG CLI CARD Reason for Visit: AORTA ILLIAC OCCLUSION Service Date: 10/04/17 Access#: [id number] Procedure: LATISHA - ONLY Conclusions: LATISHA Findings- 1. Right LATISHA- 1.14 2. Left LATISHA- 1.17 Abbreviated Final Report. Full Report available via Link to [employer] in [employer] - [employer] Image Viewer . Electronically Signed by: RICHAR SCHNEIDER M.D. 10/11/17 1137 RICHAR SCHNEIDER M.D. cc: SILVESTRE MCINTOSH M.D. << Signature on File>> Reported By: RICHAR SCHNEIDER M.D. Signed By: RICHAR SCHNEIDER M.D. Tests performed at: [place] [address] ALLERGIES ALLERGIES DATE TYPE / CODE NAME / CODE REACTION SEVERITY SOURCE 10/19/2017 DRUG MORPHINE ITCHING [address] [address](SNOM Repository ED CT) 08/08/2012 DRUG PREDNISONE OTHER: SEE C [address] 537823(SNOM Repository ED CT) [id number] MORPHINE [facility] 6(SNOMED [facility] CT) Repository [id number] PREDNISONE [facility] 6(SNOMED [facility] CT) Repository ENCOUNTERS ENCOUNTERS ADMIT/DISCHARGE ACCOUNT NUMBER ADMITTING ENCOUNTER LOCATION SOURCE CLASS 08/16/2018 [id number] [facility] ding:POLAB3 Repository 08/08/2018 [id number] [facility] ding:POLAB3 Repository 06/19/2018 [id number] [facility] ding:LAB.FUT Repository URE 06/15/2018 [id number] [facility] ding:LAB.FUT Repository URE 03/27/2018 [id number] [facility] ding:LAB.FUT Repository URE 03/09/2018 [id number] [facility] ding:POLAB3 Repository 01/16/2018 [id number] [facility] ding:LAB.FUT Repository URE 01/06/2018 [id number] [facility] ding:LAB.FUT Repository URE 01/05/2018 [id number] Ambulatory [facility] ding:LABSPEC Repository 11/15/2017 [id number] Ambulatory [facility] Other [place] Repository 11/15/2017 [id number] Ambulatory [facility] Repository 11/15/2017/11/16/19 [id number] Ambulatory [address] Repository 10/19/2017/10/31/19 [id number] MAURISIO TERRY, Inpatient [address] Repository 10/19/2017/10/31/19 [id number] MAURISIO, Inpatient [address] MEDICAL Repository CENTERBuildi nRoom: 5118Bed: 10/19/2017/10/19/19 [id number] Emergency UNIBuilding: [address] Repository 10/04/2017 [id number] Ambulatory UNIBuilding: [facility] Repository PAYERS PAYERS ENCOUNTER GUARANTOR PAYER SUBSCRIBER SOURCE 08/16/2018 JUAN DAVID Primary JUAN DAVID SHEPHERDDOB: [place] [id number] Insurance:ANTHEMPolic [id number] Number: [facility] [address]Lhz: [id number] Repository Date:6299-18-57NX [address] () [id number], [place] [address]LA: 08/16/2018 Secondary NOT GIVENUNK Victor Insurance:SELF PAY [facility] Number: Effective Repository Date:2018-08-16 08/08/2018 JUAN DAVID Primary JUAN DAVID SHEPHERDDOB: [place] [id number] [facility] [id number][facility] [place], y Number: [facility] [address]Glj: [id number] Repository Date:4820-37-66WE [address] () [address]XQ[place]J, [place] [address]EX: 08/08/2018 Secondary NOT GIVENUNK Victor Insurance:SELF PAY [facility] Number: Effective Repository Date:2018-08-08 06/19/2018 JUAN DAVID Primary JUAN DAVID SHEPHERDDOB: [place] [id number] Insurance:ANTHEMPolic [id number] y Number: [place] [id number] Repository [address]Zua: (216) Date:7104-98-44RX [phone] () [id number], [place] [address]UF: 06/19/2018 Secondary NOT GIVENUNK [place] Insurance[facility]LF [facility]Y [facility] Effective Repository Date:2018-03-09 06/15/2018 JUAN DAVID Primary JUAN DAVID SHEPHERDDOB: [place] [id number] Insurance:ANTHEMPolic [id number] Medical Center y Number: [place] [id number] Repository [address]Sii: (216) Date:7635-49-62EB [phone] () 196140TTSBZVC, [place] [address]TC: 06/15/2018 Secondary NOT GIVENUNK [place] Insurance:SELF PAY [facility] Number: Effective Repository Date:2018-06-15 03/27/2018 JUAN DAVID Primary JUAN DAVID SHEPHERDDOB: [place] [id number] Insurance:ANTHEMPolic [id number] Medical Center y Number: [place] [id number] Repository [address]Tgs: (216) Date:1846-24-26IL [phone] () 306306LKMYIVD, [place] [address]OE: 03/27/2018 Secondary NOT GIVENUNK [place] Insurance:SELF PAY [facility] Number: Effective Repository Date:2018-03-09 03/09/2018 JUAN DAVID Primary JUAN DAVID SHEPHERDDOB: [place] [id number] Insurance:ANTHEMPolic [id number] Medical Center y Number: [place] [id number] Repository [address]Jyu: (216) Date:2842-86-23VB [phone] () 607485FERNJFY, [place] [address]YS: 03/09/2018 Secondary NOT GIVENUNK [place] Insurance:SELF PAY [facility] Number: Effective Repository Date:2018-03-09 01/16/2018 JUAN DAVID Primary JUAN DAVID SHEPHERDDOB: [place] [id number] Insurance:ANTHEMPolic [id number] Medical Center y Number: [place] [id number] Repository [address]Cid: ([phone]) Date:8877-15-91[phone] () 712164DOFEOIO [place] [address]YC: 01/16/2018 Secondary NOT GIVENUNK [place] Insurance:SELF PAY [facility] Number: Effective Repository Date:2018-01-16 01/06/2018 JUAN DAVID Primary JUAN DAVID SHEPHERDDOB: [place] [id number] [facility] [id number] Medical Center y Number: [place] [id number] Repository [address]Pui: (216) Date:0589-93-11CM [phone] () 1738[address]NINKJMV, [place] [address]TN: 01/06/2018 Secondary NOT GIVENUNK [place] Insurance:SELF PAY [facility] Number: Effective Repository Date:2018-01-06 01/05/2018 JUAN DAVID Primary JUAN DAVID SHEPHERDDOB: Victor SHEPHERDU., . Insurance:ANTHEMPolic [id number] [facility]: (216) y Number: [facility] [phone] () [id number] Repository Date:5498-85-37[address]EGYLJSS, [place] [address]OM: 01/05/2018 Secondary NOT GIVENUNK [place] Insurance:SELF PAY [facility] Number: Effective Repository Date:2018-01-05 10/19/2017 JUAN DAVID Primary JUAN DAVID SHEPHERDDOB: [facility] SHEPHERDDOB: Insurance:BLUE ACCESS [id number] [place] [address] [id number] PPOPolicy Number: Repository [facility], [id number] [place] [address]Llh: Date: (HP) 10/19/2017 [facility] Insurance:[facility], ALLPolicy Number: Repository [place] [address]Xmg: [id number] Date: (HP) 10/04/2017 [facility] [facility]: Repository [place] [address]Orq: [id number] Date: (HP)
== END ==
PROVIDERS: Visit Provider Internal Medicine Nephrology
DX: N18.3 Chronic kidney disease, stage 3 (moderate) (principal); R80.9 Proteinuria, unspecified
CPT/HCPCS: 36415; 80069; 83970; 85027

== ENCOUNTER → 2018-08-16 10:45 | Outpatient (CLI) | payer BC, SELFPAY ==
[2018-08-16 13:07] LABS: Protein, Urine (Random) 35.4 mg/dL (<11.9); Protein:Creat Ratio 207 mg/g CRE (0-200)
== END ==
PROVIDERS: Visit Provider Internal Medicine Nephrology
DX: N18.3 Chronic kidney disease, stage 3 (moderate) (principal); R80.9 Proteinuria, unspecified
CPT/HCPCS: 82570; 84156